=== PATIENT | female | born 2005 | race Caucasian/White ===

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

== ENCOUNTER → 2025-01-15 | Outpatient (CLI) | payer OTHER, SELFPAY ==
[2025-01-15 17:26] LABS: Follicle Stimulating Hormone 6.7 mIU/mL
[2025-01-17 08:09] LABS: PROGESTERONE 0.2 ng/mL (.)
== END | disposition home or self-care (01) ==
PROVIDERS: PCP Nurse Practitioner Family; Visit Provider Nurse Practitioner Women's Health
DX: N91.1 Secondary amenorrhea (principal)
CPT/HCPCS: 36415; 83001; 84144; 84439; 84443; 86376

== ENCOUNTER → 2025-03-21 | Outpatient (CLI) | payer OTHER, SELFPAY ==
--- OUTSIDE RECORDS SUMMARY | 2025-03-21 16:27 | XMS RPT_ITS | CCD ---
Author Organization [facility] Care Team Providers Care Accounts Adjustable Clerk Name Role Phone Lizy Chambers Unavailable Nati Cullen Unavailable Unavailable Unavailable Primary Care Provider Unavailabl e Unavailable Primary Care Provider Unavailabl e Lizy Chambers Primary Care Provider [phone] Lizy Chambers Primary Care Provider [phone] Loretta Painting Unavailable Unavailable Ms. Loretta Painting Attending Unavail able Reyes PEDODONTIST, Lizy Cooper Primary Care Provider [phone] Reyes BARBOSA, Lizy Cooper Primary Care Provider CHIQUITA ADHIKARI Attending Unavailable LIZY CHAMBERS Primary Care Unavailable LIZY CHAMBERS Primary Care Unavailable LIZY CHAMBERS Primary Care Unavailable LIZY CHAMBERS Primary Care Unavailable REYESRONEYA Kenneth Primary Care Unavailable RONEY CHAMBERSA Kenneth Primary Care Unavailable NAOMI CASTELAN Attending Unavail able LIZY CHAMBERS Primary Care Unavailable KWAKU PETTIT DO Primary Care Unavailable KAWKU PETTIT DO Attending Unavailable REYES, LIZY Consulting Unavailable KWAKU PETTIT DO Admitting Unavailable REYESRONEYA Referring Unavailable PROVIDER, UNKNOWN Consulting Unavailable REYES, LIZY Consulting Unavailable CLEMENTE BATES APRN Admitting Unavailable CLEMENTE BATES APRN Primary Care Unavailable CLEMENTE BATES APRN Attending Unavailable PROVIDER, UNKNOWN Consulting Unavailable REYES, LIZY Consulting Unavailable JANA, CLEMENTE FIRE PREVENTION SPECIALIST Admitting Unavailable JANA, CLEMENTE FIRE PREVENTION SPECIALIST Primary Care Unavailable CLEMENTE BATES APRN Attending Unavailable PROVIDER, UNKNOWN Consulting Unavailable CLEMENTE BATES APRN Attending Unavailable CLEMENTE BATES APRN Admitting Unavailable JANA, CLEMENTE FIRE PREVENTION SPECIALIST Primary Care Unavailable REYES, LIZY Consulting Unavailable PROVIDER, UNKNOWN Consulting Unavailable SHILOH, SUDEEP E Primary Care Unavailable SHILOH, SUDEEP E Attending Unavailable SHILOH, SUDEEP E Admitting Unavailable REYES, LIZY Consulting Unavailable REYES, LIZY Referring Unavailable PROVIDER, UNKNOWN Consulting Unavailable KWAKU PETTIT DO Primary Care Unavailable KWAKU PETTIT DO Attending Unavailable KWAKU PETTIT DO Admitting Unavailable REYES, LIZY Consulting Unavailable REYES, LIZY Referring Unavailable PROVIDER, UNKNOWN Consulting Unavailable REYES, LIZY Consulting Unavailable LEMASTERS, QUINN D Primary Care Unavailable LEMASTERSQUINN D Attending Unavailable LEMASTERS, QUINN D Admitting Unavailable REYES, LIZY Referring Unavailable PROVIDER, UNKNOWN Consulting Unavailable REYES, LIZY Referring Unavailable SHILOH, SUDEEP E Primary Care Unavailable SHILOH, SUDEEP E Attending Unavailable REYES, LIZY Consulting Unavailable SHILOH, SUDEEP E Admitting Unavailable PROVIDER, UNKNOWN Consulting Unavailable SOLORZANO, JOHAN C Primary Care Unavailable SOLORZANO, JOHAN C Attending Unavailable REYES, LIZY Consulting Unavailable SOLORZANO, JOHAN C Admitting Unavailable REYES, LIZY Referring Unavailable PROVIDER, UNKNOWN Consulting Unavailable Reyes GILL TENDER-C, Lizy Primary Care Provider Reyes GILL TENDER-C, Lizy Referring Provider [phone] [place] GILL TENDER-C, Mahogany Attending Provider Brinda GILL TENDER-C, [place] Referring Provider Reyes GILL TENDER-C, Lizy Primary Care Physician [place] GILL TENDER-C, [place] Attending Physician Brinda GILL TENDER, [place] Attending Unavailable Reyes, Lizy Primary Care Unavailable Brinda GILL TENDER, [place] Attending Unavailable Reyes, Lizy Primary Care Unavailable [place] GILL TENDER, [place] Attending Unavailable Reyes, Lizy Primary Care Unavailable Reyes, Lizy Referring Unavailable Reyes, Lizy Primary Care Unavailable Brinda GILL TENDER, [place] Attending Unavailable Reyes, Lizy Referring Unavailable FloresSeferino Attending Unavailable Reyes, Lizy Primary Care Unavailable Bee, Jacobo Attending Unavailable Reyes, Lizy Primary Care Unavailable Brinda GILL TENDER, [place] Attending Unavailable Brinda GILL TENDER, [place] Referring Unavailable Reyes, Lizy Primary Care Unavailable Allergies Allergy Classification Reported Allergen(s) Allergy Type Date of Onset Reaction(s) Facility (1 source) medroxyPROGESTERone Drug Allergy 5 Diarrhea [facility] (1 source) medroxyPROGESTERone Drug Allergy 5 [facility] Repository Medications Current Medications Medication Drug Class(es) Dates Sig (Normalized) Sig (Original) amoxicillin 875 mg oral tablet (3 sources) Penicillin-class Antibacterial Start: 05-25-2023 End: 06-04-2023 take 1 tablet by mouth twice daily amoxicillin (AMOXIL) 875 mg tablet Indications: Acute otitis media, bilateral Take 1 tablet by mouth two times a day for 10 days. 20 tablet 0 05/25/2023 06/04/2023 Active Start: 02-27-2023 End: 03-06-2023 take 1 tablet by mouth twice daily amoxicillin (AMOXIL) 875 mg tablet Take 1 tablet by mouth two times a day for 7 days. 14 tablet 0 02/27/2023 03/06/2023 Active Start: 12-23-2021 End: 12-30-2021 take 1 tablet by mouth twice daily amoxicillin (AMOXIL) 875 mg tablet Take 1 tablet by mouth twice daily for 7 days. 14 tablet 0 12/23/2021 12/30/2021 Active Comment on above: Take 1 tablet by rich th twice daily for 7 days. Take 1 tablet by rich two times a day for 7 days. Take 1 tablet by rich th two times a day for 10 days. cephalexin 500 mg oral capsule (2 sources) Cephalosporin Antibacterial Start: 01-17-20 End: 01-24-20 take 1 capsule by mouth twice daily cephALEXin (KEFLEX) 500 mg capsule Take 1 capsule by mouth twice daily for 7 days. 14 capsule 0 01/16/2022 01/23/2022 Active Comment on above: Take 1 capsule by mo [facility] twice daily for 7 days. Ethinyl Estradiol / Ferrous fumarate / Norethindrone (8 sources) Estrogen Start: 10-14-19 End: 03-17-20 take 1 tablet by mouth once daily CELESTE FE 1.5/30, 28, 1.5 mg-30 mcg (21)/75 mg (7) tablet Take 1 tablet by mouth once daily. 0 10/13/2021 03/17/2022 Discontinued Start: 10-13-2021 take 1 tablet by rich th once daily CELESTE FE 1.5/30, 28, 1.5 mg-30 mcg (21)/75 mg (7) tablet Take 1 tablet by mouth once daily. 0 10/13/2021 Active Comment on above: Take 1 tablet by rich th once daily. Ethinyl Estradiol / norgestimate (5 sources) Progestin, Estrogen Start: 02-07-2022 End: 03-17-2022 SPRINTEC 0.25-35 mg-mcg per tablet Start: 02-07-2022 SPRINTEC 0.25- 35 mg-mcg per tablet fluconazole 150 mg oral tablet (4 sources) Azole Antifungal Start: 10-18-2023 End: 10-18-2023 take 1 tablet by mouth once fluconazole (DIFLUCAN) 150 mg tablet Take 1 tablet by mouth one time only for 1 dose. 1 tablet 0 10/18/2023 10/18/2023 Active Start: 12-01-2022 End: 12-01-2022 take 1 tablet by mouth once fluconazole (DIFLUCAN) 150 mg tablet Take 1 tablet by mouth one time only for 1 dose. 1 tablet 0 12/01/2022 12/01/2022 Start: 02-11-2022 End: 02-12-2022 take 1 tablet by mouth once daily fluconazole (DIFLUCAN) 150 mg tablet Take 1 tablet by mouth once daily for 1 day. 1 tablet 0 02/11/2022 02/12/2022 Active Comment on above: Take 1 tablet by rich th once daily for 1 day. Take 1 tablet by rich th one time only for 1 dose. multivit with iron,minerals (MULTIVITAMIN AND MINERALS ORAL) (1 source) take 1 tablet by mouth once daily multivit with iron,minerals (MULTIVITAMIN AND MINERALS ORAL) Take 1 tablet by mouth once daily. Active norethindrone acetate 5 mg oral tablet (7 sources) Start: 02-14-20 24 norethindrone (AYGESTIN) 5 mg tablet Indications: abnormal uterine bleeding due to hormonal imbalance Take 1 tablet TID until bleeding stops for 24 hours, the BID x 3 days, then daily x 3 days. 35 tablet 02/14/2024 Active polyethylene glycol 3350 70603 mg powder for oral solution (20 sources) Osmotic Laxative Start: 04-29-19 12 Polyethylene Glycol 3350 (MIRALAX) 17 gram/dose ORAL powder Take by mouth. 2-3 tablespoons daily. 1 Bottle 3 04/29/2011 Active Comment on above: Take by mouth. 2-3 t ablespoons daily. predniSONE 10 mg oral tablet (1 source) Start: 07-14-19 predniSONE (DELTASONE) 10 mg tablet Take 4 tabs daily for 3 days, then 2 tabs daily for 3 days, then 1 tab daily for 3 days with food. 21 tablet 07/13/2024 Active progesterone 100 mg oral capsule (1 source) Progesterone Start: 01-16-20 triamcinolone acetonide 1 mg/ml topical cream (2 sources) Corticosteroid Start: 08-04-19 End: 08-11-19 triamcinolone acetonide (KENALOG) 0.1 % cream Apply 1 application to affected area three times a day for 7 days. Apply sparingly to area for rash/itching. 80 g 0 08/04/2023 08/11/2023 Active Start: 12-23-2022 End: 12-30-2022 triamcinolone acetonide (OSVALDO ALOG) 0.1 % cream Apply 1 application to affected area twice daily for 7 days. Apply sparingly to area for rash/itching. 45 g 0 12/23/2022 12/30/2022 Active Comment on above: Apply 1 application to affected area twice daily for 7 days. Apply sparingly to area for rash/itching. Completed/Discontinued Medications Medication Drug Class(es) Dates Sig (Normalized) Sig (Original) cetirizine hydrochloride 10 mg oral tablet (20 sources) Histamine-1 Receptor Antagonist Start: 10-15-19 End: 02-14-20 take 1 tablet by mouth once daily at bedtime cetirizine (ZYRTEC) 10 mg tablet Take 10 mg by mouth daily at bedtime. 10/14/2021 02/14/2024 Discontinued Comment on above: Take 10 mg by mouth daily at bedtime. 21 day ethinyl estradiol 0.793642 mg/hr / etonogestrel 0.005 mg/hr vaginal system (3 sources) Progestin, Estrogen Start: 10-18-19 End: 10-18-19 Etonogestrel-Ethinyl Estradiol (NUVARING) 0.12-0.015 mg/24 hr vaginal ring Use 1 Each vaginally as directed. INSERT ONE(1) RING VAGINALLY AND LEAVE IN PLACE FOR THREE WEEKS, THEN REMOVE FOR 1 WEEK. 3 Each 4 10/18/2023 02/14/2024 Discontinued fluticasone propionate 0.05 mg/actuat metered dose nasal spray (20 sources) Corticosteroid Start: 09-05-19 End: 02-14-20 take 1 spray(s) nasal route once daily fluticasone (FLONASE) 50 mcg/actuation nasal spray Use 1 [place] in each nostril once daily. 1 Bottle 0 09/04/2014 02/14/2024 Discontinued Comment on above: Use 1 [place] in each nostril once daily. levonorgestrel 0.000326 mg/hr intrauterine system (13 sources) Progestin, Progestin-contain ing Intrauterine Device Start: 03-31-20 End: 03-30-20 levonorgestrel (KYLEENA) 17.5 mcg/24 hrs (5 yrs) 19.5 mg IUD Indications: Encounter for IUD insertion 1 Each by INTRAUTERINE route as directed. 1 Each 0 03/31/2022 10/18/2023 Discontinued Comment on above: 1 Each by INTRAUTERI NE route as directed. medroxyPROGESTERone acetate 10 mg oral tablet (6 sources) Progestin Start: 11-14-19 End: 01-16-20 Medroxyprogesterone 10 mg tablet Discontinued 10 mg PO daily 10 10 2 November 13, 2024 12:00am January 15, 2025 3:27pm Take daily X 10 days to induce menses first 10 days of each month Start: 10-19-2024 End: 10-29-2024 take 1 tablet by mouth once daily Medroxyprogesterone 10 mg tablet Discontinued 10 mg PO daily 10 10 0 October 19, 2024 12:00am October 28, 2024 12:00am October 29, 2024 12:08am Start: 03-17-2022 take 1 tablet by rich th once daily medroxyPROGESTERone (PROVERA) 10 mg tablet Indications: Irregular menstrual cycle Take 1 tablet by mouth once daily. 10 tablet 0 03/17/2022 Active Comment on above: Take 1 tablet by rich th once daily. miSOPROStol 0.2 mg oral tablet (7 sources) Prostaglandin E1 Analog Start: 03-13-2022 miSOPROStol (CYTOTEC) 200 mcg tablet Indications: General counseling and advice for contraceptive management Insert 2 tablets vaginally night prior to IUD insertion and 2 tablets morning of procedure. Each dose should be in vagina for 6-8 hours. 4 tablet 0 03/13/2022 Active Comment on above: Insert 2 tablets vag inally night prior to IUD insertion and 2 tablets morning of procedure. Each dose should be in vagina for 6-8 hours. nitrofurantoin, macrocrystals 25 mg / nitrofurantoin, monohydrate 75 mg oral capsule (11 sources) Nitrofuran Antibacterial Start: 02-06-2022 nitrofurantoin monohydrate and macrocrystal (MACROBID) 100 mg capsule Start: 08-22-2021 End: 08-26-2021 take 1 capsule by mouth twice daily at mealtime Macrobid 100 mg oral capsule ; 1 cap(s) orally 2 times a day x 5 days. Take with food. Quantity: 10 Refills: 0 Ordered: 22-Aug-2021 Nati Cullen Start: 22-Aug-2021 End: 26-Aug-2021 Generic Substitution Allowed Comments: Finish all this medication unless otherwise directed by prescriber.May discolor urine or feces.Take with food or milk. Comment on above: Finish all this medi cation unless otherwise directed by prescriber.May discolor urine or feces.Take with food or milk. ondansetron 4 mg disintegrating oral tablet (13 sources) Serotonin-3 Receptor Antagonist Start: End: take 1 tablet by mouth every six hours as needed for nausea ondansetron orally disintegrating (ZOFRAN ODT) 4 mg disintegrating tablet Indications: Nausea and vomiting, unspecified vomiting type Take 1 tablet by mouth every 6 hours as needed for nausea/vomiting. 12 tablet 05/05/2023 02/14/2024 Discontinued Start: 06-30-2022 take 1 tablet by rcih th every six hours as needed for nausea ondansetron orally disintegrating (ZOFRAN ODT) 4 mg disintegrating tablet Indications: Flu-like symptoms Take 1 tablet by mouth every 6 hours as needed for nausea/vomiting. 8 tablet 0 06/30/2022 Active Comment on above: Take 1 tablet by rich th every 6 hours as needed for nausea/vomiting. 24 hr propranolol hydrochloride 60 mg extended release oral capsule (11 sources) beta-Adrenergic Romle End: take 1 capsule by mouth once daily propranolol ER (INDERAL LA) 60 mg 24 hr capsule propranolol ER 60 mg capsule,24 hr,extended release TAKE 1 CAPSULE BY MOUTH ONCE DAILY 02/14/2024 Discontinued Comment on above: propranolol ER 60 mg capsule,24 hr,extended release TAKE 1 CAPSULE BY MOUTH ONCE DAILY Problems Active Problems Problem Classification Problem Date Documented Date Episodic/Chronic Allergic reactions (1 source) Contact dermatitis; Translations: [Unspecified contact dermatitis, unspecified cause] 12-23-2022 Episodic Cardiac dysrhythmias (4 sources) Tachycardia; Translations: [Tachycardia, unspecified] 03-03-2024 Episodic Conditions associated with dizziness or vertigo (1 source) Dizziness and giddiness; Translations: [Dizziness and giddiness] Onset: 06-01-2024 Episodic E Codes: Fall (1 source) Fall on same level due to ice and snow, initial encounter; Translations: [Fall on same level due to ice and snow, initial encounter] Onset: 05-05-2024 Episodic E Codes: Natural/environment (1 source) Overexertion from strenuous movement or load, initial encounter; Translations: [Overexertion from strenuous movement or load, init] Onset: 11-14-2022 Episodic Essential hypertension (1 source) Essential (primary) hypertension; Translations: [Essential (primary) hypertension] Onset: 06-01-2024 Chronic Genitourinary symptoms and ill-defined conditions (5 sources) Dysuria; Translations: [Dysuria] 08-22-2021 Episodic Headache; including migraine (4 sources) Migraine; Translations: [Migraine, unspecified, not intractable, without status migrainosus] 01-23-2024 Chronic Headache; including migraine (2 sources) Headache; Translations: [Headache, unspecified headache type] 07-13-2024 Episodic Menstrual disorders (13 sources) Irregular periods; Translations: [Irregular menstruation, unspecified] Onset: 10-19-2024 Chronic Mood disorders (1 source) Emotional lability; Translations: [Emotional lability] Onset: 06-01-2024 Episodic Other circulatory disease (1 source) Postural orthostatic tachycardia syndrome ; Translations: [Postural orthostatic tachycardia syndrome [POTS]] Onset: 06-01-2024 Episodic Other endocrine disorders (2 sources) Polycystic ovarian syndrome; Translations: [Polycystic ovarian syndrome] Onset: 06-01-2024 Chronic Other endocrine disorders (8 sources) Polycystic ovary syndrome; Translations: [Polycystic ovarian syndrome] 10-19-2024 Chronic Other female genital disorders (1 source) Unspecified dyspareunia; Translations: [Unspecified dyspareunia] Onset: 01-05-2024 Chronic Other female genital disorders (4 sources) Abnormal vaginal bleeding; Translations: [Abnormal uterine and vaginal bleeding, unspecified] 03-03-2024 Chronic Other female genital disorders (1 source) Abnormal uterine and vaginal bleeding, unspecified; Translations: [Abnormal uterine and vaginal bleeding, unspecified] Onset: 03-22-2024 Chronic Other female genital disorders (3 sources) Vaginal discharge; Translations: [Other specified noninflammatory disorders of vagina] 12-01-2022 Episodic Other female genital disorders (1 source) History of gynecological disorder; Translations: [Personal history of other diseases of the female genital tract] 02-17-2023 Episodic Other female genital disorders (1 source) Pruritus of vagina; Translations: [Other specified noninflammatory disorders of vagina] 10-18-2023 Episodic Other female genital disorders (1 source) Vaginal odor; Translations: [Other specified noninflammatory disorders of vagina] 02-14-2024 Episodic Other injuries and conditions due to external causes (1 source) Unspecified injury of left shoulder and upper arm, initial encounter; Translations: [Unsp injury of left shoulder and upper arm, init encntr] Onset: 11-14-2022 Episodic Other lower respiratory disease (2 sources) Cough; Translations: [Acute cough] 03-02-2024 Episodic Other non-traumatic joint disorders (2 sources) Pain in left elbow; Translations: [Pain in left elbow] Onset: 11-14-2022 Episodic Other non-traumatic joint disorders (1 source) Pain in left shoulder; Translations: [Pain in left shoulder] Onset: 11-14-2022 Episodic Other nutritional; endocrine; and metabolic disorders (1 source) Polydipsia; Translations: [Polydipsia] Onset: 06-01-2024 Episodic Other skin disorders (1 source) Eruption; Translations: [Rash and other nonspecific skin eruption] 08-04-2023 Episodic Other upper respiratory infections (2 sources) Sore throat symptom; Translations: [Acute pharyngitis, unspecified] 03-02-2024 Episodic Otitis media and related conditions (3 sources) Acute right otitis media; Translations: [Otitis media, unspecified, right ear] Episodic Ovarian cyst (1 source) Cyst of right ovary; Translations: [Unspecified ovarian cyst, right side] 12-01-2022 Episodic Residual codes; unclassified (1 source) Influenza-like symptoms; Translations: [Other general symptoms and signs] Episodic Sprains and strains (2 sources) Sprain of left shoulder; Translations: [Sprains and strains of unspecified site of shoulder and upper arm] Onset: 11-14-2022 11-14-2022 Episodic Substance-related disorders (1 source) Nicotine dependence, other tobacco product, uncomplicated; Translations: [Nicotine dependence, other tobacco product, uncomplicated] Onset: 05-05-2024 Chronic Superficial injury; contusion (1 source) Contusion of right shoulder, initial encounter; Translations: [Contusion of right shoulder, initial encounter] Onset: 05-05-2024 Episodic Syncope (4 sources) Syncope; Translations: [Syncope and collapse] 01-23-2024 Episodic Unclassified (2 sources) LEFT SHOULDER INJURY 11-14-2022 Comment on above: LEFT SHOULDER INJURY Unclassified (1 source) Sprain of left shoulder 11-14-2022 Unclassified (1 source) Acute cough; Translations: [Acute cough] Onset: 03-02-2024 Urinary tract infections (2 sources) Urinary tract infections 08-22-2021 Comment on above: POSSIBLE UTI Past or Other Problems Problem Classification Problem Date Documented Da te Episodic/Chronic Abdominal pain (13 sources) Vaginal pain; Translations: [Pelvic and perineal pain] Onset: 10-19-2024 Episodic Contraceptive and procreative management (6 sources) Patient encounter status; Translations: [Encounter for other general counseling and advice on contraception] Onset: 10-18-2023 Episodic Epilepsy; convulsions (20 sources) Simple febrile seizure; Translations: [Simple febrile convulsions] Onset: 11-02-2008 11-02-2008 Episodic Fracture of upper limb (20 sources) Closed fracture of lower end of humerus; Translations: [Unspecified fracture of lower end of unspecified humerus, initial encounter for closed fracture] Onset: 03-13-2009 03-13-2009 Episodic Other non-traumatic joint disorders (7 sources) Pain in right shoulder; Translations: [Right shoulder pain] Onset: 05-05-2024 Episodic Results Test Name Value Interpretation Reference Range Facility PROGESTERONE 4317on 01-18-20 PROGESTERONE 0.2 ng/mL Normal . [facility] Comment on above: Order Comment: N Result Comment: Foll icular phase 0.1 - 0.9 Luteal phase 1.8 - 23.9 Ovulation phase 0.1 - 12.0 First trimester 11.0 - 44.3 Second trimester 25.4 - 83.3 Third trimester 58.7 - 214.0 Postmenopausal 0.0 - 0.1 Performed at: [address] [id number] Ring Spinner: Rainer Crane PhD, Phone: [phone] Performed By: #### L [id number], L506.0400, L3100.5125, [id number], L3514.2217 #### [facility] [address] [place], [address] Thyroid Peroxidase ABon - THYR PEROX AB < 9 Normal 0-26 [facility] Comment on above: Result Comment: Perf ormed at: [address] [id number] Ring Spinner: Rainer Crane PhD, Phone: [phone] Performed By: #### L [id number], L506.0400, L3100.5125, L801.2600, L3740.6625 #### [facility] [address] [place], [address] Follicle Stimulating Hormone on 01-15-2025 FSH 6.7 mIU/mL Normal [facility] Comment on above: Result Comment: FEMA LE: Follicular: 1.4 - 18.1 mIU/mL Midcycle: 3.4 - 33.4 mIU/mL Luteal: 1.5 - 9.1 mIU/mL Post Menopause: 23.0 - 116.3 mIU/mL MALE: 1.4 - 18.1 mIU/mL Performed By: #### L [id number], L506.0400, L3100.5125, L801.2600, L3300.6900 #### [facility] [address] [place], [address] 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 Visit Reporton 01-15-2025 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 Office Visit Report [facility] [address], [address] [place] [address] OFFICE VISIT Date of Service: 01/15/25 MR#: [id number] Acct: [id number] Name: CLARISSE MOLINA Rep #: [id number] : 2005 Provider: NICCI carrion Age/Sex: 19/F [place] [facility] [place]: Signed Intake Vital Signs 10/19/24 11:41 01/15/25 15:16 01/15/25 15:20 Height 5 ft 5 in 5 ft 5 in 5 ft 5 in Weight: 204 lb 7 oz BMI 34.0 BP 134/83 H Intake Visit Reasons: 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 [employer] Required: No Is patient in pain?: No Allergies medroxyprogesterone Adverse Reaction (Mild, Verified 01/15/25 15:27) Diarrhea Medications ???Medication ???Instructions ???Recorded ???Confirmed ???Type progesterone micronized 100 mg 100 mg PO .COMPLEX #20 caps 01/15/25 Rx capsule (Prometrium) Is last menstrual period known: Yes Last Menstrual Period: 12/24/24 Post menopausal: No Patient : No : No PFSH Medical History PCOS (polycystic ovarian syndrome) Essential tremor Surgical History Hx of shoulder surgery History of tonsillectomy and adenoidectomy Family History Grandmother Cancer, Onset Age: 32 Paternal- Cervical Grandfather Cancer Maternal- Throat, lung Social History current occupational status: employed current occupation: [employer] Smoking Status: Current every day smoker tobacco type: e-cigarettes substance use type: does not use seatbelt use: always do you feel safe at home: Yes HPI 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 Details: CLARISSE MOLINA is a 19 year old who presents for follow up infertility. She took provera in November and December and did have a normal menses. She attempted to take it again this month but realized that the last couple of months when she is on medication, she has terrible migraine headache and diarrhea which symptoms subside as soon as she stops the medication. She does not want to use the provera. Female Reproductive History Last Menstrual Period: 12/24/24 History 0 Elective abortions Hx Para Spontaneous abortions Hx # Term Pregnancies Ectopic pregnancies Hx # Pregnancies Multiple births # of living children ROS Const Constitutional: Reports system reviewed and no additional complaints, except as documented Eyes Eyes: Reports system reviewed and no additional complaints, except as documented GI GI: Denies abdominal pain or change in bowel habits : Reports as per HPI Exam Const General: cooperative and no acute distress Orientation: oriented x3 HENMT Head: normal to inspection and normocephalic Eyes General: appearance normal, both eyes and all related structures Neck Neck: normal visual inspection Resp Effort Inspection: normal respiratory effort Neuro Cognition: normal cognition Speech: speech normal Psych Appearance: grossly normal Mood: congruent mood Affect: normal affect Speech and Movement: speech and movement normal Attitude: cooperative Judgment: judgment good Coding Level of Care Code Off vis,est,level 3 Diagnoses Secondary amenorrhea N91.1 Assessment and Plan Assessment and Plan (1) Secondary amenorrhea: Status: Acute Orders: Orders Thyroid Stim Hormone (TSH) Today N91.1 - Secondary amenorrhea, Z13.29 - Encounter for screening for other suspected endocrine disorder Free T4 Today N91.1 - Secondary amenorrhea Thyroid Peroxidase AB Today N91.1 - Secondary amenorrhea PROGESTERONE Today N91.1 - Secondary amenorrhea Follicle Stimulating Hormone Today N91.1 - Secondary amenorrhea Medications: New progesterone micronized (Prometrium) 100 mg orally first 10 days each month; 20 caps 1RF Discontinued medroxyprogesterone Take daily X 10 days to induce menses first 10 days of each month Discontinued Reason: Order Changed 10 mg PO QDAY 10 days 10 tabs 2RF Plan See labs pending Will change to prometrium first 10 days each month. Management dependent on above. Consider letrozole 01/15/25 1606 Date Mahogany Brinda GILL TENDER GILL TENDER-C Cosigner Signature: Date (if applicable) CC: Normal [facility] T4 Free Directon 01-15-2025 T4 FREE DIRECT 1.20 ng/dL Normal 0.76-1.46 [facility] Comment on above: Order Comment: N Performed By: #### L 501.9520, L506.0400, L3100.5125, L801.2600, L3300.6900 #### [facility] [address] [place], [place], [id number] T4 freeOrdered By: Mahogany fried on 01-15-2025 Free T4 [Mass/Vol] 1.20 ng/dL 0.76-1.46 [facility] TSH DL <= 0.005 mIU/L QnOrde red By: Mahogany Parry on 01-15-2025 TSH Qn 1.560 uIU/mL 0.500-4.300 [facility] Thyroid Stim Hormone (TSH)on 01-15-2025 TSH 1.560 uIU/mL Normal 0.500-4.300 [facility] Comment on above: Performed By: #### L 501.9520, L506.0400, L3100.5125, L801.2600, L3300.6900 #### [facility] [address] [place], [place], [id number] 17-Hydroxyprogesteroneon 17ALPHA [place]-PROG 54 ng/dL Normal . [facility] Comment on above: Order Comment: Test( s) [id number] Progesterone LCMSwas developed and its performance characteristicsdetermined by [employer]. It has not been cleared or approvedby the Food and Drug Administration.N Result Comment: Adul t Female Follicular 15 - 70 Luteal 35 - 290 Performed By: #### L 801.2600, L3100.9000, L501.9985, L3100.5170, L3100.5400, L3300.1500, L3400.4800 ####[facility] [address] [place], [address] PROGESTERONE 4317on 10-25-19 PROGESTERONE 0.1 ng/mL Normal . [facility] Comment on above: Order Comment: Test( s) [id number] Progesterone LCMSwas developed and its performance characteristicsdetermined by [employer]. It has not been cleared or approvedby the Food and Drug Administration.N Result Comment: Foll icular phase 0.1 - 0.9 Luteal phase 1.8 - 23.9 Ovulation phase 0.1 - 12.0 First trimester 11.0 - 44.3 Second trimester 25.4 - 83.3 Third trimester 58.7 - 214.0 Postmenopausal 0.0 - 0.1 Performed at: [address] [id number] Ring Spinner: Michael Waller MD, Phone: [phone] Performed at: [address] [id number] Ring Spinner: Rainer Crane PhD, Phone: [phone] Performed By: #### L 801.2600, L3100.9000, L501.9985, L3100.5170, L3100.5400, L3300.1500, L3400.4800 ####[facility] [address] [place], [address] DHEA Sulfateon 10-23-2024 DHEA SULFATE 120.0 ug/dL Normal 110.0-433.2 [facility] Comment on above: Order Comment: N Performed By: #### L 801.2600, L3100.9000, L501.9985, L3100.5170, L3100.5400, L3300.1500, L3400.4800 ####[facility] [address] [place], [place], [id number] PROLACTIN 4465on 10-23-2024 PROLACTIN 9.9 ng/mL Normal 4.8-33.4 [facility] Comment on above: Performed By: #### L 801.2600, L3100.9000, L501.9985, L3100.5170, L3100.5400, L3300.1500, L3400.4800 ####[facility] [address] [place], [place], [address] Pelvic w/ Transvaginalon Pelvic w/ Transvaginal [facility] [address] [place], [place] [address] Pelvic w/ Transvaginal MR#: [id number] Acct: [id number] Name: CLARISSE MOLINA Rep #: [id number] : 2005 F 19 From: Papa oleary MD PCP: NICCI Malik Status: REG CLI Study: Pelvic w/ Transvaginal Date of Exam: 10/23/24 Exam# [id number] Ordering Dr: Mahogany Parry NP GILL TENDER -C PROCEDURE: PELVIC W/ TRANSVAGINAL REASON FOR EXAM: PELVIC PAIN 2 year history of pelvic pain. TECHNIQUE: PELVIC W/ TRANSVAGINAL COMPARISON: None FINDINGS: Measurements: Uterus: 6.9 cm x 4.1 cm x 3.1 cm with a volume of 45.15 mL Endometrial Thickness: 8.4 mm. It is hyperechoic. Right Ovary: 3.7 cm x 2 cm x 2.1 cm with a volume of 7.77 mL. Left Ovary: 3.4 cm x 2.2 cm x 2.0 cm with a volume of 7.57 mL. TRANSABDOMINAL: Uterus: Normal size, myometrial echotexture, and contour. Endometrium: Homogeneously thickened. Right ovary: Multiple small follicles in the periphery of the ovary. Left ovary: Multiple small follicles are seen in the periphery of the ovary. Other: No large pelvic mass identified. Transvaginal sonography was performed to better visualize the endometrium. TRANSVAGINAL: Uterus: Anteverted. Normal contour and myometrial echotexture. Endometrium: Normal echotexture. Right ovary: Multiple small follicles are seen in the periphery of the ovary. Left ovary: Multiple small follicles are seen in the periphery of the ovary. Other adnexal findings: None. Cul-de-sac: No free intraperitoneal fluid identified. Tenderness: No tenderness US/Pelvic w/ Transvaginal IMPRESSION: Findings suggestive of polycystic ovaries. Reading Location: [place] [address] CC: NICCI Chambers; NICCI Parry Insulation Cutter: Signed Normal [facility] Testosterone Freeon 10-24-19 25 TESTOSTER FREE 0.9 pg/mL Normal Not Estab. [facility] Comment on above: Result Comment: Perf ormed at: CB - [facility] [address] [id number] Ring Spinner: Rainer Crane PhD, Phone: [phone] Performed at: - [facility] [address] [id number] Ring Spinner: Michael Waller MD, Phone: [phone] Performed By: #### L 801.2600, L3100.9000, L501.9985, L3100.5170, L3100.5400, L3300.1500, L3400.4800 ####[facility] [address] [place], [address] Hemoglobin A1con 10-19-2024 HbA1c (Bld) [Mass fraction] 5.3 % Normal <=5.6 [facility] Comment on above: Result Comment: Norm al < 5.7 % Prediabetic 5.7 - 6.4 % Diabetic >or= 6.5 % Please note range changes. Performed By: #### L 801.2600, L3100.9000, L501.9985, L3100.5170, L3100.5400, L3300.1500, L3400.4800 #### [facility] [address] [place], [address] Hemoglobin A1c percentageOrd ered By: Mahogany Parry on 10-19-2024 HbA1c (Bld) [Mass fraction] 5.3 % <5.7 [facility] Comment on above: Normal < 5.7 % Predi abetic 5.7 - 6.4 % Diabetic >or= 6.5 % Please note range changes. LH ser/plasOrdered By: Mahogany Parry on 10-19-2024 Lutropin Qn 19.9 m[IU]/mL [facility] Comment on above: FEMALE:Follicular: 1 .9-12.5 mIU/mLMidcycle: 8.7-76.3 mIU/mLLuteal: 0.5-16.9 mIU/mLPost Menopause: 15.9-54.0 mIU/mLMALE:20-70 Years: 1.5-9.3 mIU/mL>70 Years: 3.1-34.6 mIU/mL Laboratory - Chemistry and C hemistry - challengeOrdered By: Mahogany Parry on 10-19-2024 HCG ( test) Ql (U) Negative [facility] Luteinizing Hormoneon 2024 LH 19.9 mIU/mL Normal [facility] Comment on above: Result Comment: FEMA LE: Follicular: 1.9-12.5 mIU/mL Midcycle: 8.7-76.3 mIU/mL Luteal: 0.5-16.9 mIU/mL Post Menopause: 15.9-54.0 mIU/mL MALE: 20-70 Years: 1.5-9.3 mIU/mL >70 Years: 3.1-34.6 mIU/mL Performed By: #### L 801.2600, L3100.9000, L501.9985, L3100.5170, L3100.5400, L3300.1500, L3400.4800 ####[facility] [address] 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) Allergies No Known Allergies Allergy (Verified 10/19/24 11:08) Medications ???Medication ???Instructions ???Recorded ???Confirmed ???Type medroxyprogesterone 10 mg tablet 10 mg PO QDAY 10 days #10 tabs 02/0310/19/24 Rx PFSH Medical History (Updated 10/19/24 @ 11:11 by Mahogany Parry NP, NICCI) PCOS (polycystic ovarian syndrome) Essential tremor Surgical History Hx of shoulder surgery History of tonsillectomy and adenoidectomy Family History (Updated 10/19/24 @ 10:57 by Pearl Wren) Grandmother Cancer, Onset Age: 32 Paternal- Cervical Grandfather Cancer Maternal- Throat, lung Social History (Updated 10/19/24 @ 10:58 by Pearl Wren) current occupational status: employed current occupation: [employer] Smoking Status: Current every day smoker tobacco type: e-cigarettes substance use type: does not use seatbelt use: always do you feel safe at home: Yes HPI Encounter for routine gynecological examination Details: CLARISSE MOLINA is a 19 year old who presents for new patient discussion of no menses several years. States was seen 3-4 mo ago at [facility] for same issue. States no labs done. Was told PCOS and needed to be on oral contraceptives. States she wants . Same partner X 2 years. Has had negative STD testing in past and she is his only past partner. States she had an IUD and was given a medication to start menses prior to insertion but did not get them. She has not used contraception or condoms over 1 year. History 0 Elective abortions Hx Para Spontaneous abortions Hx # Term Pregnancies Ectopic pregnancies Hx # Pregnancies Multiple births # of living children ROS Const Constitutional: Reports system reviewed and no additional complaints, except as documented Eyes Eyes: Reports system reviewed and no additional complaints, except as documented GI GI: Denies abdominal pain or change in bowel habits : Reports as per HPI Exam Const General: cooperative and no acute distress Orientation: oriented x3 HENMT Head: normal to inspection and normocephalic Eyes General: appearance normal, both eyes and all related structures Neck Neck: normal visual inspection Resp Effort Inspection: normal respiratory effort Neuro Cognition: normal cognition Speech: speech normal Psych Appearance: grossly normal Mood: congruent mood Affect: normal affect Speech and Movement: speech and movement normal Attitude: cooperative Judgment: judgment good Results POC Urine Office , Urine Negative Last Edit by Pearl Wren on 10/19/24 11:20 Coding Level of Care Code Off vis,new,level 4 Diagnoses Secondary amenorrhea N91.1 PCOS (polycystic ovarian syndrome) E28.2 Pelvic pain R10.2 Assessment and Plan Assessment and Plan (1) Secondary amenorrhea: Status: Acute (2) PCOS (polycystic ovarian syndrome): Status: Acute (3) Pelvic pain: Status: Acute Orders: Orders POC Urine Today E28.2 - Polycystic ovarian syndrome, N91.1 - Secondary amenorrhea, N91.2 - Amenorrhea, unspecified, R10.2 - Pelvic and perineal pain Testosterone Free Today N91.1 - Secondary amenorrhea DHEA Sulfate Today N91.1 - Secondary amenorrhea PROLACTIN Today N91.1 - Secondary amenorrhea PROGESTERONE Today N91.1 - Secondary amenorrhea Hemoglobin A1c Today N91.1 - Secondary amenorrhea 17-Hydroxyprogesterone Today N91.1 - Secondary amenorrhea Luteinizing Hormone Today N91.1 - Secondary amenorrhea Pelvic w/ Transvaginal Today E28.2 - Polycystic ovarian syndrome, N91.1 - Secondary amenorrhea, R10.2 - Pelvic and perineal pain Medications: New medroxyprogesterone 10 mg PO QDAY 10 days 10 tabs 0RF Plan Negative UPT See labs pending and pelvic ultrasound ordered Provera challenge. Management will be dependent on above results. 10/19/24 1209 Date Mahoganyethel Parry GILL TENDER GILL TENDER-C Cosigner Signature: Date (if applicable) CC: Normal [facility] Serum or plasma 17-hydroxypr ogesterone measurement (mass/volume)Ordered By: Mahogany Parry on 10-19-2024 17-Hydroxyprogester one [Mass/Vol] 54 ng/dL . [facility] Comment on above: Adult Female Follicu lar 15 - 70 Luteal 35 - 290 Serum or plasma free testost erone measurement (mass/volume)Ordered By: Mahogany Parry on 10-19-2024 Testosterone Free [Mass/Vol] 0.9 pg/mL Not Estab. [facility] Comment on above: Performed at: [facility] [employer] [id number] Director: Rainer Crane PhD, Phone: [phone] at: [facility] [id number] Director: Michael Waller MD, Phone: [phone] Serum or plasma prolactin me asurement (mass/volume)Ordered By: Mahogany Parry on 10-19-2024 Prolactin [Mass/Vol] 9.9 ng/mL 4.8-33.4 [facility] CNOVon 07-13-2024 CNOV Office Visit ([facility]WSTR ) CLARISSE MOLINA ([id number]) 5 F Date Time Provider Department 07/13/24 10:45 AM LUC MARIE [facility] During your visit today, we recorded the following information about you: Temperature Pulse Respiration Blood pressure 97.3 degrees 82/minute 20/minute 106/72 Weight 87 kg Luc Marie APRN.PEDODONTIST 07/13/2024 11:34 AM Signed Subjective HPI Nontoxic-appearing female presents urgent care chief complaint migraine headache. Duration of symptoms episodic over the last month. Associated symptoms headache pain that starts in the back of the head and radiates behind her eyes bilaterally. States pain radiates into her shoulders as well. States history of migraines. Usually able to break with OTC medications. States this migraine has been waxing and waning over the last month. States there is no morning improves at the day and worsens again at night. Denies any weakness. No visual issues. No decreased coordination. No nausea or vomiting. Is not is not breast-feeding. Past medical history prescription medications allergies reviewed. .Patient presents with: Headache: Neck pain in back of head, on R side, causes migraines, nausea, x 1 months painful to look down, PAST MEDICAL HISTORY Diagnosis Date Febrile convulsions (simple), unspecified @ 6months Ruptured ovarian cyst 2021 [facility] PAST SURGICAL HISTORY Procedure Laterality Date KYLEENA IUD 03/31/2022 5 year TONSILLECTOMY AND ADENOIDECTOMY ALLERGIES Patient has no known allergies. MEDICATIONS multivit with iron,minerals (MULTIVITAMIN AND MINERALS ORAL) Take 1 tablet by mouth once daily. norethindrone (AYGESTIN) 5 mg tablet Take 1 tablet TID until bleeding stops for 24 hours, the BID x 3 days, then daily x 3 days. (Patient not taking: Reported on 03/02/2024) Polyethylene Glycol 3350 (MIRALAX) 17 gram/dose ORAL powder Take by mouth. 2-3 tablespoons daily. (Patient not taking: Reported on 07/13/2024) FAMILY HISTORY Problem Relation Age of Onset other (epilepsy [Other]) Mother No Known Problems Father No Known Problems Sister No Known Problems Brother Arthritis Maternal Grandmother rheumatoid other (epilepsy [Other]) Maternal Grandmother Social History Tobacco Use Smoking status: Never Vaping Use Vaping status: Never Used Substance Use Topics Alcohol use: No Drug use: No BP 106/72 Pulse 82 Temp 36.3 ?C (97.3 ?F) Resp 20 Wt 87 kg (191 lb 12.8 oz) LMP (LMP Unknown) SpO2 100% Review of Systems Constitutional: Negative for chills, fever and malaise/fatigue. HENT: Negative for congestion, ear discharge, ear pain, sinus pain and sore throat. Eyes: Negative for blurred vision, pain, discharge and redness. Respiratory: Negative for cough, hemoptysis, sputum production, shortness of breath, wheezing and stridor. Cardiovascular: Negative for chest pain. Gastrointestinal: Negative for abdominal pain, diarrhea, nausea and vomiting. Musculoskeletal: Negative for myalgias. Skin: Negative for itching and rash. Neurological: Positive for headaches. Negative for dizziness, tingling, sensory change, speech change, focal weakness, seizures, loss of consciousness and weakness. Objective Physical Exam Constitutional: General: She is not in acute distress. Appearance: She is not diaphoretic. HENT: Head: Normocephalic. Jaw: No trismus, tenderness, swelling or pain on movement. Mouth/Throat: Mouth: Mucous membranes are moist. Pharynx: Oropharynx is clear. Uvula midline. No pharyngeal swelling, oropharyngeal exudate, posterior oropharyngeal erythema or uvula swelling. Eyes: Conjunctiva/sclera: Conjunctivae normal. Pupils: Pupils are equal, round, and reactive to light. Cardiovascular: Rate and Rhythm: Normal rate and regular rhythm. Heart sounds: Normal heart sounds. Pulmonary: Effort: Pulmonary effort is normal. No tachypnea, accessory muscle usage or respiratory distress. Breath sounds: Normal breath sounds. No stridor. No wheezing, rhonchi or rales. Abdominal: General: There is no distension. Palpations: Abdomen is soft. Tenderness: There is no abdominal tenderness. There is no guarding or rebound. Musculoskeletal: Cervical back: Normal range of motion and neck supple. No edema, erythema, rigidity or tenderness. No pain with movement. Normal range of motion. Lymphadenopathy: Cervical: No cervical adenopathy. Skin: General: Skin is warm and dry. Neurological: General: No focal deficit present. Mental Status: She is alert and oriented to person, place, and time. Mental status is at baseline. Sensory: No sensory deficit. Motor: No weakness. Coordination: Coordination normal. Gait: Gait normal. ASSESSMENT/PLAN: 1. Headache, unspecified headache type - ICD9: 784.0, ICD10: R51.9 - CONSULT TO NEUROLOGY Diagnosed with a headache. (more content not included)... Normal [facility] CNOVon 06-12-2024 CNOV Office Visit (UCTR ) CLARISSE MOLINA ([id number]) 5 F Date Time Provider Department 06/12/24 12:00 PM WILFRID SMITH [facility] During your visit today, we recorded the following information about you: Temperature Pulse Respiration Blood pressure 98.3 degrees 106/minute 16/minute 126/72 Weight 86.6 kg Wilfrid Smith MD 06/12/2024 11:32 AM Signed Patient presents with: Sore Throat: cough x 2 days HPI: Feeling sick for a couple days. Her daughter and mother had strep throat. Positive symptoms: Cough, Sore throat, Nasal Congestion, Rhinorrhea, Fever yesterday, Negative symptoms: Nausea, Vomiting, Diarrhea, She has already had influenza, norovirus, and a head cold this year. MEDICATIONS: Current Outpatient Medications Medication Sig norethindrone (AYGESTIN) 5 mg tablet Take 1 tablet TID until bleeding stops for 24 hours, the BID x 3 days, then daily x 3 days. (Patient not taking: Reported on 03/02/2024) Polyethylene Glycol 3350 (MIRALAX) 17 gram/dose ORAL powder Take by mouth. 2-3 tablespoons daily. No current facility-administered medications for this visit. ALLERGIES: ALLERGIES No Known Allergies VITALS: BP 126/72 Pulse 106 Temp 36.8 ?C (98.3 ?F) Resp 16 Wt 86.6 kg (190 lb 14.7 oz) LMP 01/07/2024 SpO2 98% PHYSICAL EXAM: GEN: mildly ill appearing HEENT: PERRL, EOMI, conjunctiva clear Ears: canals clear. TMs without erythema, bulge, or effusion Sinuses: non-tender frontal sinus, non-tender maxillary sinuses Throat: moist mucous membranes, mild erythema, no exudate Neck: supple, no thyromegaly, no lymphadenopathy HEART: regular rate, regular rhythm, no murmurs LUNGS: clear to auscultation, no wheezes or crackles, no increased WOB ASSESSMENT/PLAN: 1. Sore throat - ICD9: 462, ICD10: J02.9 - STREP A MOLECULAR (POC) - negative. - suspect viral URI - Discussed supportive care treatment with rest, cold medicine, and analgesia. Follow up with worsening cough, worsening shortness of breath, increasing chest pain, worsening sinus pressure, or late onset fever. Consider evaluation with PCP if she continues to have recurrent illnesses. Wilfrid Smith MD Allergies As of Date: 06/12/2024 (No Known Allergies) Date Reviewed: 06/12/2024 Reviewed by: Yana Carias MA - Fully Assessed Reason for Visit: Sore Throat [200] Cmt: cough x 2 days Primary Visit Diagnosis:Sore throat [J02.9] Order(s):STREP A MOLECULAR (POC) [7217325] Order #: [id number]. #:[id number] Prescriptions as of 06/12/2024 - norethindrone (AYGESTIN) 5 mg tablet Take 1 tablet TID until bleeding stops for 24 hours, the BID x 3 days, then daily x 3 days. - Polyethylene Glycol 3350 (MIRALAX) 17 gram/dose ORAL powder Take by mouth. 2-3 tablespoons daily. Problem List As Of Date 06/12/2024 Noted Resolved FEBRILE CONVULSIONS NOS [R56.00] 11/02/2008 Closed Fracture of Unspecified Part of Lower En*03/13/2009 Level of Service: OFFICE/OUTPATIENT ESTABLISHED LOW MDM 20 MIN [36073] Encounter Status:Closed by WILFRID SMITH on 06/12/24 Normal [facility] STREP A MOLECULAR (POC)on Procedural Control Valid [facility] Strep A (POCT) Negative Negative [facility] THYROGLOBULIN AB [CCL]on Thyroglobulin Ab, Serum <0.9 Normal <4.0 [facility] Comment on above: Result Comment: The Thyroglobulin Antibody test was performed using the [employer] Unicel DXI paramagnetic particle chemiluminescent immunoassay method. Results obtained with different assay methods or kits cannot be used interchangeably. [place] [address] [place] [address] Lucio Bose III, M.D. [id number] Performed By: #### 2 40802 #### [facility],[address] [place] [address] CBC + DIFFon 06-01-2024 Baso # 0.04 x10EE3/UL Normal 0.00 - 0.10 [facility] Comment on above: Performed By: #### 2 55289 #### [facility],[address] [place] [address]247 Basophils/100 WBC (Bld) 0.4 % Normal 0.0 - 2.0 [facility] Comment on above: Performed By: #### 2 35009 #### [facility],[address] [place] [address]243 CBC + DIFF Normal [facility] Comment on above: Result Comment: CBC- COMPLETE BLOOD COUNT Performed By: #### 2 37335 #### [facility],[address] [place] [address] EO # 0.29 x10EE3/UL Normal 0.00 - 0.50 [facility] Comment on above: Performed By: #### 2 76979 #### [facility],[address] [place] [address]692 Eosinophils/100 WBC (Bld) 2.7 % Normal 0.0 - 7.0 [facility] Comment on above: Performed By: #### 2 04334 #### [facility],[address] [place] [address]6110 Erythrocyte distribution width (RBC) [Ratio] 13.4 % Normal 12.0 - 15.6 [facility] Comment on above: Performed By: #### 2 16428 #### [facility],[address] [place] [address]23 Hematocrit (Bld) [Volume fraction] 39.0 % Normal 34.0 - 46.0 [facility] Comment on above: Performed By: #### 2 67220 #### [facility],[address] [place] [address]23[address] Hemoglobin (Bld) [Mass/Vol] 13.0 g/dL Normal 12.0 - 16.0 [facility] Comment on above: Performed By: #### 2 21167 #### [facility],[address] [place] [address] 35338 Lymph # 3.08 x10EE3/UL High 0.80 - 2.80 [facility] Comment on above: Performed By: #### 2 19103 #### [facility],[address] [place] [address] 52794 Lymphocytes/100 WBC (Bld) 28.9 % Normal 20.0 - 45.0 [facility] Comment on above: Performed By: #### 2 17861 #### [facility],[address] [place] [address] 78677 MANUAL DIFF N/A Normal [facility] Comment on above: Performed By: #### 2 32423 #### [facility],[address] [place] [address] 26120 MCH (RBC) [Entitic mass] 27 pg Normal 27 - 33 [facility] Comment on above: Performed By: #### 2 71262 #### [facility],[address] [place] [address] 71568 MCHC 33 X10 3 Normal 32 - 36 [facility] Comment on above: Performed By: #### 2 39290 #### [facility],[address] [place] [address] 69330 MCV (RBC) [Entitic vol] 81 fL Normal 80 - 99 [facility] Comment on above: Performed By: #### 2 08803 #### [facility],[address] [place] [address] 89662 [place] # 0.50 x10EE3/UL Normal 0.20 - 1.00 [facility] Comment on above: Performed By: #### 2 00407 #### [facility],[address] [place] [address] 03982 MONOS % 4.7 % Normal 0.0 - 10.0 [facility] Comment on above: Performed By: #### 2 75110 #### [facility],[address] [place] [address] 11337 Morphology Avery (Bld) [Interp] N/A Normal [facility] Comment on above: Performed By: #### 2 70728 #### [facility],[address] [place] [address] 83543 Neut # 6.74 x10EE3/UL Normal 1.50 - 7.10 [facility] Comment on above: Performed By: #### 2 95553 #### [facility],[address] [place] [address] 45819 Neutrophils/100 WBC (Bld) 63.3 % Normal 46.0 - 76.0 [facility] Comment on above: Performed By: #### 2 62549 #### [facility],[address] [place] [address] 19136 PLATELET 465 x10EE3/UL High 150 - 450 [facility] Comment on above: Performed By: #### 2 65607 #### [facility],[address] [place] [address] 68335 Platelet mean volume (Bld) [Entitic vol] 8.0 fL Normal 6.6 - 10.5 [facility] Comment on above: Result Comment: AUTO MATED DIFFERENTIAL Performed By: #### 2 19512 #### [facility],[address] [place] [address] 61722 RBC 4.82 x 10EE6/UL Normal 4.10 - 5.30 [facility] Comment on above: Performed By: #### 2 79418 #### [facility],[address] [place] [address] 86711 WBC 10.7 x 10EE3/UL Normal 4.5 - 10.8 [facility] Comment on above: Performed By: #### 2 01162 #### [facility],[address] [place] [address] 06564 CMP with eGFRon 06-01-2024 AGE 18 years Normal [facility] Comment on above: Performed By: #### 2 45928 #### [facility],[address] [place] [address] 78990 Albumin [Mass/Vol] 4.3 g/dL Normal 3.4 - 5.0 [facility] Comment on above: Performed By: #### 2 36507 #### [facility],[address] [place], [place] [address] Albumin/Globulin [Mass ratio] 1.2 {ratio} Normal 0.9 - 1.6 [facility] Comment on above: Performed By: #### 2 18160 #### [facility],[address] [place] [address] 85902 ALK PHOS 143 U/L High 46 - 116 [facility] Comment on above: Performed By: #### 2 91700 #### [facility],[address] [place] [address] 21108 ALT [Catalytic activity/Vol] 39 U/L Normal 16 - 63 [facility] Comment on above: Performed By: #### 2 87818 #### [facility],[address] [place] [address] 60860 Anion gap [Moles/Vol] 17 mmol/L Normal 10 - 20 [facility] Comment on above: Performed By: #### 2 78535 #### [facility],[address] [place] [address] 01244 AST [Catalytic activity/Vol] 28 U/L Normal 13 - 39 [facility] Comment on above: Performed By: #### 2 41581 #### [facility],[address] [place] [address] B/C RATIO 10 ratio Normal 0 - 30 [facility] Comment on above: Performed By: #### 2 54608 #### [facility],[address] [place] [address] Bilirubin [Mass/Vol] 0.5 mg/dL Normal 0.2 - 1.0 [facility] Comment on above: Performed By: #### 2 88512 #### [facility],[address] [place] [address] Calcium [Mass/Vol] 9.6 mg/dL Normal 8.5 - 10.1 [facility] Comment on above: Performed By: #### 2 37130 #### [facility],[address] [place] [address] Chloride [Moles/Vol] 102 mmol/L Normal 98 - 107 [facility] Comment on above: Performed By: #### 2 56909 #### [facility],[address] [place] [address] CMP with eGFR Normal [facility] Comment on above: Result Comment: COMP REHENSIVE METABOLIC PANEL Performed By: #### 2 23559 #### [facility],[address] [place] [address] CO2 [Moles/Vol] 25.4 mmol/L Normal 21.0 - 32.0 [facility] Comment on above: Performed By: #### 2 13789 #### [facility],[address] [place] [address] Creatinine [Mass/Vol] 0.80 mg/dL Normal 0.55 - 1.02 [facility] Comment on above: Performed By: #### 2 53270 #### [facility],[address] [place] [address] GFR/1.73 sq M.predicted among non-blacks MDRD (S/P/Bld) [Vol rate/Area] mL/min/{1.73_m2} Normal 60 - 999 [facility] Comment on above: Performed By: #### 2 22239 #### [facility],[address] [place] [address] Result Comment: ACCO RDING TO THE NATIONAL KIDNEY DISEASE EDUCATION PROGRAM(NKDE), A NORMAL eGFR IS A VALUE GREATER THAN OR EQUAL TO 60 ML/MIN/1.73 SQ METERS. CHRONIC KIDNEY DISEASE: <60mL/MIN/1.73 SQ METERS KIDNEY FAILURE: <15mL/MIN/1.73 SQ METERS THIS TEST SHOULD ONLY BE USED FOR PATIENTS 18 YEARS OF AGE AND OLDER. Globulin (S) [Mass/Vol] 3.6 g/dL Normal 1.5 - 3.8 [facility] Comment on above: Performed By: #### 2 88413 #### [facility],[address] [place], [place] [address] Glucose [Mass/Vol] 80 mg/dL Normal 74 - 106 [facility] Comment on above: Performed By: #### 2 34485 #### [facility],[address] [place] [address] 85622 Potassium [Moles/Vol] 4.1 mmol/L Normal 3.5 - 5.1 [facility] Comment on above: Performed By: #### 2 39902 #### [facility],[address] [place] [address] 09034 Protein [Mass/Vol] 7.9 g/dL Normal 6.4 - 8.2 [facility] Comment on above: Performed By: #### 2 10238 #### [facility],[address] [place] [address] 72282 Sodium [Moles/Vol] 140 mmol/L Normal 136 - 145 [facility] Comment on above: Performed By: #### 2 46550 #### [facility],[address] [place], [place] [address] Urea nitrogen [Mass/Vol] 8 mg/dL Normal 7 - 18 [facility] Comment on above: Performed By: #### 2 45864 #### [facility],[address] [place] [address] T4-FREE (FREE THYROXINE)on 0 06-01-2024 Free T4 [Mass/Vol] 0.99 ng/dL Normal 0.78 - 1.46 [facility] Comment on above: Result Comment: P otential of falsely elevated results when biotin concentrations are > 10 ng/mL. Performed By: #### 2 47154 #### [facility],[address] [place], [place] [address] THYROGLOBULIN ANTIBODYon Thyroglobulin Ab Qn [IU]/mL Normal <4.0 [facility] Comment on above: Order Comment: Speci men Type: BLOOD SPECIMENOrdering Facility: [facility] Address: [address] [place] [address] Result Comment: The Thyroglobulin Antibody test was performed using the [employer] Unicel DXI paramagnetic particle chemiluminescent immunoassay method. Results obtained with different assay methods or kits cannot be used interchangeably. Performed By: #### T ANGELICA ####[facility] [id number] [place] [address] [place] TSHon 06-01-2024 TSH Qn 1.67 m[IU]/L Normal 0.51 - 4.13 [facility] Comment on above: Performed By: #### 2 79845 #### [facility],[address] [place] [address] 93668 VITAMIN D, 25 HYDROXYon 05-14 VitD 17.00 ng/mL Low 30.00 - 100 [facility] Comment on above: Result Comment: 25-O HD3 indicates both endogenous production and supplementation. 25-OHD2 is an indicator of exogenous sources, such as diet or supplementation. Therapy is based on measurement of Total 25-OHD, with levels <20 ng/mL indicative of Vitamin D deficiency, while levels between 20 ng/mL and 30 ng/mL suggest insufficiency. Optimal levels are >=30ng/mL. Vitamin D, 25-OH D3 Not Established Vitamin D, 25-OH D2 Not Established Performed By: #### 2 47735 #### [facility],[address] [facility] [address] Elbow min 3 Viewson 05-06-19 25 Elbow min 3 Views [facility] Imaging Services [address] [place] [address] Elbow min 3 Views MR#: [id number] Acct: [id number] Name: CLARISSE MOLINA Rep #: [id number] : 2005 F 18 From: Ivania adorno MD PCP: NICCI Malik Status: REG ER Study: Elbow min 3 Views Date of Exam: 05/06/24 Exam# [id number] Ordering Dr: Seferino Flores DO [id number] HISTORY: fall. TECHNIQUE: XR Elbow Min 3 Views. COMPARISON: None. FINDINGS: BONES : No acute fracture identified. Mineralization unremarkable. JOINTS: No dislocation. Joint spaces maintained. RAD/Elbow min 3 Views IMPRESSION: No acute fracture or dislocation identified in the right elbow. Electronically Signed: Ivania Hartman MD at 10:35 EST Reading Location ID and State: [facility] / [place] Tel , Service support , CC: GILL TENDER-Vanita Chambers; Dr. Seferino Flores DO Insulation Cutter: Signed Normal [facility] Emergency Department Summary on 05-06-2024 Emergency Department Summary [facility] Medical Records Department [address] [place] [address] Emergency Department Summary 05/06/24 MR#: [id number] Acct: [id number] Name: CLARISSE MOLINA Rep #: [id number] : 2005 18 From: Seferino Flores DO PCP: NICCI Malik Status:REG ER Location: ED HPI History of Present Illness Chief Complaint: Upper Extremity Injury Narrative Narrative: Patient is a 18-year-old female with past medical history of PCOS who presents to the emergency department chief complaint of right shoulder pain. Patient states that on she had a slip a nd fall on ice when she attempted to catch herself with her right arm causing her pain. States that she originally went to [facility] had x-rays obtained there and was ultimately sent home with Toradol. States that she has been taking Toradol as prescribed and is not helping her pain. She states that she is torn her labrum in her left shoulder as well as a small rotator cuff tear did not require surgery. States that this feels slightly worse than her previous tear but is concerned that something is torn. States that she completed physical therapy for left shoulder is doing well. [facility] Medical History PCOS (polycystic ovarian syndrome) Essential tremor Physical exam, pre-employment Home Medications ???Medication ???Instructions ???Recorded ???Last Taken ???Type NK 01/15/24 Unknown History Allergy/AdvReac Type Severity Reaction Status Date / Time No Known Allergies Allergy Verified 05/06/24 09:11 Surgical History Hx of shoulder surgery History of tonsillectomy and adenoidectomy Social History Smoking Status: Current every day smoker tobacco type: e-cigarettes ROS ROS ED ROS Narrative Constitutional: Denies headaches, lightness, dizziness Cardiovascular: Denies chest pain Respiratory: Denies shortness of breath Neurological: Denies numbness, weakness, tingling Musculoskeletal: Complains of right shoulder pain as noted above Skin: Denies any rashes or lesions EXAM Physical Exam Narrative Exam Narrative: General: Patient was lying in bed rest comfortably did not appear to be in acute distress Head: Atraumatic, normocephalic Eyes: PERRL bilaterally, EOMI bilaterally, no conjunctival injection noted Neck: Soft, supple, trachea midline Cardiovascular: Regular rate Musculoskeletal: Patient has pain with attempted range of motion of her right shoulder. Patient has some mild tenderness palpation of the right elbow although she does have full range of motion of her right elbow all of the bony prominences palpated joints taken to full range of motion no pain elicited Extremities: Radial pulses +2/4 in the bilateral upper extremities, +5/5 strength noted in the bilateral upper and lower extremities, no pedal edema no exam. Patient is able to give me the okay sign thumbs up and oppose her thumb to her pinky bilaterally without any difficulty Neurological: Patient following commands knew that she was at [facility] the year is 2024. Sensation grossly intact in the median ulnar and radial nerve distributions bilaterally Skin: Warm, dry, intact Const Vital Signs: 05/06/24 09:11 Temperature 977.7 F H Temperature Source Oral Pulse Rate 86 Respiratory Rate 16 Blood Pressure 122/85 H Blood Pressure Mean 97 Pulse Ox 100 Oxygen Delivery Method Room Air MDM MDM MDM Narrative Medical decision making narrative: Patient is a 18-year-old female who presents to the emergency department the chief complaint of right shoulder pain. On the differential diagnose includes but not limited to torn labrum, rotator cuff tear, proximal humerus fracture although do feel this less likely as she had a x-ray obtained in the outpatient setting and sent home ultimately. Once workup is obtained reviewed she will be reevaluated. Patient's x-rays reviewed by myself and by radiology showed no acute fracture dislocation of the right shoulder. Patient's x-ray of her right elbow reviewed by myself and by radiology showed no acute fracture or dislocation. Discussed results with the patient and advised her to take Tylenol and ibuprofen [id number] for pain control. She was advised to continue due to her exercises that she was using for her left arm. She was advised to follow-up with orthopedics that she was referred to and return with worsening symptoms and concerns. She is agreeable this plan as well as significant other bedside all question concerns answered she is discharged home in stable condition. Discharge Plan Triage Chief Complaint: Upper Extremity Injury ED Provider: Seferino Flores Dx/Rx/DC Orde (more content not included)... Normal [facility] Shoulder min 2 Viewson 05-06 Shoulder min 2 Views [facility] Imaging Services [address] [place], [place] [address] Shoulder min 2 Views MR#: [id number] Acct: [id number] Name: CLARISSE MOLINA Rep #: [id number] : 2005 F 18 From: Ivania adorno MD PCP: NICCI Malik Status: REG ER Study: Shoulder min 2 Views Date of Exam: 05/06/24 Exam# [id number] Ordering Dr: Seferino Flores DO [id number] HISTORY: right shoulder pain. TECHNIQUE: XR Shoulder Min 2 Views. COMPARISON: None. FINDINGS: BONES : No acute fracture identified. Mineralization unremarkable. JOINTS: No dislocation. Joint spaces maintained. SOFT TISSUES: Right lung apex clear. Azygos lobe incidentally noted. RAD/Shoulder min 2 Views IMPRESSION: No acute fracture or dislocation identified in the right shoulder. Electronically Signed: Ivania Hartman MD at 10:38 EST Reading Location ID and State: [facility] / [place] Tel , Service support , CC: NICCI Chambers; Dr. Seferino Flores DO Insulation Cutter: Signed Normal [facility] ED MED ADMINISTRATION DETAIL on 05-05-2024 ED MED ADMINISTRATION DETAIL Residential [employer] Sealing Technician Medication Administration Record [address] [address] [id number] 05/05/2024 Patient: CLARISSE MOLINA Sex: Female : 2005 Age: 18y MEASUREMENTS: Wt: 86.2 kg, Ht/Stefan: 66.0 in, BMI: 30.67 ALLERGIES: No known drug allergies Medication Ordered Medication Administration Date/Time KetorOLAC 07:42 05/05 KetorOLAC (Toradol) IM 30 mg given. Given in the left Given (Toradol) IM 30 mg gluteus juana. Allergies verified and confirmed 5 rights. 07:42 05/05/2024 (NOW x1) Information reviewed with patient including reason for taking this Pearl Levine, medication, signs of allergic reaction and precautions. Verbalizes R.N. understanding. - 07:42 Pearl Levine R.N. Scanned 1 of 1 Normal [facility] ED NURSES CLINICAL NOTEon ED NURSES CLINICAL NOTE Nurse Narrative Nurse Clinical Narrative [address] [place] [address] [phone] 05/05/2024 Patient: CLARISSE MOLINA Sex: Female : 2005 Age: 18y Disposition: Discharge to Home Disposition Decision Time: 08:19 05/05/2024 Departure Time: 08:05/05/2024 TRIAGE Arrived by private vehicle. Historian: patient. Triage time: 07:09 05/05/2024. Acuity: LEVEL 4. Chief Complaint: INJURY TO RIGHT SHOULDER. Alert. No acute distress. Occurred 22:00 05/04/2024. Fell. SEPSIS SCREEN: NEGATIVE. SIRS criteria negative. No possible sources of infection. -- 07:25 05/05/24 JOANN Levine R.N. 07:18 05/05/24. BP: 130/81 MAP: 97. HR: 91. RR: 16. O2 saturation: 99% Temperature: 98.1 F. Pain level now 10/10. -- 07:23 05/05/24 JOANN Levine R.N. Measurements: 07:05/05/24 Wt: 86.2 kg, Ht/Stefan: 66.0 in, BMI: 30.67 -- 07:05/05/24 JOANN Levine R.N. Medications: no known home medications -- 07:05/05/24 JOANN Levine R.N. 1 of 3 Nurse Narrative Allergies: no known drug allergies -- 07:05/05/24 JOANN Levine R.N. Problems: no known problem -- 07:05/05/24 JOANN Levine R.N. ADDITIONAL SURGERIES: Shoulder Surgery -- 07:05/05/24 JOANN Levine R.N. Tonsillectomy Adenoidectomy -- 07:05/05/24 JOANN Levine R.N. History 07:05/05/24. SOCIAL HX: Smoker- current status unknown. Regular vaping. No alcohol use or drug use. The patient has not traveled outside the [place] Infectious disease exposure: No infectious disease exposure. ABUSE ASSESSMENT: The patient answered yes to the question(s) Do you feel safe in your home? and no to the question(s) Are you afraid to go home?. SELF HARM ASSESSMENT: Self harm assessment was performed. The patient answered no to the question(s) Have you recently felt down, depressed, or hopeless? and Do you have thoughts of harming or killing yourself?. FALL RISK ASSESSMENT: Fall risk assessment completed. No risk factors identified. -- 07:25 05/05/24 JOANN Levine R.N. Interventions 07:09 05/05/24. Identification band on patient. Advanced care plan discussed with patient (Full Code). -- 07:05/05/24 JOANN Levine R.N. PHYSICAL ASSESSMENT 2 of 3 Nurse Narrative 07:26 05/05/24. Ambulatory to room. GENERAL / NEURO / PSYCH: Oriented X 4. Alert. Appears in no acute distress. EXTREMITIES: Capillary refill is less than 2 seconds in the extremities. Extremity pulses are within normal limits. Extremities exhibit normal ROM. Neuro-vascular status intact to the extremity. Right shoulder: tenderness. SKIN: Skin intact. Skin is warm and dry. -- 07:05/05/24 JOANN Levine R.N. 07:05/05/24. Pain level now 10/10. -- 07:05/05/24 JOANN Levine R.N. NURSING PROGRESS NOTES 07:20 05/05/24. Patient walked to radiology. -- 07:30 05/05/24 JOANN Levine R.N. 07:31 05/05/24. Patient identifiers checked. Call light placed in reach. Side rails up x 2. Bed placed in lowest position. Brakes of bed on. -- 07:31 05/05/24 JOANN Levine R.N. 07:42 05/05/24. KetorOLAC (Toradol) IM 30 mg given. Given in the left gluteus juana. Allergies verified and confirmed 5 rights. Information reviewed with patient including reason for taking this medication, signs of allergic reaction and precautions. Verbalizes understanding. -- 07:42 05/05/24 JOANN Levine R.N. DISPOSITION / DISCHARGE 08:20 05/05/24. BP: 122/68 MAP: 86. HR: 83. RR: 16. O2 saturation: 98% Pain level now 09/19. -- 08:26 05/05/24 JOANN Levine R.N. Departure time: 08:22 05/05/2024. Condition at departure: improved. Discharge instructions provided and reviewed with the patient. Reviewed medication(s). Reviewed referrals. Patient verbalized understanding. Written instructions provided in Uzbek. The patient was discharged by the physician. The patient was discharged home. The patient left ambulatory and via private vehicle. Patient driving. -- 08:27 05/05/24 JOANN Levine R.N. (Electronically signed by Pearl Levine R.N. 05/05/24 15:53:29 EST) Generated by [facility] 3 of 3 Normal [facility] ED ORDER SHEET (CPOE ONLY)on 05-05-2024 ED ORDER SHEET (CPOE ONLY) Order Sheet Order Sheet [address] [address] [id number] 05/05/2024 Patient: CLARISSE MOLINA Sex: Female : 2005 Age: 18y MEASUREMENTS: Wt: 86.2 kg, Ht/Stefan: 66.0 in, BMI: 30.67 ALLERGIES: No known drug allergies MEDICATION/IV/DRIP/FLUID ORDERS Order Description Priority Entered Acknowledged Completed KetorOLAC (Toradol) IM30 mg 07:20 05/05/2024 07:32 07:42 (NOW x1) Quinn Hameed, 05/05/2024 05/05/2024 Donnell Mcgee R.N. LAB ORDERS Order Description Priority Entered Acknowledged Collected Completed DIAGNOSTIC STUDY ORDERS Order Description Priority Entered Acknowledged Completed Shoulder R Complete Stat Stat 07:20 05/05/2024 07:31 07:31 Quinn Hameed, 05/05/2024 05/05/2024 DYfnDonnell Otoole R.N. Order Comments: 07:20 05/05/2024: Status: Not . Quinn Hameed D.O. Reason for Study: Pain STAFF ORDERS 1 of 2 Order Sheet Order Description Priority Entered Acknowledged Collected Completed [Electronically signed by Quinn Hameed D.O. (05/05/2024 08:19 EST)] 2 of 2 Normal [facility] ED PHYSICIAN CLINICAL REPORT on 05-05-2024 ED PHYSICIAN CLINICAL REPORT Narrative Physician Clinical Narrative [facility] [address] [place] [address] [phone] 05/05/2024 Patient: CLARISSE MOLINA Sex: Female : 2005 Age: 18y Disposition: Discharge Disposition Decision Time: 08:19 05/05/2024 Measurements Wt: 86.2 kg, Ht/Stefan: 66.0 in, BMI: 30.67 Initial Vital Sign Measured Time BP MAP HR RR O2Sat ETCO2 Temp Pain GCS RTS 07:18 05/05/2024 130/81 97 91 16 99% 98.1 F 10 Time Seen: 07:21 05/05/2024. Arrived- By private vehicle. Historian- patient. HISTORY OF PRESENT ILLNESS Chief Complaint: Injury to right shoulder. The injury happened last night. ( Patient slipped on the ice last night and fell catching her right shoulder on the car. Has pain over anterior shoulder. Worse with movement. Denies any head injury or loss of consciousness.). REVIEW OF SYSTEMS NEUROLOGICAL: No tingling or numbness. Status: Not . PAST HISTORY Negative. no known problem 1 of 3 Narrative Surgeries: Tonsillectomy. Surgeries: Shoulder Surgery Tonsillectomy Adenoidectomy Medications: no known home medications Allergies: no known drug allergies SOCIAL HISTORY No alcohol use or drug use. ADDITIONAL NOTES The nursing notes have been reviewed. PHYSICAL EXAM Vital Signs: Have been reviewed. Appearance: Alert. No acute distress. Head: Head atraumatic. Neck: Normal inspection. Skin: Skin warm and dry. Normal skin color. Extremities: Right shoulder: mild tenderness. Neurovascular intact distally. Right acromio-clavicular joint: mild tenderness. Neuro, Vascular and Tendons: Sensation intact. Motor intact. Vascular status intact. LABS, X-RAYS, AND EKG X-Rays: Right shoulder negative. The X-rays were interpreted contemporaneously by me. 2 of 3 Narrative PROGRESS AND PROCEDURES Differential Diagnosis: Other possible considerations: Right shoulder contusion, sprain, dislocation, fracture, clavicle fracture. MEDICAL DECISION MAKING: (patient appears well nontoxic. X-ray negative. Treated with intramuscular Toradol. Advised on ice and active rest. Advised to follow up with primary care. Treated with oral ketorolac at home. Stable time of discharge.). Disposition: Condition: good. Disposition Decision Time: 08:19 05/05/2024. Patient discharged. Discharged in good condition. CLINICAL IMPRESSION Contusion to the right shoulder. DISCHARGE INSTRUCTIONS Apply ice. Rest. Prescription Medications: ketorolac 10 mg tablet: Take 1 tablet by mouth every six to eight hours as needed for pain for 5 days, dispense 20 tablet. Refills 0. Pharmacy: [facility] [id number] [place] [address]. Follow-up: Follow up with your healthcare provider in two days. Call for an appointment. (Electronically signed by Quinn Hameed D.O. 05/05/24 08:19:21 EST) Generated by [facility] 3 of 3 Normal [facility] ED [facility] [facility] 05-05-[address] [address] [id number] 05/05/2024 Patient: CLARISSE MOLINA Sex: Female : 2005 Age: 18y Item Facility Professional Category Description Code Code Quantity Fee Total Nurse/E/M EMERGENCY 709727 1 $0.00 $0.00 DEPARTMENT VISIT HIGH/URGENT SEVERITY (20323-81) Nurse/IV/IM/Infusions IM/SQ (79490) 917911 1 $0.00 $0.00 Grand Total $0.00 Providers Quinn Hameed D.O. Chief Complaint Injury to right shoulder. Principal Diagnosis Contusion to the right shoulder. 1 of 2 [facility] ICD-10 Codes S40.011A: Contusion of right shoulder, initial encounter 2 of 2 Normal [facility] ED VISIT SUMMARYon ED VISIT SUMMARY Visit Overview Visit Overview [id number] [place] [address] [id number] 05/05/2024 Patient: CLARISSE MOLINA Sex: Female : 2005 Age: 18y 05/05/2024 03:53 PM EST ED Arrival:07:16 05/05/2024 EST Status:not Recent Travel:no Language:eng Adv Directive: Isolation Status: Ethnicity:N Fall Risk:no risk Infectious Disease Exposure:no Measurements:5'6 / 167.6 Self-Harm Status:risk Sepsis Screen:negative cm 190.0 lb / 86.2 kg Chief Complaint:INJURY TO RIGHT SHOULDER and (22:00 05/04/2024) ALLERGIES No Known Drug Allergies HOME MEDICATIONS None PAST MEDICAL HISTORY / PROBLEMS Negative None 1 of 3 Visit Overview PAST SURGICAL HISTORY Shoulder Surgery Tonsillectomy Tonsillectomy Adenoidectomy SOCIAL HISTORY Smoking status: Yes Alcohol use: No Drug use: No ED COURSE MEDICATIONS GIVEN IN EMERGENCY DEPARTMENT 07:42 05/05/24 KetorOLAC (Toradol) IM 30 mg IV SITE INFORMATION INTAKE OUTPUT REASSESMENT (most recent) 07:26 05/05/24. Ambulatory to room. GENERAL / NEURO / PSYCH: Oriented X 4. Alert. Appears in no acute distress. EXTREMITIES: Capillary refill is less than 2 seconds in the extremities. Extremity pulses are within normal limits. Extremities exhibit normal ROM. Neuro-vascular status intact to the extremity. Right shoulder: tenderness. SKIN: Skin intact. Skin is warm and dry. VITAL SIGNS First Vitals Last Vitals Temp 07:18 05/05/24 98.1 F Temp 08:20 05/05/24 BP 07:18 05/05/24 130/81 BP 08:05/05/24 122/68 HR 07:18 05/05/24 91 HR 08:05/05/24 83 RR 07:18 05/05/24 16 RR 08:20 05/05/24 16 O2 Sat 07:05/05/24 99% O2 Sat 08:20 05/05/24 98% Pain 07:18 05/05/24 10 Pain 08:20 05/05/24 6 ETCO2 07:18 05/05/24 ETCO2 08:20 05/05/24 2 of 3 Visit Overview First Vitals Last Vitals GCS 07:18 05/05/24 GCS 08:20 05/05/24 RTS 07:18 05/05/24 RTS 08:05/05/24 PROCEDURES NURSING INTERVENTIONS LABS / STUDIES LABS / STUDIES ORDERED Shoulder R Complete LABS / STUDIES PENDING IMPORT SHOULDER COMPLETE RT CLINICAL IMPRESSION CONTUSION TO THE RIGHT SHOULDER 3 of 3 Normal [facility] ED VITALS FLOW SHEETon 05-05 ED VITALS FLOW SHEET Vitals Vital Sign Flow Sheet [address] [address] [id number] 05/05/2024 Patient: CLARISSE MOLINA Sex: Female : 2005 Age: 18y Measurements Wt: 86.2 kg, Ht/Stefan: 66.0 in, BMI: 30.67 Measured Time BP MAP HR RR O2Sat ETCO2 Temp Pain GCS RTS 08:20 05/05/2024 122/68 86 83 16 98% 6 07:26 05/05/2024 10 07:18 05/05/2024 130/81 97 91 16 99% 98.1 F 10 1 of 1 Normal [facility] SHOULDER COMPLETE RTon 05-05 SHOULDER COMPLETE RT [address] [address] Patient: CLARISSE MOLINA Moiz Phone#: : 2005 Age: 18 Gender: F Pt. Type: ER Account: [id number] Location: [id number] Ordering: QUINN HAMEED Exam Date: 05/05/2024/7:31 Family Phys: LIZY CHAMBERS Charge Code: 458307 Physician: [place] Order #: [id number] Dose#: PROCEDURE: X-RAY SHOULDER COMPLETE RT MIN 2 VIEWS COMPARISON: None. INDICATIONS: Pain. FINDINGS: BONES: Normal. No significant arthropathy or acute abnormality. SOFT TISSUES: Negative. No visible soft tissue swelling. EFFUSION: None visible. OTHER: Negative. CONCLUSION: No acute disease. 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 [address] [id number] 03/25/2024 Patient: CLARISSE MOLINA Sex: Female : 2005 Age: 18y MEASUREMENTS: Wt: 86.2 kg, Ht/Stefan: 65.0 in, BMI: 31.62 ALLERGIES: No known drug allergies Medication Ordered Medication Administration Date/Time IV NS 0.9 % 1000 20:48 03/25 IV NS 0.9 % 1000 mL started in bag#1 1000 mL at Started mL at 500 mL/hr 500 mL/hr via Site# 1. Allergies verified and confirmed 5 rights. IV 20:48 03/25/2024 (NOW x1) patency established. IV site checked: no pain, redness, or swelling. Kimberly Wren R.N. IV flushed thoroughly pre-medication administration. - 20:50 Kimberly Wren RYfnNYfn 00:11 03/26/2024 Olga Lidia Rivera R.N. 00:11 03/26 Medication Discontinued: IV infused. Total amount Scanned infused: 1000 mL. IV patency established. IV site checked: no pain, redness, or swelling. IV flushed thoroughly post-medication administration. - 00:36 Olga Lidia Rivera R.N. 1 of 2 Residential [employer] Se[employer] Technician Medication Ordered Medication Administration Date/Time Piperacillin-Tazoba 20:48 12 Piperacillin-Tazobac (Zosyn) IVPB 3.375gm/50ml NS Started c (Zosyn) IVPB 3.375 g started at 100 mL/hr diluted in sodium chloride IVPB 0.9 % 20:48 03/25/2024 3.375gm/50ml NS Minibag+ 50 mL via Site# 1. Allergies verified and confirmed 5 Kimberly Wren R.N. 3.375 g diluted in rights. IV patency established. IV site checked: no pain, redness, or Stopped sodium chloride swelling. IV flushed thoroughly pre-medication administration. 00:12 03/26/2024 IVPB 0.9 % Information reviewed. Verbalizes understanding. - 20:48 Kimberly Rivera R.N. Minibag+ 50 mL at Donnell Wren Scanned 100 mL/hr (NOW x1) 00:12 03/26 Medication Discontinued: IV infused. Total amount infused: 50 mL. IV patency established. IV site checked: no pain, redness, or swelling. IV flushed thoroughly post-medication administration. - 00:37 Olga Lidia Rivera R.N. Vancomycin 21:45 03/25 Vancomycin 1gm/NS 200ml IVPB Premix 1 g started Started 1gm/NS 200ml IVPB at 200 mL/hr over 1 hour(s) via Site# 1. Allergies verified and 21:45 03/25/2024 Premix 1 g at 200 confirmed 5 rights. IV patency established. IV site checked: no pain, Olga Lidia Rivera R.N. mL/hr (NOW x1) redness, or swelling. IV flushed thoroughly pre-medication Stopped administration. Information reviewed with patient. Verbalizes 00:12 03/26/2024 understanding. Completed per protocol. - 21:46 Donnell Gallegos R.N. Scanned 00:12 03/26 Medication Discontinued: IV infused. Total amount infused: 1000 mL. IV patency established. IV site checked: no pain, redness, or swelling. IV flushed thoroughly post-medication administration. - 00:37 Olga Lidia Rviera R.N. DiphenhydrAMINE 22:28 03/25 DiphenhydrAMINE (Benadryl) IVP 50 mg given via Given (Benadryl) IVP 50 Site# 1. Allergies verified and confirmed 5 rights. IV patency 22:28 03/25/2024 mg (NOW x1) established. IV site checked: no pain, redness, or swelling. IV Kimberly Wren R.N. flushed thoroughly pre-medication administration. Information Scanned reviewed. Verbalizes understanding. - 22:28 Kimberly Wren R.N. 2 of 2 Normal [facility] ED NURSES CLINICAL NOTEon ED NURSES CLINICAL NOTE Nurse Narrative Nurse Clinical Narrative [facility] [address] [facility] [place] [address] [phone] 03/25/2024 Patient: CLARISSE MOLINA Sex: Female : 2005 Age: 18y Disposition: Discharge to Home Disposition Decision Time: 22:34 03/25/2024 Departure Time: 00:28 03/26/2024 TRIAGE Primary physician (Akiko Chambers). Triage time: 19:55 03/25/2024. Acuity: LEVEL 4. Chief Complaint: SKIN RASH. Reported as located on the right thigh. Onset. (3 weeks). ( Started PO bactrim 03/24). SEPSIS SCREEN: NEGATIVE. SIRS criteria negative. No possible sources of infection. -- 19:59 03/25/24 JOANN Wren R.N. 19:59 03/25/24. BP: 144/86 MAP: 105. HR: 116. RR: 18. O2 saturation: 99% Temperature: 98.1 F (oral). Pain level now 0/10. -- 19:59 03/25/24 JOANN Wren R.N. Measurements: 19:58 03/25/24 Wt: 86.2 kg, Ht/Stefan: 65.0 in, BMI: 31.62 -- 19:58 03/25/24 JOANN Wren R.N. Medications: no known home medications -- 19:57 03/25/24 JOANN Wren R.N. Allergies: 1 of 4 Nurse Narrative no known drug allergies -- 19:57 03/25/24 JOANN Wren R.N. Problems: Polycystic Ovary Disease -- 19:57 03/25/24 JOANN Wren R.N. ADDITIONAL SURGERIES: Shoulder Surgery -- 19:57 03/25/24 JOANN Wren R.N. Tonsillectomy Adenoidectomy -- 19:57 03/25/24 JOANN Wren R.N. History 19:55 03/25/24. PAST MEDICAL HX: Immunizations: up-to-date. SOCIAL HX: Regular vaping. No alcohol use or drug use. The patient has not traveled outside the [place] Infectious disease exposure: No infectious disease exposure. ABUSE ASSESSMENT: The patient answered yes to the question(s) Do you feel safe in your home? and no to the question(s) Are you afraid to go home?. SELF HARM ASSESSMENT: Self harm assessment was performed. The patient answered no to the question(s) Have you recently felt down, depressed, or hopeless? and Do you have thoughts of harming or killing yourself?. FALL RISK ASSESSMENT: Fall risk assessment completed. No risk factors identified. -- 19:59 03/25/24 JOANN Wren R.N. Interventions 19:55 03/25/24. Identification band on patient. -- 19:59 03/25/24 JOANN Wren R.N. PHYSICAL ASSESSMENT 20:53 03/25/24. GENERAL / NEURO / PSYCH: Alert. The patient does not appear to be in acute distress. Oriented X 4. HEENT: Pupils equal, round and reactive to light. Mucous membranes are pink. RESPIRATORY: Respirations not labored. Breath sounds within normal limits. 2 of 4 Nurse Narrative CVS: Capillary refill less than 2 seconds. Pulses within normal limits. GI / : Abdomen nontender. SKIN: Skin is warm and dry. Medium sized area of erythema on the right thigh- associated with swelling, tenderness and increased warmth- 8cm x 8 cm. -- 20:53 03/25/24 JOANN Rivera R.N. NURSING PROGRESS NOTES 20:30 03/25/24. Site #1 started via IV in the right antecubital space with a 20g angiocath with aseptic technique and good blood return; 1 attempt. Blood drawn: rainbow set and diallo tube(s) and cultures x 1. Saline lock flushed with 5 mL saline. -- 20:30 03/25/24 JOANN Rivera R.N. 20:32 03/25/24. Checked patient name: patient confirmed. Blood samples drawn from the right antecubital space peripheral IV site with Vacutainer 20g by ne per protocol ; labeled in presence of the patient and sent to lab: rainbow set and diallo top; blood culture (1st set). Initial blood discarded and additional blood sent to lab. Line flushed with 10 mL normal saline post blood draw. -- 20:32 03/25/24 JOANN Rivera R.N. 20:48 03/25/24. IV NS 0.9 % 1000 mL started in bag#1 1000 mL at 500 mL/hr via Site# 1. Allergies verified and confirmed 5 rights. IV patency established. IV site checked: no pain, redness, or swelling. IV flushed thoroughly pre-medication administration. -- 20:50 03/25/24 JOANN Wren R.N. 20:48 03/25/24. Piperacillin-Tazobac (Zosyn) IVPB 3.375gm/50ml NS 3.375 g started at 100 mL/hr diluted in sodium chloride IVPB 0.9 % Minibag+ 50 mL via Site# 1. Allergies verified and confirmed 5 rights. IV patency established. IV site checked: no pain, redness, or swelling. IV flushed thoroughly pre-medication administration. Information reviewed. Verbalizes understanding. -- 20:48 03/25/24 JOANN Wren R.N. 20:55 03/25/24. Rounding: Pain: assessed pain level. Position: states comfortable. Proximity of possessions / care items: call light within easy reach. Set expectations: advised patient of rounding protocol timing. Two patient identifiers checked. Call light placed in reach. Side rails up x 1. Bed placed in lowest position. Brakes of bed on. -- 20:55 03/25/24 JOANN Rivera R.N. 20:58 03/25/24. 12-LEAD EKG: EKG time: (20:57 03/25/2024). 12-Lead EKG was ordered, performed by a prosthetic technician and shown to the ED physician. -- 20:58 03/25/24 Brianna Avila (more content not included)... Normal [facility] ED ORDER SHEET (CPOE ONLY)on 03-30-2024 ED ORDER SHEET (CPOE ONLY) Order Sheet Order Sheet [address] [address] [id number] 03/25/2024 Patient: CLARISSE MOLINA Sex: Female : 2005 Age: 18y MEASUREMENTS: Wt: 86.2 kg, Ht/Stefan: 65.0 in, BMI: 31.62 ALLERGIES: No known drug allergies MEDICATION/IV/DRIP/FLUID ORDERS Order Description Priority Entered Acknowledged Completed IV NS 0.9 %1000 mL at 500 20:18 03/25/2024 20:34 20:50 mL/hr (NOW x1) Kwaku Pettit D.O. 03/25/2024 03/25/2024 Donnell Gallegos RYfnNYfn Piperacillin-Tazobac (Zosyn) 20:23 03/25/2024 20:34 20:48 IVPB 3.375gm/50ml NS3.375 g Kwaku Pettit D.O. 03/25/2024 03/25/2024 diluted in sodium chloride IVPB Donnell Gallegos, 0.9 % Minibag+ 50 mL at 100 R.N. mL/hr (NOW x1) Reason for ordering with alerts: Clinical consideration given --20:23 03/25/2024 Kwaku Pettit D.O. Vancomycin 1gm/NS 200ml 20:23 03/25/2024 20:34 21:46 IVPB Premix1 g at 200 mL/hr Kwaku Pettit D.O. 03/25/2024 03/25/2024 (NOW x1) Donnell Gallegos, R.NYfn Reason for ordering with alerts: Clinical consideration given --20:23 03/25/2024 Kwaku Pettit D.O. DiphenhydrAMINE (Benadryl) 22:24 03/25/2024 22:28 IVP50 mg (NOW x1) Kwaku Pettit D.O. 03/25/2024 1 of 3 Order Sheet Kimberly Wren, R.N. LAB ORDERS Order Description Priority Entered Acknowledged Collected Completed CBC w Diff Stat Stat 20:18 03/25/2024 20:33 03/25/2024 20:33 03/25/2024 Samantha Che R.N. Anne Rutt, R.N. CMP Stat Stat 20:18 03/25/2024 20:33 03/25/2024 20:33 03/25/2024 Samantha Che R.N. Anne Rutt, R.N. Blood Culture Stat 20:18 03/25/2024 20:33 03/25/2024 20:33 03/25/2024 [Pegram] # 1 Stat Samantha Che R.N. Anne Rutt, R.N. Blood Culture Stat 20:18 03/25/2024 20:33 03/25/2024 20:36 03/25/2024 [Pegram] # 2 Stat Samantha Che R.N. Anne Rutt, R.N. EKG - ED Stat Stat 20:18 03/25/2024 20:33 03/25/2024 20:54 03/25/2024 Samantha Che R.N. Anne Rutt, R.N. Lactate, Serum Stat Stat 20:18 03/25/2024 20:33 03/25/2024 20:33 03/25/2024 Samantha Che R.N. Anne Rutt, R.N. DIAGNOSTIC STUDY ORDERS Order Description Priority Entered Acknowledged Completed CT RT Femur w Cont Stat Stat 20:21 03/25/2024 20:33 20:33 Kwaku Pettit D.O. 03/25/2024 03/25/2024 Donnell Gallegos R.N. Order Comments: 20:21 03/25/2024: Status: Not . Kwaku Pettit D.O. Reason for Study: Cellulitis 2 of 3 Order Sheet STAFF ORDERS Order Description Priority Entered Acknowledged Collected Completed IV Saline Lock 20:18 03/25/2024 20:33 03/25/2024 20:33 03/25/2024 Samantha Che R.N. Anne Rutt, R.N. Vital Signs every 30 20:18 03/25/2024 20:33 03/25/2024 20:33 03/25/2024 minutes Samantha Che R.N. Anne Rutt, R.N. Manager Quality Compliance 20:18 03/25/2024 20:33 03/25/2024 20:33 03/25/2024 Samantha Che R.N. Anne Rutt, R.N. Oxygen titrate to 92% 20:18 03/25/2024 20:33 03/25/2024 20:33 03/25/2024 Samantha Che R.N. Anne Rutt, R.N. [Electronically signed by Kwaku Pettit D.O. (03/30/2024 03:03 EST)] 3 of 3 Normal [facility] ED PHYSICIAN CLINICAL REPORT on 03-30-2024 ED PHYSICIAN CLINICAL REPORT Narrative Physician Clinical Narrative [address] [address] [id number] 03/25/2024 Patient: CLARISSE MOLINA Sex: Female : 2005 Age: 18y Disposition: Discharge to Home Disposition Decision Time: 22:34 03/25/2024 Departure Time: 00:28 03/26/2024 Measurements Wt: 86.2 kg, Ht/Stefan: 65.0 in, BMI: 31.62 Initial Vital Sign Measured Time BP MAP HR RR O2Sat ETCO2 Temp Pain GCS RTS 19:59 03/25/2024 144/86 105 116 18 99% 98.1 F 0 Time Seen: 20:01 03/25/2024. Arrived- By private vehicle. Historian- patient. HISTORY OF PRESENT ILLNESS Chief Complaint: SKIN RASH. This started 2 weeks ago and is still present (worse). It is described as painful. It has been located on the right thigh. A possible cause has been identified (Got a tattoo to the right thigh February 13. Rash started about 2 weeks later.). The patient has recently taken an antibiotic. No recent insect bite or food exposure. Was not recently exposed to poison audra or poison oak. Similar symptoms previously. None. Recent medical care: The patient was seen recently at this facility. ( Seen here on Wednesday and was started on Bactrim. Rashes gotten a little worse after 4 doses of the Bactrim.). REVIEW OF SYSTEMS 1 of 16 Narrative : No difficulty with urination. GI: No abdominal pain, nausea, diarrhea or vomiting. CVS: No chest pain. NEUROLOGICAL: No headache. ENDO/HEME/LYMPH: No enlarged lymph nodes. RESPIRATORY: No cough or difficulty breathing. THROAT: No sore throat or hoarseness. CONSTITUTIONAL: No fever or chills. EYES: No eye irritation. Status: Not . PAST HISTORY See nurses notes. Polycystic ovary. Polycystic Ovary Disease Surgeries: Shoulder Surgery Tonsillectomy Adenoidectomy Medications: no known home medications Allergies: no known drug allergies SOCIAL HISTORY Smoker- current status unknown. Regular vaping. No alcohol use or drug use. ADDITIONAL NOTES The nursing notes have been reviewed. PHYSICAL EXAM Appearance: Alert. Oriented X3. No acute distress. Eyes: Pupils equal, round and reactive to light. ENT: Nose normal. Pharynx normal. Neck: Neck supple. Respiratory: No respiratory distress. Breath sounds normal. Abdomen: Nontender. No organomegaly. Skin: Erythema. Tender indurated area to right thigh. Cellulitis to right thigh. Rash present on the right thigh. 2 of 16 Narrative The rash is erythematous. There is warmth, tenderness and inflammation. No weeping. Extremities: Normal external inspection. Extremities nontender. Neuro: Oriented X 3. No motor deficit. No sensory deficit. LABS, X-RAYS, AND EKG 12-LEAD EKG: EKG time: 20:56 03/25/2024. No acute process. Normal sinus rhythm. Rate: 89. Normal P waves. Normal QRS complex. Normal axis. Normal ST and T waves. The study has been interpreted contemporaneously by me. Interpretation time: 20:57 03/25/2024. Laboratory Tests: CBC + DIFF Corrected DANTE: 03/25/2024 20:18:00 EST MsgRcvd: 03/25/2024 23:41 EST Lab Test Result Reference Status Received Comments 03/25/2024 CBC + DIFF Final CBC-COMPLETE BLOOD COUNT 20:34 EST 9.0 x 03/25/2024 WBC 4.5 - 10.8 Final 10/UL 20:34 EST 5.49 x 10/UL 03/25/2024 RBC Above 4.10 - 5.30 Final 20:34 EST high normal 16.7 g/dl Above 03/25/2024 HEMOGLOBIN 12.0 - 16.0 Final high 20:34 EST normal 48.2 % Above 03/25/2024 HEMATOCRIT 34.0 - 46.0 Final high 20:34 EST normal 3 of 16 Narrative 03/25/2024 MCV 88 fl 80 - 99 Final 20:34 EST 03/25/2024 MCH 31 pg 27 - 33 Final 20:34 EST 03/25/2024 MCHC 35 X10 3 32 - 36 Final 20:34 EST 03/25/2024 RDW/CV 12.6 % 12.0 - 15.6 Final 20:34 EST 253 03/25/2024 PLATELET 150 - 450 Final x10/UL 20:34 EST 03/25/2024 MPV 7.4 fl 6.6 - 10.5 Final AUTOMATED DIFFERENTIAL 20:34 EST 03/25/2024 NEUT % 67.1 % 46.0 - 76.0 Final 20:34 EST 03/25/2024 LYMPH % 20.3 % 20.0 - 45.0 Final 20:34 EST 10.4 % Above 03/25/2024 MONOS % 0.0 - 10.0 Final high 20:34 EST normal 03/25/2024 EO % 1.9 % 0.0 - 7.0 Final 20:34 EST 03/25/2024 BASO % 0.4 % 0.0 - 2.0 Final 20:34 EST 1.82 03/25/2024 Lymph # 0.80 - 2.80 Final x10/UL 20:34 EST 6.03 03/25/2024 Neut # 1.50 - 7.10 Final x10/UL 20:34 EST 4 of 16 Narrative 0.93 03/25/2024 [place] # 0.20 - 1.00 Final x10/UL 20:34 EST 0.17 03/25/2024 EO # 0.00 - 0.50 Final x10/UL 20:34 EST 0.03 03/25/2024 Baso # 0.00 - 0.10 Final x10/UL 20:34 EST New 03/25/2024 MANUAL DIFF N/A Order 20:34 EST New 03/25/2024 MORPHOLOGY N/A Order 20:34 EST CORRECTED 03/25/2024 CBC + DIFF Final REPORT 23:41 EST CBC-COMPLETE BLOOD COUNT 11.0 x 10/UL 03/25 (more content not included)... Normal [facility] ED SUPER BILLon 03-30-2024 ED SUPER BILL [id number] [facility] [place] [address] [phone] 03/25/2024 Patient: CLARISSE MOLINA Sex: Female : 2005 Age: 18y Facility Professional Category Item Description Code Code Quantity Fee Total Drugs Normal Saline 751389 1 $0.00 $0.00 1000cc (556984) Nurse/E/M EMERGENCY 999379 1 $0.00 $0.00 DEPT VISIT HIGH SEVERITYFUNCJ (88654-36) Nurse/IV/IM/Infusions Drip/IVPB 866452 2 $0.00 $0.00 additional hour (37510) Nurse/IV/IM/Infusions Drip/IVPB 105243 1 $0.00 $0.00 concurrent (14605) Nurse/IV/IM/Infusions Drip/IVPB initial 922810 1 $0.00 $0.00 (90497) Nurse/IV/IM/Infusions IVP additional 906251 1 $0.00 $0.00 push (18287) Grand $0.00 Total 1 of 2 [facility] Providers Kwaku Pettit D.O. Chief Complaint SKIN RASH. Principal Diagnosis Cellulitis of the right thigh. ICD-10 Codes L03.115: Cellulitis of right lower limb 2 of 2 [facility] ED VISIT SUMMARYon ED VISIT SUMMARY Visit Overview Visit Overview [address] [address] [id number] 03/25/2024 Patient: CLARISSE MOLINA Sex: Female : 2005 Age: 18y 03/30/2024 03:03 AM EST ED Arrival:19:54 03/25/2024 EST Status:not Recent Travel:no Language:eng Adv Directive: Isolation Status: Ethnicity:N Fall Risk:no risk Infectious Disease Exposure:no Measurements:5'5 / 165.1 Self-Harm Status:risk Sepsis Screen:negative cm 190.0 lb / 86.2 kg Chief Complaint:SKIN RASH, (3 weeks), (Akiko Reyes), and (Started PO bactrim 03/24) ALLERGIES No Known Drug Allergies HOME MEDICATIONS None PAST MEDICAL HISTORY / PROBLEMS Immunizations: up-to-date Polycystic ovary 3 Visit Overview See nurses notes PAST SURGICAL HISTORY Shoulder Surgery Tonsillectomy Adenoidectomy SOCIAL HISTORY Smoking status: Unknown Alcohol use: No Drug use: No ED COURSE MEDICATIONS GIVEN IN EMERGENCY DEPARTMENT 20:48 03/25/24 IV NS 0.9 % 1000 mL 500 mL/hr Piperacillin-Tazobac (Zosyn) IVPB 3.375gm/50ml NS 3.375 g diluted in sodium 20:48 03/25/24 chloride IVPB 0.9 % Minibag+ 50 mL 100 mL/hr 21:45 03/25/24 Vancomycin 1gm/NS 200ml IVPB Premix 1 g 200 mL/hr over 1 hour(s) 22:28 03/25/24 DiphenhydrAMINE (Benadryl) IVP 50 mg IV SITE INFORMATION INTAKE OUTPUT REASSESMENT (most recent) 20:53 03/25/24. GENERAL / NEURO / PSYCH: Alert. The patient does not appear to be in acute distress. Oriented X 4. HEENT: Pupils equal, round and reactive to light. Mucous membranes are pink. RESPIRATORY: Respirations not labored. Breath sounds within normal limits. CVS: Capillary refill less than 2 seconds. Pulses within normal limits. GI / : Abdomen nontender. SKIN: Skin is warm and dry. Medium sized area of erythema on the right thigh- associated with swelling, tenderness and increased warmth- 8cm x 8 cm. VITAL SIGNS First Vitals Last Vitals 3 Visit Overview First Vitals Last Vitals Temp 19:59 03/25/24 98.1 F Temp 00:21 03/26/24 BP 19:59 03/25/24 144/86 BP 00:21 03/26/24 HR 19:59 03/25/24 116 HR 00:21 03/26/24 85 RR 19:59 03/25/24 18 RR 00:21 03/26/24 O2 Sat 19:59 12/14/24 99% O2 Sat 00:21 03/26/24 96% Pain 19:59 03/25/24 0 Pain 00:21 03/26/24 ETCO2 19:59 03/25/24 ETCO2 00:21 03/26/24 GCS 19:59 03/25/24 GCS 00:21 03/26/24 RTS 19:59 03/25/24 RTS 00:21 03/26/24 PROCEDURES NURSING INTERVENTIONS LABS / STUDIES LABS / STUDIES ORDERED Blood Culture [Deisy] # 1 Blood Culture [Deisy] # 2 CBC w Diff CMP CT RT Femur w Cont EKG - ED Lactate, Serum CLINICAL IMPRESSION CELLULITIS OF THE RIGHT THIGH 3 of 3 Normal [facility] ED VITALS FLOW SHEETon 03-30 ED VITALS FLOW SHEET Vitals Vital Sign Flow Sheet [facility] [address] [place] [address] [place] [address] [id number] 03/25/2024 Patient: CLARISSE MOLINA Sex: Female : 2005 Age: 18y Measurements Wt: 86.2 kg, Ht/Stefan: 65.0 in, BMI: 31.62 Measured Time BP MAP HR RR O2Sat ETCO2 Temp Pain GCS RTS 00:21 03/26/2024 85 96% 00:16 03/26/2024 86 96% 00:11 03/26/2024 87 96% 00:06 03/26/2024 85 97% 00:01 03/26/2024 88 97% 23:57 03/25/2024 111/65 80 91 23:56 03/25/2024 99 98% 23:51 03/25/2024 97 97% 23:46 03/25/2024 98 98% 23:41 03/25/2024 95 98% 23:36 03/25/2024 98 98% 23:31 03/25/2024 96 98% 23:27 03/25/2024 108/69 81 93 23:26 03/25/2024 92 98% 23:21 03/25/2024 92 98% 1 of 3 Vitals Measured Time BP MAP HR RR O2Sat ETCO2 Temp Pain GCS RTS 23:16 03/25/2024 88 99% 23:11 03/25/2024 93 99% 23:06 03/25/2024 98 99% 23:01 03/25/2024 100 100% 22:57 03/25/2024 127/76 86 91 22:56 03/25/2024 90 100% 22:51 03/25/2024 88 99% 22:41 03/25/2024 98 99% 22:36 03/25/2024 98 99% 22:31 03/25/2024 108 100% 22:27 03/25/2024 111/65 80 108 22:26 03/25/2024 111 97% 22:23 03/25/2024 117/77 90 119 22:21 03/25/2024 119 100% 22:16 03/25/2024 106 99% 22:11 03/25/2024 100 99% 22:06 03/25/2024 96 100% 22:01 03/25/2024 96 100% 21:57 03/25/2024 124/70 83 89 21:56 03/25/2024 94 99% 21:51 03/25/2024 99 96% 21:46 03/25/2024 99 100% 21:41 03/25/2024 88 100% 21:36 03/25/2024 96 100% 21:31 03/25/2024 97 99% 2 of 3 Vitals Measured Time BP MAP HR RR O2Sat ETCO2 Temp Pain GCS RTS 21:27 03/25/2024 122/76 86 91 19:59 03/25/2024 144/86 105 116 18 99% 98.1 F 0 3 of 3 Normal [facility] CBC + DIFFon 03-25-2024 Baso # 0.05 x10EE3/UL Normal 0.00 - 0.10 [facility] Comment on above: Performed By: #### 2 33070 #### [facility],[address] [place] [address] 86300 Basophils/100 WBC (Bld) 0.5 % Normal 0.0 - 2.0 [facility] Comment on above: Performed By: #### 2 82726 #### [facility],[address] [place] [address] CBC + DIFF Normal [facility] Comment on above: Result Comment: CORRECTED REPORT CBC-COMPLETE BLOOD COUNT Performed By: #### 2 97912 #### [facility],[address] [place] [address] EO # 0.48 x10EE3/UL Normal 0.00 - 0.50 [facility] Comment on above: Performed By: #### 2 72797 #### [facility],[address] [place] [address] Eosinophils/100 WBC (Bld) 4.4 % Normal 0.0 - 7.0 [facility] Comment on above: Performed By: #### 2 25561 #### [facility],[address] [place] [address] ERROR DUE TO SEE BELOW Normal [facility] Comment on above: Result Comment: SPEC IMEN MISLABELLED AND CORRECTED Performed By: #### 2 60306 #### [facility],[address] [place] [address] Erythrocyte distribution width (RBC) [Ratio] 13.4 % Normal 12.0 - 15.6 [facility] Comment on above: Performed By: #### 2 65943 #### [facility],[address] [place] [address] Hematocrit (Bld) [Volume fraction] 39.2 % Normal 34.0 - 46.0 [facility] Comment on above: Performed By: #### 2 11676 #### [facility],[address] [place] [address] Hemoglobin (Bld) [Mass/Vol] 13.3 g/dL Normal 12.0 - 16.0 [facility] Comment on above: Performed By: #### 2 77996 #### [facility],[address] [place] [address] Lymph # 2.67 x10EE3/UL Normal 0.80 - 2.80 [facility] Comment on above: Performed By: #### 2 63693 #### [facility],[address] [place] [address] Lymphocytes/100 WBC (Bld) 24.3 % Normal 20.0 - 45.0 [facility] Comment on above: Performed By: #### 2 76445 #### [facility],[address] [place], [place] [address] MANUAL DIFF N/A Normal [facility] Comment on above: Performed By: #### 2 64857 #### [facility],[address] [place] [address] MCH (RBC) [Entitic mass] 29 pg Normal 27 - 33 [facility] Comment on above: Performed By: #### 2 98147 #### [facility],[address] [place] [address] MCHC 34 X10 3 Normal 32 - 36 [facility] Comment on above: Performed By: #### 2 77951 #### [facility],[address] [place], [place] [address] MCV (RBC) [Entitic vol] 84 fL Normal 80 - 99 [facility] Comment on above: Performed By: #### 2 95320 #### [facility],[address] [place] [address]122 [place] # 0.57 x10EE3/UL Normal 0.20 - 1.00 [facility] Comment on above: Performed By: #### 2 29138 #### [facility],[address] [place] [address] 18047 MONOS % 5.2 % Normal 0.0 - 10.0 [facility] Comment on above: Performed By: #### 2 07394 #### [facility],[address] [place] [address] 24836 Morphology Avery (Bld) [Interp] N/A Normal [facility] Comment on above: Result Comment: ==== FOLLOWING RESULTS REPORTED IN ERROR @W] WBC 9.0 <-- *Previously reported in error 03/25/24.TR . .DXH9 .6690-2 @R] RBC 5.49 H <-- *Previously reported in error 03/25/24.TR . .DXH9 .789-8 @G] HEMOGLOBIN 16.7 H <-- *Previously reported in error 03/25/24.TR . .DXH9 .718-7 @T] HEMATOCRIT 48.2 H <-- *Previously reported in error 03/25/24.TR . .DXH9 .4544-3 @V] MCV 88 <-- *Previously reported in error 03/25/24.TR . .DXH9 .787-2 @H] MCH 31 <-- *Previously reported in error 03/25/24.TR . .DXH9 .785-6 @C] MCHC 35 <-- *Previously reported in error 03/25/24.TR . .DXH9 .786-4 RD] RDW/CV 12.6 <-- *Previously reported in error 03/25/24.TR . .DXH9 .788-0 @P] PLATELET 253 <-- *Previously reported in error 03/25/24.TR . .DXH9 .777-3 MP] MPV 7.4 <-- *Previously reported in error 03/25/24.TR . .DXH9 .40448-1 @N] NEUT % 67.1 <-- *Previously reported in error 03/25/24.TR . .DXH9 .751-8 @L] LYMPH % 20.3 <-- *Previously reported in error 03/25/24.TR . .DXH9 .736-9 @M] MONOS % 10.4 H <-- *Previously reported in error 03/25/24.TR . .DXH9 .5905-5 @E] EO % 1.9 <-- *Previously reported in error 03/25/24.TR . .DXH9 .713-8 @B] BASO % 0.4 <-- *Previously reported in error 03/25/24.TR . .DXH9 .706-2 L#] Lymph # 1.82 <-- *Previously reported in error 03/25/24.TR . .DXH9 .731-0 N#] Neut # 6.03 <-- *Previously reported in error 03/25/24.TR . .DXH9 .751-8 M#] [place] # 0.93 <-- *Previously reported in error 03/25/24.TR . .DXH9 .742-7 E#] EO # 0.17 <-- *Previously reported in error 03/25/24.TR . .DXH9 .711-2 B#] Baso # 0.03 <-- *Previously reported in error 03/25/24.TR . .DXH9 .704-7 Performed By: #### 2 24602 #### [facility],[address] [place], [place] [address] Neut # 7.24 x10EE3/UL High 1.50 - 7.10 [facility] Comment on above: Performed By: #### 2 36605 #### [facility],[address] [place] [address] 22231 Neutrophils/100 WBC (Bld) 65.7 % Normal 46.0 - 76.0 [facility] Comment on above: Performed By: #### 2 92683 #### [facility],[address] [place] [address] 02896 PLATELET 399 x10EE3/UL Normal 150 - 450 [facility] Comment on above: Performed By: #### 2 30325 #### [facility],[address] [place] [address] 87051 Platelet mean volume (Bld) [Entitic vol] 7.9 fL Normal 6.6 - 10.5 [facility] Comment on above: Result Comment: AUTO MATED DIFFERENTIAL Performed By: #### 2 44714 #### [facility],[address] [place] [address] 18744 RBC 4.68 x 10EE6/UL Normal 4.10 - 5.30 [facility] Comment on above: Performed By: #### 2 84795 #### [facility],[address] [place] [address] 56879 WBC 11.0 x 10EE3/UL High 4.5 - 10.8 [facility] Comment on above: Performed By: #### 2 18217 #### [facility],[address] [place], [place] [address] CMP with eGFRon 03-25-2024 AGE 18 years Normal [facility] Comment on above: Performed By: #### 2 32287 #### [facility],[address] [place] [address] 74178 Albumin [Mass/Vol] 4.0 g/dL Normal 3.4 - 5.0 [facility] Comment on above: Performed By: #### 2 30460 #### [facility],[address] [place], [place] [address] Albumin/Globulin [Mass ratio] 1.0 {ratio} Normal 0.9 - 1.6 [facility] Comment on above: Performed By: #### 2 83976 #### [facility],[address] [place] [address] 94251 ALK PHOS 131 U/L High 46 - 116 [facility] Comment on above: Performed By: #### 2 89813 #### [facility],[address] [place] [address] 70867 ALT [Catalytic activity/Vol] 47 U/L Normal 16 - 63 [facility] Comment on above: Performed By: #### 2 53596 #### [facility],[address] [place] [address] 81555 Anion gap [Moles/Vol] 13 mmol/L Normal 10 - 20 [facility] Comment on above: Performed By: #### 2 09874 #### [facility],[address] [place] [address] 00310 AST [Catalytic activity/Vol] 33 U/L Normal 13 - 39 [facility] Comment on above: Performed By: #### 2 38277 #### [facility],[address] [place] [address] 16404 B/C RATIO 12 ratio Normal 0 - 30 [facility] Comment on above: Performed By: #### 2 01148 #### [facility],[address] [place] [address] 02435 Bilirubin [Mass/Vol] 0.3 mg/dL Normal 0.2 - 1.0 [facility] Comment on above: Performed By: #### 2 32914 #### [facility],[address] [place] [address] 33017 Calcium [Mass/Vol] 9.5 mg/dL Normal 8.5 - 10.1 [facility] Comment on above: Performed By: #### 2 00664 #### [facility],[address] [place] [address] 96391 Chloride [Moles/Vol] 104 mmol/L Normal 98 - 107 [facility] Comment on above: Performed By: #### 2 41783 #### [facility],[address] [place] [address] 35849 CMP with eGFR Normal [facility] Comment on above: Result Comment: CORRECTED REPORT COMPREHENSIVE METABOLIC PANEL Performed By: #### 2 01983 #### [place] [address] CO2 [Moles/Vol] 26.8 mmol/L Normal 21.0 - 32.0 [facility] Comment on above: Performed By: #### 2 51607 #### [place] [address] Creatinine [Mass/Vol] 0.94 mg/dL Normal 0.55 - 1.02 [facility] Comment on above: Performed By: #### 2 47622 #### [place] [address] eGFR 34 ML/MINUTE Low 60 - 999 [facility] Comment on above: Performed By: #### 2 71851 #### [place] [address] eGFR(AA) 41 ML/MINUTE Low 60 - 999 [facility] Comment on above: Result Comment: ACCO RDING TO THE NATIONAL KIDNEY DISEASE EDUCATION PROGRAM(NKDE), A NORMAL eGFR IS A VALUE GREATER THAN OR EQUAL TO 60 ML/MIN/1.73 SQ METERS. CHRONIC KIDNEY DISEASE: <60mL/MIN/1.73 SQ METERS KIDNEY FAILURE: <15mL/MIN/1.73 SQ METERS THIS TEST SHOULD ONLY BE USED FOR PATIENTS 18 YEARS OF AGE AND OLDER. FOLLOWING RESULTS REPORTED IN ERROR NA] SODIUM 141 <-- *Previously reported in error 03/25/24.TR . .DIM2. .2951-2 . K ] POTASSIUM 3.6 <-- *Previously reported in error 03/25/24.TR . .DIM2. .2823-3 . CL] CHLORIDE 103 <-- *Previously reported in error 03/25/24.TR . .DIM2. .5-0 . CO] CO2 32.8 H <-- *Previously reported in error 03/25/24.TR . .DIM2. .8-9 . GL] GLUCOSE 123 H <-- *Previously reported in error 03/25/24.TR . .DIM2. .2345-7 . BU] BUN 17 <-- *Previously reported in error 03/25/24.TR . .DIM2. .3094-0 . CR] CREATININE 1.21 H <-- *Previously reported in error 03/25/24.TR . .DIM2. .2160-0 . ] AST/SGOT 35 <-- *Previously reported in error 03/25/24.TR . .DIM2. .1920-8 . AP] ALK PHOS 70 <-- *Previously reported in error 03/25/24.TR . .DIM2. . . CU] CALCIUM 9.0 <-- *Previously reported in error 03/25/24.TR . .DIM2. .89923-0 . TP] TOTAL PROTEIN 7.5 <-- *Previously reported in error 03/25/24.TR . .DIM2. .2885-2 . AL] ALBUMIN 4.1 <-- *Previously reported in error 03/25/24.TR . .DIM2. .1751-7 . GLOBULIN 3.4 <-- *Previously reported in error 03/25/24.TR . . . .04085-7 . A/G RATIO 1.2 <-- *Previously reported in error 03/25/24.TR . . . .1751-7 . TB] TOTAL BILI 0.8 <-- *Previously reported in error 03/25/24.TR . .DIM2. .1975-2 . B/C RATIO 14 <-- *Previously reported in error 03/25/24.TR . . . .3097-3 . AT] ALT/SGPT 77 H <-- *Previously reported in error 03/25/24.TR . .DIM2. .0612-6 . ANION GAP 9 L <-- *Previously reported in error 03/25/24.TR . . . . . AGE 18 <-- *Previously reported in error 03/25/24.TR . .DIM2. . . eGFR 58 L <-- *Previously reported in error 03/25/24.TR . . . .00813-2 . eGFR(AA) > 60 <-- *Previously reported in error 03/25/24.TR . . . .20539-0 . Performed By: #### 2 68850 #### [facility],[address] [place] [address] 24133 ERROR DUE TO SEE BELOW Normal [facility] Comment on above: Result Comment: SPEC IMEN MISLABELLED AND CORRECTED Performed By: #### 2 80433 #### [facility],[address] [place] [address] 98424 Globulin (S) [Mass/Vol] 4.1 g/dL High 1.5 - 3.8 [facility] Comment on above: Performed By: #### 2 57944 #### [facility],[address] [place] [address] 72850 Glucose [Mass/Vol] 86 mg/dL Normal 74 - 106 [facility] Comment on above: Performed By: #### 2 19490 #### [facility],[address] [place] [address] 16006 Potassium [Moles/Vol] 3.5 mmol/L Normal 3.5 - 5.1 [facility] Comment on above: Performed By: #### 2 21299 #### [facility],[address] [place] [address] 04990 Protein [Mass/Vol] 8.1 g/dL Normal 6.4 - 8.2 [facility] Comment on above: Performed By: #### 2 10493 #### [facility],[address] [place] [address] 00961 Sodium [Moles/Vol] 140 mmol/L Normal 136 - 145 [facility] Comment on above: Performed By: #### 2 32893 #### [facility],[address] [place], [place] [address] Urea nitrogen [Mass/Vol] 11 mg/dL Normal 7 - 18 [facility] Comment on above: Performed By: #### 2 35800 #### [facility],[address] [place], [place] [address] CT FEMUR C+ RTon 03-25-2024 CT FEMUR C+ RT [place] [address] Patient: CLARISSE MOLINA Phone#: : 2005 Age: 18 Gender: F Pt. Type: ER Account: [id number] Location: [facility] Ordering: KWAKU PETTIT Exam Date: 03/25/2024/21:15 Family Phys: LIZY CHAMBERS Charge Code: 508501 Physician: [place] Order #: [id number] Dose#: [id number] PROCEDURE: CT FEMUR RT WITH CONTRAST COMPARISON: None. INDICATIONS: [employer]. TECHNIQUE: After obtaining the patient's consent, multi-planar CT images were created without and with non-ionic intravenous contrast material. All CT scans at this facility use dose modulation, iterative reconstruction, and/or weight based dosing when appropriate to reduce radiation dose to as low as reasonably achievable. IV CONTRAST: Omnipaque 350,80ml TOTAL DOSE: 8.7 CTDIvol(mGy) FINDINGS: BONES: Normal. No significant arthropathy or acute abnormality. No fracture. No osseous erosion. SOFT TISSUES: There is thickening of the skin overlying the lateral proximal femur. The area involved measures 7.9 x 9.3 cm. Skin measures approximately 0.6 cm thick. There is stranding in the underlying subcutaneous tissues. No fluid collection. No mass. No abnormal enhancement. EFFUSION: None visible. OTHER: Negative. CONCLUSION: Findings most consistent with cellulitis of the proximal lateral thigh. Dictated by: Justine Gong MD on 03/25/2024 at 21:33 Approved by: Justine Gong MD on 03/25/2024 at 21:38 Normal [facility] CULTURE BLOOD [DEISY]on Microscopic examination of blood, culture CULTURE BLOOD [DEISY] _BLOOD CULTURE_ GO TO [employer] REPORTS AND ATTACHMENTS FOR SCANNED REPORT 04/03/24.1205.DNP.COMPLETE Normal [facility] Comment on above: Performed By: #### 2 05261 ####[facility],[address] [place], [place] [address] Microscopic examination of blood, culture CULTURE BLOOD [DEISY] _BLOOD CULTURE_ GO TO [employer] REPORTS AND ATTACHMENTS FOR SCANNED REPORT 04/03/24.1204.DNP.COMPLETE Normal [facility] Comment on above: Performed By: #### 2 07401 ####[facility],[address] [place], [place] [address] LACTATEon 03-25-2024 Lactate [Moles/Vol] 1.4 mmol/L Normal 0.4 - 2.0 [facility] Comment on above: Performed By: #### 2 97306 #### [facility],[address] [place] [address]690 ED MED ADMINISTRATION DETAIL on 03-23-2024 ED MED ADMINISTRATION DETAIL [employer] Medication Administration [address] [address] [id number] 03/23/2024 Patient: CLARISSE MOLINA Sex: Female : 2005 Age: 18y MEASUREMENTS: Wt: 86.2 kg, Ht/Stefan: 65.0 in, BMI: 31.62 ALLERGIES: No known drug allergies Medication Ordered Medication Administration Date/Time Bactrim DS PO 1 07:51 03/23 Bactrim DS PO 1 tab given. - 07:51 Gabe Gregorio tab (NOW x1) R.N. 07:51 03/23/2024 Marco Salas R.N. Scanned 1 of 1 Normal [facility] ED NURSES CLINICAL NOTEon ED NURSES CLINICAL NOTE Nurse Narrative Nurse Clinical Narrative [address] [address] [phone] 03/23/2024 Patient: CLARISSE [facility]OLINA [id number] Sex: Female : 2005 Age: 18y Disposition: Discharge to Home Disposition Decision Time: 07:55 03/23/2024 Departure Time: 08:01 03/23/2024 TRIAGE Arrived by private vehicle. Historian: patient and family. Triage time: 07:28 03/23/2024. Acuity: LEVEL 4. Chief Complaint: SKIN RASH and TENDER AREA. Reported as located on the right thigh. SEPSIS SCREEN: NEGATIVE. SIRS criteria negative. No possible sources of infection. -- 07:34 03/23/24 JOANN Salas R.N. 07:32 03/23/24. BP: 129/80 MAP: 96. HR: 92. RR: 18. O2 saturation: 99% Temperature: 98.4 F. Pain level now 2/10. -- 07:34 03/23/24 JOANN Salas R.N. Measurements: 07:31 03/23/24 Wt: 86.2 kg, Ht/Stefan: 65.0 in, BMI: 31.62 -- 07:31 03/23/24 JOANN Salas R.N. Medications: no known home medications -- 07:31 03/23/24 JOANN Salas R.N. Allergies: 1 of 4 Nurse Narrative no known drug allergies -- 07:31 03/23/24 JOANN Salas R.N. Problems: Polycystic Ovary Disease -- 07:32 03/23/24 JOANN Salas R.N. ADDITIONAL SURGERIES: Shoulder Surgery -- 07:31 03/23/24 JOANN Salas R.N. Tonsillectomy Adenoidectomy -- 07:32 03/23/24 JOANN Salas R.N. History 07:28 03/23/24. SOCIAL HX: Light tobacco smoker (cigarette)- less than 1/2 a pack per day. No alcohol use or drug use. The patient has not traveled outside the [place] Infectious disease exposure: No infectious disease exposure. ABUSE ASSESSMENT: Deferred. The patient answered yes to the question(s) Do you feel safe in your home? and no to the question(s) Are you afraid to go home?, Are you afraid of your partner or someone close to you?, Has your partner or someone close to you emotionally, physically, or sexually assaulted you?, Has your partner or someone close to you threatened to harm/ kill you?, Did your partner or someone close to you cause the presenting injury(s)?, Has your partner or someone close to you ever used a weapon towards you?, Have children witnessed violence in the home? and Has your partner or someone close to you physically abused children?. No report of abuse. SELF HARM ASSESSMENT: Self harm assessment deferred. The patient answered no to the question(s) Have you recently felt down, depressed, or hopeless?, Do you have thoughts of harming or killing yourself?, Do you have a plan for harming or killing yourself?, Have you recently had thoughts about harming or killing others?, Do you have any dangerous items in your possession?, Have you noticed less interest or pleasure in doing things?, Are you here because you tried to hurt yourself? and Have you ever tried to hurt yourself before today?. NUTRITIONAL RISK ASSESSMENT: The nutritional risk assessment revealed no deficiencies. FUNCTIONAL ASSESSMENT: Functional assessment: no impairments noted. LEARNING NEEDS ASSESSMENT: The learning needs assessment revealed no barriers. 2 of 4 Nurse Narrative FALL RISK ASSESSMENT: Fall risk assessment completed. No risk factors identified. SKIN INTEGRITY ASSESSMENT: Skin integrity risk assessment completed. No skin integrity risk identified. -- 07:34 03/23/24 JOANN Salas R.N. 07:34 03/23/24. PAST MEDICAL HX: Denies current : UNKNOWN. -- 07:34 03/23/24 JOANN Salas R.N. Interventions 07:28 03/23/24. Identification band and allergy band on patient. Advanced care plan (FULL). Protocol not initiated. Precautions not initiated. -- 07:34 03/23/24 JOANN Salas R.N. PHYSICAL ASSESSMENT 07:36 03/23/24. GENERAL / NEURO / PSYCH: Alert. Oriented X 4. HEENT: Pupils equal, round and reactive to light. Mucous membranes are pink. RESPIRATORY: Respirations not labored. Breath sounds within normal limits. CVS: Capillary refill less than 2 seconds. GI / : Abdomen nontender. SKIN: Skin is intact, warm and dry. Skin rash present- SMALL REDDENED AREA R THIGH. -- 07:36 03/23/24 JOANN Salas R.N. NURSING PROGRESS NOTES 07:51 03/23/24. Bactrim DS PO 1 tab given. -- 07:51 03/23/24 JOANN Salas R.N. 07:56 03/23/24. Patient gowned. ( AREA MARKED TO MONITOR). Two patient identifiers checked. Call light placed in reach. Side rails up x 2. Bed placed in lowest position. Brakes of chair on. -- 07:56 03/23/24 JOANN Salas R.N. DISPOSITION / DISCHARGE 07:52 03/23/24. BP: 122/75 MAP: 91. HR: 87. RR: 19. O2 saturation: 97% Temperature: 98.4 F. Pain level now 04/21. -- 08:02 03/23/24 JOANN Salas R.N. 08:01 03/23/24. No learning barriers present. Reviewed warnings. Reviewed medication(s) side effects, precautions and dosing information. Treatments re (more content not included)... Normal [facility] ED ORDER SHEET ([facility] ONLY)on 03-23-2024 ED ORDER SHEET ([facility] ONLY) Order Sheet Order Sheet [address] [address] [id number] 03/23/2024 Patient: CLARISSE MOLINA Sex: Female : 2005 Age: 18y MEASUREMENTS: Wt: 86.2 kg, Ht/Stefan: 65.0 in, BMI: 31.62 ALLERGIES: No known drug allergies MEDICATION/IV/DRIP/FLUID ORDERS Order Description Priority Entered Acknowledged Completed Bactrim DS PO1 tab (NOW x1) 07:45 03/23/2024 07:50 07:51 Sudeep Washington, 03/23/2024 03/23/2024 Marco Montemayor R.N. R.N. LAB ORDERS Order Description Priority Entered Acknowledged Collected Completed DIAGNOSTIC STUDY ORDERS Order Description Priority Entered Acknowledged Completed STAFF ORDERS Order Description Priority Entered Acknowledged Collected Completed [Electronically signed by Sudeep Washington D.O. (03/23/2024 17:53 EST)] 1 of 1 Normal [facility] ED PHYSICIAN CLINICAL REPORT on 03-23-2024 ED PHYSICIAN CLINICAL REPORT Narrative Physician Clinical Narrative [facility] [address] [place] [address] [phone] 03/23/2024 Patient: CLARISSE MOLINA Sex: Female : 2005 Age: 18y Disposition: Discharge to Home Disposition Decision Time: 07:55 03/23/2024 Departure Time: 08:01 03/23/2024 Measurements Wt: 86.2 kg, Ht/Stefan: 65.0 in, BMI: 31.62 Initial Vital Sign Measured Time BP MAP HR RR O2Sat ETCO2 Temp Pain GCS RTS 07:32 03/23/2024 129/80 96 92 18 99% 98.4 F 2 Time Seen: 07:35 03/23/2024. Arrived- By private vehicle. Historian- patient. Independent historian- family. HISTORY OF PRESENT ILLNESS Chief Complaint: SKIN RASH. This started 4 weeks; Patient had a tattoo on February 13. Then about 10 days later she developed a papule on her right thigh where the tattoo was thought it might be from the tattoo. Since then it has expanded. Occasionally itches. She has had no drainage. 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 It is described as itchy. Not painful or burning. It has been located on the right lower extremity. REVIEW OF SYSTEMS RESPIRATORY: No cough. CONSTITUTIONAL: No fever or chills. NEUROLOGICAL: No headache. EYES: No eye irritation. THROAT: No sore throat. 1 of 3 Narrative PAST HISTORY Polycystic Ovary Disease Surgeries: Shoulder Surgery Tonsillectomy Adenoidectomy Medications: no known home medications Allergies: no known drug allergies SOCIAL HISTORY Smoker- current status unknown. Regular vaping. No alcohol use or drug use. ADDITIONAL NOTES The nursing notes have been reviewed. PHYSICAL EXAM Appearance: Alert. Oriented X3. No acute distress. Eyes: Pupils not equal, round and reactive to light. Conjunctivae/eyelids abnormal. Neck: Neck supple. CVS: Normal heart rate. Respiratory: No respiratory distress. Abdomen: Nontender. Skin: Normal skin color. No tender indurated area. Skin rash present. Rash present on the right thigh (patient has a erythematous rash proximally 6 cm in diameter. It is circular. It is a maculopapular rash with minimal raising. There is exudate there is no red streaking there is no papules. It is in the center of a large tattoo.). The rash is maculopapular. No weeping, inflammation, crusting or abscess. Extremities: Extremities nontender. Neuro: Oriented X 3. No motor deficit. 2 of 3 Narrative PROGRESS AND PROCEDURES MEDICAL DECISION MAKING: (Patient had a tattoo on February 13. Then about 10 days later she developed a papule on her right thigh where the tattoo was thought it might be from the tattoo. Since then it has expanded. Occasionally itches. She has had no drainage. 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 Patient does have redness on her right thigh. Just some minimal itching discomfort there is exudate. There is no obvious abscess. We will treat her with Bactrim in case it is MRSA type of rash. She should follow up with Lori Chambers next week. Return if any problems or concerns.). Disposition: Condition: stable. Discharged in fair condition. Discharge decision based on the following: patient's condition is stable; patient's exam is stable. CLINICAL IMPRESSION Cellulitis of the right thigh. DISCHARGE INSTRUCTIONS Return to work tomorrow. Do not work today. Prescription Medications: bactrum ds tablet: Take 1 tablet by mouth twice a day as needed for 10 days, dispense 20 tablet. Refills 0. Pharmacy: [facility] [id number] [place] [address]. Follow-up with: Lizy Chambers, MSN,FIRE PREVENTION SPECIALIST, IMPLEMENTATION ADVISOR-C, [facility], Phone: [phone], [address] [place] [address]. Follow up in one week. (Keep clean and dry. nina area to see if it is getting larger. Return if any problems or concerns.). (Electronically signed by Sudeep Washington D.O. 03/23/24 17:53:21 EST) Generated by [facility] 3 of 3 [facility] ED SUPER BILLon 03-23-2024 ED SUPER BILL [facility] [address] [place] [address] [id number] 03/23/2024 Patient: CLARISSE MOLINA Sex: Female : 2005 Age: 18y Item Professional Category Description Facility Code Code Quantity Fee Total Nurse/E/M EMERGENCY 119109 1 $0.00 $0.00 DEPARTMENT VISIT MODERATE SEVERITY (41669) Grand Total $0.00 Providers Sudeep Washington D.O. Chief Complaint SKIN RASH. Principal Diagnosis Cellulitis of the right thigh. ICD-10 Codes 1 of 2 [facility] L03.115: Cellulitis of right lower limb 2 of 2 [facility] ED VISIT SUMMARYon ED VISIT SUMMARY Visit Overview Visit Overview [facility] [address] [place] [address] [id number] 03/23/2024 Patient: CLARISSE MOLINA Sex: Female : 2005 Age: 18y 03/23/2024 05:53 PM EST ED Arrival:07:24 03/23/2024 EST Status:not Recent Travel:no Language:eng Adv Directive: Isolation Status: Ethnicity:N Fall Risk:no risk Infectious Disease Exposure:no Measurements:5'5 / 165.1 Self-Harm Status:risk Sepsis Screen:negative cm 190.0 lb / 86.2 kg Chief Complaint:SKIN RASH and TENDER AREA ALLERGIES No Known Drug Allergies HOME MEDICATIONS None PAST MEDICAL HISTORY / PROBLEMS Polycystic Ovary Disease PAST SURGICAL HISTORY 1 of 3 Visit Overview Shoulder Surgery Tonsillectomy Adenoidectomy SOCIAL HISTORY Nutritional assessment: No deficits Functional assessment: No impairments Learning needs: No barriers Smoking status: Yes Alcohol use: No Drug use: No ED COURSE MEDICATIONS GIVEN IN EMERGENCY DEPARTMENT 07:51 03/23/24 Bactrim DS PO 1 tab IV SITE INFORMATION INTAKE OUTPUT REASSESMENT (most recent) 07:56 03/23/24. Patient gowned. ( AREA MARKED TO MONITOR). Two patient identifiers checked. Call light placed in reach. Side rails up x 2. Bed placed in lowest position. Brakes of chair on. VITAL SIGNS First Vitals Last Vitals Temp 07:32 03/23/24 98.4 F Temp 07:52 03/23/24 98.4 F BP 07:32 03/23/24 129/80 BP 07:52 03/23/24 122/75 HR 07:32 03/23/24 92 HR 07:52 03/23/24 87 RR 07:32 03/23/24 18 RR 07:52 03/23/24 19 O2 Sat 07:32 03/23/24 99% O2 Sat 07:52 03/23/24 97% Pain 07:32 03/23/24 2 Pain 07:52 03/23/24 1 ETCO2 07:32 03/23/24 ETCO2 07:52 03/23/24 GCS 07:32 03/23/24 GCS 07:52 03/23/24 RTS 07:32 03/23/24 RTS 07:52 03/23/24 2 of 3 Visit Overview PROCEDURES NURSING INTERVENTIONS LABS / STUDIES CLINICAL IMPRESSION CELLULITIS OF THE RIGHT THIGH 3 of 3 Normal [facility] ED VITALS FLOW SHEETon 03-23 ED VITALS FLOW SHEET Vitals Vital Sign Flow Sheet [address] [address] [id number] 03/23/2024 Patient: CLARISSE MOLINA Sex: Female : 2005 Age: 18y Measurements Wt: 86.2 kg, Ht/Stefan: 65.0 in, BMI: 31.62 Measured Time BP MAP HR RR O2Sat ETCO2 Temp Pain GCS RTS 07:52 03/23/2024 122/75 91 87 19 97% 98.4 F 1 07:32 03/23/2024 129/80 96 92 18 99% 98.4 F 2 1 of 1 Normal [facility] CNOVon 03-02-2024 CNOV Office Visit (UCWSTR ) CLARISSE MOLINA ([id number]) 5 F Date Time Provider Department 03/02/24 3:30 PM TISHA PALOMO WSTR During your visit today, we recorded the following information about you: Temperature Pulse Respiration Blood pressure 97.8 degrees 98/minute 18/minute 100/74 Weight 84.9 kg Tisha Palomo APRN.PEDODONTIST 03/02/2024 4:04 PM Signed This note was created using [employer] Channel[employer]. Subjective Clarisse Molina is a 18 year old female. HPI For the last three days pt has had fever, nausea, and a sore throat. Covid test negative today. Review of Systems Constitutional: Positive for fever. HENT: Positive for sore throat. Respiratory: Positive for cough. Gastrointestinal: Positive for nausea. Objective BP 100/74 Pulse 98 Temp 36.6 ?C (97.8 ?F) Resp 18 Wt 84.9 kg (187 lb 2.7 oz) LMP 01/07/2024 SpO2 98% Physical Exam Vitals and nursing note reviewed. Constitutional: General: She is not in acute distress. Appearance: Normal appearance. She is not ill-appearing. HENT: Head: Normocephalic. Mouth/Throat: Mouth: Mucous membranes are moist. Eyes: Conjunctiva/sclera: Conjunctivae normal. Cardiovascular: Rate and Rhythm: Normal rate and regular rhythm. Pulmonary: Effort: Pulmonary effort is normal. Breath sounds: Normal breath sounds. Musculoskeletal: General: Normal range of motion. Cervical back: Normal range of motion. Skin: General: Skin is warm and dry. Neurological: General: No focal deficit present. Mental Status: She is alert. Psychiatric: Mood and Affect: Mood normal. Behavior: Behavior normal. Assessment and Plan ASSESSMENT/PLAN: 1. Sore throat - ICD9: 462, ICD10: J02.9 (primary diagnosis) - suspect viral - Rapid Strep negative in the office today - Discussed supportive care treatment with fluids, rest and analgesia. - The patient may also use OTC cough and cold meds as needed and warm salt water gargles, throat lozenges and/or OTC throat spray as needed. - Contagious dz precautions discussed - The patient should follow up in one week if symptoms persist or worsen - RAPID STREP TEST B/O 2. Acute cough - ICD9: 786.2, ICD10: R05.1 Chest x-ray shows no acute abnormalities. Discussed with patient symptoms seem most likely viral in origin. Recommended ondg-sxw-nxollpa treatments, plenty of rest and fluids and follow-up with PCP. - XR CHEST 2V FRONTAL/LAT Tisha Palomo APRN.PEDODONTIST Allergies As of Date: 03/02/2024 (No Known Allergies) Date Reviewed: 03/02/2024 Reviewed by: Tisha Palomo APRN.PEDODONTIST - Fully Assessed Reason for Visit: Cough [28] Cmt: Fever, drainage, LAY ear pain, stuffy/runny nose, loss of voice, sore throat, nausea, sob, JUAN x 3 days Primary Visit Diagnosis:Sore throat [J02.9] Other Visit Diagnosis:Acute cough [R05.1] Order(s):RAPID STREP TEST B/O [[id number]] Order #: [id number] XR CHEST 2V FRONTAL/LAT [[id number]] Order #: [id number] FUTURE STREP A MOLECULAR (POC) [[id number]] Order #: [id number]. #:[id number] -LAB Prescriptions as of 03/02/2024 - norethindrone (AYGESTIN) 5 mg tablet Take 1 tablet TID until bleeding stops for 24 hours, the BID x 3 days, then daily x 3 days. - Polyethylene Glycol 3350 (MIRALAX) 17 gram/dose ORAL powder Take by mouth. 2-3 tablespoons daily. Problem List As Of Date 03/02/2024 Noted Resolved FEBRILE CONVULSIONS NOS [R56.00] 11/02/2008 Closed Fracture of Unspecified Part of Lower En*03/13/2009 Letter Text Encounter Status:Closed by TISHA PALOMO on 03/02/24 Normal [facility] STREP A MOLECULAR (POC)on Procedural Control Valid [facility] Strep A (POCT) Negative Negative [facility] XR CHEST 2V FRONTAL/LATon XR CHEST 2V FRONTAL/LAT * * *Final Report* * * DATE OF EXAM: Mar 02 2024 3:55PM WOX [id number] - XR CHEST 2V FRONTAL/LAT / PROCEDURE REASON: Acute cough * * * * Physician Interpretation * * * * EXAMINATION: CHEST RADIOGRAPH (2 VIEW FRONTAL and LATERAL) CLINICAL HISTORY: Acute cough MQ: XC2_6 EXAM DATE/TIME: 03/02/2024 3:55 PM COMPARISON: No relevant prior studies available. RESULT: Lines, tubes, and devices: None. Lungs and pleura: No consolidation. No lung mass. No pleural effusion. No pneumothorax. Incidental note of an azygos lobe. Cardiomediastinal silhouette: Normal cardiomediastinal silhouette. Bones and soft tissues: Unremarkable. IMPRESSION: No acute radiographic abnormality. Insulation Cutter: [facility] Transcribe Date/Time: Mar 02 2024 3:58P Dictated by : NINA HUNTER MD This examination was interpreted and the report reviewed and electronically signed by: NINA HUNTER MD on Mar 02 2024 3:59PM EST [id number] Normal [facility] XR Chest PA and Lateralon IMPRESSION: No acute radiographic abnormality. Insulation Cutter: [facility] Transcribe Date/Time: Mar 02 2024 3:58P Dictated by : NINA HUNTER MD This examination was interpreted and the report reviewed and electronically signed by: NINA HUNTER MD on Mar 02 2024 3:59PM EST DIVISION OF RADIOLOGY * * *Final Report* * * DATE OF EXAM: Mar 02 2024 3:55PM WOX 5291 - XR CHEST 2V FRONTAL/LAT / PROCEDURE REASON: Acute cough * * * * Physician Interpretation * * * * EXAMINATION: CHEST RADIOGRAPH (2 VIEW FRONTAL & LATERAL) CLINICAL HISTORY: Acute cough MQ: XC2_6 EXAM DATE/TIME: 03/02/2024 3:55 PM COMPARISON: No relevant prior studies available. RESULT: Lines, tubes, and devices: None. Lungs and pleura: No consolidation. No lung mass. No pleural effusion. No pneumothorax. Incidental note of an azygos lobe. Cardiomediastinal silhouette: Normal cardiomediastinal silhouette. Bones and soft tissues: Unremarkable. DIVISION OF RADIOLOGY Provider, Mary bansal [place] - 03/02/2024 * * *Final Report* * * DATE OF EXAM: Mar 02 2024 3:55PM WOX 5291 - XR CHEST 2V FRONTAL/LAT / PROCEDURE REASON: Acute cough * * * * Physician Interpretation * * * * EXAMINATION: CHEST RADIOGRAPH (2 VIEW FRONTAL & LATERAL) CLINICAL HISTORY: Acute cough MQ: XC2_6 EXAM DATE/TIME: 03/02/2024 3:55 PM COMPARISON: No relevant prior studies available. RESULT: Lines, tubes, and devices: None. Lungs and pleura: No consolidation. No lung mass. No pleural effusion. No pneumothorax. Incidental note of an azygos lobe. Cardiomediastinal silhouette: Normal cardiomediastinal silhouette. Bones and soft tissues: Unremarkable. IMPRESSION IMPRESSION: No acute radiographic abnormality. Insulation Cutter: [facility] Transcribe Date/Time: Mar 02 2024 3:58P Dictated by : NINA HUNTER MD This examination was interpreted and the report reviewed and electronically signed by: NINA HUNTER MD on Mar 02 2024 3:59PM EST [facility] Radiology Study observation (narrative) [facility] XR Chest PA and LateralOrder ed By: [facility] Provider on 03-02-2024 [facility] ED MED ADMINISTRATION DETAIL on 02-28-2024 ED MED ADMINISTRATION DETAIL Residential Air Sealing Technician Medication Administration Record [address] [address] [id number] 02/20/2024 Patient: CLARISSE MOLINA Sex: Female : 2005 Age: 18y MEASUREMENTS: Wt: 86.2 kg, Ht/Tsefan: 66.0 in, BMI: 30.67 ALLERGIES: No known drug allergies Medication Ordered Medication Administration Date/Time Acetaminophen 15:01 02/19 Acetaminophen (Tylenol) PO 975 mg given. - 15:01 Given (Tylenol) PO 975 Dean Medina R.N. 15:01 02/20/2024 mg (NOW x1) Dean Medina R.N. Scanned 1 of 1 Normal [facility] ED NURSES CLINICAL NOTEon ED NURSES CLINICAL NOTE Nurse Narrative Nurse Clinical Narrative [place] [address] [place] [address] [id number] 02/20/2024 Patient: CLARISSE MOLINA Sex: Female : 2005 Age: 18y Disposition: Discharge Disposition Decision Time: 16:02/20/2024 Departure Time: 16:02/20/2024 TRIAGE Historian: patient. Primary physician (Lizy Chambers). Triage time: 13:04 02/20/2024. Acuity: LEVEL 4. Chief Complaint: FALL. Slipped due to wet floor; fell onto hard surface while walking. Alert. No acute distress. Location of injuries: lower back, left hip, left knee and left ankle. Occurred 12:20 02/20/2024. ( Patient was returning trays to the kitchen at work, slipped on a wet floor with no wet floor sign out, landed on her left side and notes pain to her lower back and left hip, left knee, and left ankle.). SEPSIS SCREEN: NEGATIVE. SIRS criteria negative. No possible sources of infection. -- 13:02/20/24 JOANN Chow R.N. 13:02/20/24. BP: 123/82 MAP: 96. HR: 95. RR: 16. O2 saturation: 97% Temperature: 98.5 F. Pain level now 10/10. Describes the pain as throbbing. Constant. -- 13:02/20/24 JOANN Chow R.N. Measurements: 13:02/20/24 Wt: 86.2 kg, Ht/Stefan: 66.0 in, BMI: 30.67 -- 13:02/20/24 JAONN Chow R.N. Medications: no known home medications -- 13:02/20/24 JOANN Chow R.N. 1 of 4 Nurse Narrative Allergies: no known drug allergies -- 13:02/20/24 JOANN Chow R.N. Problems: no known problem -- 13:02/20/24 JOANN Chow R.N. ADDITIONAL SURGERIES: Tonsillectomy Adenoidectomy -- 13:08 02/20/24 JOANN Chow R.N. Operative procedure on shoulder -- 13:02/20/24 JOANN Chow R.N. History 13:04 02/20/24. SOCIAL HX: Regular vaping using vape. Occasional alcohol use. No drug use. The patient has not traveled outside the [place] Infectious disease exposure: No infectious disease exposure. ABUSE ASSESSMENT: The patient answered yes to the question(s) Do you feel safe in your home? and no to the question(s) Are you afraid to go home?, Are you afraid of your partner or someone close to you?, Has your partner or someone close to you emotionally, physically, or sexually assaulted you?, Has your partner or someone close to you threatened to harm/ kill you?, Did your partner or someone close to you cause the presenting injury(s)?, Has your partner or someone close to you ever used a weapon towards you?, Have children witnessed violence in the home? and Has your partner or someone close to you physically abused children?. Abuse denied. No report of abuse. SELF HARM ASSESSMENT: Self harm assessment was performed. The patient answered no to the question(s) Have you recently felt down, depressed, or hopeless?, Do you have thoughts of harming or killing yourself?, Do you have a plan for harming or killing yourself?, Have you recently had thoughts about harming or killing others?, Do you have any dangerous items in your possession?, Have you noticed less interest or pleasure in doing things?, Are you here because you tried to hurt yourself? and Have you ever tried to hurt yourself before today?. NUTRITIONAL RISK ASSESSMENT: The nutritional risk assessment revealed no deficiencies. FUNCTIONAL ASSESSMENT: Functional assessment: no impairments noted. 2 of 4 Nurse Narrative LEARNING NEEDS ASSESSMENT: The learning needs assessment revealed no barriers. FALL RISK ASSESSMENT: Fall risk assessment completed. No risk factors identified. SKIN INTEGRITY ASSESSMENT: Skin integrity risk assessment completed. No skin integrity risk identified. -- 13:13 02/20/24 JOANN Chow R.N. 13:14 02/20/24. PAST MEDICAL HX: Denies current . -- 13:14 02/20/24 JOANN Chow R.N. Interventions 13:04 02/20/24. Identification band on patient. To waiting room. Advanced care plan (Full Code). -- 13:13 02/20/24 JOANN Chow R.N. PHYSICAL ASSESSMENT 15:04 02/20/24. GENERAL / NEURO / PSYCH: Alert. Oriented X 4. Appears in no acute distress. HEENT: Pupils equal, round and reactive to light. Head non-tender. RESPIRATORY: Respirations not labored. Chest nontender. Breath sounds within normal limits. CVS: Normal heart rate and rhythm. Pulses within normal limits. Capillary refill less than 2 seconds. GI / : Abdomen soft and nontender. EXTREMITIES: Extremities exhibit normal ROM. Neuro-vascular status intact to the extremity. Left hip: tenderness. Left thigh: tenderness. Left knee: tenderness. Left leg: tenderness. SKIN: Skin intact. Skin is warm and dry. -- 15:04 02/20/24 JOANN Medina R.N. NURSING PROGRESS NOTES 15:02/20/24. Acetaminophen (Tylenol) PO 975 mg given. -- 15:02/20/24 JOANN Medina R.N. 15:12 02/20/24. Patient transported to radiolog (more content not included)... Normal [facility] ED ORDER SHEET (CPOE ONLY)on 02-28-2024 ED ORDER SHEET (CPOE ONLY) Order Sheet Order Sheet [address] [address] [id number] 02/20/2024 Patient: CLARISSE MOLINA Sex: Female : 2005 Age: 18y MEASUREMENTS: Wt: 86.2 kg, Ht/Stefan: 66.0 in, BMI: 30.67 ALLERGIES: No known drug allergies MEDICATION/IV/DRIP/FLUID ORDERS Order Description Priority Entered Acknowledged Completed Acetaminophen (Tylenol) 14:54 02/20/2024 14:55 15:01 PO975 mg (NOW x1) Johan Solorzano M.D. 02/20/2024 02/20/2024 Dean Morley R.N. RBreann LAB ORDERS Order Description Priority Entered Acknowledged Collected Completed DIAGNOSTIC STUDY ORDERS Order Description Priority Entered Acknowledged Completed Lumbosacral Complete Stat Stat 14:53 02/20/2024 14:55 Johan Solorzano M.D. 02/20/2024 Dean Medina R.N. Reason for Study: Trauma/Injury Femur L 2V Stat Stat 14:53 02/20/2024 14:55 Johan Solorzano M.D. 02/20/2024 Dean Medina, 1 of 2 Order Sheet R.NYfn Reason for Study: Trauma/Injury Tib/Fib L 2V Stat Stat 14:53 02/20/2024 14:55 Johan Solorzano M.D. 02/20/2024 Dean Medina R.N. Reason for Study: Trauma/Injury Ankle L 3V Stat Stat 15:01 02/20/2024 15:01 Johan Solorzano M.D. 02/20/2024 Dean Medina R.N. Reason for Study: Trauma/Injury STAFF ORDERS Order Description Priority Entered Acknowledged Collected Completed [Electronically signed by Johan Solorzano M.D. (02/28/2024 07:09 EST)] 2 of 2 Normal [facility] ED PHYSICIAN CLINICAL REPORT on 02-28-2024 ED PHYSICIAN CLINICAL REPORT Narrative Physician Clinical Narrative [address] [address] [id number] 02/20/2024 Patient: CLARISSE MOLINA Sex: Female : 2005 Age: 18y Disposition: Discharge to Home Disposition Decision Time: 16:01 02/20/2024 Departure Time: 16:01 02/20/2024 Measurements Wt: 86.2 kg, Ht/Stefan: 66.0 in, BMI: 30.67 Initial Vital Sign Measured Time BP MAP HR RR O2Sat ETCO2 Temp Pain GCS RTS 13:11 02/20/2024 123/82 96 95 16 97% 98.5 F 10 Time Seen: 14:43 02/20/2024. Arrived- By private vehicle. Historian- patient. HISTORY OF PRESENT ILLNESS Chief Complaint: Injury to left leg, left thigh and left hip. The injury happened at 1230. Fell. Slipped due to wet floor; fell onto hard surface while walking. (landed on left side particularly left hip knee and leg.). Occurred at work. Patient is experiencing moderate pain. No injury to the head or neck. REVIEW OF SYSTEMS SKIN: No suspected foreign body or skin laceration. NEUROLOGICAL: No tingling, weakness or numbness. MUSCULOSKELETAL: The patient complains of pain on weight bearing. No swelling. All other systems reviewed and are negative. 1 of 7 Narrative PAST HISTORY See nurses notes. no known problem Surgeries: Operative procedure on shoulder Tonsillectomy Adenoidectomy Medications: no known home medications Allergies: no known drug allergies ADDITIONAL NOTES The nursing notes have been reviewed. PHYSICAL EXAM Vital Signs: Have been reviewed. Appearance: Alert. Oriented X3. No acute distress. Head: Head atraumatic. Eyes: Eyes normal inspection. Neck: Normal inspection. C-spine non-tender. Respiratory: No respiratory distress. Abdomen: No visible injury. Back: Normal inspection. No limitation in ROM. (Mild tenderness to the low back diffusely.). Skin: Skin warm and dry. Normal skin color. Extremities: Left hip: located in the lateral aspect of the hip. No erythema, tenderness, swelling, laceration or abrasion. No ecchymosis or puncture wound. No avulsion. The left leg is not shortened, externally rotated or internally rotated. Left thigh: located in the lateral aspect of thigh. No erythema, tenderness, swelling, laceration or abrasion. No avulsion. Left leg: mild tenderness. No erythema, swelling, laceration, abrasion or ecchymosis. No puncture wound. No avulsion. Left ankle: mild tenderness. No erythema, swelling, laceration, abrasion or ecchymosis. No avulsion. (Tenderness diffusely along the lateral aspect of the left leg without any focal areas noted.). Extremities otherwise negative. 2 of 7 Narrative Neuro, Vascular and Tendons: Vascular status intact. Sensation intact. Motor intact. Tendon function intact. Gait: Limping gait. Neuro: Oriented X 3. LABS, X-RAYS, AND EKG X-Rays: X-rays are normal and reveal no acute disease. The X-rays were independently viewed by me. Diagnostic Study Tests: ANKLE COMPLETE LT Final EXAM Date: 02[facility]20/2024 [facility] 18[facility] [address] Patient: CLARISSE MOLINA Phone#: : 2005 Age: 18 Gender: F Pt. Type: ER Account: [id number] Location: 2 Ordering: JOHAN SOLORZANO Exam Date: 02/20/2024/15:27 Family Phys: LIZY CHAMBERS Charge Code: 630804 Physician: [place] Order #: [id number] Dose#: PROCEDURE: X-RAY ANKLE COMPLETE LT MIN 3 VIEWS COMPARISON: None. INDICATIONS: Fall. FINDINGS: BONES: Normal. No significant arthropathy or acute abnormality. SOFT TISSUES: Negative. No visible soft tissue swelling. EFFUSION: None visible. OTHER: Negative. CONCLUSION: No acute disease. Dictated by: Kristan David MD on 02/20/2024 at 18:00 Approved by: Kristan David MD on 02/20/2024 at 18:01 FEMUR LT 2+ VIEWS Final 3 of 7 Narrative EXAM Date: 02/20/2024 17:56:00 EST MsgRcvd: 02/20/2024 18:00 [place] [address] Patient: CLARISSE MOLINA Phone#: : 2005 Age: 18 Gender: F Pt. Type: ER Account: [id number] Location: 05 Ordering: JOHAN SOLORZANO Exam Date: 02/20/2024/15:03 Family Phys: LIZY CHAMBERS Charge Code: 847142 Physician: [place] Order #: [id number] Dose#: PROCEDURE: X-RAY FEMUR LT MIN 2 VIEWS COMPARISON: None. INDICATIONS: Fall FINDINGS: BONES: Normal. No significant arthropathy or acute abnormality. SOFT TISSUES: Negative. No visible soft tissue swelling. EFFUSION: None visible. OTHER: Negative. CONCLUSION: No acute disease. Dictated by: Kristan David MD on 02/20/2024 at 17:56 Approved by: Kristan David MD on 02/20/2024 at 17:56 LUMBO SACRAL COMPLETE MIN 4 VIEWS Final EXAM Date: 02/20/2024 17:59:00 EST MsgRcvd: 11 (more content not included)... Normal [facility] ED SUPER BILLon 02-28-2024 ED SUPER BILL [address] [address] [id number] 02/20/2024 Patient: CLARISSE MOLINA Sex: Female : 2005 Age: 18y Item Professional Category Description Facility Code Code Quantity Fee Total Nurse/E/M EMERGENCY 791936 1 $0.00 $0.00 DEPARTMENT VISIT MODERATE SEVERITY (33520) Grand Total $0.00 Providers Johan Solorzano M.D. Chief Complaint Injury to left leg, left thigh and left hip. Principal Diagnosis Multiple contusions to the left hip, left thigh, left lower leg and left ankle. Fall on the same level by slipping. 1 of 2 [facility] ICD-10 Codes W01.0XXA: Fall on same level from slipping, tripping and stumbling without subsequent striking against object, initial encounter S70.02xA: Contusion of left hip, initial encounter S70.12xA: Contusion of left thigh, initial encounter S80.12xA: Contusion of left lower leg, initial encounter S90.02xA: Contusion of left ankle, initial encounter 2 of 2 Normal [facility] ED VISIT SUMMARYon ED VISIT SUMMARY Visit Overview Visit Overview [address] [address] [id number] 02/20/2024 Patient: CLARISSE MOLINA Sex: Female : 2005 Age: 18y 02/28/2024 07:09 AM EST ED Arrival:13:01 02/20/2024 EST Status:not Recent Travel:no Language:eng Adv Directive: Isolation Status: Ethnicity:N Fall Risk:no risk Infectious Disease Exposure:no Measurements:5'6 / 167.6 Self-Harm Status:risk Sepsis Screen:negative cm 190.0 lb / 86.2 kg Chief Complaint:due to wet floor, fell onto hard surface, slipped, while walking, (12:20 02/20/2024), (Lizy Chambers), and (Patient was returning trays to the kitchen at work, slipped on a wet floor with no wet floor sign out, landed on her left side and notes pain to her lower back and left hip, left knee, and left ankle. ) ALLERGIES No Known Drug Allergies 1 of 3 Visit Overview HOME MEDICATIONS None PAST MEDICAL HISTORY / PROBLEMS None See nurses notes PAST SURGICAL HISTORY Operative procedure on shoulder Tonsillectomy Adenoidectomy SOCIAL HISTORY Nutritional assessment: No deficits Functional assessment: No impairments Learning needs: No barriers Smoking status: Unknown Alcohol use: Yes Drug use: No ED COURSE MEDICATIONS GIVEN IN EMERGENCY DEPARTMENT 15:01 02/20/24 Acetaminophen (Tylenol) PO 975 mg IV SITE INFORMATION INTAKE OUTPUT REASSESMENT (most recent) 2 of 3 Visit Overview 15:04 02/20/24. GENERAL / NEURO / PSYCH: Alert. Oriented X 4. Appears in no acute distress. HEENT: Pupils equal, round and reactive to light. Head non-tender. RESPIRATORY: Respirations not labored. Chest nontender. Breath sounds within normal limits. CVS: Normal heart rate and rhythm. Pulses within normal limits. Capillary refill less than 2 seconds. GI / : Abdomen soft and nontender. EXTREMITIES: Extremities exhibit normal ROM. Neuro-vascular status intact to the extremity. Left hip: tenderness. Left thigh: tenderness. Left knee: tenderness. Left leg: tenderness. SKIN: Skin intact. Skin is warm and dry. VITAL SIGNS First Vitals Last Vitals Temp 13:11 02/20/24 98.5 F Temp 13:13 02/20/24 98.5 F BP 13:11 02/20/24 123/82 BP 13:13 02/20/24 123/82 HR 13:11 02/20/24 95 HR 13:13 02/20/24 95 RR 13:11 02/20/24 16 RR 13:13 02/20/24 16 O2 Sat 13:11 02/20/24 97% O2 Sat 13:13 02/20/24 97% Pain 13:11 02/20/24 10 Pain 13:13 02/20/24 10 ETCO2 13:11 02/20/24 ETCO2 13:13 02/20/24 GCS 13:11 02/20/24 GCS 13:13 02/20/24 RTS 13:11 02/20/24 RTS 13:13 02/20/24 PROCEDURES NURSING INTERVENTIONS LABS / STUDIES LABS / STUDIES ORDERED Ankle L 3V Femur L 2V Lumbosacral Complete Tib/Fib L 2V CLINICAL IMPRESSION FALL ON THE SAME LEVEL BY SLIPPING MULTIPLE CONTUSIONS TO THE LEFT HIP, LEFT THIGH, LEFT LOWER LEG AND LEFT ANKLE 3 of 3 Normal [facility] ED VITALS FLOW SHEETon 02-27 ED VITALS FLOW SHEET Vitals Vital Sign Flow Sheet [place] [address] [place] [address] [id number] 02/20/2024 Patient: CLARISSE MOLINA Sex: Female : 2005 Age: 18y Measurements Wt: 86.2 kg, Ht/Stefan: 66.0 in, BMI: 30.67 Measured Time BP MAP HR RR O2Sat ETCO2 Temp Pain GCS RTS 13:13 02/20/2024 123/82 96 95 16 97% 98.5 F 10 13:11 02/20/2024 123/82 96 95 16 97% 98.5 F 10 1 of 1 Normal [facility] CBC W/Diff, Automatedon 02-10 Absolute Lymph 4.10 X10 3/uL Normal 0.83-4.51 [facility] Comment on above: Performed By: #### L 100.0100, L700.6800 ####[facility] [address] [place], [address] Absolute Neut 9.8 X10 3/uL High 2.0-7.7 [facility] Comment on above: Performed By: #### L 100.0100, L700.6800 ####[facility] [address] [place], [address] Basophils/100 WBC (Bld) 0.6 % Normal 0-1 [facility] Comment on above: Performed By: #### L 100.0100, L700.6800 ####[facility] [address], [address] Eosinophils/100 WBC (Bld) 1.8 % Normal 0-3 [facility] Comment on above: Performed By: #### L 100.0100, L700.6800 ####[facility] [address], [address] Erythrocyte distribution width (RBC) [Ratio] 13.2 % Normal 11.6-14.6 [facility] Comment on above: Performed By: #### L 100.0100, L700.6800 ####[facility] [address] [place], [address] Hematocrit (Bld) [Volume fraction] 40.6 % Normal 37-46 [facility] Comment on above: Performed By: #### L 100.0100, L700.6800 ####[facility] [address] [place], [address] Hemoglobin (Bld) [Mass/Vol] 13.4 g/dL Normal 12.0-15.0 [facility] Comment on above: Performed By: #### L 100.0100, L700.6800 ####[facility] [address], [address] IG% 0.500 Normal 0.0-0.9 [facility] Comment on above: Result Comment: IG% - Immature Granulocytes (promyelocytes, myelocytes and metamyelocytes) > 1% indicates that a LEFT SHIFT is Present. Performed By: #### L 100.0100, L700.6800 ####[facility] [address] [place], [address] Lymphocytes/100 WBC (Bld) 26.6 % Normal 25-45 [facility] Comment on above: Performed By: #### L 100.0100, L700.6800 ####[facility] [address], [address] MCH (RBC) [Entitic mass] 27.4 pg Normal 25.0-35.0 [facility] Comment on above: Performed By: #### L 100.0100, L700.6800 ####[facility] [address] [place], [address] MCHC (RBC) [Mass/Vol] 33.0 g/dL Normal 32-36 [facility] Comment on above: Performed By: #### L 100.0100, L700.6800 ####[facility] [address] [place], [address] MCV (RBC) [Entitic vol] 83.0 fL Normal 78-96 [facility] Comment on above: Performed By: #### L 100.0100, L700.6800 ####[facility] [address] [place], [address] Monocytes/100 WBC (Bld) 6.6 % High 3-6 [facility] Comment on above: Performed By: #### L 100.0100, L700.6800 ####[facility] [address], [address] Neutrophils/100 WBC (Bld) 63.9 % Normal 34-64 [facility] Comment on above: Performed By: #### L 100.0100, L700.6800 ####[facility] [address] [place], [address] Nucleated RBC (Bld) [#/Vol] 0 10*3/uL Normal 0-5 [facility] Comment on above: Performed By: #### L 100.0100, L700.6800 ####[facility] [address] [place], [address] Platelet mean volume (Bld) [Entitic vol] 9.8 fL Normal 6.2-12.0 [facility] Comment on above: Performed By: #### L 100.0100, L700.6800 ####[facility] [address] [place], [address] Platelets (Bld) [#/Vol] 465 10*3/uL High 150-450 [facility] Comment on above: Performed By: #### L 100.0100, L700.6800 ####[facility] [address] [place], [address] RBC (Bld) [#/Vol] 4.89 10*6/uL High 4.1-4.8 [facility] Comment on above: Performed By: #### L 100.0100, L700.6800 ####[facility] [address] [place], [address] RDW SD 39.9 fl Normal 35.1-43.9 [facility] Comment on above: Performed By: #### L 100.0100, L700.6800 ####[facility] [address] [place], [address] WBC (Bld) [#/Vol] 15.4 10*3/uL High 4.5-13.0 [facility] Comment on above: Performed By: #### L 100.0100, L700.6800 ####[facility] [address] [place], [address] Emergency Department Summary on 02-24-2024 Emergency Department Summary [facility] Medical Records Department [address] [place] [address] Emergency Department Summary 02/24/24 MR#: [id number] Acct: [id number] Name: CLARISSE MOLINA Rep #: [id number] : 2005 18 From: Jacobo Bee MD PCP: NICCI Malik Status:REG ER Location: ED HPI HPI - Female History of Present Illness Chief Complaint: Vag Bleeding Narrative Narrative: Vaginal bleeding that started January 19 and ended on February 13. She was placed on medicine. She took the medicine as prescribed. 24 hours after the medicine was discontinued she began to have vaginal bleeding again. She is sexually active. She is presently using no form of control. She states she was placed in correctly on control pills. She should not been placed on control pills because she has polycystic ovarian syndrome. She also had a Mirena ring placed that she discontinued because there was hormones that were affecting her depression and anxiety. Patient states she is going through a box of tampons in 24 hours. She is passing clots. Plus minus orthostatic symptoms. She does not believe she looks pale. Prior similar symptoms: Yes Recent Illness/Hospitalization: Yes [facility] Medical History PCOS (polycystic ovarian syndrome) Essential tremor Physical exam, pre-employment Home Medications ???Medication ???Instructions ???Recorded ???Last Taken ???Type NK 01/15/24 Unknown History Allergy/AdvReac Type Severity Reaction Status Date / Time No Known Allergies Allergy Verified 02/24/24 19:33 Surgical History Hx of shoulder surgery History of tonsillectomy and adenoidectomy Social History Smoking Status: Current every day smoker tobacco type: e-cigarettes ROS ROS ED Constitutional Constitutional ED: Denies chills, fever(s), subjective or sweats Eyes Eyes: Denies blurry vision or change in vision Cardiovascular Cardiovascular: Denies chest pain or palpitations Respiratory/Chest Respiratory/Chest: Denies cough, dyspnea or dyspnea on exertion Gastrointestinal Gastrointestinal: Denies abdominal pain, nausea or vomiting Genitourinary Genitourinary ED: Denies dysuria, hematuria or urinary frequency Musculoskeletal Musculoskeletal: Denies arthralgias, myalgias or neck pain Integumentary Denies rash Neurologic Neurologic: Denies weakness Psychiatric Psychiatric: Reports anxiety and depression; Denies suicidal ideation or suicidal thoughts Hematologic/Lymphatic Hematologic/Lymphatic: Reports other Details: There is no family history of von Willebrand's disease. She has no prior history of abnormal bleeding. ; Denies easy bleeding or easy bruising EXAM Physical Exam Const Vital Signs: 02/24/24 19:33 02/24/24 20:17 02/24/24 21:33 Temperature 97.2 F L Temperature Source Temporal Pulse Rate 112 H 80 Pulse Rate [Lying] 112 H Pulse Rate [Sitting (for 1 minute prior to obtaining)] 90 Pulse Rate [Standing (for 1 minute prior to obtaining)] 102 H Respiratory Rate 18 16 Blood Pressure 158/100 H 123/74 Blood Pressure [Lying] 123/84 H Blood Pressure [Sitting (for 1 minute prior to obtaining)] 127/91 H Blood Pressure [Standing (for 1 minute prior to obtaining)] 122/85 H Blood Pressure Mean 119 90 Blood Pressure Mean [Lying] 97 Blood Pressure Mean [Sitting (for 1 minute prior to obtaining)] 103 Blood Pressure Mean [Standing (for 1 minute prior to obtaining)] 97 Pulse Ox 100 99 Oxygen Delivery Method Room Air Room Air Positive well nourished and well developed Constitutional Narrative: BMI is 31.6. General Appearance ED: well developed and NAD; Negative for odor of alcohol detected or pallor HEENT Reports moist mucous membranes and dry mucous membranes HEENT Narrative: Head is atraumatic and normocephalic. Mouth ED: Yes dry mucous membranes Mouth: dry mucous membranes Eyes PERRL and EOMs intact bilaterally General Eye ED: Negative for pale conjunctiva or scleral icterus Resp normal respiratory effort and clear to auscultation bilaterally Cardio regular rhythm, S1 normal heart sound, no murmurs and no JVD Rate: tachycardic GI normal to inspection, nondistended, normoactive bowel sounds, soft to palpation, non-tender, non- distended and no masses Narrative: External genitalia normal. There is scant amount of blood in the vaginal vault. The cervix appears unremarkable. There is some slight blood noted from the os. Bimanual exam reveals normal-sized uterus. There is minimal discomfort. There is no adnexal masses, fullness or tenderness. There is no cervical motion tenderness. There is no discomfort pressure against bl (more content not included)... Normal [facility] ,Serum,hCG Quali.on 02-24-2024 HCG, SERUM QUAL Negative Normal [facility] Comment on above: Performed By: #### L 100.0100, L700.1190 ####[facility] [address] [place], [address] [place] 02-23-2024 RAÚL Telephone (OBGYWM) CLARISSE MOLINA ([id number]) 5 F Date Time Provider Department 02/23/24 CHIQUITA ADHIKARI OBTRENAWBj During your visit today, we recorded the following information about you: Christine Villalta RN 02/23/2024 12:49 PM Signed Patient calling with complaints of vaginal bleeding again. Patient was prescribed Aygestin on 02/13 d/t prolong menses. States by 02/15 her bleeding had stopped, she finished the prescription as prescribed yesterday. Today patient started having vaginal bleeding again. She is currently wearing regular tampons and changing about every 3 hours. Currently not having any pain or cramping. Patient asking to be called back after 2 pm today. AMMY Grace Renee, APRN.CHELSEY 02/23/2024 1:15 PM Signed Please let her know that this can be normal when stopping the Aygestin. As long as bleeding does not become heavy or prolonged again no further medications needed at this time. Chiquita Adhikari APRN.Christine Sykes RN 02/23/2024 2:42 PM Signed Patient notified and voiced understanding. Christine Villalta RN Allergies As of Date: 02/23/2024 (No Known Allergies) Date Reviewed: 02/14/2024 Reviewed by: Paradise Mclean LPN - Fully Assessed Reason for Visit: Vaginal Bleeding [203] Prescriptions as of 02/23/2024 - norethindrone (AYGESTIN) 5 mg tablet Take 1 tablet TID until bleeding stops for 24 hours, the BID x 3 days, then daily x 3 days. - Polyethylene Glycol 3350 (MIRALAX) 17 gram/dose ORAL powder Take by mouth. 2-3 tablespoons daily. Problem List As Of Date 02/23/2024 Noted Resolved FEBRILE CONVULSIONS NOS [R56.00] 11/02/2008 Closed Fracture of Unspecified Part of Lower En*03/13/2009 Encounter Status:Closed by CHRISTINE VILLALTA on 02/23/[address] [facility] ANKLE COMPLETE LTon 02-20-20 24 ANKLE COMPLETE LT [place] [address] Patient: CLARISSE MOLINA Phone#: : 2005 Age: 18 Gender: F Pt. Type: ER Account: [id number] Location: 052 Ordering: JOHAN SOLORZANO Exam Date: 02/20/2024/15:27 Family Phys: LIZY CHAMBERS Charge Code: [id number] Physician: [place] Order #: [id number] Dose#: PROCEDURE: X-RAY ANKLE COMPLETE LT MIN 3 VIEWS COMPARISON: None. INDICATIONS: Fall. FINDINGS: BONES: Normal. No significant arthropathy or acute abnormality. SOFT TISSUES: Negative. No visible soft tissue swelling. EFFUSION: None visible. OTHER: Negative. CONCLUSION: No acute disease. Dictated by: Kristan David MD on 02/20/2024 at 18:00 Approved by: Kristan David MD on 02/20/2024 at 18:01 Normal [facility] FEMUR LT 2+ VIEWSon 02-20-20 24 FEMUR LT 2+ VIEWS [place] [address] Patient: CLARISSE MOLINA Phone#: : 2005 Age: 18 Gender: F Pt. Type: ER Account: [id number] Location: 052 Ordering: JOHAN SOLORZANO Exam Date: 02/20/2024/15:03 Family Phys: LIZY CHAMBERS Charge Code: 390954 Physician: Gadsden Order #: [id number] Dose#: PROCEDURE: X-RAY FEMUR LT MIN 2 VIEWS COMPARISON: None. INDICATIONS: Fall FINDINGS: BONES: Normal. No significant arthropathy or acute abnormality. SOFT TISSUES: Negative. No visible soft tissue swelling. EFFUSION: None visible. OTHER: Negative. CONCLUSION: No acute disease. Dictated by: Kristan David MD on 02/20/2024 at 17:56 Approved by: Kristan David MD on 02/20/2024 at 17:56 Normal [facility] LUMBO SACRAL COMPLETE MIN 4 VIEWSon 02-20-2024 LUMBO SACRAL COMPLETE MIN 4 VIEWS [place] [address] Patient: CLARISSE MOLINA Phone#: : 2005 Age: 18 Gender: F Pt. Type: ER Account: [id number] Location: 05 Ordering: JOHAN SOLORZANO Exam Date: 02/20/2024/15:13 Family Phys: LIZY CHAMBERS Charge Code: [id number] Physician: Gadsden Order #: [id number] Dose#: PROCEDURE: X-RAY LUMBAR SPINE COMPLETE MIN 4 VIEWS COMPARISON: None. INDICATIONS: Fall. FINDINGS: BONES: Normal. No significant spondylosis, scoliosis, fracture, or visible bony lesion. DISC SPACES: Normal. No significant disc height narrowing, subluxation, or endplate abnormality. PARASPINOUS: Negative. No paraspinous abnormality is seen. OTHER: Moderate stool retention. CONCLUSION: 1. There is no evidence of acute fracture. Minimal curvature of the thoracolumbar spine to the left. Dictated by: Kristan David MD on 02/20/2024 at 17:57 Approved by: Kristan David MD on 02/20/2024 at 17:58 Normal [facility] TIBIA-FIBULA LTon 02-20-2024 TIBIA-FIBULA LT [place] [address] Patient: CLARISSE MOLINA Phone#: : 2005 Age: 18 Gender: F Pt. Type: ER Account: [id number] Location: 052 Ordering: JOHAN SOLORZANO Exam Date: 02/20/2024/15:22 Family Phys: LIZY CHAMBERS Charge Code: [id number] Physician: Gadsden Order #: [id number] Dose#: PROCEDURE: X-RAY TIB FIB LT 2 VIEWS COMPARISON: None. INDICATIONS: Fall. FINDINGS: BONES: Normal. No significant arthropathy or acute abnormality. SOFT TISSUES: Negative. No visible soft tissue swelling. EFFUSION: None visible. OTHER: Negative. CONCLUSION: No acute disease. Dictated by: Kristan David MD on 02/20/2024 at 17:59 Approved by: Kristan David MD on 02/20/2024 at 17:59 Normal [facility] [place] 02-15-2024 RAÚL Telephone (OBGYWM) CLARISSE MOLINA ([id number]) 5 F Date Time Provider Department 02/15/24 CHIQUITA ADHIKARI During your visit today, we recorded the following information about you: Chiquita Adhikari APRN.CHELSEY 02/15/2024 7:03 AM Signed Please notify patient that she does have a yeast infection. I would like her to use Monistat 7 (or generic) 1 of a applicator full every night for 7 nights. If symptoms do not improve please salomon the office. PRANEETH Gan Annalee, LPN 02/15/2024 9:48 AM Signed Left message to call office on voicemail Cristine Garcia RN 02/15/2024 9:54 AM Signed Patient notified. Voiced understanding. Cristine Garcia RN Allergies As of Date: 02/15/2024 (No Known Allergies) Date Reviewed: 02/14/2024 Reviewed by: Paradise Mclean LPN - Fully Assessed Reason for Visit: Results [95] Prescriptions as of 02/15/2024 - norethindrone (AYGESTIN) 5 mg tablet Take 1 tablet TID until bleeding stops for 24 hours, the BID x 3 days, then daily x 3 days. - Polyethylene Glycol 3350 (MIRALAX) 17 gram/dose ORAL powder Take by mouth. 2-3 tablespoons daily. Problem List As Of Date 02/15/2024 Noted Resolved FEBRILE CONVULSIONS NOS [R56.00] 11/02/2008 Closed Fracture of Unspecified Part of Lower En*03/13/2009 Encounter Status:Closed by CRISTINE GARCIA on 02/15/24 Normal [facility] BACTERIAL VAGINOSIS NAATon 1 04-15-2023 Lactobacillus crispatus+gasseri+j ensenii + Gardnerella vaginalis + Atopobium vaginae rRNA MARK+probe Ql (Vag fld) Negative Normal Negative for bacterial vaginosis [facility] Comment on above: Order Comment: Speci men Type: SWABOrdering Facility: [facility] Address: [address] [place] [address] Performed By: #### 3 6902-5, BVAMP ####[facility] LABCLIA [id number] [place] [address] [place] C. trachomatis+N. gonorrhoea e DNA MARK+probe Ql (Unsp spec)on 02-14-2024 C. trachomatis rRNA MARK+probe Ql (Unsp spec) Negative Normal Negative for Chlamydia trachomatis by amplificaton [facility] Comment on above: Order Comment: Speci men Type: SWABOrdering Facility: [facility] Address: [address] [place] [address] Performed By: #### 3 6902-5, BVAMP ####[facility] LABCLIA [id number] [place] [address] [place] N. gonorrhoeae rRNA MARK+probe Ql (Unsp spec) Negative Normal Negative for Neisseria gonorrhoeae by amplification [facility] Comment on above: Order Comment: Speci men Type: SWABOrdering Facility: [facility] Address: [address] [place] [address] Performed By: #### 3 6902-5, BVAMP ####[facility] LABCLIA [id number] OF [place] ERICK/TRICHOMONAS NAATon 1 04-15-2023 C. glabrata RNA MARK+probe Ql (Vag fld) Negative Normal Negative for Erick glabrata [facility] Comment on above: Order Comment: Speci men Type: SWABOrdering Facility: [facility] Address: [address] [place] [address] Performed By: #### C VTV ####[facility] LABIA [id number] [address] [place] Erick sp DNA MARK+probe Ql (Vag fld) Positive Abnormal Negative for Erick species [facility] Comment on above: Order Comment: Speci men Type: SWABOrdering Facility: [facility] Address: [address] [place] [address] Performed By: #### C VTV ####[facility] LABCLIA [id number] [address] OF [place] T. vaginalis DNA MARK+probe Ql (Unsp spec) Negative Normal Negative for Trichomonas vaginalis by amplification [facility] Comment on above: Order Comment: Speci men Type: SWABOrdering Facility: [facility] Address: [address] [place] [address] Performed By: #### C VTV ####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 Clarisse Molina is a 18 year old female who presents for problem visit prolong menses. HPI: vaginal bleeding, cramping, green discharge for 9 days, using super sized tampons every hour, discontinued NuvaRing in November this is the first reported menses. She is seeing bright red blood and old brown blood, using the tampon has been painful OB History No obstetric history on file. [employer] History LMP: 11/29/2022, IUD Age at Menarche: Age at First : Age at Menopause: [employer] History Comments: Sexual Activity: Yes; Male Contraception: I.U.D. PAST MEDICAL HISTORY Diagnosis Date Febrile convulsions (simple), unspecified @ 6months Ruptured ovarian cyst 2021 [facility] PAST SURGICAL HISTORY Procedure Laterality Date KYLEENA IUD 03/31/2022 5 year TONSILLECTOMY AND ADENOIDECTOMY FAMILY HISTORY Problem Relation Age of Onset other (epilepsy [Other]) Mother No Known Problems Father No Known Problems Sister No Known Problems Brother Arthritis Maternal Grandmother rheumatoid other (epilepsy [Other]) Maternal Grandmother Social History Tobacco Use Smoking status: Never Vaping Use Vaping status: Never Used Substance Use Topics Alcohol use: No Drug use: No Current Outpatient Medications Medication Sig Etonogestrel-Ethinyl Estradiol (NUVARING) 0.12-0.015 mg/24 hr vaginal ring Use 1 Each vaginally as directed. INSERT ONE(1) RING VAGINALLY AND LEAVE IN PLACE FOR THREE WEEKS, THEN REMOVE FOR 1 WEEK. ondansetron orally disintegrating (ZOFRAN ODT) 4 mg disintegrating tablet Take 1 tablet by mouth every 6 hours as needed for nausea/vomiting. (Patient not taking: Reported on 08/04/2023) propranolol ER (INDERAL LA) 60 mg 24 hr capsule propranolol ER 60 mg capsule,24 hr,extended release TAKE 1 CAPSULE BY MOUTH ONCE DAILY (Patient not taking: Reported on 08/04/2023) cetirizine (ZYRTEC) 10 mg tablet Take 10 mg by mouth daily at bedtime. (Patient not taking: Reported on 05/05/2023) fluticasone (FLONASE) 50 mcg/actuation nasal spray Use 1 [place] in each nostril once daily. (Patient not taking: Reported on 05/05/2023) Polyethylene Glycol 3350 (MIRALAX) 17 gram/dose ORAL powder Take by mouth. 2-3 tablespoons daily. No current facility-administered medications for this visit. Allergies As of Date: 02/14/2024 (No Known Allergies) Fully Assessed 10/18/2023 REVIEW OF SYSTEMS Expanded ROS: N/A Allergies and current medication updated:Yes SENSITIVE EXAM: The sensitive examination was discussed with the Patient or Patient's Authorized Oil Driller. As applicable, any other physician, advance practice provider, medical student, or other health professional student that will be observing or involved in the sensitive examination for educational or training purposes was discussed with the Patient or Authorized Oil Driller. The Patient or Authorized Oil Driller has agreed to proceed with the sensitive examination. (Sensitive examination includes inspection and/or palpation of the breasts, pelvis, prostate and anorectal regions). EXAM: LMP 11/29/2022 GENERAL: pleasant, female in no apparent distress HEENT: Normocephalic, atraumatic, mucus membranes moist, and no lesions CHEST: Normal inspiratory effort PELVIC: external genitalia normal, normal Bartholin's glands, urethra, Peck's glands, no vulvar lesions, no cervical lesions, good vaginal support, physiologic discharge present, normal appearing perineal body and perianal region BIMANUAL: deferred NEURO: alert and oriented x3,exam grossly non-focal EXTREMITIES: normal ASSESSMENT/PLAN: 1. Vaginal discharge - ICD9: 623.5, ICD10: N89.8 (primary diagnosis) Will notify patient of test results. - ERICK/TRICHOMONAS NAAT - BACTERIAL VAGINOSIS NAAT - GONORRHEA/CHLAMYDIA NAAT 2. Vaginal odor - ICD9: 625.8, ICD10: N89.8 3. Prolonged menstruation - ICD9: 626.2, ICD10: N92.1 Aygestin taper ordered. Chiquita Adhikari APRN.PEDODONTIST Medical Decision Making: Problems: Moderate: New problem with uncertain prognosis Data: Unique test(s) ordered: 3+ Risk: Moderate: Drug management Medical Decision Making Level: 4 - Moderate Referring Provider: SELF [[id number]] Allergies As of Date: 02/14/2024 (No Known Allergies) Date Reviewed: 02/14/2024 Reviewed by: Paradise Mclean LPN - Fully Assessed Reason for Visit: Problem Visit [Other] Primary Visit Diagnosis:Vaginal discharge [N89.8] Other Visit Diagnoses:Vaginal odor [N89.8] Prolonged menstruation [N92.1] Order(s):ERICK/TRICHOMON (more content not included)... Normal [facility] URINE CULTURE [CCL]on 2023 Bacteria identified Cx Nom (U) URCUL See Results Below See Below CULTURE, URINE NORMAL UROGENITAL WILMA <10,000 CFU/ml Normal urogenital wilma SOURCE: Urine (Nonspecific) [place] [address] Lucio Bose III, M.D. [id number] SEND TO IC YES Normal [facility] Comment on above: Performed By: #### 2 76281 ####[facility],[address] [place] [address] 79871 Bacteria Ur Culton 4 Bacteria identified Cx Nom (U) ORGANISM ID: 1 <10,000 CFU/ml Normal urogenital wilma Normal [facility] Comment on above: Performed By: #### 6 30-4 ####[facility] [id number] [address] [place] Bacteria Ur Culton 4 Bacteria identified Cx Nom (U) ORGANISM ID: 1 10,000 -<50,000 CFU/ml Normal urogenital wilma Normal [facility] Comment on above: Performed By: #### 6 30-4 ####[facility] [id number] [place] [address] [place] CBC + DIFFon 11-24-2023 Baso # 0.04 x10EE3/UL Normal 0.00 - 0.10 [facility] Comment on above: Performed By: #### 2 72064 #### [facility],[address] [place] [address] Basophils/100 WBC (Bld) 0.3 % Normal 0.0 - 2.0 [facility] Comment on above: Performed By: #### 2 62336 #### [facility],[address] [place] [address] CBC + DIFF Normal [facility] Comment on above: Result Comment: CBC- COMPLETE BLOOD COUNT Performed By: #### 2 40715 #### [place] [address] EO # 0.34 x10EE3/UL Normal 0.00 - 0.50 [facility] Comment on above: Performed By: #### 2 61885 #### [place] [address] Eosinophils/100 WBC (Bld) 2.8 % Normal 0.0 - 7.0 [facility] Comment on above: Performed By: #### 2 11158 #### [place] [address] Erythrocyte distribution width (RBC) [Ratio] 14.4 % Normal 12.0 - 15.6 [facility] Comment on above: Performed By: #### 2 57587 #### [place] [address] Hematocrit (Bld) [Volume fraction] 40.8 % Normal 34.0 - 46.0 [facility] Comment on above: Performed By: #### 2 93425 #### [place] [address] Hemoglobin (Bld) [Mass/Vol] 14.0 g/dL Normal 12.0 - 16.0 [facility] Comment on above: Performed By: #### 2 08932 #### [place] [address] Lymph # 2.75 x10EE3/UL Normal 0.80 - 2.80 [facility] Comment on above: Performed By: #### 2 36738 #### [facility],[address] [place] [address] Lymphocytes/100 WBC (Bld) 22.7 % Normal 20.0 - 45.0 [facility] Comment on above: Performed By: #### 2 06121 #### [facility],[address] [place] [address] MANUAL DIFF N/A Normal [facility] Comment on above: Performed By: #### 2 30346 #### [place] [address] MCH (RBC) [Entitic mass] 27 pg Normal 27 - 33 [facility] Comment on above: Performed By: #### 2 29569 #### [place] [address] MCHC 34 X10 3 Normal 32 - 36 [facility] Comment on above: Performed By: #### 2 53337 #### [place] [address] MCV (RBC) [Entitic vol] 79 fL Low 80 - 99 [facility] Comment on above: Performed By: #### 2 00088 #### [facility],[address] [place] [address] [place] # 0.70 x10EE3/UL Normal 0.20 - 1.00 [facility] Comment on above: Performed By: #### 2 40695 #### [place] [address] MONOS % 5.8 % Normal 0.0 - 10.0 [facility] Comment on above: Performed By: #### 2 42840 #### [place] [address] Morphology Avery (Bld) [Interp] N/A Normal [facility] Comment on above: Performed By: #### 2 87342 #### [facility],[address] [place] [address] 40175 Neut # 8.31 x10EE3/UL High 1.50 - 7.10 [facility] Comment on above: Performed By: #### 2 96724 #### [place] [address] Neutrophils/100 WBC (Bld) 68.4 % Normal 46.0 - 76.0 [facility] Comment on above: Performed By: #### 2 27763 #### [place] [address] PLATELET 448 x10EE3/UL Normal 150 - 450 [facility] Comment on above: Performed By: #### 2 93002 #### [place] [address] Platelet mean volume (Bld) [Entitic vol] 7.6 fL Normal 6.6 - 10.5 [facility] Comment on above: Result Comment: AUTO MATED DIFFERENTIAL Performed By: #### 2 66014 #### [place] [address] RBC 5.14 x 10EE6/UL Normal 4.10 - 5.30 [facility] Comment on above: Performed By: #### 2 33740 #### [facility],[address] [place], [place] [id number] WBC 12.1 x 10EE3/UL High 4.5 - 10.8 [facility] Comment on above: Performed By: #### 2 30763 #### [place] [id number] CMP with eGFRon 11-24-2023 AGE 18 years Normal [facility] Comment on above: Performed By: #### 2 65963 #### [place] [id number] Albumin [Mass/Vol] 3.6 g/dL Normal 3.4 - 5.0 [facility] Comment on above: Performed By: #### 2 30290 #### [facility],[address] [place] [address] 63383 Albumin/Globulin [Mass ratio] 0.7 {ratio} Low 0.9 - 1.6 [facility] Comment on above: Performed By: #### 2 78360 #### [facility],[address] [place], [place] [id number] ALK PHOS 135 U/L High 46 - 116 [facility] Comment on above: Performed By: #### 2 80666 #### [facility],[address] [place], [place] [id number] ALT [Catalytic activity/Vol] 42 U/L Normal 16 - 63 [facility] Comment on above: Performed By: #### 2 34815 #### [facility],[address] [place], [place] [id number] Anion gap [Moles/Vol] 16 mmol/L Normal 10 - 20 [facility] Comment on above: Performed By: #### 2 88419 #### [facility],[address] [place], [place] [id number] AST [Catalytic activity/Vol] 21 U/L Normal 13 - 39 [facility] Comment on above: Performed By: #### 2 80670 #### [facility],[address] [place] [address] 41138 B/C RATIO 10 ratio Normal 0 - 30 [facility] Comment on above: Performed By: #### 2 06876 #### [facility],[address] [place] [address] 86518 Bilirubin [Mass/Vol] 0.2 mg/dL Normal 0.2 - 1.0 [facility] Comment on above: Performed By: #### 2 50791 #### [facility],[address] [place], [place] [address] Calcium [Mass/Vol] 9.0 mg/dL Normal 8.5 - 10.1 [facility] Comment on above: Performed By: #### 2 11995 #### [facility],[address] [place] [address]31 Chloride [Moles/Vol] 99 mmol/L Normal 98 - 107 [facility] Comment on above: Performed By: #### 2 22169 #### [facility],[address] [place] [address] 33998 CMP with eGFR Normal [facility] Comment on above: Result Comment: COMP REHENSIVE METABOLIC PANEL Performed By: #### 2 26975 #### [facility],[address] [place], [place] [address] CO2 [Moles/Vol] 23.2 mmol/L Normal 21.0 - 32.0 [facility] Comment on above: Performed By: #### 2 44877 #### [facility],[address] [place], [place] [address] Creatinine [Mass/Vol] 0.79 mg/dL Normal 0.55 - 1.02 [facility] Comment on above: Performed By: #### 2 40738 #### [facility],[address] [place] [address] 68740 GFR/1.73 sq M.predicted among non-blacks MDRD (S/P/Bld) [Vol rate/Area] mL/min/{1.73_m2} Normal 60 - 999 [facility] Comment on above: Performed By: #### 2 00787 #### [facility],[address] [place], [place] [id number] Result Comment: ACCO RDING TO THE NATIONAL KIDNEY DISEASE EDUCATION PROGRAM(NKDE), A NORMAL eGFR IS A VALUE GREATER THAN OR EQUAL TO 60 ML/MIN/1.73 SQ METERS. CHRONIC KIDNEY DISEASE: <60mL/MIN/1.73 SQ METERS KIDNEY FAILURE: <15mL/MIN/1.73 SQ METERS THIS TEST SHOULD ONLY BE USED FOR PATIENTS 18 YEARS OF AGE AND OLDER. Globulin (S) [Mass/Vol] 4.9 g/dL High 1.5 - 3.8 [facility] Comment on above: Performed By: #### 2 17503 #### [facility],[address] [place] [address] 95869 Glucose [Mass/Vol] 148 mg/dL High 74 - 106 [facility] Comment on above: Performed By: #### 2 08456 #### [facility],[address] [place] [address] 98450 Potassium [Moles/Vol] 3.3 mmol/L Low 3.5 - 5.1 [facility] Comment on above: Performed By: #### 2 68165 #### [facility],[address] [place] [address] 63581 Protein [Mass/Vol] 8.5 g/dL High 6.4 - 8.2 [facility] Comment on above: Performed By: #### 2 10478 #### [facility],[address] [place] [address] 49191 Sodium [Moles/Vol] 135 mmol/L Low 136 - 145 [facility] Comment on above: Performed By: #### 2 38407 #### [facility],[address] [place] [address] 05457 Urea nitrogen [Mass/Vol] 8 mg/dL Normal 7 - 18 [facility] Comment on above: Performed By: #### 2 59361 #### [facility],[address] [place] [address] 28750 CORONAVIRUS (SARS) ANTIGEN T ESTon 11-24-2023 EXTERNAL QC DONE? YES Normal [facility] Comment on above: Performed By: #### 2 25422 ####[facility],[address] [place] [address] 55562 INTERNAL CONTROL PASS Normal [facility] Comment on above: Performed By: #### 2 26899 ####[facility],[address] [place] [address] SARS ANTIGEN Negative Normal NORMAL: NEGATIVE [facility] Comment on above: Performed By: #### 2 57117 ####[facility],[address] [place] [address] SEND TO ? NO Normal [facility] Comment on above: Result Comment: SARS -CoV-2 THIS TEST IS BEING USED UNDER THE FDA EUA PROCEDURE. THIS ASSAY HAS BEEN VALIDATED AT FOR USE WITH NASAL AND NASOPHARYNGEAL SWAB SPECIMENS. INTERPRETIVE DATA TEST RESULTS SHOULD ALWAYS BE CONSIDERED IN THE CONTEXT OF CLINICAL OBSERVATIONS AND EPIDEMIOLOGICAL DATA IN MAKING FINAL DIAGNOSIS AND PATIENT MANAGEMENT DECISIONS. PATIENT MANAGEMENT SHOULD FOLLOW CURRENT CDC GUIDELINES. THE DAYSI SARS ANTIGEN TYESHA DOES NOT DIFFERENTIATE BETWEEN SARS-CoV & SARS-CoV-2. A POSITIVE TEST RESULT INDICATES THE PRESENCE OF SARS-CoV-2 NUCLEOCAPSID PROTEIN ANTIGEN, AND THE PATIENT IS INFECTED WITH THE VIRUS AND PRESUMED TO BE CONTAGIOUS. A NEGATIVE TEST RESULT FOR THIS TEST MEANS THAT SARS-CoV-2 NUCLEOCAPSID PROTEIN ANTIGEN WAS NOT PRESENT IN THE SPECIMEN ABOVE THE LIMIT OF DETECTION. HOWEVER, A NEGATIVE RESULT DOES NOT RULE OUT COVID-19 AND SHOULD NOT BE USED THE SOLE BASIS FOR TREATMENT OR PATIENT MANAGEMENT DECISIONS. A NEGATIVE RESULT DOES NOT EXCLUDE THE POSSIBILITY OF COVID-19. NEGATIVE RESULTS, FROM PATIENTS WITH SYMPTOM ONSET BEYOND FIVE DAYS, SHOULD BE TREATED PRESUMPTIVE AND CONFIRMATION WITH A MOLECULAR ASSAY, IF NECESSARY, FOR PATIENT MANAGEMENT, MAY BE PERFORMED. WHEN DIAGNOSTIC TESTING IS NEGATIVE, THE POSSIBLILTY OF A FALSE NEGATIVE RESULT SHOULD BE CONSIDERED IN THE CONTEXT OF A PATIENT'S RECENT EXPOSURES AND THE PRESENCE OF CLINICAL SIGNS AND SYMPTOMS CONSISTENT WITH COVID-19. THE POSSIBILITY OF A FALSE NEGATIVE RESULT SHOULD ESPECIALLY BE CONSIDERED IF THE PATIENT'S RECENT EXPOSURES OR CLINICAL PRESENTATION INDICATE THAT COVID-19 IS LIKELY, AND DIAGNOSTIC TESTS FOR OTHER CAUSES OF ILLNESS (e.g., OTHER RESPIRATORY ILLNESS) ARE NEGATIVE. IF COVID-19 IS STILL SUSPECTED BASED ON EXPOSURE HISTORY TOGETHER WITH OTHER CLINICAL FINDINGS, RE-TESTING SHOULD BE CONSIDERED BY HEALTHCARE PROVIDERS IN CONSULTATION WITH PUBLIC HEALTH AUTHORITIES. Performed By: #### 2 50281 ####[facility],[address] [place], [place] [id number] CT ABDOMEN/PELVIS [facility] 2023 CT ABDOMEN/PELVIS [address] [address] Patient: CLARISSE MOLINA Phone#: : 2005 Age: 18 Gender: F Pt. Type: ER Account: [id number] Location: 2 Ordering: KWAKU PETTIT Exam Date: 11/24/2023/2:32 Family Phys: LIZY CHAMBERS Charge Code: 738372 Physician: [place] Order #: [id number] Dose#: 15.4 PROCEDURE: CT ABDOMEN/PELVIS WITH CONTRAST COMPARISON: [facility], CT, ABDOMEN/PELVIS W CON, 12/25/2021, 22:25. INDICATIONS: RLQ PAIN. TECHNIQUE: After obtaining the patient's consent, CT images were created with non-ionic intravenous contrast material. All CT scans at this facility use dose modulation, iterative reconstruction, and/or weight based dosing when appropriate to reduce radiation dose to as low as reasonably achievable. IV CONTRAST: Omnipaque 350,80ml TOTAL DOSE: 15.4 CTDIvol(mGy) FINDINGS: LIVER: Liver is diffusely decreased in attenuation, consistent with diffuse fatty infiltration of the liver BILIARY: Gallbladder is absent. PANCREAS: Normal. No lesion, fluid collection, ductal dilatation, or atrophy. SPLEEN: Normal. No enlargement or focal lesion. KIDNEYS: Kidneys enhance and excrete contrast symmetrically. No hydronephrosis. ADRENALS: Normal. No mass or enlargement. AORTA/VASCULAR: No aortic aneurysm. RETROPERITONEUM: Normal. No mass or adenopathy. BOWEL/MESENTERY: No bowel obstruction or dilatation. Moderate stool burden. Appendix is unremarkable in size and contains air. ABDOMINAL WALL: Normal. No mass or hernia. URINARY BLADDER: Normal. No visible focal wall thickening, lesion, or calculus. PELVIC NODES: Normal. No adenopathy. PELVIC ORGANS: Uterus is present. No adnexal mass. Radiolucent devices present in the vagina. BONES: Disc height loss at L5-S1 LUNG BASES: Normal. No visible pulmonary or pleural disease. OTHER: Negative. Continued Report - Page 2 of 2 Patient: CLARISSE MOLINA Phone#: : 2005 Age: 18 Gender: F Pt. Type: ER Account: [id number] Location: 052 Ordering: KWAKU PETTIT Exam Date: 11/24/2023/2:32 Family Phys: LIZY CHAMBERS Charge Code: [id number] Physician: Gadsden Order #: [id number] Dose#: 15.4 CONCLUSION: 1. No acute intra-abdominal or pelvic abnormality. 2. Fatty infiltration of the liver Dictated by: Justine Gong MD on 11/24/2023 at 12:17 Approved by: Justine Gong MD on 11/24/2023 at 12:24 Normal [facility] INFLUENZA VIRUS RAPID A/Bon 11-24-2023 INFLUENZA VIRUS RAPID A/B INFLUENZA A NEGATIVE INFLUENZA B NEGATIVE INTERNAL NEG QC PASS INTERNAL POS QC PASS EXTERNAL QC DONE? YES SEND TO IC? NO A NEGATIVE TEST RESULT DOES NOT EXCLUDE INFECTION WITH INFLUENZA A OR B. THEREFORE, THE RESULTS OBTAINED FROM THIS FLU TEST SHOULD BE USED IN CONJUCTION WITH CLINICAL FINDINGS TO MAKE AN ACCURATE DIAGNOSIS. A POSITIVE RESULT DOES NOT RULE OUT CO-INFECTIONS WITH OTHER PATHOGENS OR IDENTIFY ANY SPECIFIC INFLUENZA A VIRUS SUBTYPE.CO-INFECTION WITH INFLUENZA A AND B IS RARE. IT IS RECOMMENDED THAT DUAL POSITIVE RESULTS BE CONFIRMED BY VIRAL CULTURE OR AN FDA-CLEARED INFLUENZA A AND B MOLECULAR ASSAY. INDIVIDUALS WHO HAVE RECEIVED NASALLY ADMINISTERED INFLUENZA A VACCINE MAY TEST POSITIVE IN COMMERCIALLY AVAILABLE INFLUENZA RAPID DIAGNOSTIC TESTS FOR UP TO THREE DAYS. RESULT CRITICAL? NO Normal [facility] Comment on above: Performed By: #### 2 33550 ####[facility],[address] [place] [address] SERUM QUALon 11-23 EXTERNAL QC DONE? YES Normal [facility] Comment on above: Performed By: #### 2 51627 #### [facility],[address] [place] [address] INTERNAL QC PASS Normal [facility] Comment on above: Performed By: #### 2 28939 #### [facility],[address] [place] [address] SER Negative Normal NEGATIVE [facility] Comment on above: Performed By: #### 2 38497 #### [facility],[address] [place] [address] URINALYSIS WITH MICROSCOPYon 11-24-2023 Amorphous NONE Normal [facility] Comment on above: Performed By: #### 2 73484 #### [facility],[address] [place] [address] Bacteria 3+ Normal [facility] Comment on above: Performed By: #### 2 37979 #### [facility],[address] [place], [place] [id number] Bilirubin Ql (U) Negative Normal NORMAL: NEGATIVE [facility] Comment on above: Performed By: #### 2 17709 #### [facility],[address] [place] [address] Casts NONE Normal [facility] Comment on above: Performed By: #### 2 31597 #### [facility],[address] [place] [address] Clarity (U) sl.cloudy Normal NORMAL: CLEAR [facility] Comment on above: Performed By: #### 2 50284 #### [facility],[address] [place], [place] [id number] Color (U) p.yel Normal NORMAL: YELLOW [facility] Comment on above: Performed By: #### 2 79050 #### [facility],[address] [place], [place] [id number] Crystals LM Nom (Urine sed) NONE Normal [facility] Comment on above: Performed By: #### 2 83987 #### [facility],[address] [place], [place] [id number] Epi Cells MODERATE Normal [facility] Comment on above: Performed By: #### 2 76482 #### [facility],[address] [place] [address] 21400 Glucose Ql (U) NORM Normal NORMAL: NORMAL [facility] Comment on above: Performed By: #### 2 74305 #### [facility],[address] [place] [address] 91894 Hemoglobin Ql (U) Negative Normal NORMAL: NEGATIVE [facility] Comment on above: Performed By: #### 2 57376 #### [facility],[address] [place] [address] 17710 Ketone Negative Normal NORMAL: NEGATIVE [facility] Comment on above: Performed By: #### 2 24101 #### [facility],[address] [place] [address] 31191 Leukocytes 25 Abnormal NORMAL: NEGATIVE [facility] Comment on above: Result Comment: URIN E MICROSCOPIC Performed By: #### 2 98720 #### [facility],[address] [place] [address] 20547 Mucous NONE Normal [facility] Comment on above: Performed By: #### 2 85648 #### [facility],[address] [place], [place] [id number] Nitrite Ql (U) Negative Normal NORMAL: NEGATIVE [facility] Comment on above: Performed By: #### 2 09381 #### [facility],[address] [place] [address] 08926 pH (U) 7 [pH] Normal NORMAL: 5.0-8.0 [facility] Comment on above: Performed By: #### 2 46933 #### [facility],[address] [place] [address] 35631 Protein Ql (U) Negative Normal NORMAL: NEGATIVE [facility] Comment on above: Performed By: #### 2 21622 #### [facility],[address] [place] [address] 90690 Rbc NONE Normal 0-3 / hpf [facility] Comment on above: Performed By: #### 2 17716 #### [facility],[address] [place] [address] 08484 Sp [place] 1.005 Low NORMAL: 1.010-1.030 [facility] Comment on above: Performed By: #### 2 49072 #### [facility],[address] [place] [address] Specimen Type Clean catch Normal [facility] Comment on above: Performed By: #### 2 85703 #### [facility],[address] [place], [place] [id number] URINALYSIS WITH MICROSCOPY Normal [facility] Comment on above: Result Comment: URIN ALYSIS Performed By: #### 2 84607 #### [facility],[address] [place] [address] Urobilinog NORM Normal NORMAL: NORMAL [facility] Comment on above: Performed By: #### 2 89798 #### [facility],[address] [place] [address] Wbc 1-5 Normal 0-5 / hpf [facility] Comment on above: Performed By: #### 2 05124 #### [facility],[address] [place] [address] Yeast NONE Normal [facility] Comment on above: Performed By: #### 2 18086 #### [facility],[address] [place], [place] [id number] URINE CULTURE [CCL]on 2023 Bacteria identified Cx Nom (U) URCUL See Results Below See Below CULTURE, URINE NORMAL UROGENITAL WILMA 10,000 -<50,000 CFU/ml Normal urogenital wilma SOURCE: Urine (Nonspecific) [facility] [address] [place] [address] Lucio Bose III, M.D. [id number] Normal [facility] Comment on above: Performed By: #### 2 55261 #### [facility],[address] [place] [address] CNPNatacha 10-19-2023 CNPN Telephone (OBGYW) CLARISSE MOLINA ([id number]) 05 Date Time Provider Department 10/19/23 NAOMI CASTELAN During your visit today, we recorded the following information about you: Adriana [place] RN 10/19/2023 8:11 AM Signed ----- Message from Naomi Matos MD sent at 10/19/2023 7:51 AM EDT ----- Notify patient treated appropriately with diflucan. Adriana [place] RN 10/19/2023 8:12 AM Signed Left message for patient to call office. AMMY Bustamante Trisha, RN 10/19/2023 2:23 PM Signed Patient notified. Jana Chinchilla RN Allergies As of Date: 10/19/2023 (No Known Allergies) Date Reviewed: 10/18/2023 Reviewed by: Mary Green MA - Fully Assessed Reason for Visit: Results [95] Prescriptions as of 10/19/2023 - Etonogestrel-Ethinyl Estradiol (NUVARING) 0.12-0.015 mg/24 hr vaginal ring Use 1 Each vaginally as directed. INSERT ONE(1) RING VAGINALLY AND LEAVE IN PLACE FOR THREE WEEKS, THEN REMOVE FOR 1 WEEK. - ondansetron orally disintegrating (ZOFRAN ODT) 4 mg disintegrating tablet Take 1 tablet by mouth every 6 hours as needed for nausea/vomiting. - propranolol ER (INDERAL LA) 60 mg 24 hr capsule propranolol ER 60 mg capsule,24 hr,extended release TAKE 1 CAPSULE BY MOUTH ONCE DAILY - cetirizine (ZYRTEC) 10 mg tablet Take 10 mg by mouth daily at bedtime. - fluticasone (FLONASE) 50 mcg/actuation nasal spray Use 1 [place] in each nostril once daily. - Polyethylene Glycol 3350 (MIRALAX) 17 gram/dose ORAL powder Take by mouth. 2-3 tablespoons daily. Problem List As Of Date 10/19/2023 Noted Resolved FEBRILE CONVULSIONS NOS [R56.00] 11/02/2008 Closed Fracture of Unspecified Part of Lower En*03/13/2009 Encounter Status:Closed by JANA CHINCHILLA on 10/19/23 Normal [facility] BACTERIAL VAGINOSIS NAATon 0 10-18-2023 Lactobacillus crispatus+gasseri+j ensenii + Gardnerella vaginalis + Atopobium vaginae rRNA MARK+probe Ql (Vag fld) Negative Normal Negative for bacterial vaginosis [facility] Comment on above: Order Comment: Speci men Type: SWABOrdering Facility: [facility] Address: [address] [place] [address] Performed By: #### B VAMP, CVTV ####[facility] LABCLIA [id number] [place] [address] [place] ERICK/TRICHOMONAS NAATon 0 10-18-2023 C. glabrata RNA MARK+probe Ql (Vag fld) Negative Normal Negative for Erick glabrata [facility] Comment on above: Order Comment: Speci men Type: SWABOrdering Facility: [facility] Address: [address] [place] [address] Performed By: #### B VAMP, CVTV ####[facility] LABCLIA [id number] [place] [address] [place] Erick sp DNA MARK+probe Ql (Vag fld) Positive Abnormal Negative for Erick species [facility] Comment on above: Order Comment: Speci men Type: SWABOrdering Facility: [facility] Address: [address] [place] [address] Performed By: #### B VAMP, CVTV ####[facility] LABCLIA [id number] [place] [address] [place] T. vaginalis DNA MARK+probe Ql (Unsp spec) Negative Normal Negative for Trichomonas vaginalis by amplification [facility] Comment on above: Order Comment: Speci men Type: SWABOrdering Facility: [facility] Address: [address] [place] [address] Performed By: #### B BRISA ROJAS ####[facility] LABCLIA [id number] [address] [place] [address] [place] [facility] CNOVon 10-18-2023 CNOV Office Visit (OBGYWM ) CLARISSE MOLINA ([id number]) 5 F Date Time Provider Department 10/18/23 3:00 PM NAOMI CASTELAN OBGYWM During your visit today, we recorded the following information about you: Blood pressure Weight Height 118/62 86.2 kg 1.664 m Naomi Castelan MD 10/18/2023 3:53 PM Signed Ergonomics Consultant offered: Patient declines. Clarisse presents for removal of IUD due to wants Nuva Ring to help with ovarian cyst. Feels like she may have yeast infection. Pt reports has tried OTC monistat with out much relief. Pt reports external itching and white thick discharge. Pt denies other concerns today. UNIVERSAL PROTOCOL / SAFETY CHECKLIST Procedure to be Performed: IUD removal Sign In: A Moment of CARE was completed. Personnel directly involved with the procedure wore the appropriate PPE (Personal Protective Equipment). Patient/Surrogate Stated/Verified: PATIENT VERIFIED(optional for EMERGENT procedures): Patient name, Date of , Relevant allergies, and The intended procedure Time Out Communication: Intended patient and procedure match the source documents. Consent documented and matches the intended procedure. Sign Out: SIGN OUT (optional for EMERGENT procedures): All specimen containers correctly labeled. BP 118/62 Ht 166.4 cm (5' 5.5) Wt 86.2 kg (190 lb) LMP 11/29/2022 BMI 31.14 kg/m? PROCEDURE: Speculum placed in vagina, IUD string visualized and grasped with ring forceps.small amount of white thick discharge c/w yeast ASSESSMENT/PLAN: (Z30.432) Encounter for IUD removal (primary encounter diagnosis) (N89.8) Vaginal itching (N89.8) Vaginal discharge IUD removed without difficulty, intact, and patient tolerated procedure well. Contraception plans: Nuvaring Yeast/bv collected- Diflucan ordered Medical Decision Making: Problems: Low: Acute, uncomplicated illness or injury Data: Unique test(s) ordered: 3+ Risk: Moderate: Drug management Medical Decision Making Level: 4 - Moderate Naomi Li MD Referring Provider: SELF [200] Allergies As of Date: 10/18/2023 (No Known Allergies) Date Reviewed: 10/18/2023 Reviewed by: Mary Green MA - Fully Assessed Reason for Visit: IUD [60] IUD Removal [1950] Primary Visit Diagnosis:Encounter for IUD removal [Z30.432] Other Visit Diagnoses:Vaginal itching [N89.8] Vaginal discharge [N89.8] Order(s):REMOVE INTRAUTERINE DEVICE [[id number]] Order #: [id number] fluconazole (DIFLUCAN) 150 mg tabletTake 1 tablet by mouth one time only for 1 dose.Disp: 1 tabletRfl: 0 Etonogestrel-Ethinyl Estradiol (NUVARING) 0.12-0.015 mg/24 hr vaginal ringUse 1 Each vaginally as directed. INSERT ONE(1) RING VAGINALLY AND LEAVE IN PLACE FOR THREE WEEKS, THEN REMOVE FOR 1 WEEK.Disp: 3 EachRfl: 4 ERICK/TRICHOMONAS NAAT [SQCVTV] Order #: [id number] BACTERIAL VAGINOSIS NAAT [SQBVAMP] Order #: [id number] Prescriptions as of 10/18/2023 - fluconazole (DIFLUCAN) 150 mg tablet Take 1 tablet by mouth one time only for 1 dose. - Etonogestrel-Ethinyl Estradiol (NUVARING) 0.12-0.015 mg/24 hr vaginal ring Use 1 Each vaginally as directed. INSERT ONE(1) RING VAGINALLY AND LEAVE IN PLACE FOR THREE WEEKS, THEN REMOVE FOR 1 WEEK. - ondansetron orally disintegrating (ZOFRAN ODT) 4 mg disintegrating tablet Take 1 tablet by mouth every 6 hours as needed for nausea/vomiting. - propranolol ER (INDERAL LA) 60 mg 24 hr capsule propranolol ER 60 mg capsule,24 hr,extended release TAKE 1 CAPSULE BY MOUTH ONCE DAILY - cetirizine (ZYRTEC) 10 mg tablet Take 10 mg by mouth daily at bedtime. - fluticasone (FLONASE) 50 mcg/actuation nasal spray Use 1 [place] in each nostril once daily. - Polyethylene Glycol 3350 (MIRALAX) 17 gram/dose ORAL powder Take by mouth. 2-3 tablespoons daily. Problem List As Of Date 10/18/2023 Noted Resolved FEBRILE CONVULSIONS NOS [R56.00] 11/02/2008 Closed Fracture of Unspecified Part of Lower En*03/13/2009 Prescriptions ordered this encounter Disp Refills Start End FLUCONAZOLE 150 MG TABLET 1 ta* 0 10/18/2023 10/18/2023 Route: ORAL Sig: Take 1 tablet by mouth one time only for 1 dose. ETONOGESTREL 0.12 MG-ETHINYL ESTRADI* 3 Ea* 4 10/18/2023 10/17/2024 Class: Print RX Route: VAGINAL Sig: Use 1 Each vaginally as directed. INSERT ONE(1) RING VAGINALLY AND LEAVE IN PLACE FOR THREE WEEKS, THEN REMOVE FOR 1 WEEK. Medications Discontinued During This Encounter Prescriptions - levonorgestrel (KYLEENA) 17.5 mcg/24 hrs (5 yrs) 19.5 mg IUD (Discontinued) 1 Each by INTRAUTERINE route as directed. Disposition: Return if symptoms worsen or fail to improve, for Routine annual exam. Follow-up and Disposition History for Encounter Date Provider Department Center 10/18/2023 [id number] MCINTOSH,*CARISA Wilson Encounter Status:Closed by Ernst MATOS (more content not included)... Normal [facility] URINEon 10-03-2023 Beta HCG ( test) Ql (U) Negative Normal NEGATIVE [facility] Comment on above: Performed By: #### 2 13501 #### [facility],[address] [place] [address] EXTERNAL QC DONE? YES Normal [facility] Comment on above: Performed By: #### 2 15674 #### [facility],[address] [place] [address] INTERNAL QC PASS Normal [facility] Comment on above: Performed By: #### 2 34964 #### [facility],[address] [place], [place] [id number] URINALYSISon 10-03-2023 Amorphous 3+ Normal [facility] Comment on above: Performed By: #### 2 43689 #### [facility],[address] [place] [address] Bacteria 2+ Normal [facility] Comment on above: Performed By: #### 2 27356 #### [facility],[address] [place], [place] [id number] Bilirubin Ql (U) Negative Normal NORMAL: NEGATIVE [facility] Comment on above: Performed By: #### 2 52667 #### [facility],[address] [place], [place] [id number] Casts NONE Normal [facility] Comment on above: Performed By: #### 2 68948 #### [facility],[address] [place], [place] [id number] Clarity (U) very cloudy Normal NORMAL: CLEAR [facility] Comment on above: Performed By: #### 2 32625 #### [facility],[address] [place], [place] [id number] Color (U) yellow Normal NORMAL: YELLOW [facility] Comment on above: Performed By: #### 2 72807 #### [facility],[address] [place] [address] 31011 Crystals LM Nom (Urine sed) NONE Normal [facility] Comment on above: Performed By: #### 2 94675 #### [facility],[address] [place] [address] 81509 Epi Cells MANY Normal [facility] Comment on above: Performed By: #### 2 81922 #### [facility],[address] [place] [address]69 Glucose Ql (U) NORM Normal NORMAL: NORMAL [facility] Comment on above: Performed By: #### 2 67695 #### [facility],[address] [place] [address]1456 Hemoglobin Ql (U) Negative Normal NORMAL: NEGATIVE [facility] Comment on above: Performed By: #### 2 34658 #### [facility],[address] [place] [address] 38696 Ketone Negative Normal NORMAL: NEGATIVE [facility] Comment on above: Performed By: #### 2 30025 #### [facility],[address] [place] [address] 21443 Leukocytes 25 Abnormal NORMAL: NEGATIVE [facility] Comment on above: Performed By: #### 2 72474 #### [facility],[address] [place] [address] 73282 Mucous 2+ Normal [facility] Comment on above: Performed By: #### 2 94321 #### [facility],[address] [place] [address] 83414 Nitrite Ql (U) Negative Normal NORMAL: NEGATIVE [facility] Comment on above: Performed By: #### 2 78358 #### [facility],[address] [place] [address] 10864 pH (U) 6.5 [pH] Normal NORMAL: 5.0-8.0 [facility] Comment on above: Performed By: #### 2 99701 #### [facility],[address] [place] [address] 95899 Protein Ql (U) 30 Abnormal NORMAL: NEGATIVE [facility] Comment on above: Performed By: #### 2 39338 #### [facility],[address] [place] [address] 08257 Rbc 0-5 Normal 0-3/hpf [facility] Comment on above: Performed By: #### 2 33191 #### [facility],[address] [place] [address] Sp [place] 1.020 Normal NORMAL: 1.010-1.030 [facility] Comment on above: Performed By: #### 2 25367 #### [facility],[address] [place] [address] Specimen Type Void Normal [facility] Comment on above: Performed By: #### 2 57080 #### [facility],[address] [place] [address] Urinalysis dipstick W Reflex Microscopic panel (U) SEE BELOW Normal [facility] Comment on above: Result Comment: MICR OSCOPIC Performed By: #### 2 98535 #### [facility],[address] [place] [address] Urobilinog NORM Normal NORMAL: NORMAL [facility] Comment on above: Performed By: #### 2 99907 #### [facility],[address] [place] [address] Wbc 6-10 Normal 0-5/hpf [facility] Comment on above: Performed By: #### 2 93740 #### [facility],[address] [place] [address] Yeast NONE Normal [facility] Comment on above: Performed By: #### 2 87105 #### [facility],[address] [place] [address] CNOVon 08-04-2023 CNOV Office Visit (UCWSTR ) CLARISSE MOLINA ([id number]) 5 F Date Time Provider Department 08/04/23 9:15 AM LOUISE CUMMINS UCWSTR During your visit today, we recorded the following information about you: Temperature Pulse Respiration Blood pressure 97.6 degrees 88/minute 18/minute 128/78 Weight 87.1 kg Louise Cummins PA-C 08/04/2023 9:31 AM Signed This note was created using GT Channelriter. Subjective Clarisse Molina is a 17 year old female. HPI Patient presents with an itchy rash on during her right breast over the past day. States she [place] in [place]. No insect bites that she knows of. She tried some qyxc-jyr-ywumhyo itch cream without relief. She denies any new soaps or detergents. No new medications. No new lotions. No rash anywhere else. No recent illness. No cough or fever. Review of Systems Constitutional: Negative. HENT: Negative. Respiratory: Negative. Cardiovascular: Negative. Gastrointestinal: Negative. Musculoskeletal: Negative. Skin: Positive for rash. All other systems reviewed and are negative. PAST MEDICAL HISTORY Diagnosis Date Febrile convulsions (simple), unspecified @ 6months Ruptured ovarian cyst 2021 [facility] Current Outpatient Medications Medication Sig Dispense Refill levonorgestrel (KYLEENA) 17.5 mcg/24 hrs (5 yrs) 19.5 mg IUD 1 Each by INTRAUTERINE route as directed. 1 Each 0 triamcinolone acetonide (KENALOG) 0.1 % cream Apply 1 application to affected area three times a day for 7 days. Apply sparingly to area for rash/itching. 80 g 0 ondansetron orally disintegrating (ZOFRAN ODT) 4 mg disintegrating tablet Take 1 tablet by mouth every 6 hours as needed for nausea/vomiting. (Patient not taking: Reported on 08/04/2023) 12 tablet 0 propranolol ER (INDERAL LA) 60 mg 24 hr capsule propranolol ER 60 mg capsule,24 hr,extended release TAKE 1 CAPSULE BY MOUTH ONCE DAILY (Patient not taking: Reported on 08/04/2023) cetirizine (ZYRTEC) 10 mg tablet Take 10 mg by mouth daily at bedtime. (Patient not taking: Reported on 05/05/2023) fluticasone (FLONASE) 50 mcg/actuation nasal spray Use 1 [place] in each nostril once daily. (Patient not taking: Reported on 05/05/2023) 1 Bottle 0 Polyethylene Glycol 3350 (MIRALAX) 17 gram/dose ORAL powder Take by mouth. 2-3 tablespoons daily. 1 Bottle 3 No current facility-administered medications for this visit. PAST SURGICAL HISTORY Procedure Laterality Date KYLEENA IUD 03/31/2022 5 year TONSILLECTOMY AND ADENOIDECTOMY FAMILY HISTORY Problem Relation Age of Onset other (epilepsy [Other]) Mother No Known Problems Father No Known Problems Sister No Known Problems Brother Arthritis Maternal Grandmother rheumatoid other (epilepsy [Other]) Maternal Grandmother Social History Tobacco Use Smoking status: Never Vaping Use Vaping Use: Never used Substance Use Topics Alcohol use: No Drug use: No Objective BP 128/78 Pulse 88 Temp 36.4 ?C (97.6 ?F) (Tympanic) Resp 18 Wt 87.1 kg (192 lb 0.3 oz) LMP 11/29/2022 SpO2 96% Physical Exam Vitals reviewed. Exam conducted with a hogshead inspector present. Constitutional: Appearance: Normal appearance. HENT: Head: Normocephalic and atraumatic. Chest: Comments: Patient has a mildly erythematous raised papular rash with some excoriation present on the lower right breast. No sign of yeast infection. No petechia or purpura. Skin: General: Skin is warm and dry. Neurological: General: No focal deficit present. Mental Status: She is alert. Assessment and Plan ASSESSMENT/PLAN: 1. Rash - ICD9: 782.1, ICD10: R21 Likely contact dermatitis. Will tx with triamcinolone cream. Discussed skincare. Follow up if not improving. Louise Cummins PA-C Allergies As of Date: 08/04/2023 (No Known Allergies) Date Reviewed: 08/04/2023 Reviewed by: Bryanna Tinsley LPN - Fully Assessed Reason for Visit: Rash [1087] Cmt: Rash under right breast x 1 day Primary Visit Diagnosis:Rash [R21] Order(s):triamcinolone acetonide (KENALOG) 0.1 % creamApply 1 application to affected area three times a day for 7 days. Apply sparingly to area for rash/itching.Disp: 80 gRfl: 0 Prescriptions as of 08/04/2023 - triamcinolone acetonide (KENALOG) 0.1 % cream Apply 1 application to affected area three times a day for 7 days. Apply sparingly to area for rash/itching. - ondansetron orally disintegrating (ZOFRAN ODT) 4 mg disintegrating tablet Take 1 tablet by mouth every 6 hours as needed for nausea/vomiting. - propranolol ER (INDERAL LA) 60 mg 24 hr capsule propranolol ER 60 mg capsule,24 hr,extended release TAKE 1 CAPSULE BY MOUTH ONCE DAILY - levonorgestrel (KYLEENA) 17.5 mcg/24 hrs (5 yrs) 19.5 mg IUD 1 Each by INTRAUTERINE route as directed. - cetirizine (ZYRTEC) 10 mg tablet Take 10 mg by mouth daily at bedtime. - fluticasone (FLONASE) 50 mcg/actuation shaila (more content not included)... Normal [facility] UA DIP, URINE (POC)on 2022 BILIRUBIN UA (POCT) Negative Negative [facility] CLARITY UA (POCT) Clear [facility] COLOR UA (POCT) Yellow [facility] GLUCOSE UA (POCT) Negative Negative mg/dL [facility] Hemoglobin Ql (U) Negative Negative [facility] KETONE UA (POCT) Negative Negative mg/dL [facility] LEUKOCYTES UA (POCT) Negative Negative [facility] NITRITE UA (POCT) Negative Negative [facility] PH UA (POCT) 5.0 4.5 - 8.0 [facility] Protein Ql (U) Negative Negative mg/dL [facility] SPECIFIC GRAVITY UA (POCT) >=1.030 1.005 - 1.030 [facility] UROBILINOGEN UA (POCT) 0.2 E.U./dL Normal E.U./dL [facility] US FEMALE PELVIS TRANSVAGon 12-01-2022 Radiology Result ACTIONABLE Abnormal [facility] ELBOW COMPLETE MIN. 3 VIEWSo n 11-14-2022 ELBOW COMPLETE MIN. 3 VIEWS Patient Name: CLARISSE MOLINA STUDY: ELBOW COMPLETE MIN 3 VIEWS; 11/14/2022 3:20 pm INDICATION: injury . COMPARISON: None. ACCESSION NUMBER(S): [id number] ORDERING CLINICIAN: LORETTA PAINTING FINDINGS: No acute fracture or dislocation. No substantial arthrosis. Soft tissues are within normal limits. IMPRESSION: 1. No acute osseous abnormality identified. Electronically signed by: LUC ALDRICH MD [facility] Provider Note - ED v3on 08-0 Provider Note - ED v3 Provider Note: Results/Vital Signs: Pediatric Clinical Scoring (ERUM) is no recent ERUM charted on this account Chart Review: ED NOTES ED NOTES: ====HPI==== Patient is a 17-year-old female who presents to the emergency department with left upper arm pain. 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 She reports pain to both her left shoulder and left elbow. Pain is worse with movement. She states that she took a naproxen earlier today with minimal relief. Pt denies any N/V/D/C, CP, ANGEL or hemoptysis. PMHX: Denies Social HX: Denies TOBACCO Denies ETOH Denies DRUGS ====Review of Systems==== 10 point system review is negative except for those specifically mentioned in history of present illness ====Physical Exam==== Constitutional/General: Alert and oriented x3, well appearing, nontoxic, and in NAD. Head: Normocephalic and atraumatic. Eyes: PERRL, EOMI, conjunctive normal, sclera nonicteric, subconjunctival layer is pink. Mouth: Oropharynx clear, handling secretions, no trismus, no asymmetry of the posterior oropharynx or uvular edema Neck: Supple, full ROM, non tender to palpation in the midline, no stridor, no crepitus, no meningeal signs. Trachea at midline. Respiratory: Lungs clear to auscultation bilaterally, no wheezes, rales, or rhonchi, not in respiratory distress. Cardiovascular: Regular rate, regular rhythm, no murmurs, gallops, or rubs, 2+ distal pulses. Chest: normal chest wall movement GI: Abdomen soft, nontender, nondistended, no organomegaly, no palpable masses, no rebound, guarding, or rigidity. Musculoskeletal: Moves all extremities x4, warm and well perfused, no clubbing, cyanosis, or edema, cap refill <3 seconds Integument: Skin warm and dry, no rashes. Neurologic: GCS 15, no focal deficits, symmetric strength 5/5 in the upper and lower extremities bilaterally. Psychiatric: Normal affect. ====ED Course and Medical Decision Making==== See MDM section for review of findings & plan of care. Portions of this note were dictated by speech recognition. An attempt at proof reading was made to minimize errors. Minor errors in hide examiner may be present. Please call if questions.. 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 patient believes she pulled something.)(1). Triage Information: Most recent Vital Sign Value Date Temp (F): 97.9 11-14-2022 17:46 Temp (C): 36.6 11-14-2022 17:46 Heart Rate (beats/min): 98 11-14-2022 17:46 Respirations (breaths/min): 18 11-14-2022 17:46 SpO2 (%): 100 11-14-2022 17:46 BP Systolic (mm Hg): 118 11-14-2022 17:46 BP Diastolic (mm Hg): 75 11-14-2022 17:46 PAST MEDICAL HISTORY ALLERGIES/INTOLERANCES: No Known Allergies HEALTH HISTORY: No documented data. OUTPATIENT MEDICATIONS: Home Medications Review Status for Reconciliation: Incomplete Med Status: Incomplete Medication History Drug Name: Macrobid 100 mg oral capsule Instructions: 1 cap(s) orally 2 times a day x 5 days. Take with food. SIGNIFICANT EVENTS: No documented data. CRITICAL CARE RESULTS: Radiology Results: Impression: 1. No acute osseous abnormality identified. Xray Shoulder Complete Min 2 Views [Nov 14 2022 6:47PM] Impression: 1. No acute osseous abnormality identified. Xray Elbow Complete Min 3 View [Nov 14 2022 6:45PM] VITAL SIGNS: T PRBP SpO2O2(LPM) %FiO2 Method 14-Nov-2022 17:46:[id number] 100 room air, no respiratory support [facility] MDM/ED COURSE: Patient is a 17 year old female who presents to the ED with a chief complaint of left shoulder and elbow pain after attempting to transfer a patient while at work. X-ray of the left shoulder and the left elbow are unremarkable. I independently interpreted the x-ray of the left shoulder and left elbow and do not appreciate any fracture or dislocation. Radiologist agrees there are no acute abnormalities. She will be referred to occupational health as this is a Worker's Compensation case. Differential diagnosis includes but not limited to sprain, strain, fracture, dislocation DISPOSITION Diagnosis/Annotation: ED Dx Name:Sprain of left shoulder Code:S43.402A Disposition: discharged CONSULT CRITICAL CARE TIME Is this a critically ill patient: no Electronic Signatures: Loretta Painting (PAC) (Signed 14-Nov-2022 19:52) Authored: ED Notes, HPI, PMH, Results/Vital Signs, MDM/ED Course, Clinical Impression, Attestation, Chart Review, Scores Last Updated: 14-Nov-2022 19:52 by Loretta Painting (PAC) References: 1. Data Referenced From Triage - ED Peds 14-Nov-2022 17:46 Normal [facility] Risk Screen - PEDS Emergency on 11-14-2022 Risk Screen - PEDS Emergency Preferred Language: Preferred Language: Preferred Language for Discussing Health Care (patient/designee)Uzbek Patient Preferred Pharmacy: Patient Preferred Pharmacy Statement: I have reviewed and updated the patient's preferred pharmacy selection for today's visit. Advanced Directives: Advance Directive/DNRno Learning Assessment (Patient): Patient is Able to be Assessed for Learningyes Educational [id number] grade Factors Influence Readiness to Learnnone, ready to learn Factors Impact Ability to Learnnone Devices/Methods Used to Communicatenone Learning Preferencesverbal instruction Cultural Considerationsnone Developmental Considerationsnone Anglican Considerationsnone Learning Assessment (Other Learner): Other learner availableno Family Violence PEDS: Family Violence Screen (Patient < 8 yo, screen parent only. Patient 8 yo and older, screen both parent and child.): Do you feel UNSAFE going back to the place where you liveno Clinician Assessment: Are there any apparent signs of injuries/behaviors that could be related to abuse/neglectno Ask parent or guardian: Are there times when you, your child(august), or any member of your household feel unsafe, harmed, or threatened around persons with whom you know or liveno Have YOU threatened or abused anyone physically, emotionally, or sexuallyno Fall: Pediatric Humpty Dumpty: Humpty Dumpty Risk Assessment: Humpty Dumpty Risk Assessment: Humpty: Age(1) 13 years and above Humpty: Gender(1) female Humpty: Diagnosis(1) other diagnosis Humpty: Cognitive Impairments(1) oriented to own ability Humpty: Environmental Factors(1) outpatient Humpty: Response to Surgery/ Sedation/ Anesthesia(1) more than 48 hours/none Humpty: Medication Usage(1) other medications Humpty: ScoreImage has been removed. 7 Falls Precautions per Humpty Dumpty Screening ToolPatient location auto qualifies him/her for HIGH RISK Humpty Dumpty Educationteaching provided Teaching ProvidedPI 729 [place] Prevention Program Respiratory / Cough /TB: ED / TB / Cough / Respiratory Screen: Do you have a coughno Smoking/Social History (Required 13 years or older): Smoking Status: never smoker Alcohol Use: denies Drug Use: denies Drug 2 Use: denies Admission Risk Screen: Significant IndicatorsComplete Electronic Signatures: Sheba Parisi (RN) (Signed 14-Nov-2022 17:49) Authored: Preferred Language, Patient Preferred Pharmacy, Advanced Directives, Learning Assessment (Patient), Learning Asessment (Other Learner), Family Violence PEDS, Fall: Pediatric Humpty Dumpty, Respiratory / Cough /TB, Smoking/Social History (Required 13 years or older) Last Updated: 14-Nov-2022 17:49 by Sheba Parisi (AMMY) [facility] SHOULDER, CMPLT, MIN 2 VIEWS on 11-14-2022 SHOULDER, CMPLT, MIN 2 VIEWS Patient Name: CLARISSE MOLINA STUDY: SHOULDER, CMPLT, MIN 2 VIEWS; 11/14/2022 3:20 pm INDICATION: injury . COMPARISON: None. ACCESSION NUMBER(S): [id number] ORDERING CLINICIAN: LORETTA PAINTING FINDINGS: No acute fracture or dislocation. No substantial arthrosis. Soft tissues are within normal limits. IMPRESSION: 1. No acute osseous abnormality identified. 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 1030 am. patient believes she pulled something.). Onset of the Complaint: 13-Nov-2022 Triage Date/Time: 14-Nov-2022 17:46 Vital Signs: Temperature: 97.9F ( 36.6C) Temperature Location: temporal Blood Pressure: 118/75 Mean: Heart Rate: 98 Respiratory Rate: 18 Pulse Oximetry: 100% on room air, no respiratory support Weight: 72.700 kilogram(s) Weight Method Used: stated Pain Scale: FLACC ( 1- 18 yrs) Face: (0) no particular expression or smile Legs: (0) normal position or relaxed Cry: (0) no cry (awake or asleep) Consolability: (0) content, relaxed Activity: (0) lying quietly, normal position, moves easily FLACC Score: 0 [place] Coma Scale Peds (2yrs to Adult): Best Eye Response: (E4) spontaneous Best Verbal Response: (V5) oriented Best Motor Response: (M6) obeys commands [place] Coma Scale Score: 15 Cough Lasting Greater than 2 Weeks: no Allergies: no Mask Applied: no Last Menstrual Period: not applicable Patient has Homicidal Thoughts: no Acuity Level: 4 Peds Complaint Code ([facility] ONLY): N/A [facility] The patient and/or guardian verbally acknowledges placement for services into the following (when Urgent Care Service hours are operating): emergency department ABCD PRIMARY ASSESSMENT CLARISSE MOLINA's primary assessment is Within Defined Limits. The airway is open and patent. Breathing spontaneous and unlabored with clear breath sounds bilaterally. Circulation is normal with good peripheral pulses. Skin is warm and dry and color is normal for race. Alert and appropriate for age. Symptom Notes: . Symptoms Are POSITIVE For: difficulty bending, pain (describe) and decreased ROM. Symptoms Are Negative For: abrasion, bleeding, bruising, deformity, difficulty walking, numbness and tingling. RISK SCREEN [place] Suicide Risk Screen Risk Screen Not Applicable/Able to Answer: able to be screened In the Past Month: Have you wished you were or could go to sleep and not wake up no Have you had any actual thoughts of killing yourself no Lifetime: Have you ever done, started to or prepared to do anything to end your life no Sepsis Screen High Risk Criteria Physical Exam TRAVEL HISTORY Travel History Coronavirus Screening: no exposure or symptoms Travel Exposure History: NO travel to International locations in the past 30 days Past Medical History: Past Medical History Reviewedyes Electronic Signatures: Sheba Parisi (RN) (Signed 14-Nov-2022 17:49) Authored: Quick Triage, Risk Screens, Travel History, Chart Review, Scores, Past Medical History Last Updated: 14-Nov-2022 17:49 by Sheba Parisi (RN) [facility] HCG QUAL UR B/Oon 03-13-2022 status Negative neg - pos [facility] Quality Check Yes [facility] UA DIP, URINE (POC)on 2021 BILIRUBIN UA (POCT) Negative Negative [facility] CLARITY UA (POCT) Clear [facility] COLOR UA (POCT) Yellow [facility] GLUCOSE UA (POCT) Negative Negative mg/dL [facility] HEMOGLOBIN/BLOOD UA (POCT) Trace-intact Abnormal Negative [facility] KETONE UA (POCT) Negative Negative mg/dL [facility] LEUKOCYTES UA (POCT) Trace Abnormal Negative [facility] NITRITE UA (POCT) Negative Negative [facility] PH UA (POCT) 5.5 4.5 - 8.0 [facility] Protein Ql (U) Negative Negative mg/dL [facility] SPECIFIC GRAVITY UA (POCT) >=1.030 1.005 - 1.030 [facility] UROBILINOGEN UA (POCT) 0.2 E.U./dL Normal E.U./dL [facility] UA DIP, URINE (POC)on 2021 BILIRUBIN UA (POCT) Negative Negative [facility] CLARITY UA (POCT) Cloudy [facility] COLOR UA (POCT) Other [facility] GLUCOSE UA (POCT) Negative Negative mg/dL [facility] HEMOGLOBIN/BLOOD UA (POCT) Moderate Abnormal Negative [facility] KETONE UA (POCT) Negative Negative mg/dL [facility] LEUKOCYTES UA (POCT) Moderate Abnormal Negative [facility] NITRITE UA (POCT) Negative Negative [facility] PH UA (POCT) 5.5 4.5 - 8.0 [facility] Protein Ql (U) 100 mg/dL Abnormal Negative mg/dL [facility] SPECIFIC GRAVITY UA (POCT) >=1.030 1.005 - 1.030 [facility] UROBILINOGEN UA (POCT) 0.2 E.U./dL Normal E.U./dL [facility] URINE CULTURE,BACTERIALon URINE CULTURE,BACTERIAL PATIENT: CLARISSE MOLINA LOCATION: [address]#: [id number] : 5 AGE: SEX: F ORDERED BY: NATI CULLEN SOURCE: URINE COLLECTED: 08/22/21 14:46 ANTIBIOTICS AT DANTE.: RECEIVED : 08/22/21 23:42 SITE: Clean Catch/Voided R E S U L T S URINE CULTURE,BACTERIAL FINAL 08/24/21 09:[address] [facility] Comment on above: Performed By: #### U [facility] #### [facility] [address] [place] [address] HSV 1,2 Ab, IgG+IgM FOR REF LAB USE ONLYon 02-11-2021 Herpes Simplex IgM 0.56 OD Ratio Normal 0-0.90 [facility] Reference Lab Comment on above: Performed By: #### H SVGM #### [facility] Routine Lab [address] [phone] HSV IgM Qualitative Negative Normal Negative [facility] Reference Lab Comment on above: Performed By: #### H SVGM #### [facility] Routine Lab [address] [phone] HSV 1,2 Ab, IgG+IgM FOR REF LAB USE ONLYon 02-08-2021 Herpes Simplex IgG 1 <0.2 Normal [facility] Reference Lab Comment on above: Performed By: #### H SVGM #### [facility] Routine Lab [address] [phone] Herpes Simplex IgG 2 <0.2 Normal [facility] Reference Lab Comment on above: Performed By: #### H SVGM #### [facility] Routine Lab [address] [phone] HSV IgG 1 Qualitative Negative Normal Negative [facility] Reference Lab Comment on above: Performed By: #### H SVGM #### [facility] Routine Lab [address] [address] HSV IgG 2 Qualitative Negative Normal Negative [facility] Reference Lab Comment on above: Performed By: #### H SVGM #### [facility] Routine Lab [address] [place] [address] RPRon 02-07-2021 Reagin Ab RPR Ql (S) NR Normal Non Reactive [facility] Reference Lab Comment on above: Performed By: #### R NE #### [facility] Immunology [address] [place] [address] #### HACUTP #### [facility] Routine Lab [address] [place] [address] GC/Chlamydia Amp, Uron 02-06 Chlamydia Amplif, Ur Normal [facility] Reference Lab Comment on above: Result Comment: Nega tive for For screening asymptomatic women, a vaginal swab specimen (APTIMA vaginal swab 177372) is optimal. Urine specimens have reduced sensitivity for Chlamydia trachomatis or Neisseria gonorrhoeae infection in female patients without symptoms. This test was developed and its performance characteristics determined by [facility] Pathology [facility] Laboratory [facility] [place] ([facility]). It has not been cleared or approved by the FDA. [facility] is regulated under CLIA as qualified to perform high complexity testing. This test is used for clinical purposes. It should not be regarded as investigational or for research. Chlamydia For screening asymptomatic women, a vaginal swab specimen (APTIMA vaginal swab 350020) is optimal. Urine specimens have reduced sensitivity for Chlamydia trachomatis or Neisseria gonorrhoeae infection in female patients without symptoms. This test was developed and its performance characteristics determined by [facility] Pathology [facility] Laboratory [facility] [place] ([facility]). It has not been cleared or approved by the FDA. [facility] is regulated under CLIA as qualified to perform high complexity testing. This test is used for clinical purposes. It should not be regarded as investigational or for research. trachomatis by For screening asymptomatic women, a vaginal swab specimen (APTIMA vaginal swab 111036) is optimal. Urine specimens have reduced sensitivity for Chlamydia trachomatis or Neisseria gonorrhoeae infection in female patients without symptoms. This test was developed and its performance characteristics determined by [facility]ology [facility] Laboratory [facility] [place] ([facility]). It has not been cleared or approved by the FDA. [facility] is regulated under CLIA as qualified to perform high complexity testing. This test is used for clinical purposes. It should not be regarded as investigational or for research. amplification. For screening asymptomatic women, a vaginal swab specimen (APTIMA vaginal swab 677782) is optimal. Urine specimens have reduced sensitivity for Chlamydia trachomatis or Neisseria gonorrhoeae infection in female patients without symptoms. This test was developed and its performance characteristics determined by [facility] Pathology [facility] Laboratory [facility] [place] ([facility]). It has not been cleared or approved by the FDA. [facility] is regulated under CLIA as qualified to perform high complexity testing. This test is used for clinical purposes. It should not be regarded as investigational or for research. Performed By: #### U GCCT #### [facility] Routine Lab [address] [place] [phone] GC Amplification, Ur NGNEG Normal [facility] Reference Lab Comment on above: Performed By: #### U GCCT #### [facility] Routine Lab [address] [place] [phone] Hepatitis Acute Panel * OUTS MARIAN CLIENTS ONLY *on 02-06-2021 Hep B Core Ab, IgM NEGAT Normal Negative [facility] Reference Lab Comment on above: Performed By: #### R NE #### [facility] Immunology [address] [place] [phone] #### HACUTP #### [facility] Routine Lab [address] [place] [phone] Hepatitis A Ab IgM NEGAT Normal Negative [facility] Reference Lab Comment on above: Performed By: #### R NE #### [facility] Immunology [address] [place] [phone] #### HACUTP #### [facility] Routine Lab [address] [phone] HBsAg NEGAT Normal Negative [facility] Reference Lab Comment on above: Performed By: #### R NE #### [facility] Immunology [address] [phone] #### HACUTP #### [facility] Routine Lab [address] [phone] Hepatitis C Ab IA NEGAT Normal Negative [facility] Reference Lab Comment on above: Performed By: #### R NE #### [facility] Immunology [address] [phone] #### HACUTP #### [facility] Routine Lab [address] [phone] GC/Chlamydia Amplifon 2020 Chlamydia Amplif CLNEG Normal [facility] Reference Lab GC Amplification NGNEG Normal [facility] Reference Lab GC/Chlamydia Amplifon 2020 GC/Chlam Amp Source Vaginal Normal [facility] Reference Lab Endomysial IgA Abson 021 Endomysial IgA Abs <1:10 Normal <1:10 [facility] Reference Lab Comment on above: Performed By: #### I GA #### [facility] Routine Lab [address] [phone] #### TGIGA #### [facility] Immunology [address] [phone] #### ENDOMY #### [facility] Immuno Assay [address] [phone] Transglutaminase IgAon 09-06 Transglutaminase IgA 2 Units Normal <20 [facility] Reference Lab Comment on above: Performed By: #### I GA #### [facility] Routine Lab [phone] #### TGIGA #### [facility] Immunology [address] [address] #### ENDOMY #### [facility] Immuno Assay [address] [address] IgAon 09-05-2020 IgA [Mass/Vol] 167 mg/dL Normal 47-249 [facility] Reference Lab Comment on above: Performed By: #### I GA #### [facility] Routine Lab [address] [address] #### TGIGA #### [facility] Immunology [address] [address] #### ENDOMY #### [facility] Immuno Assay [address] [place], [place] [address] Vital Signs Date Time Vital Sign Value Performing Clinician Facility 01-15-2025 15:20-0400 Body height 165.1 cm Lizy Chambers GILL TENDER-C Work Phone: [facility] 01-15-2025 15:16-0400 Body mass index (BMI) [Percentile] Per age and sex 96.9 % Lizy Chambers GILL TENDER-C Work Phone: [facility] 01-15-2025 15:16-0400 Body mass index (BMI) [Ratio] 34 kg/m2 Lizy Chambers GILL TENDER-C Work Phone: [facility] 01-15-2025 15:16-0400 Body weight 92.73 kg Lizy Chambers GILL TENDER-C Work Phone: [facility] 01-15-2025 15:16-0400 Diastolic blood pressure 83 mm[Hg] Lizy Chamebrs GILL TENDER-C Work Phone: [facility] 01-15-2025 15:16-0400 Systolic blood pressure 134 mm[Hg] Lizy Chambers GILL TENDER-C Work Phone: [facility] 10-19-2024 11:41-0400 Body height 165.1 cm Lizy Reyes GILL TENDER-C Work Phone: [facility] 10-19-2024 10:52-0400 Body height 165.1 cm Lizy Chambers GILL TENDER-C Work Phone: [facility] 10-19-2024 10:52-0400 Body mass index (BMI) [Percentile] Per age and sex 96.3 % Lizy Chambers GILL TENDER-C Work Phone: [facility] 10-19-2024 10:52-0400 Body mass index (BMI) [Ratio] 32.8 kg/m2 Lizy hCambers GILL TENDER-C Work Phone: [facility] 10-19-2024 10:52-0400 Body weight 89.58 kg Lizy Chambers GILL TENDER-C Work Phone: [facility] 10-19-2024 10:52-0400 Diastolic blood pressure 72 mm[Hg] Lizyrasta Chambers GILL TENDER-C Work Phone: [facility] 10-19-2024 10:52-0400 Systolic blood pressure 120 mm[Hg] Lizy Reyes GILL TENDER-C Work Phone: [facility] 07-13-2024 10:57-0400 Body temperature 97.3 [degF] Luc Marie FIRE PREVENTION SPECIALIST.PEDODONTIST Work Phone: [facility] 07-13-2024 10:57-0400 Body weight 87 kg Luc Marie FIRE PREVENTION SPECIALIST.PEDODONTIST Work Phone: [facility] 07-13-2024 10:57-0400 Diastolic blood pressure 72 mm[Hg] Luc Marie FIRE PREVENTION SPECIALIST.PEDODONTIST Work Phone: [facility] 07-13-2024 10:57-0400 Heart rate 82 /min Luc Marie FIRE PREVENTION SPECIALIST.PEDODONTIST Work Phone: [facility] 07-13-2024 10:57-0400 Respiratory rate 20 /min Luc Marie FIRE PREVENTION SPECIALIST.PEDODONTIST Work Phone: [facility] 07-13-2024 10:57-0400 SaO2% (BldA) [Mass fraction] 100 % Luc Marie FIRE PREVENTION SPECIALIST.PEDODONTIST Work Phone: [facility] 07-13-2024 10:57-0400 Systolic blood pressure 106 mm[Hg] Luc Marie FIRE PREVENTION SPECIALIST.PEDODONTIST Work Phone: [facility] 06-12-2024 11:10-0500 Body temperature 98.29 [degF] Wilfrid Smith MD Work Phone: [facility] 06-12-2024 11:10-0500 Body weight 86.6 kg Wilfrid Smith MD Work Phone: [facility] 06-12-2024 11:10-0500 Diastolic blood pressure 72 mm[Hg] Wilfrid Smith MD Work Phone: [facility] 06-12-2024 11:10-0500 Heart rate 106 /min Wilfrid Smith MD Work Phone: [facility] 06-12-2024 11:10-0500 Respiratory rate 16 /min Wilfrid Smith MD Work Phone: [facility] 06-12-2024 11:10-0500 SaO2% (BldA) [Mass fraction] 98 % Wilfrid Smith MD Work Phone: [facility] 06-12-2024 11:10-0500 Systolic blood pressure 126 mm[Hg] Wilfrid Smith MD Work Phone: [facility] 03-02-2024 15:28-0500 Body temperature 97.81 [degF] Tisha Moomaw FIRE PREVENTION SPECIALIST.PEDODONTIST Work Phone: [facility] 03-02-2024 15:28-0500 Body weight 84.9 kg Tisha Moomaw FIRE PREVENTION SPECIALIST.PEDODONTIST Work Phone: [facility] 03-02-2024 15:28-0500 Diastolic blood pressure 74 mm[Hg] Tisha Moomaw FIRE PREVENTION SPECIALIST.PEDODONTIST Work Phone: [facility] 03-02-2024 15:28-0500 Heart rate 98 /min Tisha Moomaw FIRE PREVENTION SPECIALIST.PEDODONTIST Work Phone: [facility] 03-02-2024 15:28-0500 Respiratory rate 18 /min Tisha Moomaw FIRE PREVENTION SPECIALIST.PEDODONTIST Work Phone: [facility] 03-02-2024 15:28-0500 SaO2% (BldA) [Mass fraction] 98 % Tisha Moomaw FIRE PREVENTION SPECIALIST.PEDODONTIST Work Phone: [facility] 03-02-2024 15:28-0500 Systolic blood pressure 100 mm[Hg] Tisha Moomaw FIRE PREVENTION SPECIALIST.PEDODONTIST Work Phone: [facility] 02-14-2024 08:59-0500 Body weight 85.91 kg Chiquita Puneet FIRE PREVENTION SPECIALIST.PEDODONTIST Work Phone: [facility] 02-14-2024 08:59-0500 Diastolic blood pressure 74 mm[Hg] Chiquita Puneet FIRE PREVENTION SPECIALIST.PEDODONTIST Work Phone: [facility] 02-14-2024 08:59-0500 Systolic blood pressure 126 mm[Hg] Chiquita Puneet FIRE PREVENTION SPECIALIST.PEDODONTIST Work Phone: [facility] 10-18-2023 14:51-0400 Body height 166.4 cm Naomi Matos MD Work Phone: [facility] 10-18-2023 14:51-0400 Body mass index (BMI) [Percentile] Per age and sex 95.44 % Naomi Matos MD Work Phone: [facility] 10-18-2023 14:51-0400 Body mass index (BMI) [Ratio] 31.14 kg/m2 Naomi Matos MD Work Phone: [facility] 10-18-2023 14:51-0400 Body weight 86.18 kg Naomi aMtos MD Work Phone: [facility] 10-18-2023 14:51-0400 Diastolic blood pressure 62 mm[Hg] Naomi Matos MD Work Phone: [facility] 10-18-2023 14:51-0400 Systolic blood pressure 118 mm[Hg] Naomi Matos MD Work Phone: [facility] 08-04-2023 09:18-0400 Body temperature 97.59 [degF] Louise Athy PA-C Work Phone: [facility] 08-04-2023 09:18-0400 Body weight 87.1 kg Louise Athy PA-C Work Phone: [facility] 08-04-2023 09:18-0400 Diastolic blood pressure 78 mm[Hg] Louise Athy PA-C Work Phone: [facility] 08-04-2023 09:18-0400 Heart rate 88 /min Louise Athy PA-C Work Phone: [facility] 08-04-2023 09:18-0400 Respiratory rate 18 /min Louise Athy PA-C Work Phone: [facility] 08-04-2023 09:18-0400 SaO2% (BldA) [Mass fraction] 96 % Louise Athy PA-C Work Phone: [facility] 08-04-2023 09:18-0400 Systolic blood pressure 128 mm[Hg] Louise Athy PA-C Work Phone: [facility] 05-25-2023 08:12-0500 Body temperature 97.7 [degF] Moni Stone APRN.PEDODONTIST Work Phone: [facility] 05-25-2023 08:12-0500 Body weight 83.92 kg Moni Stone APRN.PEDODONTIST Work Phone: [facility] 05-25-2023 08:12-0500 Diastolic blood pressure 75 mm[Hg] Moni Stone APRN.PEDODONTIST Work Phone: [facility] 05-25-2023 08:12-0500 Heart rate 84 /min Moni Stone FIRE PREVENTION SPECIALIST.PEDODONTIST Work Phone: [facility] 05-25-2023 08:12-0500 Respiratory rate 18 /min Moni Stone FIRE PREVENTION SPECIALIST.PEDODONTIST Work Phone: [facility] 05-25-2023 08:12-0500 SaO2% (BldA) [Mass fraction] 100 % Moni Stone FIRE PREVENTION SPECIALIST.PEDODONTIST Work Phone: [facility] 05-25-2023 08:12-0500 Systolic blood pressure 108 mm[Hg] Moni Stone FIRE PREVENTION SPECIALIST.PEDODONTIST Work Phone: [facility] 02-27-2023 09:46-0500 Body temperature 97.81 [degF] Yohana Martinez FIRE PREVENTION SPECIALIST.PEDODONTIST Work Phone: [facility] 02-27-2023 09:46-0500 Body weight 78.93 kg Yohana Martinez FIRE PREVENTION SPECIALIST.PEDODONTIST Work Phone: [facility] 02-27-2023 09:46-0500 Diastolic blood pressure 76 mm[Hg] Yohana Martinez FIRE PREVENTION SPECIALIST.PEDODONTIST Work Phone: [facility] 02-27-2023 09:46-0500 Heart rate 93 /min Yohana Martinez FIRE PREVENTION SPECIALIST.PEDODONTIST Work Phone: [facility] 02-27-2023 09:46-0500 Respiratory rate 16 /min Yohana Martinez FIRE PREVENTION SPECIALIST.PEDODONTIST Work Phone: [facility] 02-27-2023 09:46-0500 SaO2% (BldA) [Mass fraction] 99 % Yohana Martinez FIRE PREVENTION SPECIALIST.PEDODONTIST Work Phone: [facility] 02-27-2023 09:46-0500 Systolic blood pressure 118 mm[Hg] Yohana Martinez FIRE PREVENTION SPECIALIST.PEDODONTIST Work Phone: [facility] 12-23-2022 10:12-0400 Body temperature 97.2 [degF] Luc Marie FIRE PREVENTION SPECIALIST.PEDODONTIST Work Phone: [facility] 12-23-2022 10:12-0400 Body weight 77.29 [facility] FIRE PREVENTION SPECIALIST.PEDODONTIST Work Phone: [facility] 12-23-2022 10:12-0400 Diastolic blood pressure 77 mm[Hg] [facility] FIRE PREVENTION SPECIALIST.PEDODONTIST Work Phone: [facility] 12-23-2022 10:12-0400 Heart rate 82 /min Luc Pendlebury FIRE PREVENTION SPECIALIST.PEDODONTIST Work Phone: [facility] 12-23-2022 10:12-0400 Respiratory rate 18 /min [facility] FIRE PREVENTION SPECIALIST.PEDODONTIST Work Phone: [facility] 12-23-2022 10:12-0400 SaO2% (BldA) [Mass fraction] 98 % [facility] FIRE PREVENTION SPECIALIST.PEDODONTIST Work Phone: [facility] 12-23-2022 10:12-0400 Systolic blood pressure 116 mm[Hg] [facility] FIRE PREVENTION SPECIALIST.PEDODONTIST Work Phone: [facility] 12-01-2022 08:47-0400 Body weight 76.2 kg Naomi Matos MD Work Phone: [facility] 12-01-2022 08:47-0400 Diastolic blood pressure 70 mm[Hg] Naomi Matos MD Work Phone: [facility] 12-01-2022 08:47-0400 Systolic blood pressure 110 mm[Hg] Naomi Matos MD Work Phone: [facility] 11-14-2022 21:56-0400 Diastolic blood pressure 72 mm[Hg] Lizy Chambers Other Phone: [facility] 11-14-2022 21:56-0400 Heart rate 76 /min Lizy Chambers Other Phone: [facility] 11-14-2022 21:56-0400 Respiratory rate 16 /min Lizy Chambers Other Phone: [facility] 11-14-2022 21:56-0400 SaO2% (BldA) [Mass fraction] 100 % Lizy Chambers Other Phone: [facility] 11-14-2022 21:56-0400 Systolic blood pressure 108 mm[Hg] Lizy Chambers Other Phone: [facility] 11-14-2022 19:46-0400 Body temperature 97.88 [degF] Lizy Chambers Other Phone: [facility] 06-30-2022 08:16-0400 Body temperature 98.01 [degF] Bee Praisler-Wood FIRE PREVENTION SPECIALIST.PEDODONTIST Work Phone: [facility] 06-30-2022 08:16-0400 Body weight 72.76 kg Bee Praisler-Wood FIRE PREVENTION SPECIALIST.PEDODONTIST Work Phone: [facility] 06-30-2022 08:16-0400 Diastolic blood pressure 80 mm[Hg] Bee Praisler-Wood FIRE PREVENTION SPECIALIST.PEDODONTIST Work Phone: [facility] 06-30-2022 08:16-0400 Heart rate 80 /min Bee Praisler-Wood FIRE PREVENTION SPECIALIST.PEDODONTIST Work Phone: [facility] 06-30-2022 08:16-0400 Respiratory rate 18 /min Bee Praisler-Wood FIRE PREVENTION SPECIALIST.PEDODONTIST Work Phone: [facility] 06-30-2022 08:16-0400 SaO2% (BldA) [Mass fraction] 99 % Bee Praisler-Wood FIRE PREVENTION SPECIALIST.PEDODONTIST Work Phone: [facility] 06-30-2022 08:16-0400 Systolic blood pressure 122 mm[Hg] Bee Praisler-Wood FIRE PREVENTION SPECIALIST.PEDODONTIST Work Phone: [facility] 05-05-2022 06:51-0500 Body weight 72.48 kg Lillian Norris FIRE PREVENTION SPECIALIST.PEDODONTIST Work Phone: [facility] 05-05-2022 06:51-0500 Diastolic blood pressure 60 mm[Hg] Lillian Rogersie FIRE PREVENTION SPECIALIST.PEDODONTIST Work Phone: [facility] 05-05-2022 06:51-0500 Systolic blood pressure 100 mm[Hg] Lillian Gallegoshrie FIRE PREVENTION SPECIALIST.PEDODONTIST Work Phone: [facility] 03-17-2022 07:27-0500 Body weight 71.22 kg Lillian Norris FIRE PREVENTION SPECIALIST.PEDODONTIST Work Phone: [facility] 03-17-2022 07:27-0500 Diastolic blood pressure 68 mm[Hg] Lillian Gallegoshrie FIRE PREVENTION SPECIALIST.PEDODONTIST Work Phone: [facility] 03-17-2022 07:27-0500 Systolic blood pressure 100 mm[Hg] Lillian Gallegoshrie FIRE PREVENTION SPECIALIST.PEDODONTIST Work Phone: [facility] 03-13-2022 08:18-0500 Body weight 70.76 kg Lillian Norris FIRE PREVENTION SPECIALIST.PEDODONTIST Work Phone: [facility] 03-13-2022 08:18-0500 Diastolic blood pressure 60 mm[Hg] Lillian Gallegoshrie FIRE PREVENTION SPECIALIST.PEDODONTIST Work Phone: [facility] 03-13-2022 08:18-0500 Systolic blood pressure 102 mm[Hg] Lillian Gallegoshrie FIRE PREVENTION SPECIALIST.PEDODONTIST Work Phone: [facility] 02-10-2022 09:08-0400 Body temperature 97 [degF] Luc Cynthia FIRE PREVENTION SPECIALIST.PEDODONTIST Work Phone: [facility] 02-10-2022 09:08-0400 Body weight 70.22 kg Luc Marie FIRE PREVENTION SPECIALIST.PEDODONTIST Work Phone: [facility] 02-10-2022 09:08-0400 Diastolic blood pressure 78 mm[Hg] Luc Pendlealy FIRE PREVENTION SPECIALIST.PEDODONTIST Work Phone: [facility] 02-10-2022 09:08-0400 Heart rate 78 /min Luc Marie FIRE PREVENTION SPECIALIST.PEDODONTIST Work Phone: [facility] 02-10-2022 09:08-0400 Respiratory rate 18 /min Luc Pendlealy FIRE PREVENTION SPECIALIST.PEDODONTIST Work Phone: [facility] 02-10-2022 09:08-0400 SaO2% (BldA) [Mass fraction] 99 % Luc Pendlebury FIRE PREVENTION SPECIALIST.PEDODONTIST Work Phone: [facility] 02-10-2022 09:08-0400 Systolic blood pressure 102 mm[Hg] Luc Pendlebury FIRE PREVENTION SPECIALIST.PEDODONTIST Work Phone: [facility] 01-16-2022 08:13-0400 Body temperature 97.2 [degF] Luc Pendlebury FIRE PREVENTION SPECIALIST.PEDODONTIST Work Phone: [facility] 01-16-2022 08:13-0400 Body weight 69.58 kg Luc Marie FIRE PREVENTION SPECIALIST.PEDODONTIST Work Phone: [facility] 01-16-2022 08:13-0400 Diastolic blood pressure 76 mm[Hg] Luc Pendlebury FIRE PREVENTION SPECIALIST.PEDODONTIST Work Phone: [facility] 01-16-2022 08:13-0400 Heart rate 77 /min Luc Pendlebury FIRE PREVENTION SPECIALIST.PEDODONTIST Work Phone: [facility] 01-16-2022 08:13-0400 Respiratory rate 18 /min Luc Whipplelebury FIRE PREVENTION SPECIALIST.PEDODONTIST Work Phone: [facility] 01-16-2022 08:13-0400 SaO2% (BldA) [Mass fraction] 98 % Luc Pendlealy FIRE PREVENTION SPECIALIST.PEDODONTIST Work Phone: [facility] 01-16-2022 08:13-0400 Systolic blood pressure 104 mm[Hg] Luc Pendlebury FIRE PREVENTION SPECIALIST.PEDODONTIST Work Phone: [facility] 12-23-2021 09:04-0400 Body temperature 97.2 [degF] Yohana Martinez FIRE PREVENTION SPECIALIST.PEDODONTIST Work Phone: [facility] 12-23-2021 09:04-0400 Body weight 71.31 kg Yohana Martinez FIRE PREVENTION SPECIALIST.PEDODONTIST Work Phone: [facility] 12-23-2021 09:04-0400 Diastolic blood pressure 64 mm[Hg] Yohana Martinez FIRE PREVENTION SPECIALIST.PEDODONTIST Work Phone: [facility] 12-23-2021 09:04-0400 Heart rate 102 /min Yohana Martinez FIRE PREVENTION SPECIALIST.PEDODONTIST Work Phone: [facility] 12-23-2021 09:04-0400 Respiratory rate 16 /min Yohana Martinez FIRE PREVENTION SPECIALIST.PEDODONTIST Work Phone: [facility] 12-23-2021 09:04-0400 SaO2% (BldA) [Mass fraction] 98 % Yohana Martinez FIRE PREVENTION SPECIALIST.PEDODONTIST Work Phone: [facility] 12-23-2021 09:04-0400 Systolic blood pressure 116 mm[Hg] Yohana Martinez FIRE PREVENTION SPECIALIST.PEDODONTIST Work Phone: [facility] 08-22-2021 16:09-0400 Body height 169 cm Lizy Chambers Other Phone: [facility] 08-22-2021 16:09-0400 Body temperature 98.6 [degF] Lizy Chambers Other Phone: [facility] 08-22-2021 16:09-0400 Diastolic blood pressure 70 mm[Hg] Lizy Chambers Other Phone: [facility] 08-22-2021 16:09-0400 Heart rate 89 /min Lizy Chambers Other Phone: [facility] 08-22-2021 16:09-0400 Respiratory rate 16 /min Lizy Chambers Other Phone: [facility] 08-22-2021 16:09-0400 SaO2% (BldA) [Mass fraction] 98 % Lizy Chambers Other Phone: [facility] 08-22-2021 16:09-0400 Systolic blood pressure 112 mm[Hg] Lizy Chambers Other Phone: [facility] Encounters Encounter Date Encounter Type Care Provider Facility Start: 01-15-2025 End: 01-15-2025 Patient encounter procedure Mahogany Parry GILL TENDER-C -[facility] Work Phone: Start: 01-15-2025 End: 01-15-2025 ambulatory Lizy Chambers GILL TENDER-C Work Phone: -[facility] Start: 01-15-2025 End: 01-15-2025 ambulatory Mahogany Parry GILL TENDER Facility:[facility] Start: 10-23-2024 End: 10-23-2024 ambulatory Lizy Chambers GILL TENDER-C Work Phone: -[facility]ound [facility] Start: 10-23-2024 End: 10-23-2024 Patient encounter procedure Mahogany Parry GILL TENDER-C -[facility] Work Phone: Start: 10-23-2024 End: 10-23-2024 ambulatory Mahogany Parry GILL TENDER Facility:[facility] Start: 10-19-2024 End: 10-19-2024 Patient encounter procedure Mahogany Parry GILL TENDER-C -[facility] Work Phone: Start: 10-19-2024 End: 10-19-2024 Patient encounter status Mahogany Parry GILL TENDER-C [facility] Start: 10-19-2024 End: 10-19-2024 ambulatory Lizy Chambers GILL TENDER-C Work Phone: -[facility] Start: 10-19-2024 End: 10-19-2024 ambulatory Mahogany Parry GILL TENDER Facility:[facility] Start: 07-21-2024 End: 07-21-2024 ambulatory LIZY CHAMBERS [facility] Start: 07-13-2024 End: 07-13-2024 ambulatory LIZY CHAMBERS Facility:[facility] Start: 07-13-2024 End: 07-13-2024 Office outpatient visit 25 minutes Luc Marie APRN.PEDODONTIST Work Phone: [facility] Comment on above: Headache, unspecifie d headache type (Primary Dx) Start: 06-12-2024 End: 06-12-2024 Office outpatient visit 15 minutes Wilfrid Smith MD Work Phone: [facility] Comment on above: Sore throat (Primary Dx) Start: 06-12-2024 End: 06-12-2024 ambulatory LIZY CHAMBERS Facility:[facility] Start: 06-01-2024 End: 06-01-2024 ambulatory LIZY CHAMBERS [facility] Start: 05-06-2024 End: 05-06-2024 Emergency department patient visit Seferino Flores Facility:[facility] Start: 05-05-2024 End: 05-05-2024 Emergency department patient visit LIZY CHAMBERS [facility] Start: 03-25-2024 End: 03-26-2024 Emergency department patient visit KWAKU BAUTISTA [facility] Start: 03-23-2024 End: 03-23-2024 Emergency department patient visit SUDEEP WASIHNGTON [facility] Start: 03-02-2024 End: 03-02-2024 Subsequent hospital visit by physician Xr [facility] Work Phone: Radiology Comment on above: Acute cough [R05.1] Start: 03-02-2024 End: 03-02-2024 ambulatory LIZY CHAMBERS Facility:[facility] Start: 03-02-2024 End: 03-02-2024 Patient encounter procedure Tisha Palomo FIRE PREVENTION SPECIALIST.PEDODONTIST Work Phone: [facility] Comment on above: Sore throat (Primary Dx); Acute cough Start: 02-24-2024 End: 02-24-2024 Emergency department patient visit Jacobo Bee Facility:[facility] Start: 02-23-2024 End: 02-23-2024 Telephone encounter Chiquita Adhikari FIRE PREVENTION SPECIALISTYfnPEDODONTIST Work Phone: OB/Gynecology Comment on above: Vaginal Bleeding Start: 02-20-2024 End: 02-20-2024 Emergency department patient visit JOHAN SOLORZANO [facility] Start: 02-15-2024 End: 02-15-2024 Telephone encounter Chiquita Adhikari FIRE PREVENTION SPECIALISTYfnPEDODONTIST Work Phone: OB/Gynecology Comment on above: Results Start: 02-14-2024 End: 02-14-2024 ambulatory CHIQUITA ADHIKARI Facility:[facility] Start: 02-14-2024 End: 02-14-2024 Patient encounter procedure Chiquita Adhikari FIRE PREVENTION SPECIALIST.PEDODONTIST Work Phone: OB/Gynecology Comment on above: Vaginal discharge (P rimary Dx); Vaginal odor; Prolonged menstruation Start: 01-05-2024 End: 01-05-2024 ambulatory CLEMENTE PELON BATES [facility] Start: 11-24-2023 End: 11-24-2023 Emergency department patient visit KWAKU NAZARIO WILVER [facility] Start: 10-19-2023 Telephone encounter Naomi Matos MD Work Phone: OB/Gynecology Comment on above: Results Start: 10-18-2023 End: 10-18-2023 ambulatory NAOMI MATOS Facility:[facility] Start: 10-18-2023 End: 10-18-2023 Patient encounter procedure Naomi Matos MD Work Phone: OB/Gynecology Comment on above: Encounter for IUD re moval (Primary Dx); Vaginal itching; Vaginal discharge Start: 10-03-2023 End: 10-03-2023 Emergency department patient visit LIZY REYES [facility] Start: 08-04-2023 End: 08-04-2023 ambulatory LIZYRasta CHAMBERS Facility:[facility] Start: 08-04-2023 End: 08-04-2023 Patient encounter procedure Louise Cummins PA-C Work Phone: [facility] Comment on above: Rash (Primary Dx) Start: 05-25-2023 End: 05-25-2023 Patient encounter procedure Moni Stone APRN.PEDODONTIST Work Phone: [facility] Comment on above: Acute otitis media, bilateral (Primary Dx) Start: 02-27-2023 End: 02-27-2023 Patient encounter procedure Yohana Martinez FIRE PREVENTION SPECIALIST.PEDODONTIST Work Phone: [facility] Comment on above: Acute otitis media, bilateral (Primary Dx) Start: 02-17-2023 Telephone encounter Naomi Matos MD Work Phone: OB/Gynecology Comment on above: Left sided Pelvic Pa in Start: 02-15-2023 Telephone encounter Linda Lemus MD Work Phone: OB/Gynecology Comment on above: Patient Update Start: 12-23-2022 End: 12-23-2022 Office outpatient visit 15 minutes Luc Marie APRN.PEDODONTIST Work Phone: [facility] Comment on above: Contact dermatitis, unspecified contact dermatitis type, unspecified trigger (Primary Dx) Start: 12-01-2022 Telephone encounter Naomi Matos MD Work Phone: OB/Gynecology Start: 12-01-2022 End: 12-01-2022 Patient encounter procedure Naomi Matos MD Work Phone: OB/Gynecology Comment on above: Pelvic pain in femal e (Primary Dx); IUD (intrauterine device) in place; Vaginal discharge; Dysuria; Ovarian cyst, right Start: 11-14-2022 End: 11-14-2022 Emergency department patient visit Loretta Andrade [facility] 08 Start: 07-01-2022 Telephone encounter Miguel SANDERS Work Phone: [facility] Comment on above: Results Start: 06-30-2022 End: 06-30-2022 Patient encounter procedure Bee Lr APRN.PEDODONTIST Work Phone: [facility] Comment on above: Flu-like symptoms (P rimary Dx) Start: 05-05-2022 End: 05-05-2022 Patient encounter procedure Lillian Norris APRN.PEDODONTIST Work Phone: OB/Gynecology Comment on above: Encounter for routin e checking of intrauterine contraceptive device (IUD) (Primary Dx) Start: 04-27-2022 Telephone encounter Lillian wright APRN.PEDODONTIST Work Phone: OB/Gynecology Comment on above: Patient Question Start: 03-17-2022 End: 03-17-2022 Patient encounter procedure Lillian Norris FIRE PREVENTION SPECIALIST.PEDODONTIST Work Phone: OB/Gynecology Comment on above: Pelvic pain in femal e (Primary Dx); Irregular menstrual cycle Start: 03-16-2022 Telephone encounter Lillian wright FIRE PREVENTION SPECIALIST.PEDODONTIST Work Phone: OB/Gynecology Comment on above: Pelvic Pain (/) Start: 03-13-2022 End: 03-13-2022 Patient encounter procedure Lillian Jr FIRE PREVENTION SPECIALIST.PEDODONTIST Work Phone: OB/Gynecology Comment on above: General counseling a nd advice for contraceptive management (Primary Dx) Start: 02-11-2022 Telephone encounter Yohana jade FIRE PREVENTION SPECIALIST.PEDODONTIST Work Phone: [facility] Comment on above: Results Start: 02-10-2022 End: 02-10-2022 Patient encounter procedure Luc Marie FIRE PREVENTION SPECIALIST.PEDODONTIST Work Phone: [facility] Comment on above: Urinary frequency (P rimary Dx); Vaginal pain Start: 01-20-2022 Telephone encounter Yohana jade FIRE PREVENTION SPECIALIST.PEDODONTIST Work Phone: [facility] Comment on above: Results Start: 01-16-2022 End: 01-16-2022 Patient encounter procedure Luc Marie FIRE PREVENTION SPECIALIST.PEDODONTIST Work Phone: [facility] Comment on above: Urinary frequency (P rimary Dx) Start: 12-23-2021 End: 12-23-2021 Patient encounter procedure Yohana Martinez FIRE PREVENTION SPECIALIST.PEDODONTIST Work Phone: [facility] Comment on above: Acute otitis media, right (Primary Dx) Start: 08-22-2021 End: 08-22-2021 Emergency department patient visit Nati Cullen [facility] 01 Procedures Date Procedure Procedure Detail Performing Clinician Start: 01-15-2025 Follicle stimulating hormone measurement Lizy GRAJEDA Work Phone: Comment on above: FEMALE:Follicular: 1 .4 - 18.1 mIU/mLMidcycle: 3.4 - 33.4 mIU/mLLuteal: 1.5 - 9.1 mIU/mLPost Menopause: 23.0 - 116.3 mIU/mLMALE: 1.4 - 18.1 mIU/mL Start: 10-23-2024 Pelvic echography Lizy Chambers GILL TENDER-C Work Phone: Start: 10-19-2024 Dehydroepiandrostero ne sulfate level Lizy Chambers GILL TENDER-C Work Phone: Start: 10-19-2024 Serum progesterone measurement Lizy Chambers GILL TENDER-C Work Phone: Comment on above: Follicular phase 0.1 - 0.9 Luteal phase 1.8 - 23.9 Ovulation phase 0.1 - 12.0 First trimester 11.0 - 44.3 Second trimester 25.4 - 83.3 Third trimester 58.7 - 214.0 Postmenopausal 0.0 - 0.1Performed at: [facility] [id number] Director: Michael Waller MD, Phone: [phone] at: [facility] [id number] Director: Rainer Crane PhD, Phone: [phone] Start: 06-12-2024 STREP A MOLECULAR (POC) Brandon Elder APRN.CNP Work Phone: Start: 03-02-2024 Radiologic exam chest 2 views Tisha Palomo APRN.PEDODONTIST Work Phone: Start: 03-02-2024 STREP A MOLECULAR (POC) [facility] Provider Start: 10-03-2023 Urinalysis KWAKU Reed Comment on above: Result Comment: URIN ALYSIS Performed By: #### [id number] #### [facility],[address] [place], [place] [id number] Start: 12-01-2022 Urnls dip stick/tabl et rgnt auto w/o microscopy Naomi Matos MD Work Phone: Start: 03-13-2022 Urine test visual color cmprsn meths Lillian Norris FIRE PREVENTION SPECIALIST.PEDODONTIST Work Phone: Start: 02-10-2022 Urnls dip stick/tabl et rgnt auto w/o microscopy Yohana Martinez FIRE PREVENTION SPECIALIST.PEDODONTIST Work Phone: Start: 01-16-2022 Urnls dip stick/tabl et rgnt auto w/o microscopy Wilfrid Smith MD Work Phone: Plan of Treatment Date Care Activity Detail Author Start: 11-20-2027 Urine microalbumin profile DTaP,Tdap,Td Vaccine (7 - Td or Tdap) [facility] Start: 02-13-2025 GC (Gonorrhea) Screening () GC (Gonorrhea) Screening () [facility] Start: 02-13-2025 Screening for Chlamydia trachomatis Chlamydia Screening () [facility] Start: 01-15-2025 Serum progesterone measurement [facility] Start: 01-15-2025 Thyroperoxidase Ab [Units/volume] in Serum or Plasma [facility] Start: 10-19-2024 17-Hydroxyprogesterone [Mass/volume] in Serum or Plasma [facility] Start: 10-19-2024 Dehydroepiandrosterone sulfate (DHEA-S) [Mass/volume] in Serum or Plasma [facility] Start: 10-19-2024 Hemoglobin A1c/Hemoglobin.total in Blood [facility] Start: 10-19-2024 Lutropin [Units/volume] in Serum or Plasma [facility] Start: 10-19-2024 Prolactin measurement [facility] Start: 10-19-2024 Serum progesterone measurement [facility] Start: 10-19-2024 Testosterone Free [Mass/volume] in Serum or Plasma [facility] Start: 07-28-2024 End: 07-28-2024 Patient encounter procedure 07/28/2024 9:00 AM EDT Office Visit Neurology [address] [place] [address] [place] [id number] Kareen Mcdaniel PA-C [address] [facility] [place], [place] [address] Headache, unspecified headache type [R51.9] Neurology Comment on above: Headache, unspecified headache type [R51 .9] Start: 12-12-2023 Covid-19 Vaccine ( season) Covid-19 Vaccine ( season) [facility] Start: 12-12-2023 Influenza vaccination [facility] Start: 12-02-2023 CHLAMYDIA SCREENING (<18) CHLAMYDIA SCREENING (<18) [facility] Start: 12-02-2023 GC (Gonorrhea) Screening (18-24) GC (Gonorrhea) Screening (18-24) [facility] Start: 12-02-2023 GC (GONORRHEA) SCREENING (<18) GC (GONORRHEA) SCREENING (<18) [facility] Start: 12-02-2023 Screening for Chlamydia trachomatis [facility] Start: 11-11-2023 CHLAMYDIA SCREENING (<18) CHLAMYDIA SCREENING (<18) [facility] Start: 11-11-2023 GC (GONORRHEA) SCREENING (<18) GC (GONORRHEA) SCREENING (<18) [facility] Start: 09-22-2023 Anxiety Screening Anxiety Screening [facility] Start: 09-22-2023 Depression Screening Depression Screening [facility] Start: 09-22-2023 Hepatitis C screening Hepatitis C Screening [facility] Start: 09-22-2023 HIV screening HIV Screening [facility] Start: 04-12-2023 Behavioral Health Screening Behavioral Health Screening [facility] Start: 02-10-2023 CHLAMYDIA SCREENING (<18) CHLAMYDIA SCREENING (<18) [facility] Start: 02-10-2023 GC (GONORRHEA) SCREENING (<18) GC (GONORRHEA) SCREENING (<18) [facility] Start: 12-11-2022 Covid-19 Vaccine ( season) Covid-19 Vaccine () [facility] Start: 12-11-2022 Influenza vaccination [facility] Start: 12-01-2022 End: 12-02-2023 PELVIC US I [facility] Work Phone: Comment on above: Expected: 12/01/2022, Expires: Start: 11-07-2022 CHLAMYDIA SCREENING (<18) CHLAMYDIA SCREENING (<18) [facility] Start: 11-07-2022 GC (GONORRHEA) SCREENING (<18) GC (GONORRHEA) SCREENING (<18) [facility] Start: 12-11-2021 Influenza vaccination INFLUENZA (#1) [facility] Start: 2021 Meningococcal B Vaccine (1 of 2 - Standard) Meningococcal B Vaccine (1 of 2 - Standard) [facility] Start: 2021 Meningococcal B Vaccine: Consider Based On Risk (1 of 2 - Patient Seeks Protection) Meningococcal B Vaccine: Consider Based On Risk (1 of 2 - Patient Seeks Protection) [facility] Start: 2021 MENINGOCOCCAL B: Consider based on risk (1 of 2 - Patient Seeks Protection) MENINGOCOCCAL B: Consider based on risk (1 of 2 - Patient Seeks Protection) [facility] Start: 2021 MENINGOCOCCAL CONJUGATE (1 - 2-dose series) MENINGOCOCCAL CONJUGATE (1 - 2-dose series) [facility] Start: 2021 Meningococcal Conjugate Vaccine (1 - 2-dose series) Meningococcal Conjugate Vaccine (1 - 2-dose series) [facility] Start: 09-22-2019 PEDS TO ADULT TRANSITION ANNUAL ASSESSMENT PEDS TO ADULT TRANSITION ANNUAL ASSESSMENT [facility] Start: 2017 Adult depression screening assessment DEPRESSION SCREENING [facility] Start: 2017 PEDS TO ADULT TRANSITION INITIAL DISCUSSION PEDS TO ADULT TRANSITION INITIAL DISCUSSION [facility] Start: 2016 HPV VACCINE (1 - 2-dose series) HPV VACCINE (1 - 2-dose series) [facility] Start: 2016 [facility] Start: 09-22-2015 MENINGOCOCCAL B: Consider based on risk (1 of 2 - Risk Bexsero 2-dose series) MENINGOCOCCAL B: Consider based on risk (1 of 2 - Risk Bexsero 2-dose series) [facility] Start: 2014 HPV VACCINE (1 - 2-dose series) HPV VACCINE (1 - 2-dose series) [facility] Start: 03-23-2006 COVID-19 VACCINE (#1) COVID-19 VACCINE (#1) [facility] Bacteria identified in Urine by Culture URINE CULTURE Microbiology Routine Urinary frequency Ordered: 01/16/2022 [facility] Work Phone: Comment on above: Ordered: 01/16/2022 Bacteria identified in Urine by Culture URINE CULTURE Microbiology Routine Urinary frequency Ordered: 02/10/2022 [facility] Work Phone: Comment on above: Ordered: 02/10/2022 BACTERIAL VAGINOSIS AMPLIFICATION BACTERIAL VAGINOSIS AMPLIFICATION Lab Routine Vaginal pain Ordered: 02/10/2022 [facility] Work Phone: Comment on above: Ordered: 02/10/2022 BACTERIAL VAGINOSIS NAAT BACTERI AL VAGINOSIS NAAT Lab Routine Pelvic pain in female Vaginal discharge 12/01/2022 9:15 AM EDT [facility] Work Phone: BACTERIAL VAGINOSIS NAAT BACTERI AL VAGINOSIS NAAT Lab Routine Vaginal itching Vaginal discharge 10/18/2023 4:01 PM EDT [facility] BACTERIAL VAGINOSIS NAAT BACTERI AL VAGINOSIS NAAT Lab Routine Vaginal discharge 02/14/2024 9:25 AM [facility] ERICK / TRICHOMONA S AMPLIFICATION ERICK / TRICHOMONAS AMPLIFICATION Microbiology Routine Vaginal pain Ordered: 02/10/2022 [facility] Work Phone: Comment on above: Ordered: 02/10/2022 ERICK/TRICHOMONAS NAAT ERICK /TRICHOMONAS NAAT Lab Routine Pelvic pain in female Vaginal discharge 12/01/2022 9:15 AM T [facility] Work Phone: ERICK/TRICHOMONAS NAAT ERICK /TRICHOMONAS NAAT Lab Routine Vaginal itching Vaginal discharge 10/18/2023 4:01 PM EDT [facility] ERICK/TRICHOMONAS NAAT ERICK /TRICHOMONAS NAAT Lab Routine Vaginal discharge 02/14/2024 9:25 AM [employer] [facility] Work Phone: Chlamydia trachomatis+Neisseria gonorrhoeae DNA [Presence] in Unspecified specimen by MARK with probe detection GC/CHLAMYDIA DNA DET Lab Routine Vaginal pain Ordered: 02/10/2022 [facility] Work Phone: Comment on above: Ordered: 02/10/2022 Chlamydia trachomatis+Neisseria gonorrhoeae DNA [Presence] in Unspecified specimen by MARK with probe detection GONORRHEA/CHLAMYDIA NAAT Lab Routine Pelvic pain in female Vaginal discharge 12/01/2022 9:15 AM EDT [facility] Work Phone: Chlamydia trachomatis+Neisseria gonorrhoeae DNA [Presence] in Unspecified specimen by MARK with probe detection GONORRHEA/CHLAMYDIA NAAT Lab Routine Vaginal discharge 02/14/2024 9:25 AM EST [facility] COVID, FLU A/B + RSV, ROUTINE CO VID, FLU A/B + RSV, ROUTINE Microbiology Routine Flu-like symptoms Ordered: 06/30/2022 [facility] Work Phone: Comment on above: Ordered: 06/30/2022 Insertion intrauteri ne device iud INSERT INTRAUTERINE DEVICE Procedures Routine General counseling and advice for contraceptive management Ordered: 03/13/2022 [facility] Work Phone: Comment on above: Ordered: 03/13/2022 Insertion intrauteri ne device iud INSERT INTRAUTERINE DEVICE Procedures Routine Encounter for IUD insertion Ordered: 03/31/2022 [facility] Work Phone: Comment on above: Ordered: 03/31/2022 RAPID STREP TEST B/O RAPID STREP TEST B/O Lab Routine Sore throat Ordered: 03/02/2024 [facility] Work Phone: Comment on above: Ordered: 03/02/2024 Removal intrauterine device iud REMOVE INTRAUTERINE DEVICE Procedures Routine Encounter for IUD removal Ordered: 10/18/2023 [facility] Work Phone: Comment on above: Ordered: 10/18/2023 ROUTINE FLU A/B + RSV ROUTINE FL U A/B + RSV Lab Routine Flu-like symptoms Ordered: 06/30/2022 [facility] Work Phone: Comment on above: Ordered: 06/30/2022 SARS-CoV-2 (COVID-19 ) RNA [Presence] in Respiratory specimen by MARK with probe detection 2019 CORONAVIRUS Microbiology Routine Flu-like symptoms Ordered: 06/30/2022 [facility] Work Phone: Comment on above: Ordered: 06/30/2022 US Pelvis [facility] End: 04-16-2023 Us transvaginal US FEMALE PELVIS TRANSVAG Radiology Routine Pelvic pain in female 1 Occurrences starting 03/17/2022 until 04/16/2023 [facility] Work Phone: Comment on above: 1 Occurrences starting 03/17/2022 until 04/16/2023 End: 03-18-2024 Us transvaginal US FEMALE PELVIS TRANSVAG Radiology Routine Pelvic pain in female IUD (intrauterine device) in place History of ovarian cyst 1 Occurrences starting 02/17/2023 until 03/18/2024 [facility] Work Phone: Comment on above: 1 Occurrences starting 02/17/2023 until 03/18/2024 [facility] Immunizations Immunization Date Immunization Notes Care Provider Kwabena sandra 05-01-2019 influenza virus vaccine, unspecified formulation Luc Marie FIRE PREVENTION SPECIALIST.[facility] Work Phone: [facility] 12-02-2010 diphtheria, tetanus toxoids and acellular pertussis vaccine Yohana Martinez FIRE PREVENTION SPECIALIST.PEDODONTIST Work Phone: [facility] 12-02-2010 measles, mumps and rubella virus vaccine Yohana Martinez FIRE PREVENTION SPECIALIST.PEDODONTIST Work Phone: [facility] 12-02-2010 poliovirus vaccine, inactivated Yohana Michelle FIRE PREVENTION SPECIALIST.PEDODONTIST Work Phone: [facility] 12-02-2010 varicella virus vaccine Yohana Martinez FIRE PREVENTION SPECIALIST.PEDODONTIST Work Phone: [facility] 02-25-2010 influenza virus vaccine, live, attenuated, for intranasal use Yohanaandrez Martinez FIRE PREVENTION SPECIALIST.PEDODONTIST Work Phone: [facility] Work Phone: 09-03-2009 diphtheria, tetanus toxoids and acellular pertussis vaccine Yohana Martinez FIRE PREVENTION SPECIALIST.PEDODONTIST Work Phone: [facility] Work Phone: 09-03-2009 hepatitis A vaccine, unspecified formulation Yohana Martinez FIRE PREVENTION SPECIALIST.PEDODONTIST Work Phone: [facility] Work Phone: 09-27-2007 diphtheria, tetanus toxoids and acellular pertussis vaccine Yohana Martinez FIRE PREVENTION SPECIALIST.[facility] Work Phone: [facility] Work Phone: 09-27-2007 haemophilus influenzae type b vaccine, HbOC conjugate Yohana Martinez FIRE PREVENTION SPECIALIST.PEDODONTIST Work Phone: [facility] Work Phone: 09-27-2007 hepatitis A vaccine, unspecified formulation Yohana Martinez FIRE PREVENTION SPECIALIST.PEDODONTIST Work Phone: [facility] Work Phone: 06-21-2007 diphtheria, tetanus toxoids and acellular pertussis vaccine Yohana Martinez FIRE PREVENTION SPECIALIST.[facility] Work Phone: [facility] Work Phone: 06-21-2007 haemophilus influenzae type b vaccine, HbOC conjugate Yohana Martinez FIRE PREVENTION SPECIALIST.[facility] Work Phone: [facility] Work Phone: 06-21-2007 poliovirus vaccine, inactivated Yohana Martinez FIRE PREVENTION SPECIALIST.[facility] Work Phone: [facility] Work Phone: 04-16-2007 diphtheria, tetanus toxoids and acellular pertussis vaccine Yohana Martinez FIRE PREVENTION SPECIALIST.PEDODONTIST Work Phone: [facility] 04-16-2007 measles, mumps and rubella virus vaccine Yohana Martinez FIRE PREVENTION SPECIALIST.PEDODONTIST Work Phone: [facility] 04-16-2007 pneumococcal conjugate vaccine, 7 valent Yohana Martinez FIRE PREVENTION SPECIALIST.PEDODONTIST Work Phone: [facility] 04-16-2007 varicella virus vaccine Yohana Martinez FIRE PREVENTION SPECIALIST.[facility] Work Phone: [facility] 04-27-2006 hepatitis B vaccine, pediatric or pediatric/adolescent dosage Yohana Martinez FIRE PREVENTION SPECIALIST.PEDODONTIST Work Phone: [facility] Work Phone: 04-27-2006 pneumococcal conjugate vaccine, 7 valent Yohana Martinez FIRE PREVENTION SPECIALIST.PEDODONTIST Work Phone: [facility] Work Phone: 04-27-2006 poliovirus vaccine, inactivated Yohana Martinez FIRE PREVENTION SPECIALIST.[facility] Work Phone: [facility] Work Phone: 02-05-2006 haemophilus influenzae type b vaccine, HbOC conjugate Yohana Martinez FIRE PREVENTION SPECIALIST.[facility] Work Phone: [facility] Work Phone: 02-05-2006 pneumococcal conjugate vaccine, 7 valent Yohana Martinez FIRE PREVENTION SPECIALIST.[facility] Work Phone: [facility] Work Phone: 02-05-2006 poliovirus vaccine, inactivated Yohana Martinez FIRE PREVENTION SPECIALIST.[facility] Work Phone: [facility] Work Phone: 2005 haemophilus influenzae type b vaccine, HbOC conjugate Yohana Martinez FIRE PREVENTION SPECIALIST.[facility] Work Phone: [facility] Work Phone: 2005 hepatitis B vaccine, pediatric or pediatric/adolescent dosage Yohana Martinez FIRE PREVENTION SPECIALIST.[facility] Work Phone: [facility] Work Phone: 2005 pneumococcal conjugate vaccine, 7 valent Yohana Martinez FIRE PREVENTION SPECIALIST.[facility] Work Phone: [facility] Work Phone: 2005 hepatitis B vaccine, pediatric or pediatric/adolescent dosage Yohana Martinez FIRE PREVENTION SPECIALIST.[facility] Work Phone: [facility] Work Phone: NEGATED: Highlighted row has not occurred!04-27-2006 diphtheria and tetanus toxoids, adsorbed for pediatric use Yohana Martinez FIRE PREVENTION SPECIALIST.[facility] Work Phone: [facility] Work Phone: Comment on above: Deferred: OTHER - OU T OF C STOCK Payers Date Payer Category Payer Self-pay 2021 Private Health Insurance [employer] [id number] 2021 Unknown 2021 Unknown [id number] 2019 Medicaid [id number] 2019 Medicaid [id number] 2008 Unknown [id number] 2005 Unknown [id number] .65 2005 Unknown [id number] [id number] .65 2005 Unknown [id number] [id number] .651 2005 Unknown [id number] 2.16.840.1.749581.3.579.2 .65 2005 Unknown [id number] 2.16.840.1.364329.3.579.2 .65 2005 Unknown [id number] 2.16.840.1.899077.3.579.2 .65 2005 Unknown [id number] 2.16.840.1.664893.3.579.2 .651 2005 Unknown [id number] 2.16.840.1.264347.3.579.2 .65 2005 Unknown [id number] 2.16.840.1.638909.3.579.2 .651 1988 Unknown [id number] 2.16.840.1.269818.3.579.2 .1069 Unknown [id number] Unknown [id number] 2.16.840.1.226501.3.579.2 .462 Unknown [id number] 2.16.840.1.142498.3.579.2 .462 Unknown [id number] 2.16.840.1.752613.3.579.2 .462 Unknown [id number] 2.16.840.1.056336.3.579.2 .462 Unknown [id number] 2.16.840.1.368423.3.579.2 .462 Unknown [id number] 2.16.840.1.879732.3.579.2 .462 Unknown [id number] [id number] .462 Worker's Compensation [id number] Social History Date Type Detail Facility [facility] Tobacco smoking consumption unknown [facility] Start: 01-21-2012 Tobacco smoking status NHIS Never smoked tobacco [facility] Work Phone: Start: 11-23-2021 End: 07-13-2024 Alcohol intake Current non-drinker of alcohol (finding) [facility] Start: 2005 Sex Assigned At Not on file [facility] Start: 12-13-2021 End: 02-10-2022 Exposure to SARS-CoV-2 (event) Not sure [facility] Start: 12-01-2022 End: 06-20-2024 History of Social function [facility] Start: 12-01-2022 End: 06-20-2024 Tobacco use panel [facility] National Score (1-100), lower number is lower risk 84 [facility] Start: 10-19-2024 Tobacco smoking status NHIS Smokes tobacco daily (finding) [facility] Start: 05-19-2022 Alcohol Alcohol [facility] Start: 05-19-2022 Tobacco Use Tobacco Use [facility] Start: 2005 Sex Assigned At Female W [facility] Functional Status Date Assessment Result Facility 09-04-2014 Are you deaf, or do you have serious difficulty hearing No 09/04/2014 11:22 AM EDT Yana Carias MA No [facility] 09-04-2014 Are you blind, or do you have serious difficulty seeing, even when wearing glasses No 09/04/2014 11:22 AM EDT Yana Carias MA No [facility] 09-04-2014 Do you have serious difficulty walking or climbing stairs No 09/04/2014 11:22 AM EDT Yana Carias MA No [facility] 09-04-2014 Do you have difficul ty dressing or bathing No 09/04/2014 11:22 AM EDT Yana Carias MA [facility] Mental Status Date Assessment Result Facility 09-04-2014 Because of a physica l, mental, or emotional condition, do you have serious difficulty concentrating, remembering, or making decisions No 09/04/2014 11:22 AM EDT Yana Carias MA No [facility] Clinical Notes 02-06-2020 to 01-15-2025 Note Date & Type Note Facility 01-15-2025 Progress note [facility] 01-15-2025 Progress note Note Date/Time January 15, 2025 3:38pm [facility] [address], [address] [place] [address] OFFICE VISIT Date of Service: 01/15/25 MR#: [id number] Acct: [id number] Name: CLARISSE MOLINA Rep #: [id number] : 2005 Provider: NICCI Parry Age/Sex: 19/F Location[place] [facility] Status: Signed Intake Vital Signs 10/19/24 11:41 01/15/25 15:16 01/15/25 15:20 Height 5 ft 5 in 5 ft 5 in 5 ft 5 in Weight: 204 lb 7 oz BMI 34.0 BP 134/83 H Intake Visit Reasons: 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 [employer] Required: No Is patient in pain?: No Allergies medroxyprogesterone Adverse Reaction (Mild, Verified 01/15/25 15:27) Diarrhea Medications ?Medication ?Instructions ?Recorded ?Confirmed ?Type progesterone micronized 100 mg 100 mg PO .COMPLEX #20 caps 01/15/25 01/15/25 Rx capsule (Prometrium) Is last menstrual period known: Yes Last Menstrual Period: 12/24/24 Post menopausal: No Patient : No : No PFSH Medical History PCOS (polycystic ovarian syndrome) Essential tremor Surgical History Hx of shoulder surgery History of tonsillectomy and adenoidectomy Family History Grandmother Cancer, Onset Age: 32 Paternal- Cervical Grandfather Cancer Maternal- Throat, lung Social History current occupational status: employed current occupation: [employer] Smoking Status: Current every day smoker tobacco type: e-cigarettes substance use type: does not use seatbelt use: always do you feel safe at home: Yes HPI 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 Details: CLARISSE MOLINA is a 19 year old who presents for follow up infertility. She took provera in November and December and did have a normal menses. She attemptedto take it again this month but realized that the last couple of months when sheis on medication, she has terrible migraine headache and diarrhea which symptoms subside as soon as she stops the medication. She does not want to use the provera. Female Reproductive History Last Menstrual Period: 12/24/24 History 0 Elective abortions Hx Para Spontaneous abortions Hx # Term Pregnancies Ectopic pregnancies Hx # Pregnancies Multiple births # of living children ROS Const Constitutional: Reports system reviewed and no additional complaints, except as documented Eyes Eyes: Reports system reviewed and no additional complaints, except as documented GI GI: Denies abdominal pain or change in bowel habits : Reports as per HPI Exam Const General: cooperative and no acute distress Orientation: oriented x3 HENMT Head: normal to inspection and normocephalic Eyes General: appearance normal, both eyes and all related structures Neck Neck: normal visual inspection Resp Effort & Inspection: normal respiratory effort Neuro Cognition: normal cognition Speech: speech normal Psych Appearance: grossly normal Mood: congruent mood Affect: normal affect Speech and Movement: speech and movement normal Attitude: cooperative Judgment: judgment good Coding Level of Care Code Off vis,est,level 3 Diagnoses Secondary amenorrhea N91.1 Assessment and Plan Assessment and Plan (1) Secondary amenorrhea: Status: Acute Orders: Orders Thyroid Stim Hormone (TSH) Today N91.1 - Secondary amenorrhea, Z13.29 - Encounter for screening for other suspected endocrine disorder Free T4 Today N91.1 - Secondary amenorrhea Thyroid Peroxidase AB Today N91.1 - Secondary amenorrhea PROGESTERONE Today N91.1 - Secondary amenorrhea Follicle Stimulating Hormone Today N91.1 - Secondary amenorrhea Medications: New progesterone micronized (Prometrium) 100 mg orally first 10 days each month; 20caps 1RF Discontinued medroxyprogesterone Take daily X 10 days to induce menses first 10 days of each month Discontinued Reason: Order Changed 10 mg PO QDAY 10 days 10 tabs 2RF Plan See labs pending Will change to prometrium first 10 days each month. Management dependent on above. Consider letrozole 01/15/25 1606 <Electronically signed by Mahogany JUNIORC> Date _ Mahogany GRAJEDA Cosigner Signature: Date (if applicable) CC: ~ [facility] Work Phone: 1(261) 874-136507-14-2025 Radiology Diagnostic study note [facility] Imaging Services [address] [place], [place] [address] Pelvic w/ Transvaginal MR#: [id number] Acct: [id number] Name: CLARISSE MOLINA Rep #: [id number] : 2005 F 19 From: Angelica Beaver MD PCP: NICCI Malik Status: REG CLI Study:Pelvic w/ Transvaginal Date of Exam: 10/23/24 Exam# [id number] Ordering Dr: Mahogany Parry NP PROCEDURE: PELVIC W/ TRANSVAGINAL REASON FOR EXAM: PELVIC PAIN 2 year history of pelvic pain. TECHNIQUE: PELVIC W/ TRANSVAGINAL COMPARISON: None FINDINGS: Measurements: Uterus: 6.9 cm x 4.1 cm x 3.1 cm with a volume of 45.15 mL Endometrial Thickness: 8.4 mm. It is hyperechoic. Right Ovary: 3.7 cm x 2 cm x 2.1 cm with a volume of 7.77 mL. Left Ovary: 3.4 cm x 2.2 cm x 2.0 cm with a volume of 7.57 mL. TRANSABDOMINAL: Uterus: Normal size, myometrial echotexture, and contour. Endometrium: Homogeneously thickened. Right ovary: Multiple small follicles in the periphery of the ovary. Left ovary: Multiple small follicles are seen in the periphery of the ovary. Other: No large pelvic mass identified. Transvaginal sonography was performed to better visualize the endometrium. TRANSVAGINAL: Uterus: Anteverted. Normal contour and myometrial echotexture. Endometrium: Normal echotexture. Right ovary: Multiple small follicles are seen in the periphery of the ovary. Left ovary: Multiple small follicles are seen in the periphery of the ovary. Other adnexal findings: None. Cul-de-sac: No free intraperitoneal fluid identified. Tenderness: No tenderness US/Pelvic w/ Transvaginal IMPRESSION: Findings suggestive of polycystic ovaries. Reading Location: [place] [address] CC: NICCI Chambers; NICCI Parry ~ Insulation Cutter: Signed [facility]07-10-2025 Evaluation note* Diagnosis Onset Date Resolution Status Admit Date PCOS (polycystic ovarian syndrome) acute October 19, 2024 10:46am Pelvic pain acute October 19 10:46am Secondary amenorrhea acute October 19, 2024 10:46am Encounter for routine gynecological examination noneactive October 102024 10:46am [facility] Work Phone: 1(228) 711-478207-10-2025 Evaluation note* Diagnosis Onset Date Resolution Status Admit Date PCOS (polycystic ovarian syndrome) acute October 19, 2024 10:46am Pelvic pain acute October 19 10:46am Secondary amenorrhea acute October 19, 2024 10:46am Encounter for routine gynecological examination noneactive October 102024 10:46am Secondary amenorrhea acute 2024 3:15pm [facility] Work Phone: 1(511) 772-131304-03-2025 NoteHNO ID: [id number] Author: LUC MARIE APRN.PEDODONTIST Service: ? Author Type: Nurse Practitioner Type: Progress Notes Filed: 07/13/2024 11:34 Note Text: Subjective HPI Nontoxic-appearing female presents urgent care chief complaint migraine headache. Duration of symptoms episodic over the last month. Associated symptoms headache pain that starts in the back of the head and radiates behind her eyes bilaterally. States pain radiates into her shoulders as well. States history of migraines. Usually able to break with OTC medications. States this migraine has been waxing and waning over the last month. States there is no morning improves at the day and worsens again at night. Denies any weakness. No visual issues. No decreased coordination. No nausea or vomiting. Is not is not breast-feeding. Past medical history prescription medications allergies reviewed. .Patient presents with: Headache: Neck pain in back of head, on R side, causes migraines, nausea, x 1 months painful to look down, PAST MEDICAL HISTORY Diagnosis Date Febrile convulsions (simple), unspecified @ 6months Ruptured ovarian cyst 2021 [facility] PAST SURGICAL HISTORY Procedure Laterality Date KYLEENA IUD 03/31/2022 5 year TONSILLECTOMY AND ADENOIDECTOMY ALLERGIES Patient has no known allergies. MEDICATIONS multivit with iron,minerals (MULTIVITAMIN AND MINERALS ORAL) Take 1 tablet by mouth once daily. norethindrone (AYGESTIN) 5 mg tablet Take 1 tablet TID until bleeding stops for 24 hours, the BID x 3 days, then daily x 3 days. (Patient not taking: Reported on 03/02/2024) Polyethylene Glycol 3350 (MIRALAX) 17 gram/dose ORAL powder Take by mouth. 2-3 tablespoons daily. (Patient not taking: Reported on 07/13/2024) FAMILY HISTORY Problem Relation Age of Onset other (epilepsy [Other]) Mother No Known Problems Father No Known Problems Sister No Known Problems Brother Arthritis Maternal Grandmother rheumatoid other (epilepsy [Other]) Maternal Grandmother Social History Tobacco Use Smoking status: Never Vaping Use Vaping status: Never Used Substance Use Topics Alcohol use: No Drug use: No BP 106/72 Pulse 82 Temp 36.3 ?C (97.3 ?F) Resp 20 Wt 87 kg (191 lb 12.8 oz) LMP (LMP Unknown) SpO2 100% Review of Systems Constitutional: Negative for chills, fever and malaise/fatigue. HENT: Negative for congestion, ear discharge, ear pain, sinus pain and sore throat. Eyes: Negative for blurred vision, pain, discharge and redness. Respiratory: Negative for cough, hemoptysis, sputum production, shortness of breath, wheezing and stridor. Cardiovascular: Negative for chest pain. Gastrointestinal: Negative for abdominal pain, diarrhea, nausea and vomiting. Musculoskeletal: Negative for myalgias. Skin: Negative for itching and rash. Neurological: Positive for headaches. Negative for dizziness, tingling, sensory change, speech change, focal weakness, seizures, loss of consciousness and weakness. Objective Physical Exam Constitutional: General: She is not in acute distress. Appearance: She is not diaphoretic. HENT: Head: Normocephalic. Jaw: No trismus, tenderness, swelling or pain on movement. Mouth/Throat: Mouth: Mucous membranes are moist. Pharynx: Oropharynx is clear. Uvula midline. No pharyngeal swelling, oropharyngeal exudate, posterior oropharyngeal erythema or uvula swelling. Eyes: Conjunctiva/sclera: Conjunctivae normal. Pupils: Pupils are equal, round, and reactive to light. Cardiovascular: Rate and Rhythm: Normal rate and regular rhythm. Heart sounds: Normal heart sounds. Pulmonary: Effort: Pulmonary effort is normal. No tachypnea, accessory muscle usage or respiratory distress. Breath sounds: Normal breath sounds. No stridor. No wheezing, rhonchi or rales. Abdominal: General: There is no distension. Palpations: Abdomen is soft. Tenderness: There is no abdominal tenderness. There is no guarding or rebound. Musculoskeletal: Cervical back: Normal range of motion and neck supple. No edema, erythema, rigidity or tenderness. No pain with movement. Normal range of motion. Lymphadenopathy: Cervical: No cervical adenopathy. Skin: General: Skin is warm and dry. Neurological: General: No focal deficit present. Mental Status: She is alert and oriented to person, place, and time. Mental status is at baseline. Sensory: No sensory deficit. Motor: No weakness. Coordination: Coordination normal. Gait: Gait normal. ASSESSMENT/PLAN: 1. Headache, unspecified headache type - ICD9: 784.0, ICD10: R51.9 - CONSULT TO NEUROLOGY Diagnosed with a headache. No visual issues. Placed on steroid taper. Referred to neurology due to persistent and bothersome symptoms. Red flags prompt ER evaluation discussed. Patient was educated on supportive therapies. Patient will follow up with primary care provider as needed. Patient was instructed to i (more content not included)...[facility] 07-13-2024 History of Present illness Narrative* Luc Marie APRN.PEDODONTIST - 07/13/2024 11:01 AM EDT Subjective HPI Nontoxic-appearing female presents urgent care chief complaint migraine headache. Duration of symptoms episodic over the last month. Associated symptoms headache pain that starts in the back of the head and radiates behind her eyes bilaterally. States pain radiates into her shoulders as well. States history of migraines. Usually able to break with OTC medications. States this migraine has been waxing and waning over the last month. States there is no morning improves at the day and worsens again at night. Denies any weakness. No visual issues. No decreased coordination. No nausea or vomiting.Is not is not breast- feeding. Past medical history prescription medications allergies reviewed. .Patient presents with: Headache: Neck pain in back of head, on R side, causes migraines, nausea, x 1 months painful to look down, PAST MEDICAL HISTORY Diagnosis Date Febrile convulsions (simple), unspecified @ 6months Ruptured ovarian cyst 2021 [facility] PAST SURGICAL HISTORY Procedure Laterality Date KYLEENA IUD 03/31/2022 5 year TONSILLECTOMY & ADENOIDECTOMY <AGE 12 ALLERGIES Patient has no known allergies. MEDICATIONS multivit with iron,minerals (MULTIVITAMIN AND MINERALS ORAL) Take 1 tablet by mouth once daily. norethindrone (AYGESTIN) 5 mg tablet Take 1 tablet TID until bleeding stops for 24 hours, the BID x3 days, then daily x 3 days. (Patient not taking: Reported on 03/02/2024) Polyethylene Glycol 3350 (MIRALAX) 17 gram/dose ORAL powder Take by mouth. 2-3 tablespoons daily. (Patient not taking: Reported on 07/13/2024) FAMILY HISTORY Problem Relation Age of Onset other (epilepsy [Other]) Mother No Known Problems Father No Known Problems Sister No Known Problems Brother Arthritis Maternal Grandmother rheumatoid other (epilepsy [Other]) Maternal Grandmother Social History Tobacco Use Smoking status: Never Vaping Use Vaping status: Never Used Substance Use Topics Alcohol use: No Drug use: No BP 106/72 Pulse 82 Temp 36.3 C (97.3 F) Resp 20 Wt 87 kg (191 lb 12.8 oz) LMP (LMP Unknown) SpO2 100% Review of Systems Constitutional: Negative for chills, fever and malaise/fatigue. HENT: Negative for congestion, ear discharge, ear pain, sinus pain and sore throat. Eyes: Negative for blurred vision, pain, discharge and redness. Respiratory: Negative for cough, hemoptysis, sputum production, shortness of breath, wheezing and stridor. Cardiovascular: Negative for chest pain. Gastrointestinal: Negative for abdominal pain, diarrhea, nausea and vomiting. Musculoskeletal: Negative for myalgias. Skin: Negative for itching and rash. Neurological: Positive for headaches. Negative for dizziness, tingling, sensory change, speech change, focal weakness, seizures, loss of consciousness and weakness. Objective Physical Exam Constitutional: General: She is not in acute distress. Appearance: She is not diaphoretic. HENT: Head: Normocephalic. Jaw: No trismus, tenderness, swelling or pain on movement. Mouth/Throat: Mouth: Mucous membranes are moist. Pharynx: Oropharynx is clear. Uvula midline. No pharyngeal swelling, oropharyngeal exudate, posterior oropharyngeal erythema or uvula swelling. Eyes: Conjunctiva/sclera: Conjunctivae normal. Pupils: Pupils are equal, round, and reactive to light. Cardiovascular: Rate and Rhythm: Normal rate and regular rhythm. Heart sounds: Normal heart sounds. Pulmonary: Effort: Pulmonary effort is normal. No tachypnea, accessory muscle usage or respiratory distress. Breath sounds: Normal breath sounds. No stridor. No wheezing, rhonchi or rales. Abdominal: General: There is no distension. Palpations: Abdomen is soft. Tenderness: There is no abdominal tenderness. There is no guarding or rebound. Musculoskeletal: Cervical back: Normal range of motion and neck supple. No edema, erythema, rigidity or tenderness. No pain with movement. Normal range of motion. Lymphadenopathy: Cervical: No cervical adenopathy. Skin: General: Skin is warm and dry. Neurological: General: No focal deficit present. Mental Status: She is alert and oriented to person, place, and time. Mental status is at baseline. Sensory: No sensory deficit. Motor: No weakness. Coordination: Coordination normal. Gait: Gait normal. ASSESSMENT/PLAN: 1. Headache, unspecified headache type - ICD9: 784.0, ICD10: R51.9 - CONSULT TO NEUROLOGY Diagnosed with a headache. No visual issues. Placed on steroid taper. Referred to neurology due to persistent and bothersome symptoms. Red flags prompt ER evaluation discussed. Patient was educated on supportive therapies. Patient will follow up with primary care provider as needed. Patient was instructed to immediately proceed to emergency room for any new, worsening, or symptoms lasting longer than anticipated. The patient's clinical presentation is otherwise unremarkable at this time. Based on exam and clinical finding, the patient is stable for discharge. Plan of care was discussed with patient. Patient verbalizes understanding and agrees to plan of care. This note was generated using [employer] software. It may contain errors in wording, punctuation, or spelling. Luc Marie APRN.PEDODONTIST documented [facility] NoteHNO ID: [id number] Author: WILFRID SMITH MD Service: ? Author Type: Physician Type: Progress Notes Filed: 06/12/2024 11:32 Note Text: Patient presents with: Sore Throat: cough x 2 days HPI: Feeling sick for a couple days. Her daughter and mother had strep throat. Positive symptoms: Cough, Sore throat, Nasal Congestion, Rhinorrhea, Fever yesterday, Negative symptoms: Nausea, Vomiting, Diarrhea, She has already had influenza, norovirus, and a head cold this year. MEDICATIONS: Current Outpatient Medications Medication Sig norethindrone (AYGESTIN) 5 mg tablet Take 1 tablet TID until bleeding stops for 24 hours, the BID x 3 days, then daily x 3 days. (Patient not taking: Reported on 03/02/2024) Polyethylene Glycol 3350 (MIRALAX) 17 gram/dose ORAL powder Take by mouth. 2-3 tablespoons daily. No current facility-administered medications for this visit. ALLERGIES: ALLERGIES No Known Allergies VITALS: BP 126/72 Pulse 106 Temp 36.8 ?C (98.3 ?F) Resp 16 Wt 86.6 kg (190 lb 14.7 oz) LMP 01/07/2024 SpO2 98% PHYSICAL EXAM: GEN: mildly ill appearing HEENT: PERRL, EOMI, conjunctiva clear Ears: canals clear. TMs without erythema, bulge, or effusion Sinuses: non-tender frontal sinus, non-tender maxillary sinuses Throat: moist mucous membranes, mild erythema, no exudate Neck: supple, no thyromegaly, no lymphadenopathy HEART: regular rate, regular rhythm, no murmurs LUNGS: clear to auscultation, no wheezes or crackles, no increased WOB ASSESSMENT/PLAN: 1. Sore throat - ICD9: 462, ICD10: J02.9 - STREP A MOLECULAR (POC) - negative. - suspect viral URI - Discussed supportive care treatment with rest, cold medicine, and analgesia. Follow up with worsening cough, worsening shortness of breath, increasing chest pain, worsening sinus pressure, or late onset fever. Consider evaluation with PCP if she continues to have recurrent illnesses. Wilfrid Smith, [facility]03-03-2025 History of Present illness Narrative* Wilfrid Smith MD - 06/12/2024 11:14 AM EST Patient presents with: Sore Throat: cough x 2 days HPI: Feeling sick for a couple days. Her daughter and mother had strep throat. Positive symptoms: Cough, Sore throat, Nasal Congestion, Rhinorrhea, Fever yesterday, Negative symptoms: Nausea, Vomiting, Diarrhea, She has already had influenza, norovirus, and a head cold this year. MEDICATIONS: Current Outpatient Medications Medication Sig norethindrone (AYGESTIN) 5 mg tablet Take 1 tablet TID until bleeding stops for 24 hours, the BID x3 days, then daily x 3 days. (Patient not taking: Reported on 03/02/2024) Polyethylene Glycol 3350 (MIRALAX) 17 gram/dose ORAL powder Take by mouth. 2-3 tablespoons daily. No current facility-administered medications for this visit. ALLERGIES: ALLERGIES No Known Allergies VITALS: BP 126/72 Pulse 106 Temp 36.8 C (98.3 F) Resp 16 Wt 86.6 kg (190 lb 14.7 oz) LMP 01/07/2024 SpO2 98% PHYSICAL EXAM: GEN: mildly ill appearing HEENT: PERRL, EOMI, conjunctiva clear Ears: canals clear. TMs without erythema, bulge, or effusion Sinuses: non-tender frontal sinus, non-tender maxillary sinuses Throat: moist mucous membranes, mild erythema, no exudate Neck: supple, no thyromegaly, no lymphadenopathy HEART: regular rate, regular rhythm, no murmurs LUNGS: clear to auscultation, no wheezes or crackles, no increased WOB ASSESSMENT/PLAN: 1. Sore throat - ICD9: 462, ICD10: J02.9 - STREP A MOLECULAR (POC) - negative. - suspect viral URI - Discussed supportive care treatment with rest, cold medicine, and analgesia. Follow up with worsening cough, worsening shortness of breath, increasing chest pain, worsening sinus pressure, or late onset fever. Consider evaluation with PCP if she continues to have recurrent illnesses. Wilfrid Smith MD documented in this encounterPrem[facility]01-[facility]25 NoteDischarge Instructions Discharge Summary [address] [address] [id number] 05/05/2024 Patient: CLARISSE MOLINA Sex: Female : 2005 Age: 18y Thank you for visiting [facility]. You have been evaluated today by Quinn Hameed D.O. for the following condition(s): Principal Diagnosis Contusion to the right shoulder. INSTRUCTIONS Apply ice. Rest. Prescription Medications: ketorolac 10 mg tablet: Take 1 tablet by mouth every six to eight hours as needed for pain for 5 days, dispense 20 tablet. Refills 0. Pharmacy: [facility] [id number] [place] [address]. Follow-up: Follow up with your healthcare provider in two days. Call for an appointment. You have been given the following additional information: Soft Tissue Bruise (Contusion) Patient Signature 1 of 4 Discharge Instructions Facility Oil Driller Date/Time General Instructions with ExitWriter [facility] [address] [place] [address] [id number] 05/05/2024 Patient: CLARISSE MOLINA Sex: Female : 2005 Age: 18y Thank you for visiting [facility]. You have been evaluated today by Quinn Hameed D.O. for the following condition(s): Principal Diagnosis Contusion to the right shoulder. INSTRUCTIONS Apply ice. Rest. Prescription Medications: ketorolac 10 mg tablet: Take 1 tablet by mouth every six to eight hours as needed for pain for 5 days, dispense 20 tablet. Refills 0. Pharmacy: [facility] [id number] [place] [address]. Follow-up: Follow up with your healthcare provider in two days. Call for an appointment. ADDITIONAL INFORMATION 2 of 4 Discharge Instructions Soft Tissue Bruise (Contusion) You have a bruise (contusion). There is swelling and some bleeding under the skin. This injury generally takes a few days to a few weeks to heal. During that time, the bruise will typically change in color from reddish, to purple-blue, to greenish-yellow, then to yellow-brown. Home care Elevate the injured area to reduce pain and swelling. As much as possible, sit or lie down with theinjured area raised about the level of your heart. This is especially important during the first 48 hours. Ice the injured area to help reduce pain and swelling. Wrap an ice pack in a thin towel. Apply to the bruised area for 20 minutes every 1 to 2 hours the first day. Continue this 3 to 4 times a day until the pain and swelling goes away. You can make an ice pack by placing ice cubes in a plastic bag. Unless another medicine was prescribed, you can take acetaminophen, ibuprofen, or naproxen to control pain. Talk with your doctor before using these medicines if you have chronic liver or kidney disease or ever had a stomach ulcer or digestive bleeding. Follow-up care Follow up with your healthcare provider, or as advised. Call if you are not better in 1 to 2 weeks. When to seek medical advice Call your healthcare provider right away if you have any of the following: Increased pain or swelling Bruise is on an arm or leg and arm or leg becomes cold, blue, numb or tingly Signs of infection: Warmth, drainage, or increased redness or pain around the contusion Inability to move the injured area or body part Bruise is near your eye and you have problems with your eyesight or eye Frequent bruising for unknown reasons Activities Restrictions [address] [address] [id number] 05/05/2024 3 of 4 Discharge Instructions Patient: CLARISSE MOLINA Sex: Female : 2005 Age: 18y You have been given the following instructions regarding activity, work, and/or school. Rest. Facility Oil Driller [address] [place], [place] [address]12-19-2024 NoteDischarge Instructions Discharge Summary [address] [address] [id number] 03/25/2024 Patient: CLARISSE MOLINA Sex: Female : 2005 Age: 18y Thank you for visiting [facility]. You have been evaluated today by Kwaku Pettit D.O. for the following condition(s): Principal Diagnosis Cellulitis of the right thigh. INSTRUCTIONS (Continue the Bactrim but take the Keflex and Lotrisone cream as well). Warnings: GENERAL WARNINGS: Return or contact your physician immediately if your condition worsens or changes unexpectedly, if not improving as expected, or if other problems arise. Prescription Medications: cephalexin 500 mg tablet: Take 1 tablet by mouth every six hours for 10 days, dispense 40 tablet. Refills 0. Pharmacy: [facility] [id number] [place] [address]. clotrimazole-betamethasone 1 %-0.05 % topical cream: Apply 1 a small amount to affected area twice a day, dispense 15 gram. Refills 0. Pharmacy: [facility] [id number] [place] [address]. Understanding of the discharge instructions verbalized by patient and family. 1 of 4 Discharge Instructions Follow-up with: Lizy Chambers MSN,FIRE PREVENTION SPECIALIST, PAULETTE-C, [facility], Adult and Pediatric, Family Care, , [address] [place] [id number]. Follow up in three days even if well. Call for an appointment. Reason for referral: evaluation and treatment. Summary of care provided to patient and family. You have been given the following additional information: Cellulitis Patient Signature Facility Oil Driller Date/Time General Instructions with ExitWriter [facility] [address] [place] [address] [id number] 03/25/2024 Patient: CLARISSE MOLINA Sex: Female : 2005 Age: 18y Thank you for visiting [facility]. You have been evaluated today by Kwaku Pettit D.O. for the following condition(s): Principal Diagnosis Cellulitis of the right thigh. INSTRUCTIONS (Continue the Bactrim but take the Keflex and Lotrisone cream as well). Warnings: GENERAL WARNINGS: Return or contact your physician immediately if your condition worsens or changes unexpectedly, if not improving as expected, or if other problems arise. 2 of 4 Discharge Instructions Prescription Medications: cephalexin 500 mg tablet: Take 1 tablet by mouth every six hours for 10 days, dispense 40 tablet. Refills 0. Pharmacy: [facility] [id number] [place] [address]. clotrimazole-betamethasone 1 %-0.05 % topical cream: Apply 1 a small amount to affected area twice a day, dispense 15 gram. Refills 0. Pharmacy: [facility] [id number] [place] [address]. Understanding of the discharge instructions verbalized by patient and family. Follow-up with: DUNG Malik,FIRE PREVENTION SPECIALIST, IMPLEMENTATION ADVISOR-C, [facility], , [address] [facility] [address], [place] [address]. Follow up in three days even if well. Call for an appointment. Reason for referral: evaluation and treatment. Summary of care provided to patient and family. ADDITIONAL INFORMATION Cellulitis Cellulitis is an infection of the deep layers of skin. A break in the skin, such as a cut or scratch, can let bacteria under the skin. If the bacteria get to deep layers of the skin, it can be serious. If not treated, cellulitis can get into the bloodstream and lymph nodes. The infection can then spread throughout the body. This causes serious illness. Cellulitis causes the affected skin to become red, swollen, warm, and sore. The reddened areas havea visible border. An open sore may leak fluid (pus). You may have a fever, chills, and pain. Cellulitis is treated with antibiotics taken for 7 to 10 days. An open sore may be cleaned and covered with cool wet gauze. Symptoms should get better 1 to 2 days after treatment is started. Make sure to take all theantibiotics for the full number of days until they are gone. Keep taking the medicine even if your symptoms go away. 3 of 4 Discharge Instructions Home care Follow these tips: Limit the use of the part of your body with cellulitis. If the infection is on your leg, keep your leg raised while sitting. This helps reduce swelling. Take all of the antibiotic medicine exactly as directed until it is gone. Don't miss any doses, especially during the first 7 days. Don't stop taking the medicine when your symptoms get better. Keep the affected area clean and dry. Wash your hands with soap and clean, running water before and after touch (more content not included)...[facility]12-12-2024 NoteDischarge Instructions Discharge Summary [facility] [address] [place] [address] [id number] 03/23/2024 Patient: CLARISSE MOLINA Sex: Female : 2005 Age: 18y Thank you for visiting [facility]. You have been evaluated today by Sudeep Washington D.O. for the following condition(s): Principal Diagnosis Cellulitis of the right thigh. INSTRUCTIONS Return to work tomorrow. Do not work today. Prescription Medications: bactrum ds tablet: Take 1 tablet by mouth twice a day as needed for 10 days, dispense 20 tablet. Refills 0. Pharmacy: [facility] [id number] [place] [address]. Follow-up with: Lizy Chambers, MSN,FIRE PREVENTION SPECIALIST, YEMIC, [facility], Adult [facility] Pediatric, Family [facility], Phone: [phone], [address] [place] [address]. Follow up in one week. (Keep clean and dry. nina area to see if it is getting larger. Return if any problems or concerns.). You have been given the following additional information: Cellulitis 1 of 4 Discharge Instructions Patient Signature Facility Oil Driller Date/Time General Instructions with ExitWriter [facility] [address] [facility] [place] [address] [id number] 03/23/2024 Patient: CLARISSE MOLINA Sex: Female : 2005 Age: 18y Thank you for visiting [facility]. You have been evaluated today by Sudeep Washington D.O. for the following condition(s): Principal Diagnosis Cellulitis of the right thigh. INSTRUCTIONS Return to work tomorrow. Do not work today. Prescription Medications: bactrum ds tablet: Take 1 tablet by mouth twice a day as needed for 10 days, dispense 20 tablet. Refills 0. Pharmacy: [facility] [id number] [place] [address]. Follow-up with: DUNG Malik,FIRE PREVENTION SPECIALIST, PAULETTE-C, [facility], Adult [facility] Pediatric, Family [facility], Phone: [phone], [address] [place] [address]. Follow up in one week. (Keep clean and dry. nina area to see if it is getting larger. Return if any problems or concerns.). ADDITIONAL INFORMATION 2 of 4 Discharge Instructions Cellulitis Cellulitis is an infection of the deep layers of skin. A break in the skin, such as a cut or scratch, can let bacteria under the skin. If the bacteria get to deep layers of the skin, it can be serious. If not treated, cellulitis can get into the bloodstream and lymph nodes. The infection can then spread throughout the body. This causes serious illness. Cellulitis causes the affected skin to become red, swollen, warm, and sore. The reddened areas havea visible border. An open sore may leak fluid (pus). You may have a fever, chills, and pain. Cellulitis is treated with antibiotics taken for 7 to 10 days. An open sore may be cleaned and covered with cool wet gauze. Symptoms should get better 1 to 2 days after treatment is started. Make sure to take all theantibiotics for the full number of days until they are gone. Keep taking the medicine even if your symptoms go away. Home care Follow these tips: Limit the use of the part of your body with cellulitis. If the infection is on your leg, keep your leg raised while sitting. This helps reduce swelling. Take all of the antibiotic medicine exactly as directed until it is gone. Don't miss any doses, especially during the first 7 days. Don't stop taking the medicine when your symptoms get better. Keep the affected area clean and dry. Wash your hands with soap and clean, running water before and after touching your skin. Anyone else who touches your skin should also wash his or her hands. Don't share towels. Follow-up care Follow up with your healthcare provider, or as advised. If your infection doesn't go away on the first antibiotic, your healthcare provider will prescribe a different one. When to seek medical advice Call your healthcare provider right away if any of these occur: Red areas that spread 3 of 4 Discharge Instructions Swelling or pain that gets worse Fluid leaking from the skin (pus) Fever higher of 100.4 F (38.0 C) or higher after 2 days on antibiotics Activities [address] [address] [id number] 03/23/2024 Patient: CLARISSE MOLINA Sex: Female : 2005 Age: 18y You have been given the following instructions regarding activity, work, and/or school. Return to work tomorrow. Do not work today. Facility Oil Driller [address] [place], [place] [id number] History of Present illness Narrative* Iona Turner RT(R) - 03/02/2024 3:50 PM EST Radiology Service Progress Note PATIENT NAME: Clarisse Molina DATE OF SERVICE: March 02, 2024 TIME: 3:48 PM PATIENT IDENTITY VERIFICATION COMPLETED USING TWO (2) IDENTIFIERS: Name and Date of confirmedby patient verbally. FALL SCREENING: Has the patient had 2 falls in the last year or 1 fall with injury or currently using an Ambulatory Assistive Device (Walker, Cane, Wheelchair, Crutches, etc.)? No PATIENT GENDER DATA: Female. status: : No status: NO. PATIENT RELEVANT IMPLANT DATA REVIEWED: Yes PATIENT PRESENTS WITH AN IMPLANTABLE OR ATTACHED PARK MAINTAINER: No RADIOLOGY DEPARTMENT: General X-ray: Exam(s) Completed: Chest X-Ray PERIPHERAL IV DATA: Not applicable SIGNED BY: RT Mariela(Brianna) March 02, 2024 3:48 PM documented in this encounterPremier [facility]11-21-2024 NoteHNO ID: [id number] Author: IONA TURNER RT(R) Service: ? Author Type: Gang Hemstitching Machine Operator Type: Progress Notes Filed: 03/02/2024 15:55 Note Text: Radiology Service Progress Note PATIENT NAME: Clarisse Molina DATE OF SERVICE: March 02, 2024 TIME: 3:48 PM PATIENT IDENTITY VERIFICATION COMPLETED USING TWO (2) IDENTIFIERS: Name and Date of confirmed by patient verbally. FALL SCREENING: Has the patient had 2 falls in the last year or 1 fall with injury or currently using an Ambulatory Assistive Device (Walker, Cane, Wheelchair, Crutches, etc.)? No PATIENT GENDER DATA: Female. status: : No status: NO. PATIENT RELEVANT IMPLANT DATA REVIEWED: Yes PATIENT PRESENTS WITH AN IMPLANTABLE OR ATTACHED PARK MAINTAINER: No RADIOLOGY DEPARTMENT: General X-ray: Exam(s) Completed: Chest X-Ray PERIPHERAL IV DATA: Not applicable SIGNED BY: RT Mariela(Brianna) March 02, 2024 3:48 PMCMcKit[facility]-21-2024 NoteHNO ID: [id number] Author: TISHA PALOMO APRN.PEDODONTIST Service: ? Author Type: Nurse Practitioner Type: Progress Notes Filed: 03/02/2024 16:04 Note Text: This note was created using pSiFlow Technologyter. Subjective Clarisse Molina is a 18 year old female. HPI For the last three days pt has had fever, nausea, and a sore throat. Covid test negative today. Review of Systems Constitutional: Positive for fever. HENT: Positive for sore throat. Respiratory: Positive for cough. Gastrointestinal: Positive for nausea. Objective BP 100/74 Pulse 98 Temp 36.6 ?C (97.8 ?F) Resp 18 Wt 84.9 kg (187 lb 2.7 oz) LMP 01/07/2024 SpO2 98% Physical Exam Vitals and nursing note reviewed. Constitutional: General: She is not in acute distress. Appearance: Normal appearance. She is not ill-appearing. HENT: Head: Normocephalic. Mouth/Throat: Mouth: Mucous membranes are moist. Eyes: Conjunctiva/sclera: Conjunctivae normal. Cardiovascular: Rate and Rhythm: Normal rate and regular rhythm. Pulmonary: Effort: Pulmonary effort is normal. Breath sounds: Normal breath sounds. Musculoskeletal: General: Normal range of motion. Cervical back: Normal range of motion. Skin: General: Skin is warm and dry. Neurological: General: No focal deficit present. Mental Status: She is alert. Psychiatric: Mood and Affect: Mood normal. Behavior: Behavior normal. Assessment and Plan ASSESSMENT/PLAN: 1. Sore throat - ICD9: 462, ICD10: J02.9 (primary diagnosis) - suspect viral - Rapid Strep negative in the office today - Discussed supportive care treatment with fluids, rest and analgesia. - The patient may also use OTC cough and cold meds as needed and warm salt water gargles, throat lozenges and/or OTC throat spray as needed. - Contagious dz precautions discussed - The patient should follow up in one week if symptoms persist or worsen - RAPID STREP TEST B/O 2. Acute cough - ICD9: 786.2, ICD10: R05.1 Chest x-ray shows no acute abnormalities. Discussed with patient symptoms seem most likely viral in origin. Recommended [id number]-oidqjil treatments, plenty of rest and fluids and follow-up with PCP. - XR CHEST 2V FRONTAL/LAT Tisha Palomo APRN.[facility]11-21-2024 History of Present illness Narrative* Tisha Palomo, PELON.PEDODONTIST - 03/02/2024 3:32 PM EST This note was created using GT Channelriter. Subjective Clarisse Molina is a 18 year old female. HPI For the last three days pt has had fever, nausea, and a sore throat. Covid test negative today. Review of Systems Constitutional: Positive for fever. HENT: Positive for sore throat. Respiratory: Positive for cough. Gastrointestinal: Positive for nausea. Objective BP 100/74 Pulse 98 Temp 36.6 C (97.8 F) Resp 18 Wt 84.9 kg (187 lb 2.7 oz) LMP 01/07/2024 SpO2 98% Physical Exam Vitals and nursing note reviewed. Constitutional: General: She is not in acute distress. Appearance: Normal appearance. She is not ill-appearing. HENT: Head: Normocephalic. Mouth/Throat: Mouth: Mucous membranes are moist. Eyes: Conjunctiva/sclera: Conjunctivae normal. Cardiovascular: Rate and Rhythm: Normal rate and regular rhythm. Pulmonary: Effort: Pulmonary effort is normal. Breath sounds: Normal breath sounds. Musculoskeletal: General: Normal range of motion. Cervical back: Normal range of motion. Skin: General: Skin is warm and dry. Neurological: General: No focal deficit present. Mental Status: She is alert. Psychiatric: Mood and Affect: Mood normal. Behavior: Behavior normal. Assessment and Plan ASSESSMENT/PLAN: 1. Sore throat - ICD9: 462, ICD10: J02.9 (primary diagnosis) - suspect viral - Rapid Strep negative in the office today - Discussed supportive care treatment with fluids, rest and analgesia. - The patient may also use OTC cough and cold meds as needed and warm salt water gargles, throat lozenges and/or OTC throat spray as needed. - Contagious dz precautions discussed - The patient should follow up in one week if symptoms persist or worsen - RAPID STREP TEST B/O 2. Acute cough - ICD9: 786.2, ICD10: R05.1 Chest x-ray shows no acute abnormalities. Discussed with patient symptoms seem most likely viral inorigin. Recommended hizy-pwh-zgtogmt treatments, plenty of rest and fluids and follow-up with PCP. - XR CHEST 2V FRONTAL/LAT Tisha Palomo APRN.PEDODONTIST documented in this encounterPremier Health [facility]11-18-2024 NoteDischarge Instructions Discharge Summary [address] [address] [id number] 02/20/2024 Patient: CLARISSE MOLINA Sex: Female : 2005 Age: 18y Thank you for visiting [facility]. You have been evaluated today by Johan Solorzano M.D. for the following condition(s): Principal Diagnosis Multiple contusions to the left hip, left thigh, left lower leg and left ankle. Fall on the same level by slipping. INSTRUCTIONS No strenuous activity. You may walk and bear weight as tolerated. Do not work today. OTC Medications: Take acetaminophen (Tylenol) and ibuprofen (such as Advil, Motrin or Nuprin) according to label instructions. Available over the counter. Follow-up: Follow up with a worker's compensation doctor tomorrow. Call for an appointment. You have been given the following additional information: After a Fall Patient Signature 1 of 5 Discharge Instructions Facility Oil Driller Date/Time General Instructions with ExitWriter [address] [address] [id number] 02/20/2024 Patient: CLARISSE MOLINA Sex: Female : 2005 Age: 18y Thank you for visiting [facility]. You have been evaluated today by Johan Solorzano M.D. for the following condition(s): Principal Diagnosis Multiple contusions to the left hip, left thigh, left lower leg and left ankle. Fall on the same level by slipping. INSTRUCTIONS No strenuous activity. You may walk and bear weight as tolerated. Do not work today. OTC Medications: Take acetaminophen (Tylenol) and ibuprofen (such as Advil, Motrin or Nuprin) according to label instructions. Available over the counter. Follow-up: Follow up with a worker's compensation doctor tomorrow. Call for an appointment. ADDITIONAL INFORMATION 2 of 5 Discharge Instructions After a Fall You have had a fall today. That means that you slipped, tripped, or lost your balance. If your fallhad been because of fainting or a seizure, you might need other tests. It is normal to feel sore and tight in your muscles and back the next day, and not just the musclesyou injured. Remember, all the parts of your body are connected, so while one area hurts now, the next day another may hurt. Also, when you injure yourself, it causes inflammation. This then causes the muscles to tighten up and hurt more. After the initial worsening, it should slowly improve over the next few days. Tell your healthcare provider if you have more severe pain. Even without a definite head injury, you can still get a concussion from your head suddenly jerkingforward, backward, or sideways when you fall. Concussions and even bleeding can still happen, especially if you have had a recent injury or take blood thinner medicine. It is not unusual to have a mild headache and feel tired and even nauseous or dizzy. Home care Rest today and go back to your normal activities when you are feeling back to normal. If you were injured during the fall, follow the advice from your healthcare provider about how to care for your injury. At first, don't try to stretch out the sore spots. If there is a strain, stretching may make it worse. Massage may help relax the muscles without stretching them. Use an ice pack or cold compress on and off at the sore spots 10 to 20 minutes at a time, as often as you feel comfortable. This may help reduce the inflammation, swelling, and pain. Know that if you have any scrapes (abrasions), they often heal within 10 days. Keep the scrapes clean while they start to heal. But an infection may happen even with correct care. So watch for early signs of infection (such as warmth, redness, or swelling). Medicines Talk with your healthcare provider before taking new medicines, especially if you have other health problems or are taking other medicines. If you need anything for pain, use acetaminophen or ibuprofen, unless you were given a different pain medicine to use. Talk with your healthcare provider before using these medicines if you: o Have chronic liver or kidney disease o Ever had a stomach ulcer or gastrointestinal bleeding 3 of 5 Discharge Instructions o Are taking blood-thinner medicines Be careful if you are given prescription pain medicines, narcotics, or medicine for muscle spasm. They can make you sleepy and dizzy. And they can affect your coordination, reflexes, and judgment. Don't drive or do work where you can hurt yourself when taking them. Fall prevention Fix, remove, or replace anything that caused your fall. Make your home safe by keeping walkways clear of objects you may trip over. Use nonslip pads under rugs. Don't use small area rugs or throw rugs. Don't walk in poorly lit areas. Don't stand on chairs or wobbly (more content not included)...[facility]11-13-2024 Telephone encounter Note* Telephone Encounter - Christine Villalta RN - 02/23/2024 2:42 PM EST Patient notified and voiced understanding. Christine Villalta RN [facility]11-13-2024 Miscellaneous Notes* Telephone Encounter - Christine Villalta RN - 02/23/2024 2:42 PM EST Patient notified and voiced understanding. Christine Villalta RN * Telephone Encounter - Chiquita Adhikari APRN.CNP - 02/23/2024 1:14 PM EST Please let her know that this can be normal when stopping the Aygestin. As long as bleeding does not become heavy or prolonged again no further medications needed at this time. Chiquita Adhikari APRN.CNP * Telephone Encounter - Christine Villalta RN - 02/23/2024 12:43 PM EST Patient calling with complaints of vaginal bleeding again. Patient was prescribed Aygestin on 02/13 d/t prolong menses. States by 02/15 her bleeding had stopped, she finished the prescription as prescribed yesterday. Today patient started having vaginal bleeding again. She is currently wearing regular tampons and changing about every 3 hours. Currently not having any pain or cramping. Patient asking to be called back after 2 pm today. Christine Villalta RN documented in this encounterPrem[facility]11-13-2024 Telephone encounter Note * Telephone Encounter - Chiquita Adhikari APRN.CNP - 02/23/2024 1:14 PM EST Please let her know that this can be normal when stopping the Aygestin. As long as bleeding does not become heavy or prolonged again no further medications needed at this time. Chiquita Adhikari APRN.CNP [facility]11-13-2024 Telephone encounter Note* Telephone Encounter - Christine Villalta RN - 02/23/2024 12:43 PM EST Patient calling with complaints of vaginal bleeding again. Patient was prescribed Aygestin on 02/13 d/t prolong menses. States by 02/15 her bleeding had stopped, she finished the prescription as prescribed yesterday. Today patient started having vaginal bleeding again. She is currently wearing regular tampons and changing about every 3 hours. Currently not having any pain or cramping. Patient asking to be called back after 2 pm today. Christine Villalta RN [facility]11-05-2024 Telephone encounter Note* Telephone Encounter - Cristine Garcia RN - 02/15/2024 9:53 AM EST Patient notified. Voiced understanding. Cristine Garcia RN [facility]11-05-2024 Miscellaneous Notes* Telephone Encounter - Cristine Garcia RN - 02/15/2024 9:53 AM EST Patient notified. Voiced understanding. Cristine Highman, RN * Telephone Encounter - Amanda Head LPN - 02/15/2024 9:48 AM EST Left message to call office on voicemail * Telephone Encounter - Chiquita Adhikari APRN.CNP - 02/15/2024 7:02 AM EST Please notify patient that she does have a yeast infection. I would like her to use Monistat 7 (or generic) 1 of a applicator full every night for 7 nights. If symptoms do not improve please salomon the office. Chiquita Adhikari APRN.CNP documented in this encounterPrem[facility]11-05-2024 Telephone encounter Note * Telephone Encounter - Amanda Head LPN - 02/15/2024 9:48 AM EST Left message to call office on voicemail [facility]11-05-2024 Telephone encounter Note* Telephone Encounter - Chiquita Adhikari APRN.CNP - 02/15/2024 7:02 AM EST Please notify patient that she does have a yeast infection. I would like her to use Monistat 7 (or generic) 1 of a applicator full every night for 7 nights. If symptoms do not improve please salomon the office. Chiquita Adhikari APRN.CNP [facility]11-04-2024 NoteHNO ID: [id number] Author: CHIQUITA ADHIKARI APRN.CNP Service: ? Author Type: Nurse Practitioner Type: Progress Notes Filed: 02/14/2024 09:24 Note Text: Patient declined hogshead inspector. Clarisse Molina is a 18 year old female who presents for problem visit prolong menses. HPI: vaginal bleeding, cramping, green discharge for 9 days, using super sized tampons every hour, discontinued NuvaRing in November this is the first reported menses. She is seeing bright red blood and old brown blood, using the tampon has been painful OB History No obstetric history on file. [employer] History LMP: 11/29/2022, IUD Age at Menarche: Age at First : Age at Menopause: [employer] History Comments: Sexual Activity: Yes; Male Contraception: I.U.D. PAST MEDICAL HISTORY Diagnosis Date Febrile convulsions (simple), unspecified @ 6months Ruptured ovarian cyst 2021 [facility] PAST SURGICAL HISTORY Procedure Laterality Date KYLEENA IUD 03/31/2022 5 year TONSILLECTOMY AND ADENOIDECTOMY FAMILY HISTORY Problem Relation Age of Onset other (epilepsy [Other]) Mother No Known Problems Father No Known Problems Sister No Known Problems Brother Arthritis Maternal Grandmother rheumatoid other (epilepsy [Other]) Maternal Grandmother Social History Tobacco Use Smoking status: Never Vaping Use Vaping status: Never Used Substance Use Topics Alcohol use: No Drug use: No Current Outpatient Medications Medication Sig Etonogestrel-Ethinyl Estradiol (NUVARING) 0.12-0.015 mg/24 hr vaginal ring Use 1 Each vaginally as directed. INSERT ONE(1) RING VAGINALLY AND LEAVE IN PLACE FOR THREE WEEKS, THEN REMOVE FOR 1 WEEK. ondansetron orally disintegrating (ZOFRAN ODT) 4 mg disintegrating tablet Take 1 tablet by mouth every 6 hours as needed for nausea/vomiting. (Patient not taking: Reported on 08/04/2023) propranolol ER (INDERAL LA) 60 mg 24 hr capsule propranolol ER 60 mg capsule,24 hr,extended release TAKE 1 CAPSULE BY MOUTH ONCE DAILY (Patient not taking: Reported on 08/04/2023) cetirizine (ZYRTEC) 10 mg tablet Take 10 mg by mouth daily at bedtime. (Patient not taking: Reported on 05/05/2023) fluticasone (FLONASE) 50 mcg/actuation nasal spray Use 1 [place] in each nostril once daily. (Patient not taking: Reported on 05/05/2023) Polyethylene Glycol 3350 (MIRALAX) 17 gram/dose ORAL powder Take by mouth. 2-3 tablespoons daily. No current facility-administered medications for this visit. Allergies As of Date: 02/14/2024 (No Known Allergies) Fully Assessed 10/18/2023 REVIEW OF SYSTEMS Expanded ROS: N/A Allergies and current medication updated:Yes SENSITIVE EXAM: The sensitive examination was discussed with the Patient or Patient's Authorized Oil Driller. As applicable, any other physician, advance practice provider, medical student, or other health professional student that will be observing or involved in the sensitive examination for educational or training purposes was discussed with the Patient or Authorized Oil Driller. The Patient or Authorized Oil Driller has agreed to proceed with the sensitive examination. (Sensitive examination includes inspection and/or palpation of the breasts, pelvis, prostate and anorectal regions). EXAM: LMP 11/29/2022 GENERAL: pleasant, female in no apparent distress HEENT: Normocephalic, atraumatic, mucus membranes moist, and no lesions CHEST: Normal inspiratory effort PELVIC: external genitalia normal, normal Bartholin's glands, urethra, Peck's glands, no vulvar lesions, no cervical lesions, good vaginal support, physiologic discharge present, normal appearing perineal body and perianal region BIMANUAL: deferred NEURO: alert and oriented x3,exam grossly non-focal EXTREMITIES: normal ASSESSMENT/PLAN: 1. Vaginal discharge - ICD9: 623.5, ICD10: N89.8 (primary diagnosis) Will notify patient of test results. - ERICK/TRICHOMONAS NAAT - BACTERIAL VAGINOSIS NAAT - GONORRHEA/CHLAMYDIA NAAT 2. Vaginal odor - ICD9: 625.8, ICD10: N89.8 3. Prolonged menstruation - ICD9: 626.2, ICD10: N92.1 Aygestin taper ordered. Chiquita Adhikari APRN.CNP Medical Decision Making: Problems: Moderate: New problem with uncertain prognosis Data: Unique test(s) ordered: 3+ Risk: Moderate: Drug management Medical Decision Making Level: 4 - [facility]erateThe [facility] History of Present illness Narrative* Chiquita Adhikari APRN.CNP - 02/14/2024 8:53 AM EST Patient declined hogshead inspector. Clarisse Molina is a 18 year old female who presents for problem visit prolong menses. HPI: vaginal bleeding, cramping, green discharge for 9 days, using super sized tampons every hour, discontinued NuvaRing in November this is the first reported menses. She is seeing bright red blood and old brown blood, using the tampon has been painful OB History No obstetric history on file. [employer] History LMP: 11/29/2022, IUD Age at Menarche: Age at First : Age at Menopause: [employer] History Comments: Sexual Activity: Yes; Male Contraception: I.U.D. PAST MEDICAL HISTORY Diagnosis Date Febrile convulsions (simple), unspecified @ 6months Ruptured ovarian cyst 2021 [facility] PAST SURGICAL HISTORY Procedure Laterality Date KYLEENA IUD 03/31/2022 5 year TONSILLECTOMY & ADENOIDECTOMY <AGE 12 FAMILY HISTORY Problem Relation Age of Onset other (epilepsy [Other]) Mother No Known Problems Father No Known Problems Sister No Known Problems Brother Arthritis Maternal Grandmother rheumatoid other (epilepsy [Other]) Maternal Grandmother Social History Tobacco Use Smoking status: Never Vaping Use Vaping status: Never Used Substance Use Topics Alcohol use: No Drug use: No Current Outpatient Medications Medication Sig Etonogestrel-Ethinyl Estradiol (NUVARING) 0.12-0.015 mg/24 hr vaginal ring Use 1 Each vaginally as directed. INSERT ONE(1) RING VAGINALLY AND LEAVE IN PLACE FOR THREE WEEKS, THEN REMOVE FOR 1 WEEK. ondansetron orally disintegrating (ZOFRAN ODT) 4 mg disintegrating tablet Take 1 tablet by mouth every 6 hours as needed for nausea/vomiting. (Patient not taking: Reported on 08/04/2023) propranolol ER (INDERAL LA) 60 mg 24 hr capsule propranolol ER 60 mg capsule,24 hr,extended release TAKE 1 CAPSULE BY MOUTH ONCE DAILY (Patient not taking: Reported on 08/04/2023) cetirizine (ZYRTEC) 10 mg tablet Take 10 mg by mouth daily at bedtime. (Patient not taking: Reported on 05/05/2023) fluticasone (FLONASE) 50 mcg/actuation nasal spray Use 1 [place] in each nostril once daily. (Patientnot taking: Reported on 05/05/2023) Polyethylene Glycol 3350 (MIRALAX) 17 gram/dose ORAL powder Take by mouth. 2-3 tablespoons daily. No current facility-administered medications for this visit. Allergies As of Date: 02/14/2024 (No Known Allergies) Fully Assessed 10/18/2023 REVIEW OF SYSTEMS Expanded ROS: N/A Allergies and current medication updated:Yes SENSITIVE EXAM: The sensitive examination was discussed with the Patient or Patient's Authorized Oil Driller. As applicable, any other physician, advance practice provider, medical student, or other health professional student that will be observing or involved in the sensitive examination for educational or training purposes was discussed with the Patient or Authorized Oil Driller. The Patient or Authorized Oil Driller has agreed to proceed with the sensitive examination. (Sensitive examination includes inspection and/or palpation of the breasts, pelvis, prostate and anorectal regions). EXAM: LMP 11/29/2022 GENERAL: pleasant, female in no apparent distress HEENT: Normocephalic, atraumatic, mucus membranes moist, and no lesions CHEST: Normal inspiratory effort PELVIC: external genitalia normal, normal Bartholin's glands, urethra, Peck's glands, no vulvar lesions, no cervical lesions, good vaginal support, physiologic discharge present, normal appearing perineal body and perianal region BIMANUAL: deferred NEURO: alert and oriented x3,exam grossly non-focal EXTREMITIES: normal ASSESSMENT/PLAN: 1. Vaginal discharge - ICD9: 623.5, ICD10: N89.8 (primary diagnosis) Will notify patient of test results. - ERICK/TRICHOMONAS NAAT - BACTERIAL VAGINOSIS NAAT - GONORRHEA/CHLAMYDIA NAAT 2. Vaginal odor - ICD9: 625.8, ICD10: N89.8 3. Prolonged menstruation - ICD9: 626.2, ICD10: N92.1 Aygestin taper ordered. Chiquita Adhikari APRN.CNP Medical Decision Making: Problems: Moderate: New problem with uncertain prognosis Data: Unique test(s) ordered: 3+ Risk: Moderate: Drug management Medical Decision Making Level: 4 - Moderate documented in this encounterPrem[facility]07-[facility] Telephone encounter Note * Telephone Encounter - Jana Chinchilla RN - 10/19/2023 2:22 PM EDT Patient notified. Jana Chinchilla RN [facility]07-09-2024 Miscellaneous Notes* Telephone Encounter - Jana Chinchilla RN - 10/19/2023 2:22 PM EDT Patient notified. Jana Chinchilla RN * Telephone Encounter - Adriana Marsh RN - 10/19/2023 8:11 AM EDT Left message for patient to call office. Adriana Marsh RN * Telephone Encounter - Adriana Marsh RN - 10/19/2023 8:11 AM EDT ----- Message from Naomi Matos MD sent at 10/19/2023 7:51 AM EDT ----- Notify patient treated appropriately with diflucan. documented in this encounterPremier Health [facility]07-09-2024 Telephone encounter Note * Telephone Encounter - Adriana Marsh RN - 10/19/2023 8:11 AM EDT Left message for patient to call office. Adriana Marsh RN [facility]07-09-2024 Telephone encounter Note* Telephone Encounter - Adriana Marsh RN - 10/19/2023 8:11 AM EDT ----- Message from Naomi Matos MD sent at 10/19/2023 7:51 AM EDT ----- Notify patient treated appropriately with diflucan. [facility]07-08-2024 NoteHNO ID: [id number] Author: NAMOI CASTELAN MD Service: ? Author Type: Physician Type: Progress Notes Filed: 10/18/2023 15:53 Note Text: Ergonomics Consultant offered: Patient declines. Clarisse presents for removal of IUD due to wants Nuva Ring to help with ovarian cyst. Feels like she may have yeast infection. Pt reports has tried OTC monistat with out much relief. Pt reports external itching and white thick discharge. Pt denies other concerns today. UNIVERSAL PROTOCOL / SAFETY CHECKLIST Procedure to be Performed: IUD removal Sign In: A Moment of CARE was completed. Personnel directly involved with the procedure wore the appropriate PPE (Personal Protective Equipment). Patient/Surrogate Stated/Verified: PATIENT VERIFIED(optional for EMERGENT procedures): Patient name, Date of , Relevant allergies, and The intended procedure Time Out Communication: Intended patient and procedure match the source documents. Consent documented and matches the intended procedure. Sign Out: SIGN OUT (optional for EMERGENT procedures): All specimen containers correctly labeled. BP 118/62 Ht 166.4 cm (5' 5.5) Wt 86.2 kg (190 lb) LMP 11/29/2022 BMI 31.14 kg/m? PROCEDURE: Speculum placed in vagina, IUD string visualized and grasped with ring forceps.small amount of white thick discharge c/w yeast ASSESSMENT/PLAN: (Z30.432) Encounter for IUD removal (primary encounter diagnosis) (N89.8) Vaginal itching (N89.8) Vaginal discharge IUD removed without difficulty, intact, and patient tolerated procedure well. Contraception plans: Nuvaring Yeast/bv collected- Diflucan ordered Medical Decision Making: Problems: Low: Acute, uncomplicated illness or injury Data: Unique test(s) ordered: 3+ Risk: Moderate: Drug management Medical Decision Making Level: 4 - Moderate [facility] of Present illness Narrative* Naomi Castelan MD - 10/18/2023 2:47 PM EDT Ergonomics Consultant offered: Patient declines. Clarisse presents for removal of IUD due to wants Nuva Ring to help with ovarian cyst. Feels like she may have yeast infection. Pt reports has tried OTC monistat with out much relief. Pt reports external itching and white thick discharge. Pt denies other concerns today. UNIVERSAL PROTOCOL / SAFETY CHECKLIST Procedure to be Performed: IUD removal Sign In: A Moment of CARE was completed. Personnel directly involved with the procedure wore the appropriate PPE (Personal Protective Equipment). Patient/Surrogate Stated/Verified: PATIENT VERIFIED(optional for EMERGENT procedures): Patient name, Date of , Relevant allergies, and The intended procedure Time Out Communication: Intended patient and procedure match the source documents. Consent documented and matches the intended procedure. Sign Out: SIGN OUT (optional for EMERGENT procedures): All specimen containers correctly labeled. BP 118/62 Ht 166.4 cm (5' 5.5) Wt 86.2 kg (190 lb) LMP 11/29/2022 BMI 31.14 kg/m PROCEDURE: Speculum placed in vagina, IUD string visualized and grasped with ring forceps.small amount of white thick discharge c/w yeast ASSESSMENT/PLAN: (Z30.432) Encounter for IUD removal (primary encounter diagnosis) (N89.8) Vaginal itching (N89.8) Vaginal discharge IUD removed without difficulty, intact, and patient tolerated procedure well. Contraception plans: Nuvaring Yeast/bv collected- Diflucan ordered Medical Decision Making: Problems: Low: Acute, uncomplicated illness or injury Data: Unique test(s) ordered: 3+ Risk: Moderate: Drug management Medical Decision Making Level: 4 - Moderate Naomi Li MD documented in this encounterPremier [facility]04-[facility] NoteHNO ID: [id number] Author: LOUISE CUMMINS PA-C Service: ? Author Type: Physician Milling Operator Type: Progress Notes Filed: 08/04/2023 09:31 Note Text: This note was created using NoteWriter. Subjective Clarisse Molina is a 17 year old female. HPI Patient presents with an itchy rash on during her right breast over the past day. States she was outside in the [place] recently. No insect bites that she knows of. She tried some [id number] itch cream without relief. She denies any new soaps or detergents. No new medications. No new lotions. No rash anywhere else. No recent illness. No cough or fever. Review of Systems Constitutional: Negative. HENT: Negative. Respiratory: Negative. Cardiovascular: Negative. Gastrointestinal: Negative. Musculoskeletal: Negative. Skin: Positive for rash. All other systems reviewed and are negative. PAST MEDICAL HISTORY Diagnosis Date Febrile convulsions (simple), unspecified @ 6months Ruptured ovarian cyst 2021 [facility] Current Outpatient Medications Medication Sig Dispense Refill levonorgestrel (KYLEENA) 17.5 mcg/24 hrs (5 yrs) 19.5 mg IUD 1 Each by INTRAUTERINE route as directed. 1 Each 0 triamcinolone acetonide (KENALOG) 0.1 % cream Apply 1 application to affected area three times a day for 7 days. Apply sparingly to area for rash/itching. 80 g 0 ondansetron orally disintegrating (ZOFRAN ODT) 4 mg disintegrating tablet Take 1 tablet by mouth every 6 hours as needed for nausea/vomiting. (Patient not taking: Reported on 08/04/2023) 12 tablet 0 propranolol ER (INDERAL LA) 60 mg 24 hr capsule propranolol ER 60 mg capsule,24 hr,extended release TAKE 1 CAPSULE BY MOUTH ONCE DAILY (Patient not taking: Reported on 08/04/2023) cetirizine (ZYRTEC) 10 mg tablet Take 10 mg by mouth daily at bedtime. (Patient not taking: Reported on 05/05/2023) fluticasone (FLONASE) 50 mcg/actuation nasal spray Use 1 [place] in each nostril once daily. (Patient not taking: Reported on 05/05/2023) 1 Bottle 0 Polyethylene Glycol 3350 (MIRALAX) 17 gram/dose ORAL powder Take by mouth. 2-3 tablespoons daily. 1 Bottle 3 No current facility-administered medications for this visit. PAST SURGICAL HISTORY Procedure Laterality Date KYLEENA IUD 03/31/2022 5 year TONSILLECTOMY AND ADENOIDECTOMY FAMILY HISTORY Problem Relation Age of Onset other (epilepsy [Other]) Mother No Known Problems Father No Known Problems Sister No Known Problems Brother Arthritis Maternal Grandmother rheumatoid other (epilepsy [Other]) Maternal Grandmother Social History Tobacco Use Smoking status: Never Vaping Use Vaping Use: Never used Substance Use Topics Alcohol use: No Drug use: No Objective BP 128/78 Pulse 88 Temp 36.4 ?C (97.6 ?F) (Tympanic) Resp 18 Wt 87.1 kg (192 lb 0.3 oz) LMP 11/29/2022 SpO2 96% Physical Exam Vitals reviewed. Exam conducted with a hogshead inspector present. Constitutional: Appearance: Normal appearance. HENT: Head: Normocephalic and atraumatic. Chest: Comments: Patient has a mildly erythematous raised papular rash with some excoriation present on the lower right breast. No sign of yeast infection. No petechia or purpura. Skin: General: Skin is warm and dry. Neurological: General: No focal deficit present. Mental Status: She is alert. Assessment and Plan ASSESSMENT/PLAN: 1. Rash - ICD9: 782.1, ICD10: R21 Likely contact dermatitis. Will tx with triamcinolone cream. Discussed skincare. Follow up if not improving. [facility] History of Present illness Narrative* Louise Cummins PA-C - 08/04/2023 9:28 AM EDT Images from the original note were not included. This note was created using pSiFlow Technologyter. Subjective Clarisse Molina is a 17 year old female. HPI Patient presents with an itchy rash on during her right breast over the past day. States she was outside in the [place]. No insect bites that she knows of. She tried some [id number]-kiwwalt itchcream without relief. She denies any new soaps or detergents. No new medications. No new lotions. No rash anywhere else. No recent illness. No cough or fever. Review of Systems Constitutional: Negative. HENT: Negative. Respiratory: Negative. Cardiovascular: Negative. Gastrointestinal: Negative. Musculoskeletal: Negative. Skin: Positive for rash. All other systems reviewed and are negative. PAST MEDICAL HISTORY Diagnosis Date Febrile convulsions (simple), unspecified @ 6months Ruptured ovarian cyst 2021 [facility] Current Outpatient Medications Medication Sig Dispense Refill levonorgestrel (KYLEENA) 17.5 mcg/24 hrs (5 yrs) 19.5 mg IUD 1 Each by INTRAUTERINE route as directed. 1 Each 0 triamcinolone acetonide (KENALOG) 0.1 % cream Apply 1 application to affected area three times a day for 7 days. Apply sparingly to area for rash/itching. 80 g 0 ondansetron orally disintegrating (ZOFRAN ODT) 4 mg disintegrating tablet Take 1 tablet by mouth every 6 hours as needed for nausea/vomiting. (Patient not taking: Reported on 08/04/2023) 12 tablet 0 propranolol ER (INDERAL LA) 60 mg 24 hr capsule propranolol ER 60 mg capsule,24 hr,extended release TAKE 1 CAPSULE BY MOUTH ONCE DAILY (Patient not taking: Reported on 08/04/2023) cetirizine (ZYRTEC) 10 mg tablet Take 10 mg by mouth daily at bedtime. (Patient not taking: Reported on 05/05/2023) fluticasone (FLONASE) 50 mcg/actuation nasal spray Use 1 [place] in each nostril once daily. (Patientnot taking: Reported on 05/05/2023) 1 Bottle 0 Polyethylene Glycol 3350 (MIRALAX) 17 gram/dose ORAL powder Take by mouth. 2-3 tablespoons daily. 1Bottle 3 No current facility-administered medications for this visit. PAST SURGICAL HISTORY Procedure Laterality Date KYLEENA IUD 03/31/2022 5 year TONSILLECTOMY & ADENOIDECTOMY <AGE 12 FAMILY HISTORY Problem Relation Age of Onset other (epilepsy [Other]) Mother No Known Problems Father No Known Problems Sister No Known Problems Brother Arthritis Maternal Grandmother rheumatoid other (epilepsy [Other]) Maternal Grandmother Social History Tobacco Use Smoking status: Never Vaping Use Vaping Use: Never used Substance Use Topics Alcohol use: No Drug use: No Objective BP 128/78 Pulse 88 Temp 36.4 C (97.6 F) (Tympanic) Resp 18 Wt 87.1 kg (192 lb 0.3 oz) LMP11/29/2022 SpO2 96% Physical Exam Vitals reviewed. Exam conducted with a hogshead inspector present. Constitutional: Appearance: Normal appearance. HENT: Head: Normocephalic and atraumatic. Chest: Comments: Patient has a mildly erythematous raised papular rash with some excoriation present on the lower right breast. No sign of yeast infection. No petechia or purpura. Skin: General: Skin is warm and dry. Neurological: General: No focal deficit present. Mental Status: She is alert. Assessment and Plan ASSESSMENT/PLAN: 1. Rash - ICD9: 782.1, ICD10: R21 Likely contact dermatitis. Will tx with triamcinolone cream. Discussed skincare. Follow up if not improving. Louise Cummins PA-C documented in this encounterPremier [facility]02-13-2024 History of Present illness Narrative* Moni Stone APRN.[facility] - 05/25/2023 8:21 AM EST CC: Patient presents with: Ear Pain: Bilat ear pain, nasal congestion, draining into throat x 2 days Patient presents with bilateral ear pain and nasal congestion for two days. Has a sibling who is sick as well. HPI: Clarisse Molina is a 17 year old female who presents to the office with complaint of respiratory symptoms, sinus symptoms, and ear symptoms for 2 days. Symptoms are worsening Associated symptoms includes sore throat, nasal congestion, and ear pain. Denies body aches, fever, dyspnea, nausea, vomiting , and diarrhea. Treatments tried include Ibuprofen with minor relief of symptoms. Sick contacts: yes. History of asthma, frequent episodes of bronchitis, chronic bronchitis, bronchiectasis or COPD: No Smoker: No Seasonal/environmental allergies: No The ROS is otherwise negative. The patient's pmh, medications, allergies, and past visits are reviewed. PHYSICAL EXAM: BP 108/75 Pulse 84 Temp 36.5 C (97.7 F) Resp 18 Wt 83.9 kg (185 lb) LMP 11/29/2022 [id number] General appearance: alert, cooperative, pleasant, in no acute distress Head: Normocephalic Eyes: PERRLA, EOM's intact, conjunctiva pink and moist, no icterus, sclera white, non-injected Ears: Right ear: External ear/canal- Normal, TM - clear with good landmarks. Left ear: External ear/canal- Normal, TM - clear with good landmarks Nose: clear. Oropharynx:moist without lesions, mild erythema, without exudates present Neck:supple and no adenopathy Heart: Negative. RRR without obvious murmur, gallop, or rubs. No ectopy. Lungs: clear to auscultation, without rales or wheeze, good air exchange PAST MEDICAL HISTORY Diagnosis Date Febrile convulsions (simple), unspecified @ 6months Ruptured ovarian cyst 2021 [facility] PAST SURGICAL HISTORY Procedure Laterality Date KYLEENA IUD 03/31/2022 5 year TONSILLECTOMY & ADENOIDECTOMY <AGE 12 ALLERGIES Patient has no known allergies. MEDICATIONS ondansetron orally disintegrating (ZOFRAN ODT) 4 mg disintegrating tablet Take 1 tablet by mouth every 6 hours as needed for nausea/vomiting. propranolol ER (INDERAL LA) 60 mg 24 hr capsule propranolol ER 60 mg capsule,24 hr,extended release TAKE 1 CAPSULE BY MOUTH ONCE DAILY levonorgestrel (KYLEENA) 17.5 mcg/24 hrs (5 yrs) 19.5 mg IUD 1 Each by INTRAUTERINE route as directed. Polyethylene Glycol 3350 (MIRALAX) 17 gram/dose ORAL powder Take by mouth. 2-3 tablespoons daily. amoxicillin (AMOXIL) 875 mg tablet Take 1 tablet by mouth two times a day for 10 days. cetirizine (ZYRTEC) 10 mg tablet Take 10 mg by mouth daily at bedtime. (Patient not taking: Reported on 05/05/2023) fluticasone (FLONASE) 50 mcg/actuation nasal spray Use 1 [place] in each nostril once daily. (Patientnot taking: Reported on 05/05/2023) FAMILY HISTORY Problem Relation Age of Onset other (epilepsy [Other]) Mother No Known Problems Father No Known Problems Sister No Known Problems Brother Arthritis Maternal Grandmother rheumatoid other (epilepsy [Other]) Maternal Grandmother Social History Tobacco Use Smoking status: Never Vaping Use Vaping Use: Never used Substance Use Topics Alcohol use: No Drug use: No DATA REVIEWED: No new labs ASSESSMENT/PLAN: 1. Acute otitis media, bilateral - ICD9: 382.9, ICD10: H66.93 - Will begin treatment with as per antibiotic as written, see orders - Supportive care with plenty of fluids, rest, and analgesia prn. Amoxicillin bid for 10 days Prescription instructions reviewed with patient. Potential red flag symptoms discussed with the patient. Reviewed appropriate action plan to take if red flag symptoms occur. Patient agreeable to treatment plan. Yana Gold Supervising provider was present and guided the care of the patient for the entire session on this date. All documentation was reviewed and agreed upon. Moni Stone APRN.[facility] documented in this encounterPremier [facility]11-18-2023 History of Present illness Narrative* Yohana Martinez APRN.[facility] - 02/27/2023 9:50 AM EST This note was created using pSiFlow Technologyter. Subjective Clarisse Molina is a 17 year old female. 17 year old female with no PMH presents for illness. Acute onset night +bilateral ear pain. +N/V x 1 episode Upset stomach Denies fever or chills. Denies URI sx. Denies using homeopathic or OTC medications. The history is provided by the patient. No slot machine key person was used. Ear Pain This is a new problem. The current episode started in the past 7 days. The problem occurs constantly. The problem has been gradually worsening. Pertinent negatives include no abdominal pain, anorexia, arthralgias, change in bowel habit, chest pain, chills, congestion, coughing, diaphoresis, fatigue, fever, headaches, joint swelling, myalgias, nausea, neck pain, numbness, rash, sore throat, swollen glands, urinary symptoms, vertigo, visual change, vomiting or weakness. Nothing aggravates the symptoms. She has tried nothing for the symptoms. The treatment provided no relief. PAST MEDICAL HISTORY Diagnosis Date Febrile convulsions (simple), unspecified @ 6months Ruptured ovarian cyst 2021 [facility] PAST SURGICAL HISTORY Procedure Laterality Date KYLEENA IUD 03/31/2022 5 year TONSILLECTOMY & ADENOIDECTOMY <AGE 12 ALLERGIES Patient has no known allergies. MEDICATIONS propranolol ER (INDERAL LA) 60 mg 24 hr capsule propranolol ER 60 mg capsule,24 hr,extended release TAKE 1 CAPSULE BY MOUTH ONCE DAILY ondansetron orally disintegrating (ZOFRAN ODT) 4 mg disintegrating tablet Take 1 tablet by mouth every 6 hours as needed for nausea/vomiting. levonorgestrel (KYLEENA) 17.5 mcg/24 hrs (5 yrs) 19.5 mg IUD 1 Each by INTRAUTERINE route as directed. cetirizine (ZYRTEC) 10 mg tablet Take 10 mg by mouth daily at bedtime. fluticasone (FLONASE) 50 mcg/actuation nasal spray Use 1 [place] in each nostril once daily. Polyethylene Glycol 3350 (MIRALAX) 17 gram/dose ORAL powder Take by mouth. 2-3 tablespoons daily. amoxicillin (AMOXIL) 875 mg tablet Take 1 tablet by mouth two times a day for 7 days. FAMILY HISTORY Problem Relation Age of Onset other (epilepsy [Other]) Mother No Known Problems Father No Known Problems Sister No Known Problems Brother Arthritis Maternal Grandmother rheumatoid other (epilepsy [Other]) Maternal Grandmother Social History Tobacco Use Smoking status: Never Vaping Use Vaping Use: Never used Substance Use Topics Alcohol use: No Drug use: No Review of Systems Constitutional: Negative for chills, diaphoresis, fatigue and fever. HENT: Positive for ear pain. Negative for congestion, ear discharge and sore throat. Respiratory: Negative for apnea, cough, choking and chest tightness. Cardiovascular: Negative for chest pain. Gastrointestinal: Negative for abdominal pain, anorexia, change in bowel habit, nausea and vomiting. Musculoskeletal: Negative for arthralgias, joint swelling, myalgias and neck pain. Skin: Negative for rash. Allergic/Immunologic: Negative for environmental allergies, food allergies and immunocompromised state. Neurological: Negative for vertigo, weakness, numbness and headaches. Objective BP 118/76 Pulse 93 Temp 36.6 C (97.8 F) Resp 16 Wt 78.9 kg (174 lb) LMP 11/29/2022 [id number]% Physical Exam Vitals and nursing note reviewed. Constitutional: General: She is not in acute distress. Appearance: Normal appearance. She is normal weight. She is not ill-appearing, toxic-appearing or diaphoretic. HENT: Head: Normocephalic and atraumatic. Right Ear: Ear canal and external ear normal. Left Ear: Ear canal and external ear normal. Ears: Comments: Bilateral TM's erythematous and bulging Nose: Nose normal. No congestion or rhinorrhea. Mouth/Throat: Mouth: Mucous membranes are moist. Pharynx: No oropharyngeal exudate or posterior oropharyngeal erythema. Eyes: General: Right eye: No discharge. Left eye: No discharge. Extraocular Movements: Extraocular movements intact. Conjunctiva/sclera: Conjunctivae normal. Pupils: Pupils are equal, round, and reactive to light. Cardiovascular: Rate and Rhythm: Normal rate and regular rhythm. Pulses: Normal pulses. Heart sounds: Normal heart sounds. No murmur heard. No friction rub. Pulmonary: Effort: Pulmonary effort is normal. No respiratory distress. Breath sounds: Normal breath sounds. No stridor. No wheezing, rhonchi or rales. Chest: Chest wall: No tenderness. Abdominal: General: Abdomen is flat. There is no distension. Palpations: Abdomen is soft. There is no mass. Tenderness: There is no abdominal tenderness. There is no right CVA tenderness, left CVA tenderness, guarding or rebound. Hernia: No hernia is present. Musculoskeletal: General: No swelling, tenderness, deformity or signs of injury. Normal range of motion. Cervical back: Normal range of motion and neck supple. No rigidity. Right lower leg: No edema. Left lower leg: No edema. Lymphadenopathy: Cervical: No cervical adenopathy. Skin: General: Skin is warm and dry. Capillary Refill: Capillary refill takes less than 2 seconds. Coloration: Skin is not jaundiced or pale. Findings: No bruising, erythema, lesion or rash. Neurological: General: No focal deficit present. Mental Status: She is alert and oriented to person, place, and time. Cranial Nerves: No cranial nerve deficit. Sensory: No sensory deficit. Motor: No weakness. Coordination: Coordination normal. Gait: Gait normal. Psychiatric: Mood and Affect: Mood normal. Behavior: Behavior normal. Thought Content: Thought content normal. Judgment: Judgment normal. Assessment and Plan ASSESSMENT/PLAN: 1. Acute otitis media, bilateral - ICD9: 382.9, ICD10: H66.93 - Will begin treatment with as per antibiotic as written, see orders - The patient should also be given OTC cough and cold meds as needed, warm salt water gargles, throat lozenges and/or OTC throat spray as needed, and nasal saline gtts and suction prn for the first 5-7 days of treatment. - Supportive care with plenty of fluids, rest, and analgesia prn. - Follow up in 3-5 days if symptoms persist or worsen. Yohana Martinez APRN.PEDODONTIST documented in this encounterPremier Health [facility]11-09-2023 Miscellaneous Notes* Telephone Encounter - Cristine Garcia RN - 02/18/2023 9:36 AM EST Mother called back. States when she was with her daughter last evening she was doing fine. No swelling seen like patient described to mother. Mother said she is doing well today with no complaints. Declines needing any follow up. Instructed to call with prn questions/concerns. Cristine Garcia RN * Telephone Encounter - Jana Chinchilla RN - 02/18/2023 9:09 AM EST Attempted to call patient. Unable to leave message because it only stated to enter remote access code and no option to leave voicemail was given. Jana Chinchilla RN * Telephone Encounter - Naomi Castelan MD - 02/17/2023 5:01 PM EST Patient can be seen by any provider where appropriate. If her pain is that severe I would recommendER visit. There are a few openings tomorrow would prefer she be seen in the morning instead of afternoon. Ultrasound done in January was normal- had ultrasound done november which showed 6cm cyst. Can do another us to make sure there is not another cyst that formed which could be source of her pain. Ultrasound for radiology placed. * Telephone Encounter - Cristine Garcia RN - 02/17/2023 4:12 PM EST See 02/15/23 phone note. Mother called in. States the patient was texting her while at school that her bleeding became heavy, having left sided pelvic pain, can feel a lump in her abdomen, and her left side is swollen. Mother wanting patient to have a visit tomorrow. No openings other than 10 min OBvisit with you tomorrow afternoon. Mother unable to give any more details and she won't see the patient until later this evening. Advised to take her to ER if her pain is severe. Please advise. Cristine Garcia RN documented in this encounterPremier Health [facility]11-06-2023 Miscellaneous Notes* Telephone Encounter - Cristine Garcia RN - 02/15/2023 3:43 PM EST Spoke with mother. RM 4 PM is booked. Patient took Tylenol at noon. Instructed to take Ibuprofen 600 mg Q 6 hours. If that doesn't help, she will call in to the office to be seen tomorrow. Cristine Garcia RN * Telephone Encounter - Naomi Castelan MD - 02/15/2023 3:32 PM EST Would encourage her to take ibuprofen 600mg every 6hrs. Could be menses for her. IUD was just checkand in proper location- it would be rare but possible IUD trying to expulse if this is the case pain will typically not get better with ibuprofen- typically feel very cramping with heavy bleeding. Inthat case would recommend appointment and ultrasound to check placement- if pain is that severe shemay need to go to ER to be evaluated. I am not in office to see her today. Looks like RM has opening at 4pm today if patient can get to office by then to be seen. If not and pain is still present canshe be seen tomorrow. * Telephone Encounter - Jana Chinchilla RN - 02/15/2023 11:40 AM EST Patient's mother calling for patient. Patient started with bleeding and RLQ pain yesterday. Pain isconstant. Unsure of exact severity now because patient is at school and has only been texting mother updates. But feels pain is getting worse. Patient has had to change pad 5 times since 6am this morning. Typically does not have menses with the IUD. Does have h/o ovarian cysts and has Kyleena IUD. Last u/s 01/12/23 showed no cysts and IUD was in correct place. Please advise in AG and DM's absence. Jana Chinchilla RN documented in this encounterPremier Health [facility]09-13-2023 History of Present illness Narrative* Luc Marie, FIRE PREVENTION SPECIALIST.PEDODONTIST - 12/23/2022 10:22 AM EDT Images from the original note were not included. Subjective HPI Nontoxic-appearing female presents urgent care chief plaint rash. Duration of symptoms 1 day. Associated symptoms pruritic rash bilateral forearms. Has not used any OTC medications. No specific pain.It is painful if she scratches it a lot. No recent bladder medical lifestyle or or medication changes. Denies any fever body aches chills productive cough chest pain shortness of breath pleuritic pain hemoptysis nausea vomiting abdominal pain change in bowel or bladder habits. Past medical history prescription medication use and allergies reviewed. .Patient presents with: Rash: Bilateral forearms x1 day PAST MEDICAL HISTORY Diagnosis Date Febrile convulsions (simple), unspecified @ 6months Ruptured ovarian cyst 2021 [facility] PAST SURGICAL HISTORY Procedure Laterality Date KYLEENA IUD 03/31/2022 5 year TONSILLECTOMY & ADENOIDECTOMY <AGE 12 ALLERGIES Patient has no known allergies. MEDICATIONS propranolol ER (INDERAL LA) 60 mg 24 hr capsule propranolol ER 60 mg capsule,24 hr,extended release TAKE 1 CAPSULE BY MOUTH ONCE DAILY ondansetron orally disintegrating (ZOFRAN ODT) 4 mg disintegrating tablet Take 1 tablet by mouth every 6 hours as needed for nausea/vomiting. levonorgestrel (KYLEENA) 17.5 mcg/24 hrs (5 yrs) 19.5 mg IUD 1 Each by INTRAUTERINE route as directed. cetirizine (ZYRTEC) 10 mg tablet Take 10 mg by mouth daily at bedtime. fluticasone (FLONASE) 50 mcg/actuation nasal spray Use 1 [place] in each nostril once daily. Polyethylene Glycol 3350 (MIRALAX) 17 gram/dose ORAL powder Take by mouth. 2-3 tablespoons daily. FAMILY HISTORY Problem Relation Age of Onset other (epilepsy [Other]) Mother No Known Problems Father No Known Problems Sister No Known Problems Brother Arthritis Maternal Grandmother rheumatoid other (epilepsy [Other]) Maternal Grandmother Social History Tobacco Use Smoking status: Never Vaping Use Vaping Use: Never used Substance Use Topics Alcohol use: No Drug use: No .Patient presents with: Rash: Bilateral forearms x1 day PAST MEDICAL HISTORY Diagnosis Date Febrile convulsions (simple), unspecified @ 6months Ruptured ovarian cyst 2021 [facility] PAST SURGICAL HISTORY Procedure Laterality Date KYLEENA IUD 03/31/2022 5 year TONSILLECTOMY & ADENOIDECTOMY <AGE 12 ALLERGIES Patient has no known allergies. MEDICATIONS propranolol ER (INDERAL LA) 60 mg 24 hr capsule propranolol ER 60 mg capsule,24 hr,extended release TAKE 1 CAPSULE BY MOUTH ONCE DAILY ondansetron orally disintegrating (ZOFRAN ODT) 4 mg disintegrating tablet Take 1 tablet by mouth every 6 hours as needed for nausea/vomiting. levonorgestrel (KYLEENA) 17.5 mcg/24 hrs (5 yrs) 19.5 mg IUD 1 Each by INTRAUTERINE route as directed. cetirizine (ZYRTEC) 10 mg tablet Take 10 mg by mouth daily at bedtime. fluticasone (FLONASE) 50 mcg/actuation nasal spray Use 1 [place] in each nostril once daily. Polyethylene Glycol 3350 (MIRALAX) 17 gram/dose ORAL powder Take by mouth. 2-3 tablespoons daily. FAMILY HISTORY Problem Relation Age of Onset other (epilepsy [Other]) Mother No Known Problems Father No Known Problems Sister No Known Problems Brother Arthritis Maternal Grandmother rheumatoid other (epilepsy [Other]) Maternal Grandmother Social History Tobacco Use Smoking status: Never Vaping Use Vaping Use: Never used Substance Use Topics Alcohol use: No Drug use: No BP 116/77 Pulse 82 Temp 36.2 C (97.2 F) Resp 18 Wt 77.3 kg (170 lb 6.4 oz) LMP 11/29/2022 SpO2 98% Review of Systems Constitutional: Negative for chills, fever and malaise/fatigue. HENT: Negative for congestion, ear discharge, ear pain, sinus pain and sore throat. Eyes: Negative for blurred vision, pain, discharge and redness. Respiratory: Negative for cough, hemoptysis, sputum production, shortness of breath, wheezing and stridor. Cardiovascular: Negative for chest pain. Gastrointestinal: Negative for abdominal pain, diarrhea, nausea and vomiting. Musculoskeletal: Negative for myalgias. Skin: Positive for itching and rash. Neurological: Negative for dizziness and headaches. Objective Physical Exam Constitutional: General: She is not in acute distress. Appearance: She is not diaphoretic. HENT: Head: Normocephalic. Jaw: No trismus, tenderness, swelling or pain on movement. Mouth/Throat: Mouth: Mucous membranes are moist. Pharynx: Oropharynx is clear. Uvula midline. No pharyngeal swelling, oropharyngeal exudate, posterior oropharyngeal erythema or uvula swelling. Eyes: Conjunctiva/sclera: Conjunctivae normal. Pupils: Pupils are equal, round, and reactive to light. Cardiovascular: Rate and Rhythm: Normal rate and regular rhythm. Heart sounds: Normal heart sounds. Pulmonary: Effort: Pulmonary effort is normal. No tachypnea, accessory muscle usage or respiratory distress. Breath sounds: Normal breath sounds. No stridor. No wheezing, rhonchi or rales. Abdominal: General: There is no distension. Palpations: Abdomen is soft. Tenderness: There is no abdominal tenderness. There is no guarding or rebound. Musculoskeletal: Cervical back: Normal range of motion and neck supple. No edema, erythema, rigidity or tenderness. No pain with movement. Normal range of motion. Lymphadenopathy: Cervical: No cervical adenopathy. Skin: General: Skin is warm and dry. Comments: Erythematous based rash with excoriation noted on bilateral forearms. Spares palms of hand. No dissipation of skin. No mucosal membrane involvement. Neurological: Mental Status: She is alert and oriented to person, place, and time. ASSESSMENT/PLAN: 1. Contact dermatitis, unspecified contact dermatitis type, unspecified trigger - ICD9: 692.9, ICD10: L25.9 Diagnosed with contact dermatitis. Treat with triamcinolone. Red flags proper elevation discussed. Patient was educated on supportive therapies. Patient will follow up with primary care provider as needed. Patient was instructed to immediately proceed to emergency room for any new, worsening, or symptoms lasting longer than anticipated. The patient's clinical presentation is otherwise unremarkable at this time. Based on exam and clinical finding, the patient is stable for discharge. Plan of care was discussed with patient. Patient verbalizes understanding and agrees to plan of care. This note was generated using [employer] software. It may contain errors in wording, punctuation, or spelling. Luc Marie APRN.CHELSEY documented in this encounterPremier Health [facility]08-22-2023 Miscellaneous Notes* Telephone Encounter - Amanda Head LPN - 12/01/2022 2:54 PM EDT Patient's mother notified * Telephone Encounter - Naomi Castelan MD - 12/01/2022 1:11 PM EDT Pt seen today for pelvic pain and back pain- did not have acute abdomen- please notify her that shehas 6cm hemorrhagic right ovarian cyst. She was tender on bimanual but not acute. Would recommend repeat ultrasound in 6-8 weeks to make sure it resolved. Please give precautions for acute abdomen and torsion. Will place follow up ultrasound orders. documented in this encounterPremier Health [facility]08-22-2023 Miscellaneous Notes* Addendum Note - Naomi Castelan MD - 12/01/2022 1:12 PM EDTAddended by: NAOMI MATOS on: 12/01/2022 01:12 PM Modules accepted: Orders documented in this encounterPremier Health [facility]08-22-2023 History of Present illness Narrative* Naomi Castelan MD - 12/01/2022 8:46 AM EDT Ergonomics Consultant offered: Patient declines. Clarisse Molina is a 17 year old female who presents for concerns regarding left lower back pain that she describes as stabbing as well as stabbing pelvic pain. Pain in left lower back does not radiate down leg. Patient reports was not able to feel her IUD strings over the weekend. Patient reports some pain when urinating but states it is different than UTI pain patient denies any abnormal discharge or odors. She reports no pain with intercourse or abnormal bleeding. Something wrong with her IUD. No other concerns today. OB History No obstetric history on file. [employer] History LMP: 11/29/2022, IUD Age at Menarche: Age at First : Age at Menopause: [employer] History Comments: Sexual Activity: Yes; Male Contraception: I.U.D. PAST MEDICAL HISTORY Diagnosis Date Febrile convulsions (simple), unspecified @ 6months Ruptured ovarian cyst 2021 [facility] PAST SURGICAL HISTORY Procedure Laterality Date KYLEENA IUD 03/31/2022 5 year TONSILLECTOMY & ADENOIDECTOMY <AGE 12 FAMILY HISTORY Problem Relation Age of Onset other (epilepsy [Other]) Mother No Known Problems Father No Known Problems Sister No Known Problems Brother Arthritis Maternal Grandmother rheumatoid other (epilepsy [Other]) Maternal Grandmother Social History Tobacco Use Smoking status: Never Vaping Use Vaping Use: Never used Substance Use Topics Alcohol use: No Drug use: No Current Outpatient Medications Medication Sig fluconazole (DIFLUCAN) 150 mg tablet Take 1 tablet by mouth one time only for 1 dose. propranolol ER (INDERAL LA) 60 mg 24 hr capsule propranolol ER 60 mg capsule,24 hr,extended release TAKE 1 CAPSULE BY MOUTH ONCE DAILY ondansetron orally disintegrating (ZOFRAN ODT) 4 mg disintegrating tablet Take 1 tablet by mouth every 6 hours as needed for nausea/vomiting. levonorgestrel (KYLEENA) 17.5 mcg/24 hrs (5 yrs) 19.5 mg IUD 1 Each by INTRAUTERINE route as directed. cetirizine (ZYRTEC) 10 mg tablet Take 10 mg by mouth daily at bedtime. fluticasone (FLONASE) 50 mcg/actuation nasal spray Use 1 [place] in each nostril once daily. Polyethylene Glycol 3350 (MIRALAX) 17 gram/dose ORAL powder Take by mouth. 2-3 tablespoons daily. No current facility-administered medications for this visit. Allergies As of Date: 12/01/2022 (No Known Allergies) Fully Assessed 12/01/2022 REVIEW OF SYSTEMS Abdomen: denies N/V, Fevers that she is aware of Bladder: no urgency or frequency.. Expanded ROS: GENERAL: Negative for fever Allergies and current medication updated:Yes EXAM: BP 110/70 Wt 168 lb (76.2kg) LMP 11/29/2022 GENERAL: pleasant, female in no apparent distress HEENT: Normocephalic, atraumatic, mucus membranes moist, and no lesions NECK: full range of motion DERMATOLOGY: Normal and without lesions ABDOMEN: soft, non-tender, and no masses PELVIC: external genitalia normal, normal Bartholin's glands, urethra, Peck's glands, no vulvar lesions, no cervical lesions, good vaginal support, normal appearing perineal body and perianal region, IUD strings are present. Moderate amount of thick white discharge. BIMANUAL: uterus normal size, shape and consistency, no adnexal masses, and Moderate tenderness NEURO: alert and oriented x3,exam grossly non-focal EXTREMITIES: normal ASSESSMENT AND PLAN: Encounter Diagnosis ICD-10-CM 1. Pelvic pain in female R10.2 US FEMALE PELVIS TRANSVAG PELVIC US WHI ERICK/TRICHOMONAS NAAT BACTERIAL VAGINOSIS NAAT GONORRHEA/CHLAMYDIA NAAT 2. IUD (intrauterine device) in place Z97.5 US FEMALE PELVIS TRANSVAG PELVIC US WHI 3. Vaginal discharge N89.8 ERICK/TRICHOMONAS NAAT BACTERIAL VAGINOSIS NAAT GONORRHEA/CHLAMYDIA NAAT 4. Dysuria R30.0 5. Urine dip- negative. 6. Will call with results. Diflucan given for likely yeast. Reassurance that IUD in proper location. Medical Decision Making: Problems: Moderate: New problem with uncertain prognosis Data: Unique test(s) ordered: 3+ Risk: Moderate: Drug management Medical Decision Making Level: 4 - Moderate Naomi Li MD documented in this encounterPremier Health [facility]03-22-2023 Miscellaneous Notes* Telephone Encounter - Yana Carias - 07/01/2022 8:13 AM EDT Left detailed message on a secured voicemail. Yana Aretha * Telephone Encounter - TOMMY Mack - 07/01/2022 7:26 AM EDT Negative for COVID flu RSV documented in this encounterPremier Health [facility]03-21-2023 History of Present illness Narrative* Bee Lr APRN.CHELSEY - 06/30/2022 8:29 AM EDT Subjective Headache Associated symptoms include a fever, malaise/fatigue, nausea and vomiting. Clarisse Molina is a 16 year old female who presents with one day of headache, body aches, stuffy nose, nausea and vomiting.She had multiple episodes of vomiting yesterday but none today, but does still have nausea. She also had a fever yesterday but not this morning. Review of Systems Constitutional: Positive for fever and malaise/fatigue. Negative for chills. HENT: Positive for congestion. Negative for ear pain and sore throat. Respiratory: Negative for cough. Cardiovascular: Negative. Gastrointestinal: Positive for nausea and vomiting. Negative for abdominal pain and diarrhea. Musculoskeletal: Positive for myalgias. Neurological: Positive for headaches. BP 122/80 Pulse 80 Temp 36.7 C (98 F) (Tympanic) Resp 18 Wt 72.8 kg (160 lb 6.4 oz) LMP 04/09/2022 SpO2 99% PAST MEDICAL HISTORY Diagnosis Date Febrile convulsions (simple), unspecified @ 6months Ruptured ovarian cyst 2021 [facility] PAST SURGICAL HISTORY Procedure Laterality Date KYLEENA IUD 03/31/2022 5 year TONSILLECTOMY & ADENOIDECTOMY <AGE 12 ALLERGIES Patient has no known allergies. MEDICATIONS levonorgestrel (KYLEENA) 17.5 mcg/24 hrs (5 yrs) 19.5 mg IUD 1 Each by INTRAUTERINE route as directed. cetirizine (ZYRTEC) 10 mg tablet Take 10 mg by mouth daily at bedtime. fluticasone (FLONASE) 50 mcg/actuation nasal spray Use 1 [place] in each nostril once daily. Polyethylene Glycol 3350 (MIRALAX) 17 gram/dose ORAL powder Take by mouth. 2-3 tablespoons daily. ondansetron orally disintegrating (ZOFRAN ODT) 4 mg disintegrating tablet Take 1 tablet by mouth every 6 hours as needed for nausea/vomiting. miSOPROStol (CYTOTEC) 200 mcg tablet Insert 2 tablets vaginally night prior to IUD insertion and 2 tablets morning of procedure. Each dose should be in vagina for 6-8 hours. (Patient not taking: Reported on 05/05/2022) nitrofurantoin monohydrate and macrocrystal (MACROBID) 100 mg capsule (Patient not taking: No sig reported) FAMILY HISTORY Problem Relation Age of Onset other (epilepsy [Other]) Mother No Known Problems Father No Known Problems Sister No Known Problems Brother Arthritis Maternal Grandmother rheumatoid other (epilepsy [Other]) Maternal Grandmother Social History Tobacco Use Smoking status: Never Vaping Use Vaping Use: Never used Substance Use Topics Alcohol use: No Drug use: No Objective Physical Exam Vitals and nursing note reviewed. Constitutional: General: She is not in acute distress. Appearance: Normal appearance. She is not toxic-appearing. HENT: Right Ear: Tympanic membrane, ear canal and external ear normal. Left Ear: Tympanic membrane, ear canal and external ear normal. Mouth/Throat: Mouth: Mucous membranes are moist. Pharynx: Oropharynx is clear. Uvula midline. No oropharyngeal exudate or posterior oropharyngeal erythema. Cardiovascular: Rate and Rhythm: Normal rate and regular rhythm. Heart sounds: Normal heart sounds. Pulmonary: Effort: Pulmonary effort is normal. No respiratory distress. Breath sounds: Normal breath sounds. No wheezing or rales. Musculoskeletal: Cervical back: Neck supple. Lymphadenopathy: Cervical: No cervical adenopathy. Skin: General: Skin is warm and dry. Findings: No erythema or rash. Neurological: Mental Status: She is alert. ASSESSMENT/PLAN: 1. Flu-like symptoms - ICD9: 780.99, ICD10: R68.89 - ONDANSETRON 4 MG DISINTEGRATING TABLET - COVID, FLU A/B + RSV, ROUTINE - 2019 CORONAVIRUS - ROUTINE FLU A/B + RSV - increase fluid intake. - Follow-up with your PCP in 3-5 days if symptoms have not improved or sooner if symptoms worsen - Discussed red flags and need for immediate medical evaluation if any occur. - Discussed supportive care treatment with fluids, rest and analgesia. - Discussed expected course of illness Bee Lr APRN.CNP documented in this encounterPremier Health [facility]03-21-2023 Instructions* Patient Instructions* Bee Lr APRN.CNP - 06/30/2022 8:29 AM EDT ASSESSMENT/PLAN: 1. Flu-like symptoms - ICD9: 780.99, ICD10: R68.89 - ONDANSETRON 4 MG DISINTEGRATING TABLET - COVID, FLU A/B + RSV, ROUTINE - 2019 CORONAVIRUS - ROUTINE FLU A/B + RSV - increase fluid intake. - Follow-up with your PCP in 3-5 days if symptoms have not improved or sooner if symptoms worsen - Discussed red flags and need for immediate medical evaluation if any occur. - Discussed supportive care treatment with fluids, rest and analgesia. - Discussed expected course of illness Bee Lr APRN.CNP documented in this encounterPremier Health [facility]01-24-2023 History of Present illness Narrative* Lillian Norris APRN.CNP - 05/05/2022 6:50 AM EST Clarisse Molina presents today for IUD check. She had a Kyleena placed on 03/31/2022. She has had no complications since placement. REVIEW OF SYSTEMS: No pain, fever or chills PHYSICAL EXAMINATION: BP 100/60 Wt 159 lb 12.8 oz (72.5kg) LMP 04/09/2022 ABDOMEN:soft, non-tender, no masses, no hepatosplenomegaly, and no lymphadenopathy EXTERNAL GENITALIA: Normal genitalia and Bartholins, Urethra, Sken'e normal CERVIX: smooth, no lesions. IUD strings visible. UTERUS: normal size ADNEXA: negative for tenderness or masses IMPRESSION/PLAN: IUD correctly positioned. Follow up for annual exam or sooner if needed. Lillian Norris APRN.CNP I spent a total of 15 minutes on the date of the service which included preparing to see the patient, [id number] patient care, completing clinical documentation, obtaining and/or reviewing separately obtained history, performing a medically appropriate examination, and counseling and educating the patient/family/caregiver. documented in this encounterPremier Health [facility]01-17-2023 Miscellaneous Notes* Telephone Encounter - Jana Chinchilla RN - 04/28/2022 9:39 AM EST Patient's mother notified. Jana Chinchilla RN * Telephone Encounter - Cristine Garcia RN - 04/28/2022 8:27 AM EST Left message for patient to call office. Cristine Garcia RN * Telephone Encounter - Lillian Norris APRN.CNP - 04/27/2022 6:04 PM EST Agree with nursing advice. Lillian Norris APRN.CNP * Telephone Encounter - Cristine Garcia RN - 04/27/2022 8:24 AM EST Patient's mother called. Patient had IUD inserted on 03/31/22. She initially had spotting, but now it has become a normal menses flow the last few days. Discussed that she may have irregular bleedingthe first 3 months of use. Reviewed bleeding precautions and the call if she develops pain. Has an IUD check on 05/05/22. Aware AG is out of the office today. Cristine Garcia RN documented in this encounterPremier Health [facility]12-06-2022 History of Present illness Narrative* Lillian Norris APRN.PEDODONTIST - 03/17/2022 7:25 AM EST Ergonomics Consultant offered: Patient declines. Clarisse Molina is a 16 year old female who presents for problem visit pelvic pain for 1 week(s). HPI: Usually has back and pelvic pain prior to starting menses. Pain usually lasts 1-2 days and then has cramping on first day of menses. Currently, pain has been present for one week and is more intense than usual. Had pain when she was here 4 days ago but did not mention it because she just thought menses was going to start but it has not yet. Pain now localized on the left side and feels like previous ovarian cyst but not quite as intense. Has history of ruptured right ovarian cyst earlier this year - evaluated at [facility]. OB History No obstetric history on file. [employer] History LMP: 11/19/2021, Having periods Age at Menarche: Age at First : Age at Menopause: [employer] History Comments: Sexual Activity: Never; No partner data on record Contraception: No contraception data on record PAST MEDICAL HISTORY Diagnosis Date Febrile convulsions (simple), unspecified @ 6months PAST SURGICAL HISTORY Procedure Laterality Date TONSILLECTOMY & ADENOIDECTOMY <AGE 12 FAMILY HISTORY Problem Relation Age of Onset other (epilepsy [Other]) Mother No Known Problems Father No Known Problems Sister No Known Problems Brother Arthritis Maternal Grandmother rheumatoid other (epilepsy [Other]) Maternal Grandmother Social History Tobacco Use Smoking status: Never Vaping Use Vaping Use: Never used Substance Use Topics Alcohol use: No Drug use: No Current Outpatient Medications Medication Sig cetirizine (ZYRTEC) 10 mg tablet Take 10 mg by mouth daily at bedtime. fluticasone (FLONASE) 50 mcg/actuation nasal spray Use 1 [place] in each nostril once daily. miSOPROStol (CYTOTEC) 200 mcg tablet Insert 2 tablets vaginally night prior to IUD insertion and 2 tablets morning of procedure. Each dose should be in vagina for 6-8 hours. SPRINTEC 0.25-35 mg-mcg per tablet (Patient not taking: Reported on 03/13/2022) nitrofurantoin monohydrate and macrocrystal (MACROBID) 100 mg capsule (Patient not taking: No sig reported) CELESTE FE 1.5/30, 28, 1.5 mg-30 mcg (21)/75 mg (7) tablet Take 1 tablet by mouth once daily. (Patient not taking: No sig reported) Polyethylene Glycol 3350 (MIRALAX) 17 gram/dose ORAL powder Take by mouth. 2-3 tablespoons daily. No current facility-administered medications for this visit. Allergies As of Date: 03/17/2022 (No Known Allergies) Fully Assessed 03/17/2022 REVIEW OF SYSTEMS Abdomen: see HPI Bladder: No dysuria, gross hematuria, urinary frequency, urinary urgency, or incontinence. Allergies and current medication updated:Yes EXAM: BP 100/68 Wt 157 lb (71.2kg) LMP 11/19/2021 GENERAL: pleasant, female in no apparent distress CHEST: Normal inspiratory effort ABDOMEN: soft, no masses, and Moderate tenderness in LLQ NEURO: alert and oriented x3,exam grossly non-focal ASSESSMENT/PLAN: 1. Pelvic pain in female - ICD9: 625.9, ICD10: R10.2 (primary diagnosis) - suspect ovarian cyst. Discussed physiology and cyclic nature of ovarian cysts, prevention of ovarian cysts with OCP and Depo-Provera and treatment with NSAIDs and heat. Given written information. Discussed ovarian torsion risk, symptoms and need for immediate medical attention if they occur. - US FEMALE PELVIS TRANSVAG 2. Irregular menstrual cycle - ICD9: 626.4, ICD10: N92.6 - Scheduled for Kyleena IUD insertion 03/31/2022. Discussed that this may or not help the formationof ovarian cysts. - MEDROXYPROGESTERONE 10 MG TABLET - will start medication after pelvic ultrasound results are called to her. Will notify of results. Follow- up as needed and at IUD insertion. Lillian Norris APRN.CNP Medical Decision Making: Problems: Low: Stable chronic illness Moderate: New problem with uncertain prognosis Data: Unique test(s) ordered: 1 Risk: Moderate: Drug management Medical Decision Making Level: 4 - Moderate documented in this encounterPremier Health [facility]12-05-2022 Miscellaneous Notes* Telephone Encounter - Jana Chinchilla RN - 03/16/2022 11:18 AM EST Patient's mother calling. Patient currently at school and texted her mother that she is having severe pelvic pain again. Unable to tell me any specifics since she is not with patient other then it isall across pelvic and lower back areas. She is going to see if patient can get ibuprofen at school to take to see if that helps. Mother said she has not had menses since November and this previously happened to patient before. Feels like her body is trying to start menses. States she went to ER last time this happened and they were told there was an ovarian cyst, but pain then subsided. Requesting f/u visit with AG tomorrow if pain persists and appointment scheduled. Advised if pelvic pain is severe especially if worse on one side and she has n/v and/or fever to go back to ER. Mother agreed. Patient is scheduled on 03/31/22 for Kyleena insertion. ALMA. Jana Chinchilla RN documented in this encounterPremier Health [facility]12-02-2022 Instructions* Patient Instructions* Lillian Norris APRN.CNP - 03/13/2022 8:44 AM EST Schedule when on menses Ibuprofen 600-800 prior to appointment Vaginal cytotec Eat before appointment. documented in this encounterPremier Health [facility]12-02-2022 History of Present illness Narrative* Lillian Norris APRN.CNP - 03/13/2022 8:17 AM EST Clarisse Molina is a 16 year old who presents today for contraception. Patient's last menstrual period was 11/11/2021 (within weeks).. Menarche age 14 - menses now every 1-3 months lasting 2-3 days. SUBJECTIVE Sexually active: Not for 2 months Method of control: none Methods tried previously: oral contraceptives Sprintec unsatisfactory - feels that it caused UTI's and since stopping it she has had no UTI's. Patient currently interested in: IUD Date of last test: Not applicable Relevant Past Medical History: No relevant past medical history OBJECTIVE: General Appearance: Well appearing, alert, in no acute distress, well-hydrated, well nourished. Chest: normal inspiratory effor Neuro: A&O x 3 ASSESSMENT/PLAN: 1. General counseling and advice for contraceptive management - ICD9: V25.09, ICD10: Z30.09 Discussed IUD options with RBA. Pt would like to proceed with Kyleena IUD insertion. - MISOPROSTOL 200 MCG TABLET - INSERT INTRAUTERINE DEVICE - POC UPT - negative Education: Schedule when on menses Ibuprofen 600-800 prior to appointment Vaginal cytotec Eat before appointment. Parent must come to sign consent. Follow-up at IUD insertion. Lillian Norris APRN.CNP I spent a total of 20 minutes on the date of the service which included preparing to see the patient, [id number] patient care, completing clinical documentation, obtaining and/or reviewing separately obtained history, performing a medically appropriate examination, counseling and educating the pat ient/family/caregiver, and ordering medications, tests, or procedures. documented in this encounterPrem[facility] Miscellaneous Notes* Telephone Encounter - Yohana Martinez APRN.CNP - 02/11/2022 11:39 AM EDT Vaginal cultures return GC/Chlamydia negative BV negative Yeast + Spoke with mom and discussed results Diflucan sent into pharmacy on file. She has follow up with [facility] tomorrow. documented in this encounterPrem[facility]11-01-2022 History of Present illness Narrative* Luc Marie APRN.CNP - 02/10/2022 9:19 AM EDT Subjective HPI Nontoxic-appearing female presents urgent care accompanied by mother. Chief complaint recurrent UTIs. Duration of symptoms 2 to 3 months. Associated symptoms. Current burning with urination and vaginal discomfort. Was seen multiple times for this chief complaint. Last seen at [facility]. Placed on Macro bid. Is currently on Macrobid today. States she did have vaginal discomfort. No vaginal exam was performed at office. Presents today due to vaginal burning stinging sensation. The sensation is consistent not just with urination. Patient states she has been sexually active however has not been sexually active for about 1 year. Did have 3 partners. Did use protection. Presents today for evaluation.Denies any fever body aches chills nausea vomiting or abdominal pain. Past medical history prescription medication use allergies reviewed. .Patient presents with: Urinary Frequency: Frequency and burning-woke up with symptoms PAST MEDICAL HISTORY Diagnosis Date Febrile convulsions (simple), unspecified @ 6months PAST SURGICAL HISTORY Procedure Laterality Date NONE ALLERGIES Patient has no known allergies. MEDICATIONS SPRINTEC 0.25-35 mg-mcg per tablet nitrofurantoin monohydrate and macrocrystal (MACROBID) 100 mg capsule cetirizine (ZYRTEC) 10 mg tablet Take 10 mg by mouth daily at bedtime. CELESTE FE 1.5/30, 28, 1.5 mg-30 mcg (21)/75 mg (7) tablet Take 1 tablet by mouth once daily. (Patient not taking: Reported on 02/10/2022) fluticasone (FLONASE) 50 mcg/actuation nasal spray Use 1 [place] in each nostril once daily. Polyethylene Glycol 3350 (MIRALAX) 17 gram/dose ORAL powder Take by mouth. 2-3 tablespoons daily. FAMILY HISTORY Problem Relation Age of Onset Arthritis Maternal Grandmother rheumatoid other (epilepsy [Other]) Mother other (epilepsy [Other]) Maternal Grandmother Social History Tobacco Use Smoking status: Never Substance Use Topics Alcohol use: No Drug use: No BP 102/78 Pulse 78 Temp 36.1 C (97 F) (Tympanic) Resp 18 Wt 70.2 kg (154 lb 12.8 oz) LMP (LMP Unknown) SpO2 99% Review of Systems Constitutional: Negative for chills, fever and malaise/fatigue. HENT: Negative for congestion, ear discharge, ear pain, sinus pain and sore throat. Eyes: Negative for blurred vision, pain, discharge and redness. Respiratory: Negative for cough, hemoptysis, sputum production, shortness of breath, wheezing and stridor. Cardiovascular: Negative for chest pain. Gastrointestinal: Negative for abdominal pain, diarrhea, nausea and vomiting. Genitourinary: Positive for dysuria and frequency. Negative for flank pain, hematuria and urgency. Musculoskeletal: Negative for myalgias. Skin: Negative for itching and rash. Neurological: Negative for dizziness and headaches. Objective Physical Exam Exam conducted with a hogshead inspector present. Constitutional: General: She is not in acute distress. Appearance: She is not diaphoretic. HENT: Head: Normocephalic. Mouth/Throat: Mouth: Mucous membranes are moist. Pharynx: Oropharynx is clear. No oropharyngeal exudate or posterior oropharyngeal erythema. Eyes: Conjunctiva/sclera: Conjunctivae normal. Pupils: Pupils are equal, round, and reactive to light. Cardiovascular: Rate and Rhythm: Normal rate and regular rhythm. Heart sounds: Normal heart sounds. Pulmonary: Effort: Pulmonary effort is normal. No tachypnea, accessory muscle usage or respiratory distress. Breath sounds: Normal breath sounds. No stridor. No wheezing, rhonchi or rales. Abdominal: Palpations: Abdomen is soft. Tenderness: There is no abdominal tenderness. Genitourinary: Vagina: Vaginal discharge present. Cervix: Erythema present. Musculoskeletal: Cervical back: Normal range of motion and neck supple. No rigidity or tenderness. Lymphadenopathy: Cervical: No cervical adenopathy. Skin: General: Skin is warm and dry. Neurological: Mental Status: She is alert and oriented to person, place, and time. ASSESSMENT/PLAN: 1. Urinary frequency - ICD9: 788.41, ICD10: R35.0 (primary diagnosis) - UA DIP, URINE (POC) - URINE CULTURE 2. Vaginal pain - ICD9: 625.9, ICD10: R10.2 - ERICK / TRICHOMONAS AMPLIFICATION - BACTERIAL VAGINOSIS AMPLIFICATION - GC/CHLAMYDIA DNA DET - CONSULT TO [facility] Vaginal exam performed by Moni BIRD. [facility] referral was placed. Will not start any antibiotics today at exam. Treat accordingly to lab results. Patient was educated on supportive therapies. Patient will follow up with primary care provider as needed. Patient was instructed to immediately proceed to emergency room for any new, worsening, or symptoms lasting longer than anticipated. The patient's clinical presentation is otherwise unremarkable at this time. Based on exam and clinical finding, the patient is stable for discharge. Plan of care was discussed with patient. Patient verbalizes understanding and agrees to plan of care. This note was generated using [employer] software. It may contain errors in wording, punctuation, or spelling. Luc Marie APRN.CNP documented in this encounterPrem[facility]10-11-2022 Miscellaneous Notes* Telephone Encounter - Paradise Mclean LPN - 01/20/2022 12:07 PM EDT Phone call placed patients mother reported results have been reviewed prior. Paradise Mclean LPN * Telephone Encounter - Daria Mclean LPN - 01/20/2022 9:37 AM EDT Mother called and given results below. Pt has an apt with her pcp on Wednesday01-22-22. Daria Mclean LPN * Telephone Encounter - Yana Carias - 01/20/2022 7:34 AM EDT Left message for patient to return call. Yana Carias * Telephone Encounter - Yohana Martinez APRN.CNP - 01/20/2022 7:21 AM EDT This message is to inform you that the patient has not yet read the following message. (Notification date: January 18, 2022) Urine Culture From Yohana Martinez APRN.CNP To Clarisse Molina Sent and Delivered 01/17/2022 2:46 PM Clarisse Davidson urine culture was contaminated by skin cells, which can occur at time of collection. If she is improving with the antibiotic, she can continue taking it. She needs to follow up with primary care doctor to ensure that the blood in her urine has resolved. [facility] MyChart User Last Read On Jenni Molina Not Read documented in this encounterPrem[facility]10-07-2022 Instructions* Patient Instructions* Luc Marie APRN.CHELSEY - 01/16/2022 8:25 AM EDT URINARY TRACT INFECTION GENERAL INFORMATION: A urinary tract infection (UTI) is an infection of the bladder or kidneys. A bladder infection, called cystitis, is the more common type. If the infection travels up to the kidneys, it is called pyelonephritis. This can be more serious. UTIs are a common problem in women. Having sexual relations can leave a woman more susceptible to developing a UTI, but it is not sexually transmitted like gonorrhea. Some women have a problem with recurrent UTIs. INSTRUCTIONS: 1. Your doctor prescribed an antibiotic to treat the UTI. Take exactly as directed. Be sure to takeall the medication prescribed, even if your symptoms disappear. If you stop treatment early, the infection may not be fully treated and the symptoms could come back again. 2. Get plenty of rest. You may take acetaminophen for fever and aches. 3. Drink 6 to 8 glasses of fluids, especially water, every day. This helps wash out germs from yoururinary tract. Cranberry juice or other sources of vitamin C are also good for you. 4. Urinate often, as soon as you feel the urge. Empty your bladder completely. Urinate before and after you have sex. 5. Always wipe from front to back after going to the bathroom. This pushes germs away from your bladder, rather than towards it. 6. Showers are better than baths, and you should wash the genital area daily. Avoid bubble bath or bath oils if you do take a bath. 7. Wear underwear and pantyhose with a cotton crotch. CONTACT YOUR DOCTOR: 1. You have a temperature over 102F (38.8C) after 48 hours on medication. 2. You notice blood in your urine. 3. Your symptoms don't improve in 2 days. 4. You develop nausea, vomiting, diarrhea, or a rash. 5. You develop new or unexplained symptoms. These may be related to the medication you are taking. 6. Your symptoms return after you finish treatment. RETURN TO THE EMERGENCY DEPARTMENT IF: You develop vomiting and can't keep your medication or fluids down. documented in this encounterPrem[facility]10-07-[facility] History of Present illness Narrative* Luc Marie APRN.CNP - 01/16/2022 8:19 AM EDT Subjective HPI A nontoxic appearing female presents to urgent care with chief complaint of possible UTI. Duration of symptoms 2 days. Associated symptoms dysuria, frequency, and urgency. Patient has history of UTIsin past with similar signs and symptoms. Patient denies the use of any dueg-bzp-fiosexj medicationsor home remedies for symptom management. Patient states pain is a 4/10. Patient denies any fevers, flank pain, abdominal pain, nausea, vomiting, vaginal discharge, chance of STDs, chance of , or urological abnormalities. .Patient presents with: Urinary Frequency: With painful urination x2 days PAST MEDICAL HISTORY Diagnosis Date Febrile convulsions (simple), unspecified @ 6months PAST SURGICAL HISTORY Procedure Laterality Date NONE ALLERGIES Patient has no known allergies. MEDICATIONS cetirizine (ZYRTEC) 10 mg tablet Take 10 mg by mouth daily at bedtime. CELESTE FE 1.5/30, 28, 1.5 mg-30 mcg (21)/75 mg (7) tablet Take 1 tablet by mouth once daily. Polyethylene Glycol 3350 (MIRALAX) 17 gram/dose ORAL powder Take by mouth. 2-3 tablespoons daily. fluticasone (FLONASE) 50 mcg/actuation nasal spray Use 1 [place] in each nostril once daily. FAMILY HISTORY Problem Relation Age of Onset Arthritis Maternal Grandmother rheumatoid other (epilepsy [Other]) Mother other (epilepsy [Other]) Maternal Grandmother Social History Tobacco Use Smoking status: Never Substance Use Topics Alcohol use: No Drug use: No BP 104/76 Pulse 77 Temp 36.2 C (97.2 F) Resp 18 Wt 69.6 kg (153 lb 6.4 oz) LMP (LMP Unknown) SpO2 98% Review of Systems Constitutional: Negative for chills, fever and malaise/fatigue. HENT: Negative for congestion, ear discharge, ear pain, sinus pain and sore throat. Eyes: Negative for blurred vision, pain, discharge and redness. Respiratory: Negative for cough, hemoptysis, sputum production, shortness of breath, wheezing and stridor. Cardiovascular: Negative for chest pain. Gastrointestinal: Negative for abdominal pain, diarrhea, nausea and vomiting. Genitourinary: Positive for dysuria, frequency and urgency. Negative for flank pain and hematuria. Musculoskeletal: Negative for myalgias. Skin: Negative for itching and rash. Neurological: Negative for dizziness and headaches. Objective Physical Exam Constitutional: General: She is not in acute distress. Appearance: She is not diaphoretic. HENT: Head: Normocephalic. Nose: Nose normal. Mouth/Throat: Mouth: Mucous membranes are moist. Pharynx: Oropharynx is clear. No oropharyngeal exudate or posterior oropharyngeal erythema. Eyes: Conjunctiva/sclera: Conjunctivae normal. Pupils: Pupils are equal, round, and reactive to light. Cardiovascular: Rate and Rhythm: Normal rate and regular rhythm. Heart sounds: Normal heart sounds. Pulmonary: Effort: Pulmonary effort is normal. No tachypnea, accessory muscle usage or respiratory distress. Breath sounds: Normal breath sounds. No stridor. No wheezing or rhonchi. Abdominal: Palpations: Abdomen is soft. Tenderness: There is abdominal tenderness in the suprapubic area. Musculoskeletal: Cervical back: Normal range of motion and neck supple. No rigidity or tenderness. Lymphadenopathy: Cervical: No cervical adenopathy. Skin: General: Skin is warm and dry. Neurological: Mental Status: She is alert and oriented to person, place, and time. ASSESSMENT/PLAN: 1. Urinary frequency - ICD9: 788.41, ICD10: R35.0 acute - UA positive for good esterase, hematuria, and proteinuria - Send urine for culture - Begin treatment with keflex for 7 days - Patient education for prevention given - UA DIP, URINE (POC) - URINE CULTURE Patient was instructed to immediately proceed to emergency room for any new, worsening, or symptomslasting longer than anticipated. The patient's clinical presentation is otherwise unremarkable at this time. Based on exam and clinical finding, the patient is stable for discharge. Plan of care was discussed with patient. Patient verbalizes understanding and agrees to plan of care. This note was generated using [employer] software. It may contain errors in wording, punctuation, or spelling. Luc Marie APRN.CNP documented in this encounterPrem[facility]09-13-2022 Instructions* Patient Instructions* Yohana Martinez APRN.CNP - 12/23/2021 9:12 AM EDT OTITIS MEDIA GENERAL INFORMATION: Otitis media is an infection of the middle ear. The middle ear sits behind the eardrum. This infection may be caused by a virus or bacteria and often follows a cold. Children often have repeat ear infections. Otitis media is not contagious. INSTRUCTIONS: 1. An antibiotic has been prescribed. It should be taken exactly as prescribed. Do not stop the medicine even if the symptoms go away. 2. Uyxt-eip-aayxxsd pain medication may be taken or other pain medication as prescribed by the doctor. 3. Nothing should be placed in the ear unless instructed by your doctor. 4. The patient may return to school/daycare or work when the temperature is normal (98.6 F or 37 C). 5. The patient should not swim while the ear is infected. CONTACT YOUR DOCTOR IF YOU OR YOUR CHILD: 1. Does not feel better within 36 hours. 2. Develops a temperature over 102E F (39E C). 3. Starts vomiting or has diarrhea. 4. Develops drainage from the affected ear. 5. Has any new problem that may be related to the medicine prescribed. RETURN TO THE ED IF: 1. You or your child has a severe headache or pain around the ear. 2. You or your child notice swelling around the ear. 3. You or your child has a seizure (convulsion), twitching of the facial muscles, or passes out. 4. You or your child is dizzy, has a stiff neck, or cannot walk or talk normally. 5. Your child becomes more irritable or listless (not interested in his or her surroundings, does not get soothed by you holding him or her). documented in this encounterPrem[facility]09-13-2022 History of Present illness Narrative* Yohana Martinez APRN.CNP - 12/23/2021 9:06 AM EDT This note was created using [employer]. Subjective Clarisse Molina is a 16 year old female. 16 year old female with PMH T & A presents with complaints of right ear pain. Acute onset Wednesday Right ear. Pain and throbbing Denies drainage. Endorses baseline reduced hearing for the past 2 years. Recently had COVID, 3 weeks ago per mom +nasal congestion +nausea Denies cough. Denies URI sx. Denies skin rash or lesions. She utilized swimmers ear, but denies relief with use. Up to date on well child checks and immunizations. The history is provided by the patient. No slot machine key person was used. Ear Pain This is a new problem. The current episode started in the past 7 days. The problem occurs constantly. The problem has been gradually worsening. Associated symptoms include congestion, coughing and nausea. Pertinent negatives include no abdominal pain, anorexia, arthralgias, change in bowel habit, chest pain, chills, diaphoresis, fatigue, fever, headaches, joint swelling, myalgias, neck pain, numbness, rash, sore throat, swollen glands, urinary symptoms, vertigo, visual change, vomiting or weakness. Nothing aggravates the symptoms. She has tried nothing for the symptoms. The treatment providedno relief. PAST MEDICAL HISTORY Diagnosis Date Febrile convulsions (simple), unspecified @ 6months PAST SURGICAL HISTORY Procedure Laterality Date NONE ALLERGIES Patient has no active allergies. MEDICATIONS CELESTE FE 1.5/30, 28, 1.5 mg-30 mcg (21)/75 mg (7) tablet Take 1 tablet by mouth once daily. fluticasone (FLONASE) 50 mcg/actuation nasal spray Use 1 [place] in each nostril once daily. Polyethylene Glycol 3350 (MIRALAX) 17 gram/dose ORAL powder Take by mouth. 2-3 tablespoons daily. cetirizine (ZYRTEC) 10 mg tablet Take 10 mg by mouth daily at bedtime. amoxicillin (AMOXIL) 875 mg tablet Take 1 tablet by mouth twice daily for 7 days. FAMILY HISTORY Problem Relation Age of Onset Arthritis Maternal Grandmother rheumatoid other (epilepsy [Other]) Mother other (epilepsy [Other]) Maternal Grandmother Social History Tobacco Use Smoking status: Never Substance Use Topics Alcohol use: No Drug use: No Review of Systems Constitutional: Negative for chills, diaphoresis, fatigue and fever. HENT: Positive for congestion. Negative for sore throat. Respiratory: Positive for cough. Negative for apnea, choking and chest tightness. Cardiovascular: Negative for chest pain. Gastrointestinal: Positive for nausea. Negative for abdominal pain, anorexia, change in bowel habitand vomiting. Musculoskeletal: Negative for arthralgias, joint swelling, myalgias and neck pain. Skin: Negative for rash. Allergic/Immunologic: Negative for environmental allergies, food allergies and immunocompromised state. Neurological: Negative for dizziness, vertigo, facial asymmetry, weakness, numbness and headaches. Hematological: Negative for adenopathy. Does not bruise/bleed easily. Psychiatric/Behavioral: Negative for agitation and behavioral problems. Objective BP 116/64 Pulse 102 Temp 36.2 C (97.2 F) Resp 16 Wt 71.3 kg (157 lb 3.2 oz) LMP (LMP Unknown) SpO2 98% Physical Exam Vitals and nursing note reviewed. Constitutional: General: She is not in acute distress. Appearance: Normal appearance. She is normal weight. She is not ill-appearing, toxic-appearing or diaphoretic. HENT: Head: Normocephalic and atraumatic. Right Ear: Ear canal and external ear normal. Left Ear: Ear canal normal. Ears: Comments: Right TM erythematous and bulging Nose: Nose normal. No congestion or rhinorrhea. Mouth/Throat: Mouth: Mucous membranes are moist. Pharynx: No oropharyngeal exudate or posterior oropharyngeal erythema. Eyes: General: Right eye: No discharge. Left eye: No discharge. Extraocular Movements: Extraocular movements intact. Conjunctiva/sclera: Conjunctivae normal. Pupils: Pupils are equal, round, and reactive to light. Cardiovascular: Rate and Rhythm: Normal rate and regular rhythm. Pulses: Normal pulses. Heart sounds: Normal heart sounds. No murmur heard. No friction rub. Pulmonary: Effort: Pulmonary effort is normal. No respiratory distress. Breath sounds: Normal breath sounds. No stridor. No wheezing, rhonchi or rales. Chest: Chest wall: No tenderness. Abdominal: General: Abdomen is flat. There is no distension. Palpations: Abdomen is soft. There is no mass. Tenderness: There is no abdominal tenderness. There is no right CVA tenderness, left CVA tenderness, guarding or rebound. Hernia: No hernia is present. Musculoskeletal: General: No swelling, tenderness, deformity or signs of injury. Normal range of motion. Cervical back: Normal range of motion and neck supple. No rigidity. Right lower leg: No edema. Left lower leg: No edema. Lymphadenopathy: Cervical: No cervical adenopathy. Skin: General: Skin is warm and dry. Capillary Refill: Capillary refill takes less than 2 seconds. Coloration: Skin is not jaundiced or pale. Findings: No bruising, erythema, lesion or rash. Neurological: General: No focal deficit present. Mental Status: She is alert and oriented to person, place, and time. Cranial Nerves: No cranial nerve deficit. Sensory: No sensory deficit. Motor: No weakness. Coordination: Coordination normal. Gait: Gait normal. Psychiatric: Mood and Affect: Mood normal. Behavior: Behavior normal. Thought Content: Thought content normal. Judgment: Judgment normal. Assessment and Plan ASSESSMENT/PLAN: 1. Acute otitis media, right - ICD9: 382.9, ICD10: H66.91 - Will begin treatment with as per antibiotic as written, see orders - The patient should also be given OTC cough and cold meds as needed and warm salt water gargles, throat lozenges and/or OTC throat spray as needed for the first 5-7 days of treatment. - Supportive care with plenty of fluids, rest, and analgesia prn. - Follow up in 3-5 days if symptoms persist or worsen. Yohana Martinez APRN.CNP documented in this encounterPremier Health [facility]05-25-2021 RamilaClarisse Molina is here for consultation at the request of Lizy Chambers APRN-CHELSEY for: ABD pain ---History from parent and patient ---Telemedicine Video Visit done today in lieu of Coronavirus situation This visit was modified due to the COVID19 pandemic. History of Present Illness She is accompanied by her mother. No slot machine key person was used. ABD pain - Severe ABD pain, worse with eating ---Eating will make her vomit ---Has been going on Since last year; but now worse over the past few months ---NO inciting events ---No sick contacts ---Can wake from sleep, or cannot go to sleep Stooling - Normal - if no issues, once per day; brown, log consistency ---Currently - Not formed, worse with milk (has diarrhea); No blood; normally going now 6x per day ---Has to wake to stool - not often, but more on bad days UO - Doing well - Kind of ---has been different, ? feels something blocking ---No blood ---Only small amounts of urine at a time N/V - Recurrent nausea ---+Vomiting, worse with larger issues, but not every meal ---NB/NB ---Looks like food she ate Appetite - Decreased overall ---she wants to eat, but has not hunger for it, but still wants it ---Patient states she is not avoiding eating Growth - +Weight loss ---Over past 1 year, about 30lbs ---Unintentional Activity - Mostly, can keep up with issues ---but some days very fatigued, especially on bad days ---Also has headaches Fevers - No issues ---but feels warm Rashes - No issues Joints - No pain or swelling Mouth - No issues Eyes - No pain or swelling --hurt with headaches Patient seen in ED (Andi) ---CT and labs done ---Showed Mesenteric adenitis Currently - Overall getting worse over time ---Had gotten better for 2-3 weeks in July, but then has been progressively getting worse since then ---06/19 (10 = well) Past Medical History No past medical history on file. Past Surgical History No past surgical history on file. Allergies Allergies Allergen Reactions Lactose Diarrhea Medications Outpatient Encounter Medications as of 09/03/2020 Medication Sig Dispense Refill loratadine (CLARITIN) 10 MG tablet Take 10 mg by mouth No facility-administered encounter medications on file as of 09/03/2020. Family Medical History No family history on file. Social History Social History Socioeconomic History Marital status: Single Spouse name: Not on file Number of children: Not on file Years of education: Not on file Highest education level: Not on file Occupational History Not on file Tobacco Use Smoking status: Not on file Substance and Sexual Activity Alcohol use: Not on file Drug use: Not on file Sexual activity: Not on file Other Topics Concern Not on file Social History Narrative Not on file Social Determinants of Health Social determinant risk not applicable to this patient. Diet Social History Review of Systems Review of Systems Constitutional: Positive for weight loss and malaise/fatigue. Negative for recurrent fevers and weight gain. HENT: Negative for trouble swallowing. Eyes: Positive for wears glasses. Respiratory: Negative for coughing, wheezing and asthma. Cardiovascular: Negative for heart murmur, heart problems and chest pain. Endocrine: Negative for poor growth. Gastrointestinal: Positive for diarrhea, vomiting, abdominal pain and nausea. Negative for constipation, heartburn, blood in stool and trouble swallowing. Genitourinary: Negative for dysuria, hematuria and frequent urination. Neurological: Positive for headaches. Negative for developmental delays and seizures. Musculoskeletal: Negative for joint pain. Skin: Negative for rash. Allergy/Immune: Negative for allergies. Hematology: Negative for no easy bleeding and no anemia. The patient's past medical, surgical history, family history, and medications were reviewed and updated in EPIC (electronic medical record). Physical Examination There were no vitals filed for this visit. BP Readings from Last 2 Encounters: No data found for BP There is no height or weight on file to calculate BMI. Physical Exam Constitutional: General: She is active. Appearance: She is well-developed and well-nourished. She is not thin. Eyes: Conjunctiva/sclera: Conjunctivae normal. Pulmonary: Effort: Pulmonary effort is normal. Musculoskeletal: Cervical back: Normal range of motion. Neurological: Mental Status: She is alert. Skin: Coloration: Skin is not jaundiced or pale. Nails: There is no cyanosis. Patient looked well, and in NAD. Able to ambulate around home, during visit Lab Results Labs - 08/01/20 CBC, LFT/BMP - Normal Imaging Findings CT of ABD - July 2020 DIAGNOSTIC DATA: Bowel CT scan shows multiple enlarged lymph nodes, consistent with mesenteric adenitis, but no obstruction or abnormalities otherwise. Lipase was 56, which was normal. (more content not included)...[facility] 02-06-2020 NoteOUTPATIENT PSYCHIATRIC EVALUATION Name: Clarisse Molina : 2005 Clarisse is a 14 y.o. female currently being referred to Psychiatry for evaluation of behavior concerns This is a telemedicine video visit requested by the patient/guardian that was performed with the originating site at home and the distant site at hospital. This visit occurred during the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 Reason Comments Patient Question Reason Comments IUD follow up Specialty Diagnoses / Procedures Referred By Contac t Referred To Contact [facility] Diagnoses Encounter for IUD insertion Encounter for removal of intrauterine contraceptive device Procedures INSERT INTRAUTERINE DEVICE LEVONORGESTREL-RELEASING INTR CONTRACEPTIVE (KYLEENA), 19.5 MG INSERT INTRAUTERINE DEVICE REMOVE INTRAUTERINE DEVICE Lillian Norris, FIRE PREVENTION SPECIALIST.PEDODONTIST [address] [place] [address] [facility] [address] [place] [address] Referral ID Status Reason Start Date Expiration Date V isits Requested Visits Authorized [id number] Closed Auto-Generate d Referral 04/29/2022 04/11/2023 1 1 Reason Comments Headache JUAN, bodyaches and vo miting x 1 day Specialty Diagnoses / Procedures Referred By Contac t Referred To Contact Emergency [facility] / [facility] Diagnoses Headache Vomiting headache, bodyaches, vomiting and fever permission from parent Procedures OFFICE/OUTPATIENT ESTABLISHED MOD MDM 30-39 MIN EST SAME DAY Self Bee Lr, FIRE PREVENTION SPECIALIST.PEDODONTIST [address] [place] [address] Referral ID Status Reason Start Date Expiration Date Visits Re quested Visits Authorized [id number] Closed 06/30/2022 04/11/2023 1 1 Reason Comments Pelvic Pain Specialty Diagnoses / Procedures Referred By Contac t Referred To Contact [employer] Diagnoses Abdominal pain Low back pain can not feel iud strings, abdominal pain and low back pain, spotting Procedures OFFICE/OUTPATIENT ESTABLISHED HIGH MDM 40-54 MIN EST WHI PATIENT Naomi Castelan MD [address] [place] [address] Naomi Castelan MD [address] [place] [address] Referral ID Status Reason Start Date Expiration Date V isits Requested Visits Authorized [id number] Closed OON/Self Pay Override 12/01/2022 04/11/2023 1 1 Reason Comments Rash Bilateral forearms x 1 day Specialty Diagnoses / Procedures Referred By Contac t Referred To Contact Internal Medicine / [facility] Diagnoses Rash rash on bilateral arms-mother called okay to see Procedures OFFICE/OUTPATIENT ESTABLISHED MOD MDM 30-39 MIN EST SAME DAY Self Luc Marie, FIRE PREVENTION SPECIALIST.PEDODONTIST [address] [place] [address] Referral ID Status Reason Start Date Expiration Date Visits Re quested Visits Authorized [id number] Closed 12/23/2022 04/11/2023 1 1 Reason Comments Patient Update Reason Comments Left sided Pelvic Pain Reason Comments Ear Pain B/l x 2 days with na usea Reason Comments Ear Pain Bilat ear pain, nasa l congestion, draining into throat x 2 days Reason Comments Rash Rash under right nancy ast x 1 day Reason Onset Date Comments IUD IUD Removal 10/18/2023 Specialty Diagnoses / Procedures Referred By Contac t Referred To Contact 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 / 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 [employer] SERVICES Diagnoses control counseling discuss control change Procedures OFFICE/OUTPATIENT EST PT MAY NOT REQ PHYS/QHP EST WHI PATIENT Self Naomi Castelan MD [address] [place] [address] Referral ID Status Reason Start Date Expiration Date V isits Requested Visits Authorized [id number] Authorized 10/12/2023 04/11/2024 99 99 Reason Comments Problem Visit Specialty Diagnoses / Procedures Referred By Contac t Referred To Contact 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 / 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 [employer] Diagnoses control counseling discuss control change Procedures OFFICE/OUTPATIENT EST PT MAY NOT REQ PHYS/QHP EST WHI PATIENT Self Naomi Castelan MD [address] [place] [address] Reason Comments Vaginal Bleeding Reason Comments Cough Fever, drainage, LAY ear pain, stuffy/runny nose, loss of voice, sore throat, nausea, sob, JUAN x 3 days Specialty Diagnoses / Procedures Referred By Gerry t Referred To Contact Radiology / [facility] Diagnoses Acute cough XR chest- room 3 Procedures RADIOLOGIC EXAM CHEST 2 VIEWS XR CHEST Self [facility] [address] [address] [place] [place] [address] Referral ID Status Reason Start Date Expiration Date Visits Re quested Visits Authorized [id number] Closed 03/02/2024 04/11/2024 1 1 Reason Comments Sore Throat cough x 2 days Reason Comments Headache Neck pain in back of head, on R side, causes migraines, nausea, x 1 months painful to look down, Care Teams (unrecognized sec tion and content) Accounts Adjustable Clerk Relationship Specialty Start Date End Date Reyes Lizy Cooper [address] [place] [address] PCP - General Family Medicine 01/20/22 Accounts Adjustable Clerk Relationship Specialty Start Date End Date Lizy Chambers [address] [place] [address] PCP - General Family Medicine 01/20/22 Accounts Adjustable Clerk Relationship Specialty Start Date End Date Reyes Lizy Cooper [address] [place] [address] PCP - General Family Medicine 01/20/22 Accounts Adjustable Clerk Relationship Specialty Start Date End Date Lizy Chambers [address] [place] [address] PCP - General Family Medicine 01/20/22 Accounts Adjustable Clerk Relationship Specialty Start Date End Date Lizy Chambers [address] [place] [address] PCP - General Family Medicine 01/20/22 Accounts Adjustable Clerk Relationship Specialty Start Date End Date Lizy Chambers [address] [place] [address] PCP - General Family Medicine 01/20/22 Accounts Adjustable Clerk Relationship Specialty Start Date End Date Lizy Chambers [address] [place] [address] PCP - General Family Medicine 01/20/22 Accounts Adjustable Clerk Relationship Specialty Start Date End Date Lizy Chambers [address] [facility] [address] PCP - General Family Medicine 01/20/22 Accounts Adjustable Clerk Relationship Specialty Start Date End Date Lizy Chambers [address] [place] [address] PCP - General Family Medicine 01/20/22 Accounts Adjustable Clerk Relationship Specialty Start Date End Date Lizy Chambers [address] [facility] [address] PCP - General Family Medicine 01/20/22 Accounts Adjustable Clerk Relationship Specialty Start Date End Date Lizy Chambers [address] [place] [address] PCP - General Family Medicine 01/20/22 Accounts Adjustable Clerk Relationship Specialty Start Date End Date Lizy Chambers CNP [address] [place] [address] PCP - General Family Medicine 01/20/22 Accounts Adjustable Clerk Relationship Specialty Start Date End Date Lizy Chambers CNP [address] [place] [address] PCP - General Family Medicine 01/20/22 Accounts Adjustable Clerk Relationship Specialty Start Date End Date Lizy Chambers CNP [address] [place] [address] PCP - General Family Medicine 01/20/22 Accounts Adjustable Clerk Relationship Specialty Start Date End Date Lizy Chambers CNP [address] [place] [address] PCP - General Family Medicine 01/20/22 Accounts Adjustable Clerk Relationship Specialty Start Date End Date Lizy Chambers CNP [address] [place] [address] PCP - General Family Medicine 01/20/22 Accounts Adjustable Clerk Relationship Specialty Start Date End Date Lizy Chambers CNP [address] [place] [address] PCP - General Family Medicine 01/20/22 Accounts Adjustable Clerk Relationship Specialty Start Date End Date Lizy Chambers CNP [address] [place] [address] PCP - General Family Medicine 01/20/22 Accounts Adjustable Clerk Relationship Specialty Start Date End Date Lizy Chambers CNP [address] [place] [address] PCP - General Family Medicine 01/20/22 Accounts Adjustable Clerk Relationship Specialty Start Date End Date Lizy Chambers CNP [address] [place] [address] PCP - General Family Medicine 01/20/22 Accounts Adjustable Clerk Relationship Specialty Start Date End Date Lizy Chambers CNP [address] [place] [address] PCP - General Family Medicine 01/20/22 Team Status: Active Member Role/Relationship Status Dates Dr. Alicia Comer MD Family Provider Active Lizy Chambers GILL TENDER, GILL TENDER-C Primary Care Provider Active Team Status: Inactive Member Role/Relationship Status Dates Lizy Chambers GILL TENDER, GILL TENDER-C Primary Care Provider Active Start: October 19, 2024 End: October 19, 2024 Lizy Chambers GILL TENDER, GILL TENDER-C Referring Provider Active S tart: October 19, 2024 End: October 19, 2024 Mahogany Parry GILL TENDER, GILL TENDER-C Attending Provider Active Start: October 19, 2024 End: October 19, 2024 Team Status: Active Member Role/Relationship Status Dates Lizy Chambers GILL TENDER, GILL TENDER-C Primary Care Provider Active Start: October 19, 2024 Mahogany Parry GILL TENDER, GILL TENDER-C Attending Provider Active Start: October 19, 2024 Team Status: Active Member Role/Relationship Status Dates Lizy Chambers GILL TENDER, GILL TENDER-C Primary Care Provider Active Team Status: Inactive Member Role/Relationship Status Dates Lizy Chambers GILL TENDER, GILL TENDER-C Primary Care Provider Active Start: October 19, 2024 End: October 19, 2024 Mahogany Parry GILL TENDER, GILL TENDER-C Attending Provider Active Start: October 19, 2024 End: October 19, 2024 Team Status: Active Member Role/Relationship Status Dates Lizy Chambers GILL TENDER, GILL TENDER-C Primary Care Provider Active Start: October 23, 2024 Mahogany Parry GILL TENDER, GILL TENDER-C Attending Provider Active Start: October 23, 2024 Mahogany Parry GILL TENDER, GILL TENDER-C Referring Provider Active Start: October 23, 2024 Team Status: Inactive Member Role/Relationship Status Dates Lizy Chambers GILL TENDER, GILL TENDER-C Primary Care Provider Active Start: October 23, 2024 End: October 23, 2024 Mahogany Parry GILL TENDER, GILL TENDER-C Attending Provider Active Start: October 23, 2024 End: October 23, 2024 Mahogany Parry GILL TENDER, GILL TENDER-C Referring Provider Active Start: October 23, 2024 End: October 23, 2024 Team Status: Active Member Role/Relationship Status Dates Lizy Chambers GILL TENDER, GILL TENDER-C Primary care physician Active Team Status: Inactive Member Role/Relationship Status Dates Lizy Chambers GILL TENDER, GILL TENDER-C Primary care physician Active Start: October 19, 2024 End: October 19, 2024 Lizy Chambers GILL TENDER, GILL TENDER-C Referring Provider Active S tart: October 19, 2024 End: October 19, 2024 Mahogany Parry GILL TENDER, GILL TENDER-C Attending physician Active Start: October 19, 2024 End: October 19, 2024 Team Status: Inactive Member Role/Relationship Status Dates Lizy Chambers GILL TENDER, GILL TENDER-C Primary care physician Active Start: October 19, 2024 End: October 19, 2024 Mahogany Parry NP, GILL TENDER-C Attending physician Active Start: October 19, 2024 End: October 19, 2024 Team Status: Inactive Member Role/Relationship Status Dates Lizy Chambers NP, GILL TENDER-C Primary care physician Active Start: October 23, 2024 End: October 23, 2024 Mahogany Parry NP, GILL TENDER-C Attending physician Active Start: October 23, 2024 End: October 23, 2024 Mahogany Parry NP, GILL TENDER-C Referring Provider Active Start: October 23, 2024 End: October 23, 2024 Team Status: Inactive Member Role/Relationship Status Dates Lizy Chambers NP, GILL TENDER-C Primary care physician Active Start: January 15, 2025 End: January 15, 2025 Lizy Chambers NP, GILL TENDER-C Referring Provider Active S tart: January 15, 2025 End: January 15, 2025 Mahogany Parry NP, GILL TENDER-C Attending physician Active Start: January 15, 2025 End: January 15, 2025 Team Status: Active Member Role/Relationship Status Dates Lizy Chambers NP, GILL TENDER-C Primary care physician Active Start: January 15, 2025 Mahogany Parry NP, GILL TENDER-C Attending physician Active Start: January 15, 2025 Goals (unrecognized section and content) Goals may be documented in a n alternate sectionGoals may be documented in an alternate sectionGoals may be documented in an alternate sectionGoals may be documented in an alternate section FOR RECORDS PERTAINING TO PATIENTS WHO ARE OR HAVE BEEN ENROLLED IN A CHEMICAL DEPENDENCY/SUBSTANCEABUSE PROGRAM, SOME INFORMATION MAY BE OMITTED. This clinical summary was aggregated from multiple sources. Caution should be exercised in using it in the provision of clinical care. This summary normalizes information from multiple sources, and as a consequence, information in this document may materially change the coding, format and clinical context of patient data. In addition, data may be omitted in some cases. CLINICAL DECISIONS SHOULD BE BASED ON THE PRIMARY CLINICAL RECORDS. [employer] [facility] provides no warranty or guarantee of the accuracy or completeness of information in this document.
== END | disposition home or self-care (01) ==
LOC: LAB.FUTURE 16:04 → BWCLAB 16:05
PROVIDERS: PCP Nurse Practitioner Family; Visit Provider Nurse Practitioner Women's Health
DX: N97.0 Female infertility associated with anovulation (principal)
CPT/HCPCS: 36415

== ENCOUNTER → 2025-04-08 | Outpatient (CLI) | payer OTHER, SELFPAY ==
--- OUTSIDE RECORDS SUMMARY | 2025-04-08 12:18 | XMS RPT_ITS | CCD ---
Author Organization [facility] Care Team Providers Care Attendant Child Activity Name Role Phone Lizy Chambers Unavailable Nati Cullen Unavailable Unavailable Unavailable Primary Care Provider Unavailabl e Unavailable Primary Care Provider Unavailabl e Lizy Chambers Primary Care Provider Lizy Chambers Primary Care Provider [phone] Loretta Painting Unavailable Unavailable Ms. Loretta Painting Attending Unavail able Reyes COAL UNLOADER, Lizy Cooper Primary Care Provider [phone] Reyes BARBOSA, Lizy Cooper Primary Care Provider CHIQUITA ADHIKARI Attending Unavailable LIZY CHAMBERS Primary Care Unavailable LIZY CHAMBERS Primary Care Unavailable LIZY CHAMBERS Primary Care Unavailable LIZY CHAMBERS Primary Care Unavailable REYESRONEYA Kenneth Primary Care Unavailable RONEY CHAMBERSA Kenneth Primary Care Unavailable NAOMI CASTELAN Attending Unavail able LIZY CHAMBERS Primary Care Unavailable KWAKU PETTIT DO Primary Care Unavailable KWAKU PETTIT DO Attending Unavailable REYES, LIZY Consulting Unavailable KWAKU PETTIT DO Admitting Unavailable REYESRONEYA Referring Unavailable PROVIDER, UNKNOWN Consulting Unavailable REYES, LIZY Consulting Unavailable CLEMENTE BATES APRN Admitting Unavailable CLEMENTE BATES APRN Primary Care Unavailable CLEMENTE BATES APRN Attending Unavailable PROVIDER, UNKNOWN Consulting Unavailable REYES, LIZY Consulting Unavailable JANA, CLEMENTE DESK ATTENDANT Admitting Unavailable JANA, CLEMENTE DESK ATTENDANT Primary Care Unavailable CLEMENTE BATES APRN Attending Unavailable PROVIDER, UNKNOWN Consulting Unavailable CLEMENTE BATES APRN Attending Unavailable CLEMENTE BATES APRN Admitting Unavailable JANA, CLEMENTE DESK ATTENDANT Primary Care Unavailable REYES, LIZY Consulting Unavailable [...] E Attending Unavailable REYES, LIZY Consulting Unavailable HSILOH, SUDEEP E Admitting Unavailable PROVIDER, UNKNOWN Consulting Unavailable SOLORZANO, JOHAN C Primary Care Unavailable SOLORZANO, JOHAN C Attending Unavailable REYES, LIZY Consulting Unavailable SOLORZANO, JOHAN C Admitting Unavailable REYES, LIZY Referring Unavailable PROVIDER, UNKNOWN Consulting Unavailable Reyes SUPERVISOR COLOR PASTE MIXING-C, Lizy Primary Care Provider Reyse SUPERVISOR COLOR PASTE MIXING-C, Lizy Referring Provider [phone] Canones SUPERVISOR COLOR PASTE MIXING-C, Mahogany Attending Provider Brinda SUPERVISOR COLOR PASTE MIXING-C, Mahogany Referring Provider Reyes SUPERVISOR COLOR PASTE MIXING-C, Lizy Primary Care Physician Canones SUPERVISOR COLOR PASTE MIXING-C, Mahogany Attending Physician Brinda SUPERVISOR COLOR PASTE MIXING, Mahogany Attending Unavailable Reyes, Lizy Primary Care Unavailable Brinda SUPERVISOR COLOR PASTE MIXING, Mahogany Attending Unavailable Reyes, Lizy Primary Care Unavailable Canones SUPERVISOR COLOR PASTE MIXING, Mahogany Attending Unavailable Reyes, Lizy Primary Care Unavailable Reyes, Lizy Referring Unavailable Reyes, Lizy Primary Care Unavailable Brinda SUPERVISOR COLOR PASTE MIXING, Mahogany Attending Unavailable Reyes, Lizy Referring Unavailable FloresSeferino Attending Unavailable Reyes, Lizy Primary Care Unavailable Bee, Jacobo Attending Unavailable Reyes, Lizy Primary Care Unavailable Brinda SUPERVISOR COLOR PASTE MIXING, Mahogany Attending Unavailable Brinda SUPERVISOR COLOR PASTE MIXING, Mahogany Referring Unavailable Reyes, Lizy Primary Care Unavailable Allergies Allergy Classification Reported Allergen(s) Allergy Type Date of Onset Reaction(s) Facility (1 source) medroxyPROGESTERone Drug Allergy 5 Diarrhea [facility] (1 source) medroxyPROGESTERone Drug Allergy 5 [facility] Repository Medications Current Medications Medication Drug Class(es) [...] on above: Take 1 capsule by mo [facility] twice daily for 7 days. [...] 35 tablet 02/14/2024 Active polyethylene glycol 3350 52477 mg powder for oral solution (20 sources) [...] daily at bedtime. 21 day ethinyl estradiol 0.020075 mg/hr / etonogestrel 0.005 mg/hr vaginal system [...] (FLONASE) 50 mcg/actuation nasal spray Use 1 [place] in each nostril once daily. 1 Bottle 0 09/04/2014 02/14/2024 Discontinued Comment on above: Use 1 [place] in each nostril once daily. levonorgestrel 0.092351 mg/hr intrauterine system (13 sources) Progestin, Progestin-contain [...] Discontinued Start: 06-30-2022 take 1 tablet by rich th every six hours as needed for [...] extended release oral capsule (11 sources) beta-Adrenergic Romel End: take 1 capsule by mouth once [...] 4317on 01-18-20 PROGESTERONE 0.2 ng/mL Normal . [facility] Comment on above: Order Comment: N Result Comment: Foll icular phase 0.1 - 0.9 Luteal phase 1.8 - 23.9 Ovulation phase 0.1 - 12.0 First trimester 11.0 - 44.3 Second trimester 25.4 - 83.3 Third trimester 58.7 - 214.0 Postmenopausal 0.0 - 0.1 Performed at: [address] [id number] Human Resources Generalist: Rainer Crane PhD, Phone: [phone] Performed By: #### L 501.9520, L506.0400, L3100.5125, [id number], L3078.2628 #### [facility] [address] [place], [address] Thyroid Peroxidase ABon - THYR PEROX AB < 9 Normal 0-26 [facility] Comment on above: Result Comment: Perf ormed at: [address] [id number] Human Resources Generalist: Rainer Crane PhD, Phone: [phone] Performed By: #### L 501.9520, L506.0400, L3100.5125, L801.2600, L3691.2754 #### [facility] [address] [place], [address] Follicle Stimulating Hormone on 01-15-2025 FSH 6.7 mIU/mL Normal [facility] Comment on above: Result Comment: FEMA LE: Follicular: 1.4 - 18.1 mIU/mL Midcycle: 3.4 - 33.4 mIU/mL Luteal: 1.5 - 9.1 mIU/mL Post Menopause: 23.0 - 116.3 mIU/mL MALE: 1.4 - 18.1 mIU/mL Performed By: #### L 501.9520, L506.0400, L3100.5125, L801.2600, L3300.6900 #### [facility] [address] [place], [address] Machine Load Clerk Office Visit Reporton 01-15-2025 Machine Load Clerk Office Visit Report [facility] [address], [address] [place] [address] OFFICE VISIT Date of Service: 01/15/25 MR#: [id number] Acct: [id number] Name: CLARISSE MOLINA Rep #: [id number] : 2005 Provider: NICCI carrion Age/Sex: 19/F Location: [facility] Status: Signed Intake Vital Signs 10/19/24 11:41 01/15/25 15:16 01/15/25 15:20 Height 5 ft 5 in 5 ft 5 in 5 ft 5 in Weight: 204 lb 7 oz BMI 34.0 BP 134/83 H Intake Visit 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: 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 Cooler Servicer Required: No Is patient in pain?: No [...] History current occupational status: employed current occupation: [employer] Smoking Status: Current every day smoker tobacco [...] Consider letrozole 01/15/25 1606 Date Mahogany Brinda SUPERVISOR COLOR PASTE MIXING SUPERVISOR COLOR PASTE MIXING-C Cosigner Signature: Date (if applicable) CC: Normal [facility] T4 Free Directon 01-15-2025 T4 FREE DIRECT 1.20 ng/dL Normal 0.76-1.46 [facility] Comment on above: Order Comment: N Performed By: #### L 501.9520, L506.0400, L3100.5125, L801.2600, L3300.6900 #### [facility] [address] [place], [place], [id number] T4 freeOrdered By: Mahogany fried on 01-15-2025 Free T4 [Mass/Vol] 1.20 ng/dL 0.76-1.46 [facility] TSH DL <= 0.005 mIU/L QnOrde red By: Mahogany Parry on 01-15-2025 TSH Qn 1.560 uIU/mL 0.500-4.300 [facility] Thyroid Stim Hormone (TSH)on 01-15-2025 TSH 1.560 uIU/mL Normal 0.500-4.300 [facility] Comment on above: Performed By: #### L 501.9520, L506.0400, L3100.5125, L801.2600, L3300.6900 #### [facility] [address] [place], [place], [id number] 17-Hydroxyprogesteroneon 17ALPHA OH-PROG 54 ng/dL Normal . [facility] Comment on above: Order Comment: Test( s) 150873-86-QL Progesterone LCMSwas developed and its performance characteristicsdetermined by [employer]. It has not been cleared or approvedby the Food and Drug Administration.N Result Comment: Adul t Female Follicular 15 - 70 Luteal 35 - 290 Performed By: #### L 801.2600, L3100.9000, L501.9985, L3100.5170, L3100.5400, L3300.1500, L3400.4800 ####[facility] [address] [place], [address] PROGESTERONE 4317on 10-25-19 PROGESTERONE 0.1 ng/mL Normal . [facility] Comment on above: Order Comment: Test( s) 055748-26-JY Progesterone LCMSwas developed and its performance characteristicsdetermined by [employer]. It has not been cleared or approvedby the Food and Drug Administration.N Result Comment: Foll icular phase 0.1 - 0.9 Luteal phase 1.8 - 23.9 Ovulation phase 0.1 - 12.0 First trimester 11.0 - 44.3 Second trimester 25.4 - 83.3 Third trimester 58.7 - 214.0 Postmenopausal 0.0 - 0.1 Performed at: [address] [id number] Human Resources Generalist: Michael Waller MD, Phone: [phone] Performed at: [address] [id number] Human Resources Generalist: Rainer Crane PhD, Phone: [phone] Performed By: #### L 801.2600, L3100.9000, L501.9985, L3100.5170, L3100.5400, L3300.1500, L3400.4800 ####[facility] [address] [place], [address] DHEA Sulfateon 10-23-2024 DHEA SULFATE 120.0 ug/dL Normal 110.0-433.2 [facility] Comment on above: Order Comment: N Performed By: #### L 801.2600, L3100.9000, L501.9985, L3100.5170, L3100.5400, L3300.1500, L3400.4800 ####[facility] [address] [place], [place], [address] PROLACTIN 4465on 10-23-2024 PROLACTIN 9.9 ng/mL Normal 4.8-33.4 [facility] Comment on above: Performed By: #### L 801.2600, L3100.9000, L501.9985, L3100.5170, L3100.5400, L3300.1500, L3400.4800 ####[facility] [address] [place], [place], [address] Pelvic w/ Transvaginalon Pelvic w/ Transvaginal [facility] Services [address] [place], [place] [address] Pelvic w/ Transvaginal MR#: [id number] Acct: [id number] Name: CLARISSE MOLINA Rep #: [id number] : 2005 F 19 From: Papa oleary MD PCP: NICCI Malik Status: REG CLI Study: Pelvic w/ Transvaginal Date of Exam: 10/23/24 Exam# [id number] Ordering Dr: Mahogany Parry NP SUPERVISOR COLOR PASTE MIXING -C PROCEDURE: PELVIC W/ TRANSVAGINAL REASON FOR [...] Findings suggestive of polycystic ovaries. Reading Location: [place] [address] CC: NICCI Chambers; NICCI Parry 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: Signed Normal [facility] Testosterone Freeon 10-24-19 25 TESTOSTER FREE 0.9 pg/mL Normal Not Estab. [facility] Comment on above: Result Comment: Perf ormed at: CB - [facility] [address] [id number] Human Resources Generalist: Rainer Crane PhD, Phone: [phone] Performed at: - [facility] [address] [id number] Human Resources Generalist: Michael Waller MD, Phone: [phone] Performed By: #### L 801.2600, L3100.9000, L501.9985, L3100.5170, L3100.5400, L3300.1500, L3400.4800 ####[facility] [address] [place], [address] Hemoglobin A1con 10-19-2024 HbA1c (Bld) [Mass fraction] 5.3 % Normal <=5.6 [facility] Comment on above: Result Comment: Norm al < 5.7 % Prediabetic 5.7 - 6.4 % Diabetic >or= 6.5 % Please note range changes. Performed By: #### L 801.2600, L3100.9000, L501.9985, L3100.5170, L3100.5400, L3300.1500, L3400.4800 #### [facility] [address] [place], [address] Hemoglobin A1c percentageOrd ered By: Mahogany Parry on 10-19-2024 HbA1c (Bld) [Mass fraction] 5.3 % <5.7 [facility] Comment on above: Normal < 5.7 % Predi abetic 5.7 - 6.4 % Diabetic >or= 6.5 % Please note range changes. LH ser/plasOrdered By: Mahogany Parry on 10-19-2024 Lutropin Qn 19.9 m[IU]/mL [facility] Comment on above: FEMALE:Follicular: 1 .9-12.5 mIU/mLMidcycle: 8.7-76.3 mIU/mLLuteal: 0.5-16.9 mIU/mLPost Menopause: 15.9-54.0 mIU/mLMALE:20-70 Years: 1.5-9.3 mIU/mL>70 Years: 3.1-34.6 mIU/mL Laboratory - Chemistry and C hemistry - challengeOrdered By: Mahogany Parry on 10-19-2024 HCG ( test) Ql (U) Negative [facility] Luteinizing Hormoneon 2024 LH 19.9 mIU/mL Normal [facility] Comment on above: Result Comment: FEMA LE: Follicular: 1.9-12.5 mIU/mL Midcycle: 8.7-76.3 mIU/mL Luteal: 0.5-16.9 mIU/mL Post Menopause: 15.9-54.0 mIU/mL MALE: 20-70 Years: 1.5-9.3 mIU/mL >70 Years: 3.1-34.6 mIU/mL Performed By: #### L 801.2600, L3100.9000, L501.9985, L3100.5170, L3100.5400, L3300.1500, L3400.4800 ####[facility] [address] 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 States was seen 3-4 mo ago at [facility] for same issue. States no labs [...] above results. 10/19/24 1209 Date Mahoganyethel Parry SUPERVISOR COLOR PASTE MIXING SUPERVISOR COLOR PASTE MIXING-C Cosigner Signature: Date (if applicable) CC: Normal [facility] Serum or plasma 17-hydroxypr ogesterone measurement (mass/volume)Ordered By: Mahogany Parry on 10-19-2024 17-Hydroxyprogester one [Mass/Vol] 54 ng/dL . [facility] Comment on above: Adult Female Follicu lar 15 - 70 Luteal 35 - 290 Serum or plasma free testost erone measurement (mass/volume)Ordered By: Mahogany Parry on 10-19-2024 Testosterone Free [Mass/Vol] 0.9 pg/mL Not Estab. [facility] Comment on above: Performed at: [facility] [address] [id number] Director: Rainer Crane PhD, Phone: [phone] at: [facility] [id number] Director: Michael Waller MD, Phone: [phone] Serum or plasma prolactin me asurement (mass/volume)Ordered By: Mahogany Parry on 10-19-2024 Prolactin [Mass/Vol] 9.9 ng/mL 4.8-33.4 [facility] CNOVon 07-13-2024 CNOV Office Visit (UCWSTR ) CLARISSE MOLINA ([id number]) 5 F Date Time Provider Department 07/13/24 10:45 AM LUC MARIE UCWSTR During your visit today, we recorded the following information about you: Temperature Pulse Respiration Blood pressure 97.3 degrees 82/minute 20/minute 106/72 Weight 87 kg Luc Marie APRN.COAL UNLOADER 07/13/2024 11:34 AM Signed Subjective HPI Nontoxic-appearing [...] unspecified @ 6months Ruptured ovarian cyst 2021 [facility] PAST SURGICAL HISTORY Procedure Laterality Date KYLEENA [...] a headache. (more content not included)... Normal [facility] CNOVon 06-12-2024 CNOV Office Visit (UCTR ) CLARISSE MOLINA ([id number]) 5 F Date Time Provider Department 06/12/24 12:00 PM WILFRID SMITH [facility] During your visit today, we recorded the [...] Diagnosis:Sore throat [J02.9] Order(s):STREP A MOLECULAR (POC) [3468657] Order #: [id number]. #:[id number] -[id number] Prescriptions as of 06/12/2024 - norethindrone [...] Service: OFFICE/OUTPATIENT ESTABLISHED LOW MDM 20 MIN [16036] Encounter Status:Closed by WILFRID SMITH on 06/12/[address] [facility] STREP A MOLECULAR (POC)on Procedural Control Valid [facility] Strep A (POCT) Negative Negative [facility] THYROGLOBULIN AB [CCL]on Thyroglobulin Ab, Serum <0.9 Normal <4.0 [facility] Comment on above: Result Comment: The Thyroglobulin Antibody test was performed using the Jaz Lali Unicel DXI paramagnetic particle chemiluminescent immunoassay method. Results obtained with different assay methods or kits cannot be used interchangeably. [address] [place] [address] Lucio Bose III, M.D. [id number] Performed By: #### 2 91123 #### [facility],[address] [place] [address] CBC + DIFFon 06-01-2024 Baso # 0.04 x10EE3/UL Normal 0.00 - 0.10 [facility] Comment on above: Performed By: #### 2 42499 #### [facility],[address] [place] [address] Basophils/100 WBC (Bld) 0.4 % Normal 0.0 - 2.0 [facility] Comment on above: Performed By: #### 2 34252 #### [facility],[address] [place] [address]35 CBC + DIFF Normal [facility] Comment on above: Result Comment: CBC- COMPLETE BLOOD COUNT Performed By: #### 2 30160 #### [facility],[address] [place] [address]269 EO # 0.29 x10EE3/UL Normal 0.00 - 0.50 [facility] Comment on above: Performed By: #### 2 44607 #### [facility],[address] [place] [address] 36514 Eosinophils/100 WBC (Bld) 2.7 % Normal 0.0 - 7.0 [facility] Comment on above: Performed By: #### 2 70071 #### [facility],[address] [place] [address]96 Erythrocyte distribution width (RBC) [Ratio] 13.4 % Normal 12.0 - 15.6 [facility] Comment on above: Performed By: #### 2 45562 #### [facility],[address] [place] [address]00 Hematocrit (Bld) [Volume fraction] 39.0 % Normal 34.0 - 46.0 [facility] Comment on above: Performed By: #### 2 00532 #### [facility],[address] [place] [address]28 Hemoglobin (Bld) [Mass/Vol] 13.0 g/dL Normal 12.0 - 16.0 [facility] Comment on above: Performed By: #### 2 41474 #### [facility],[address] [place] [address] 11898 Lymph # 3.08 x10EE3/UL High 0.80 - 2.80 [facility] Comment on above: Performed By: #### 2 55587 #### [facility],[address] [place] [address]7983 Lymphocytes/100 WBC (Bld) 28.9 % Normal 20.0 - 45.0 [facility] Comment on above: Performed By: #### 2 21768 #### [facility],[address] [place] [address]45 MANUAL DIFF N/A Normal [facility] Comment on above: Performed By: #### 2 37258 #### [facility],[address] [place] [address] 59940 MCH (RBC) [Entitic mass] 27 pg Normal 27 - 33 [facility] Comment on above: Performed By: #### 2 43818 #### [facility],[address] [place] [address]649 MCHC 33 X10 3 Normal 32 - 36 [facility] Comment on above: Performed By: #### 2 10048 #### [facility],[address] [place] [address] 01770 MCV (RBC) [Entitic vol] 81 fL Normal 80 - 99 [facility] Comment on above: Performed By: #### 2 01579 #### [facility],[address] [place] [address] 95171 Travis # 0.50 x10EE3/UL Normal 0.20 - 1.00 [facility] Comment on above: Performed By: #### 2 89493 #### [facility],[address] [place] [address] 05560 MONOS % 4.7 % Normal 0.0 - 10.0 [facility] Comment on above: Performed By: #### 2 77976 #### [facility],[address] [place] [address]19 Morphology Avery (Bld) [Interp] N/A Normal [facility] Comment on above: Performed By: #### 2 87814 #### [facility],[address] [place] [address] 64146 Neut # 6.74 x10EE3/UL Normal 1.50 - 7.10 [facility] Comment on above: Performed By: #### 2 53805 #### [facility],[address] [place] [address] 90255 Neutrophils/100 WBC (Bld) 63.3 % Normal 46.0 - 76.0 [facility] Comment on above: Performed By: #### 2 70834 #### [facility],[address] [place] [address] 06399 PLATELET 465 x10EE3/UL High 150 - 450 [facility] Comment on above: Performed By: #### 2 27680 #### [facility],[address] [place] [address] 67567 Platelet mean volume (Bld) [Entitic vol] 8.0 fL Normal 6.6 - 10.5 [facility] Comment on above: Result Comment: AUTO MATED DIFFERENTIAL Performed By: #### 2 62758 #### [facility],[address] [place] [address] 67321 RBC 4.82 x 10EE6/UL Normal 4.10 - 5.30 [facility] Comment on above: Performed By: #### 2 01220 #### [facility],[address] [place] [address] 73389 WBC 10.7 x 10EE3/UL Normal 4.5 - 10.8 [facility] Comment on above: Performed By: #### 2 91827 #### [facility],[address] [place] [address] 11860 CMP with eGFRon 06-01-2024 AGE 18 years Normal [facility] Comment on above: Performed By: #### 2 23199 #### [facility],[address] [place] [address] 70187 Albumin [Mass/Vol] 4.3 g/dL Normal 3.4 - 5.0 [facility] Comment on above: Performed By: #### 2 50820 #### [facility],[address] [place], [place] [id number] Albumin/Globulin [Mass ratio] 1.2 {ratio} Normal 0.9 - 1.6 [facility] Comment on above: Performed By: #### 2 09228 #### [facility],[address] [place] [address] 19498 ALK PHOS 143 U/L High 46 - 116 [facility] Comment on above: Performed By: #### 2 88363 #### [facility],[address] [place] [address] 06252 ALT [Catalytic activity/Vol] 39 U/L Normal 16 - 63 [facility] Comment on above: Performed By: #### 2 57838 #### [facility],[address] [place] [address] 13820 Anion gap [Moles/Vol] 17 mmol/L Normal 10 - 20 [facility] Comment on above: Performed By: #### 2 56496 #### [facility],[address] [place] [address] 70355 AST [Catalytic activity/Vol] 28 U/L Normal 13 - 39 [facility] Comment on above: Performed By: #### 2 19561 #### [facility],[address] [place] [address] B/C RATIO 10 ratio Normal 0 - 30 [facility] Comment on above: Performed By: #### 2 38843 #### [facility],[address] [place] [address] Bilirubin [Mass/Vol] 0.5 mg/dL Normal 0.2 - 1.0 [facility] Comment on above: Performed By: #### 2 68770 #### [facility],[address] [place] [address] Calcium [Mass/Vol] 9.6 mg/dL Normal 8.5 - 10.1 [facility] Comment on above: Performed By: #### 2 09749 #### [facility],[address] [place] [address] Chloride [Moles/Vol] 102 mmol/L Normal 98 - 107 [facility] Comment on above: Performed By: #### 2 54628 #### [facility],[address] [place] [address] CMP with eGFR Normal [facility] Comment on above: Result Comment: COMP REHENSIVE METABOLIC PANEL Performed By: #### 2 32602 #### [facility],[address] [place] [address] CO2 [Moles/Vol] 25.4 mmol/L Normal 21.0 - 32.0 [facility] Comment on above: Performed By: #### 2 05944 #### [facility],[address] [place] [address] Creatinine [Mass/Vol] 0.80 mg/dL Normal 0.55 - 1.02 [facility] Comment on above: Performed By: #### 2 09325 #### [facility],[address] [place] [address] GFR/1.73 sq M.predicted among non-blacks MDRD (S/P/Bld) [Vol rate/Area] mL/min/{1.73_m2} Normal 60 - 999 [facility] Comment on above: Performed By: #### 2 19531 #### [facility],[address] [place] [address] Result Comment: ACCO RDING TO THE NATIONAL KIDNEY DISEASE EDUCATION PROGRAM(NKDE), A NORMAL eGFR IS A VALUE GREATER THAN OR EQUAL TO 60 ML/MIN/1.73 SQ METERS. CHRONIC KIDNEY DISEASE: <60mL/MIN/1.73 SQ METERS KIDNEY FAILURE: <15mL/MIN/1.73 SQ METERS THIS TEST SHOULD ONLY BE USED FOR PATIENTS 18 YEARS OF AGE AND OLDER. Globulin (S) [Mass/Vol] 3.6 g/dL Normal 1.5 - 3.8 [facility] Comment on above: Performed By: #### 2 56104 #### [facility],[address] [place], [place] [address] Glucose [Mass/Vol] 80 mg/dL Normal 74 - 106 [facility] Comment on above: Performed By: #### 2 58638 #### [facility],[address] [place] [address] Potassium [Moles/Vol] 4.1 mmol/L Normal 3.5 - 5.1 [facility] Comment on above: Performed By: #### 2 64616 #### [facility],[address] [place] [address] 54972 Protein [Mass/Vol] 7.9 g/dL Normal 6.4 - 8.2 [facility] Comment on above: Performed By: #### 2 67137 #### [facility],[address] [place] [address] 31254 Sodium [Moles/Vol] 140 mmol/L Normal 136 - 145 [facility] Comment on above: Performed By: #### 2 98740 #### [facility],[address] [place], [place] [address] Urea nitrogen [Mass/Vol] 8 mg/dL Normal 7 - 18 [facility] Comment on above: Performed By: #### 2 67835 #### [facility],[address] [place] [address] T4-FREE (FREE THYROXINE)on 0 06-01-2024 Free T4 [Mass/Vol] 0.99 ng/dL Normal 0.78 - 1.46 [facility] Comment on above: Result Comment: P otential of falsely elevated results when biotin concentrations are > 10 ng/mL. Performed By: #### 2 45389 #### [facility],[address] [place], [place] [address] THYROGLOBULIN ANTIBODYon Thyroglobulin Ab Qn [IU]/mL Normal <4.0 [facility] Comment on above: Order Comment: Speci men Type: BLOOD SPECIMENOrdering Facility: [facility] Address: [address] [place] [address] Result Comment: The Thyroglobulin Antibody test was performed using the Jaz Vanate[employer] Unicel DXI paramagnetic particle chemiluminescent immunoassay method. Results obtained with different assay methods or kits cannot be used interchangeably. Performed By: #### T ANGELICA ####[facility] LABCLIA [id number] [place] [address] [place] TSHon 06-01-2024 TSH Qn 1.67 m[IU]/L Normal 0.51 - 4.13 [facility] Comment on above: Performed By: #### 2 79228 #### [facility],[address] [place] [address] 50988 VITAMIN D, 25 HYDROXYon 05-14 VitD 17.00 ng/mL Low 30.00 - 100 [facility] Comment on above: Result Comment: 25-O HD3 [...] D2 Not Established Performed By: #### 2 14286 #### [facility],[address] [facility] [address] Elbow min 3 Viewson 05-06-19 25 Elbow min [address] [facility] Imaging Services [address] [place] [address] Elbow min 3 Views MR#: [id number] Acct: [id number] Name: CLARISSE MOLINA Rep #: [id number] : 2005 F 18 From: Ivania adorno MD PCP: NICCI Malik Status: REG ER Study: Elbow min 3 Views Date of Exam: 05/06/24 Exam# [id number] Ordering Dr: Seferino Flores DO [id number] HISTORY: fall. TECHNIQUE: XR Elbow Min 3 Views. COMPARISON: None. FINDINGS: BONES : No acute fracture identified. Mineralization unremarkable. JOINTS: No dislocation. Joint spaces maintained. RAD/Elbow min 3 Views IMPRESSION: No acute fracture or dislocation identified in the right elbow. Electronically Signed: Ivania Hartman MD at 10:35 EST Reading Location ID and State: [facility] / [place] Tel , Service support , CC: SUPERVISOR COLOR PASTE MIXING-Vanita Chambers; Dr. Seferino Flores DO 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: Signed Normal [facility] Emergency Department Summary on 05-06-2024 Emergency Department Summary [facility] Medical Records Department [address] [place] [address] Emergency Department Summary 05/06/24 MR#: [id number] Acct: [id number] Name: CLARISSE MOLINA Rep #: [id number] : 2005 18 From: Seferino Flores DO [...] pain. States that she originally went to [facility] had x-rays obtained there and was [...] therapy for left shoulder is doing well. [facility] Medical History PCOS (polycystic ovarian syndrome) Essential [...] following commands knew that she was at [facility] the year is 2024. Sensation grossly intact [...] advised her to take Tylenol and ibuprofen [id number]-ixr-ujedm for pain control. She was advised to [...] Dx/Rx/DC Orde (more content not included)... Normal [facility] Shoulder min 2 Viewson 05-06 Shoulder min 2 Views [facility] Imaging Services [address] [place], [place] [address] Shoulder min 2 Views MR#: [id number] Acct: [id number] Name: CLARISSE MOLINA Rep #: [id number] : 2005 F 18 From: Ivania adorno MD PCP: NICCI Malik Status: REG ER Study: Shoulder min 2 Views Date of Exam: 05/06/24 Exam# [id number] Ordering Dr: Seferino Flores DO [id number] HISTORY: right shoulder pain. TECHNIQUE: XR Shoulder [...] 10:38 EST Reading Location ID and State: [facility] / [place] Tel , Service support , CC: NICCI Chambers; Dr. Seferino Flores DO 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: Signed Normal [facility] ED MED ADMINISTRATION DETAIL on 05-05-2024 ED MED ADMINISTRATION DETAIL Director Of Land [employer]quisition Medication Administration Record [address] [address] [id number] 05/05/2024 Patient: CLARISSE MOLINA Sex: Female : [...] Levine R.N. Scanned 1 of 1 Normal [facility] ED NURSES CLINICAL NOTEon ED NURSES CLINICAL NOTE Nurse Narrative Nurse Clinical Narrative [address] [place] [address] [id number] 05/05/2024 Patient: CLARISSE MOLINA Sex: Female : [...] Patient verbalized understanding. Written instructions provided in Andorran. The patient was discharged by the physician. The patient was discharged home. The patient left ambulatory and via private vehicle. Patient driving. -- 08:27 05/05/24 JOANN Levine R.N. (Electronically signed by Pearl Levine R.N. 05/05/24 15:53:29 EST) Generated by [facility] 3 of 3 Normal [facility] ED ORDER SHEET (CPOE ONLY)on 05-05-2024 ED ORDER SHEET (CPOE ONLY) Order Sheet Order Sheet [address] [address] [id number] 05/05/2024 Patient: CLARISSE MOLINA Sex: Female : [...] (05/05/2024 08:19 EST)] 2 of 2 Normal [facility] ED PHYSICIAN CLINICAL REPORT on 05-05-2024 ED PHYSICIAN CLINICAL REPORT Narrative Physician Clinical Narrative [facility] [address] [place] [address] [id number] 05/05/2024 Patient: CLARISSE MOLINA Sex: Female : [...] days, dispense 20 tablet. Refills 0. Pharmacy: [facility] [address] [place] [address]. Follow-up: Follow up with your healthcare provider in two days. Call for an appointment. (Electronically signed by Quinn Hameed D.O. 05/05/24 08:19:21 EST) Generated by [facility] 3 of 3 Normal [facility] ED [facility] 05-05-[address] [address] [id number] 05/05/2024 Patient: CLARISSE MOLINA Sex: Female : 2005 Age: 18y Item Facility Professional Category Description Code Code Quantity Fee Total Nurse/E/M EMERGENCY 520688 1 $0.00 $0.00 DEPARTMENT VISIT HIGH/URGENT SEVERITY (58029-33) Nurse/IV/IM/Infusions IM/SQ (84984) 694116 1 $0.00 $0.00 Grand Total $0.00 Providers Quinn Hameed D.O. Chief Complaint Injury to right shoulder. Principal Diagnosis Contusion to the right shoulder. 1 of 2 [facility] ICD-10 Codes S40.011A: Contusion of right shoulder, initial encounter 2 of 2 Normal [facility] ED VISIT SUMMARYon ED VISIT SUMMARY Visit Overview Visit Overview [place] [address] [facility] [place] [address] [id number] 05/05/2024 Patient: CLARISSE MOLINA Sex: Female : [...] THE RIGHT SHOULDER 3 of 3 Normal [facility] ED VITALS FLOW SHEETon 05-05 ED VITALS FLOW SHEET Vitals Vital Sign Flow Sheet [address] [address] [id number] 05/05/2024 Patient: CLARISSE MOLINA Sex: Female : 2005 Age: 18y Measurements Wt: 86.2 kg, Ht/Stefan: 66.0 in, BMI: 30.67 Measured Time BP MAP HR RR O2Sat ETCO2 Temp Pain GCS RTS 08:20 05/05/2024 122/68 86 83 16 98% 6 07:26 05/05/2024 10 07:18 05/05/2024 130/81 97 91 16 99% 98.1 F 10 1 of 1 Normal [facility] SHOULDER COMPLETE RTon 05-05 SHOULDER COMPLETE RT [address] [address] Patient: CLARISSE MOLINA Moiz Phone#: : 2005 Age: 18 Gender: F Pt. Type: ER Account: [id number] Location: 052 Ordering: QUINN HAMEED Exam Date: 05/05/2024/7:31 Family Phys: LIZY CHAMBERS Charge Code: 711079 Physician: Shelby Order #: [id number] Dose#: PROCEDURE: X-RAY SHOULDER COMPLETE RT MIN 2 VIEWS COMPARISON: None. INDICATIONS: Pain. FINDINGS: BONES: Normal. No significant arthropathy or acute abnormality. SOFT TISSUES: Negative. No visible soft tissue swelling. EFFUSION: None visible. OTHER: Negative. CONCLUSION: No acute disease. Dictated by: Kristan David MD on 05/05/2024 at 8:51 Approved by: Kristan David MD on 05/05/2024 at 8:52 Normal [facility] ED MED ADMINISTRATION DETAIL on 03-30-2024 ED MED ADMINISTRATION DETAIL Director Of Land Acquisition Medication Administration Record [address] [facility] [place] [address] [id number] 03/25/2024 Patient: CLARISSE MOLINA Sex: Female : [...] Olga Lidia Rivera R.N. 1 of 2 [employer] Medication Ordered Medication Administration Date/Time Piperacillin-Tazoba 20:48 12 Piperacillin-Tazobac (Zosyn) IVPB 3.375gm/50ml NS Started c (Zosyn) IVPB 3.375 g started at 100 mL/hr diluted in sodium chloride IVPB 0.9 % 20:48 03/25/2024 3.375gm/50ml NS Minibag+ 50 mL via Site# 1. Allergies verified and confirmed 5 Kimberly Wern R.N. 3.375 g diluted in rights. IV [...] administration. - 00:37 Olga Lidia Rivera R.N. DiphenhydrAMINE 22:28 03/25 DiphenhydrAMINE (Benadryl) IVP 50 mg given via Given (Benadryl) IVP 50 Site# 1. Allergies verified and confirmed 5 rights. IV patency 22:28 03/25/2024 mg (NOW x1) established. IV site checked: no pain, redness, or swelling. IV Kimberly Wren R.N. flushed thoroughly pre-medication administration. Information Scanned reviewed. Verbalizes understanding. - 22:28 Kimberly Wren R.N. 2 of 2 Normal [facility] ED NURSES CLINICAL NOTEon ED NURSES CLINICAL NOTE Nurse Narrative Nurse Clinical Narrative [facility] [address] [facility] [place] [id number] 03/25/2024 Patient: CLARISSE MOLINA Sex: Female : [...] peripheral IV site with Vacutainer 20g by tx per protocol ; labeled in presence of [...] 12-Lead EKG was ordered, performed by a technical photographer and shown to the ED physician. -- 20:58 03/25/24 Brianna Avila (more content not included)... Normal [facility] ED ORDER SHEET (CPOE ONLY)on 03-30-2024 ED ORDER SHEET (CPOE ONLY) Order Sheet Order Sheet [address] [address] [id number] 03/25/2024 Patient: CLARISSE MOLINA Sex: Female : [...] Stat 20:18 03/25/2024 20:33 03/25/2024 20:33 03/25/2024 [[place]] # 1 Stat Samantha Che R.N. Anne Rutt, R.N. Blood Culture Stat 20:18 03/25/2024 20:33 03/25/2024 20:36 03/25/2024 [[place]] # 2 Stat Samantha Che R.N. Anne [...] minutes Samantha Che R.N. Anne Rutt, R.N. Digital Photo Printer 20:18 03/25/2024 20:33 03/25/2024 20:33 03/25/2024 Samantha Che R.N. Anne Rutt, R.N. Oxygen titrate to 92% 20:18 03/25/2024 20:33 03/25/2024 20:33 03/25/2024 Samantha Che R.N. Anne Rutt, R.N. [Electronically signed by Kwaku Pettit D.O. (03/30/2024 03:03 EST)] 3 of 3 Normal [facility] ED PHYSICIAN CLINICAL REPORT on 03-30-2024 ED PHYSICIAN CLINICAL REPORT Narrative Physician Clinical Narrative [address] [address] [id number] 03/25/2024 Patient: CLARISSE MOLINA Sex: Female : [...] EST 4 of 16 Narrative 0.93 03/25/2024 Travis # 0.20 - 1.00 Final x10/UL 20:34 [...] 10/UL 03/25 (more content not included)... Normal [facility] ED SUPER BILLon 03-30-2024 ED SUPER BILL [place] [address] [facility] [place] [address] [id number] 03/25/2024 Patient: CLARISSE MOLINA Sex: Female : 2005 Age: 18y Facility Professional Category Item Description Code Code Quantity Fee Total Drugs Normal [place] 177527 1 $0.00 $0.00 1000cc (370898) Nurse/E/M EMERGENCY 366521 1 $0.00 $0.00 DEPT VISIT HIGH SEVERITYFUNCJ (26938-32) Nurse/IV/IM/Infusions Drip/IVPB 779379 2 $0.00 $0.00 additional hour (28556) Nurse/IV/IM/Infusions Drip/IVPB 755276 1 $0.00 $0.00 concurrent (41327) Nurse/IV/IM/Infusions Drip/IVPB initial 659400 1 $0.00 $0.00 (65944) Nurse/IV/IM/Infusions IVP additional 521587 1 $0.00 $0.00 push (44899) Grand $0.00 Total 1 of 2 [facility] Providers Kwaku Pettit D.O. Chief Complaint SKIN RASH. Principal Diagnosis Cellulitis of the right thigh. ICD-10 Codes L03.115: Cellulitis of right lower limb 2 of 2 [facility] ED VISIT SUMMARYon ED VISIT SUMMARY Visit Overview Visit Overview [address] [address] [id number] 03/25/2024 Patient: CLARISSE MOLINA Sex: Female : [...] THE RIGHT THIGH 3 of 3 Normal [facility] ED VITALS FLOW SHEETon 03-30 ED VITALS FLOW SHEET Vitals Vital Sign Flow Sheet [facility] [address] [place] [address] [place] [address] [id number] 03/25/2024 Patient: CLARISSE MOLINA Sex: Female : [...] 98.1 F 0 3 of 3 Normal [facility] CBC + DIFFon 03-25-2024 Baso # 0.05 x10EE3/UL Normal 0.00 - 0.10 [facility] Comment on above: Performed By: #### 2 68250 #### [facility],[address] [place] [address] Basophils/100 WBC (Bld) 0.5 % Normal 0.0 - 2.0 [facility] Comment on above: Performed By: #### 2 85916 #### [facility],[address] [place] [address] CBC + DIFF Normal [facility] Comment on above: Result Comment: CORRECTED REPORT CBC-COMPLETE BLOOD COUNT Performed By: #### 2 13154 #### [facility],[address] [place] [address] EO # 0.48 x10EE3/UL Normal 0.00 - 0.50 [facility] Comment on above: Performed By: #### 2 11828 #### [facility],[address] [place] [address] Eosinophils/100 WBC (Bld) 4.4 % Normal 0.0 - 7.0 [facility] Comment on above: Performed By: #### 2 56687 #### [facility],[address] [place] [address] ERROR DUE TO SEE BELOW Normal [facility] Comment on above: Result Comment: SPEC IMEN MISLABELLED AND CORRECTED Performed By: #### 2 07473 #### [facility],[address] [place] [address] Erythrocyte distribution width (RBC) [Ratio] 13.4 % Normal 12.0 - 15.6 [facility] Comment on above: Performed By: #### 2 80006 #### [facility],[address] [place] [address] Hematocrit (Bld) [Volume fraction] 39.2 % Normal 34.0 - 46.0 [facility] Comment on above: Performed By: #### 2 33449 #### [facility],[address] [place] [address] Hemoglobin (Bld) [Mass/Vol] 13.3 g/dL Normal 12.0 - 16.0 [facility] Comment on above: Performed By: #### 2 46624 #### [facility],[address] [place] [address] Lymph # 2.67 x10EE3/UL Normal 0.80 - 2.80 [facility] Comment on above: Performed By: #### 2 44074 #### [facility],[address] [place] [address] Lymphocytes/100 WBC (Bld) 24.3 % Normal 20.0 - 45.0 [facility] Comment on above: Performed By: #### 2 24584 #### [facility],[address] [place], [place] [phone] MANUAL DIFF N/A Normal [facility] Comment on above: Performed By: #### 2 02137 #### [facility],[address] [place] [address] MCH (RBC) [Entitic mass] 29 pg Normal 27 - 33 [facility] Comment on above: Performed By: #### 2 05392 #### [facility],[address] [place] [address] MCHC 34 X10 3 Normal 32 - 36 [facility] Comment on above: Performed By: #### 2 72130 #### [facility],[address] [place], [place] [address] MCV (RBC) [Entitic vol] 84 fL Normal 80 - 99 [facility] Comment on above: Performed By: #### 2 59206 #### [facility],[address] [place] [address] Travis # 0.57 x10EE3/UL Normal 0.20 - 1.00 [facility] Comment on above: Performed By: #### 2 51746 #### [facility],[address] [place] [address] MONOS % 5.2 % Normal 0.0 - 10.0 [facility] Comment on above: Performed By: #### 2 63240 #### [facility],[address] [place] [address] Morphology Avery (Bld) [Interp] N/A Normal [facility] Comment on above: Result Comment: ==== FOLLOWING [...] *Previously reported in error 03/25/24.TR . .DXH9 .69537-6 @N] NEUT % 67.1 <-- *Previously reported [...] in error 03/25/24.TR . .DXH9 .751-8 M#] Travis # 0.93 <-- *Previously reported in error 03/25/24.TR . .DXH9 .742-7 E#] EO # 0.17 <-- *Previously reported in error 03/25/24.TR . .DXH9 .711-2 B#] Baso # 0.03 <-- *Previously reported in error 03/25/24.TR . .DXH9 .704-7 Performed By: #### 2 63305 #### [facility],[address] [place], [place] [address] Neut # 7.24 x10EE3/UL High 1.50 - 7.10 [facility] Comment on above: Performed By: #### 2 12741 #### [facility],[address] [place] [address] Neutrophils/100 WBC (Bld) 65.7 % Normal 46.0 - 76.0 [facility] Comment on above: Performed By: #### 2 31800 #### [facility],[address] [place] [address] PLATELET 399 x10EE3/UL Normal 150 - 450 [facility] Comment on above: Performed By: #### 2 88756 #### [facility],[address] [place] [address] Platelet mean volume (Bld) [Entitic vol] 7.9 fL Normal 6.6 - 10.5 [facility] Comment on above: Result Comment: AUTO MATED DIFFERENTIAL Performed By: #### 2 59098 #### [facility],[address] [place] [address] RBC 4.68 x 10EE6/UL Normal 4.10 - 5.30 [facility] Comment on above: Performed By: #### 2 71068 #### [facility],[address] [place] [address] WBC 11.0 x 10EE3/UL High 4.5 - 10.8 [facility] Comment on above: Performed By: #### 2 58995 #### [facility],[address] [place], [place] [phone] CMP with eGFRon 03-25-2024 AGE 18 years Normal [facility] Comment on above: Performed By: #### 2 80348 #### [facility],[address] [place] [address] Albumin [Mass/Vol] 4.0 g/dL Normal 3.4 - 5.0 [facility] Comment on above: Performed By: #### 2 11185 #### [facility],[address] [place], [place] [address] Albumin/Globulin [Mass ratio] 1.0 {ratio} Normal 0.9 - 1.6 [facility] Comment on above: Performed By: #### 2 03053 #### [facility],[address] [place] [address] ALK PHOS 131 U/L High 46 - 116 [facility] Comment on above: Performed By: #### 2 46399 #### [facility],[address] [place] [address] ALT [Catalytic activity/Vol] 47 U/L Normal 16 - 63 [facility] Comment on above: Performed By: #### 2 82958 #### [facility],[address] [place] [address] Anion gap [Moles/Vol] 13 mmol/L Normal 10 - 20 [facility] Comment on above: Performed By: #### 2 16825 #### [facility],[address] [place] [address] AST [Catalytic activity/Vol] 33 U/L Normal 13 - 39 [facility] Comment on above: Performed By: #### 2 60743 #### [facility],[address] [place] [address] B/C RATIO 12 ratio Normal 0 - 30 [facility] Comment on above: Performed By: #### 2 50274 #### [facility],[address] [place] [address] Bilirubin [Mass/Vol] 0.3 mg/dL Normal 0.2 - 1.0 [facility] Comment on above: Performed By: #### 2 13862 #### [facility],[address] [place] [address] Calcium [Mass/Vol] 9.5 mg/dL Normal 8.5 - 10.1 [facility] Comment on above: Performed By: #### 2 15790 #### [facility],[address] [place] [address] Chloride [Moles/Vol] 104 mmol/L Normal 98 - 107 [facility] Comment on above: Performed By: #### 2 26870 #### [facility],[address] [place] [address] CMP with eGFR Normal [facility] Comment on above: Result Comment: CORRECTED REPORT COMPREHENSIVE METABOLIC PANEL Performed By: #### 2 37178 #### [place] [address] CO2 [Moles/Vol] 26.8 mmol/L Normal 21.0 - 32.0 [facility] Comment on above: Performed By: #### 2 06233 #### [place] [address] Creatinine [Mass/Vol] 0.94 mg/dL Normal 0.55 - 1.02 [facility] Comment on above: Performed By: #### 2 52926 #### [place] [address] eGFR 34 ML/MINUTE Low 60 - 999 [facility] Comment on above: Performed By: #### 2 60032 #### [place] [address] eGFR(AA) 41 ML/MINUTE Low 60 - 999 [facility] Comment on above: Result Comment: ACCO RDING [...] *Previously reported in error 03/25/24.TR . .DIM2. .73886-8 . TP] TOTAL PROTEIN 7.5 <-- *Previously reported in error 03/25/24.TR . .DIM2. .2885-2 . AL] ALBUMIN 4.1 <-- *Previously reported in error 03/25/24.TR . .DIM2. .1751-7 . GLOBULIN 3.4 <-- *Previously reported in error 03/25/24.TR . . . .28827-8 . A/G RATIO 1.2 <-- *Previously reported in error 03/25/24.TR . . . .1751-7 . TB] TOTAL BILI 0.8 <-- *Previously reported in error 03/25/24.TR . .DIM2. .1975-2 . B/C RATIO 14 <-- *Previously reported in error 03/25/24.TR . . . .3097-3 . AT] ALT/SGPT 77 H <-- *Previously reported in error 03/25/24.TR . .DIM2. .3192-6 . ANION GAP 9 L <-- *Previously reported in error 03/25/24.TR . . . . . AGE 18 <-- *Previously reported in error 03/25/24.TR . .DIM2. . . eGFR 58 L <-- *Previously reported in error 03/25/24.TR . . . .15241-0 . eGFR(AA) > 60 <-- *Previously reported in error 03/25/24.TR . . . .46196-3 . Performed By: #### 2 01402 #### [facility],[address] [place] [address] ERROR DUE TO SEE BELOW Normal [facility] Comment on above: Result Comment: SPEC IMEN MISLABELLED AND CORRECTED Performed By: #### 2 37579 #### [facility],[address] [place] [address] 41992 Globulin (S) [Mass/Vol] 4.1 g/dL High 1.5 - 3.8 [facility] Comment on above: Performed By: #### 2 47572 #### [facility],[address] [place] [address] 15576 Glucose [Mass/Vol] 86 mg/dL Normal 74 - 106 [facility] Comment on above: Performed By: #### 2 17089 #### [facility],[address] [place] [address] 97229 Potassium [Moles/Vol] 3.5 mmol/L Normal 3.5 - 5.1 [facility] Comment on above: Performed By: #### 2 56133 #### [facility],[address] [place] [address] 90406 Protein [Mass/Vol] 8.1 g/dL Normal 6.4 - 8.2 [facility] Comment on above: Performed By: #### 2 48362 #### [facility],[address] [place] [address] 42770 Sodium [Moles/Vol] 140 mmol/L Normal 136 - 145 [facility] Comment on above: Performed By: #### 2 78334 #### [facility],[address] [place], [place] [address] Urea nitrogen [Mass/Vol] 11 mg/dL Normal 7 - 18 [facility] Comment on above: Performed By: #### 2 66681 #### [facility],[address] [place], [place] [id number] CT FEMUR C+ RTon 03-25-2024 CT FEMUR C+ RT [place] [address] Patient: CLARISSE MOLINA Phone#: : 2005 Age: 18 Gender: F Pt. Type: ER Account: [id number] Location: [facility] Ordering: KWAKU PETTIT Exam Date: 03/25/2024/21:15 Family Phys: LIZY CHAMBERS Charge Code: 085997 Physician: Shelby Order #: [id number] Dose#: 8.7 PROCEDURE: CT FEMUR RT WITH [...] Gong MD on 03/25/2024 at 21:38 Normal [facility] CULTURE BLOOD [DEISY]on Microscopic examination of blood, culture CULTURE BLOOD [DEISY] _BLOOD CULTURE_ GO TO CPSI REPORTS AND ATTACHMENTS FOR SCANNED REPORT 04/03/24.1205.DNP.COMPLETE Normal [facility] Comment on above: Performed By: #### 2 82720 ####[facility],[address] [place], [place] [address] Microscopic examination of blood, culture CULTURE BLOOD [DEISY] _BLOOD CULTURE_ GO TO CPSI REPORTS AND ATTACHMENTS FOR SCANNED REPORT 04/03/24.1204.DNP.COMPLETE Normal [facility] Comment on above: Performed By: #### 2 17953 ####[facility],[address] [place], [place] [address] LACTATEon 03-25-2024 Lactate [Moles/Vol] 1.4 mmol/L Normal 0.4 - 2.0 [facility] Comment on above: Performed By: #### 2 86430 #### [facility],[address] [place] [address] ED MED ADMINISTRATION DETAIL on 03-23-2024 ED MED ADMINISTRATION DETAIL Director Of Land Acquisition Medication Administration [address] [address] [id number] 03/23/2024 Patient: CLARISSE MOLINA Sex: Female : 2005 Age: 18y MEASUREMENTS: Wt: 86.2 kg, Ht/Stefan: 65.0 in, BMI: 31.62 ALLERGIES: No known drug allergies Medication Ordered Medication Administration Date/Time Bactrim DS PO 1 07:51 03/23 Bactrim DS PO 1 tab given. - 07:51 Gabe Gregorio tab (NOW x1) R.N. 07:51 03/23/2024 Marco Salas R.N. Scanned 1 of 1 Normal [facility] ED NURSES CLINICAL NOTEon ED NURSES CLINICAL NOTE Nurse Narrative Nurse Clinical Narrative [address] [address] [id number] 03/23/2024 [id number] Sex: Female : 2005 Age: 18y Disposition: [...] Treatments re (more content not included)... Normal [facility] ED ORDER SHEET (CPOE ONLY)on 03-23-2024 ED ORDER SHEET (CPOE ONLY) Order Sheet Order Sheet [address] [address] [id number] 03/23/2024 Patient: CLARISSE MOLINA Sex: Female : [...] (03/23/2024 17:53 EST)] 1 of 1 Normal [facility] ED PHYSICIAN CLINICAL REPORT on 03-23-2024 ED PHYSICIAN CLINICAL REPORT Narrative Physician Clinical Narrative [facility] [address] [place] [address] [phone] 03/23/2024 Patient: CLARISSE MOLINA Sex: Female : [...] it maybe staff she also works in [employer] and is still present. It is described [...] it maybe staff she also works in [employer]. Patient does have redness on her right [...] days, dispense 20 tablet. Refills 0. Pharmacy: [facility] [address] [place] [address]. Follow-up with: Lizy Chambers, MSN,DESK ATTENDANT, HOGSHEAD INSPECTOR-C, [facility], Adult and Pediatric, Family [facility], Phone: [phone], [address] [place] [address]. Follow up in one week. (Keep clean and dry. nina area to see if it is getting larger. Return if any problems or concerns.). (Electronically signed by Sudeep Washington D.O. 03/23/24 17:53:21 EST) Generated by [facility] 3 of 3 [facility] ED SUPER BILLon 03-23-2024 ED SUPER BILL [facility] [address] [facility] [place] [address] [phone] 03/23/2024 Patient: CLARISSE MOLINA Sex: Female : 2005 Age: 18y Item Professional Category Description Facility Code Code Quantity Fee Total Nurse/E/M EMERGENCY 763256 1 $0.00 $0.00 DEPARTMENT VISIT MODERATE SEVERITY (84908) Grand Total $0.00 Providers Sudeep Washington D.O. Chief Complaint SKIN RASH. Principal Diagnosis Cellulitis of the right thigh. ICD-10 Codes 1 of 2 [facility] L03.115: Cellulitis of right lower limb 2 of 2 [facility] ED VISIT SUMMARYon ED VISIT SUMMARY Visit Overview Visit Overview [facility] [address] [facility] [place] [address] [id number] 03/23/2024 Patient: CLARISSE MOLINA Sex: Female : [...] THE RIGHT THIGH 3 of 3 Normal [facility] ED VITALS FLOW SHEETon 03-23 ED VITALS FLOW SHEET Vitals Vital Sign Flow Sheet [address] [address] [id number] 03/23/2024 Patient: CLARISSE MOLINA Sex: Female : 2005 Age: 18y Measurements Wt: 86.2 kg, Ht/Stefan: 65.0 in, BMI: 31.62 Measured Time BP MAP HR RR O2Sat ETCO2 Temp Pain GCS RTS 07:52 03/23/2024 122/75 91 87 19 97% 98.4 F 1 07:32 03/23/2024 129/80 96 92 18 99% 98.4 F 2 1 of 1 Normal [facility] CNOVon 03-02-2024 CNOV Office Visit (UCWSTR ) CLARISSE MOLINA ([id number]) 5 F Date Time Provider Department 03/02/24 3:30 PM TISHA PALOMO WSTR During your visit today, we recorded the following information about you: Temperature Pulse Respiration Blood pressure 97.8 degrees 98/minute 18/minute 100/74 Weight 84.9 kg Tisha Palomo APRN.COAL UNLOADER 03/02/2024 4:04 PM Signed This note was created using [employer]. Subjective Clarisse Molina is a 18 year [...] seem most likely viral in origin. Recommended msdi-owl-stmkjfx treatments, plenty of rest and fluids and follow-up with PCP. - XR CHEST 2V FRONTAL/LAT Tisha Palomo APRN.COAL UNLOADER Allergies As of Date: 03/02/2024 (No Known Allergies) Date Reviewed: 03/02/2024 Reviewed by: Tisha Palomo APRN.COAL UNLOADER - Fully Assessed Reason for Visit: Cough [28] Cmt: Fever, drainage, LAY ear pain, stuffy/runny nose, loss of voice, sore throat, nausea, sob, JUAN x 3 days Primary Visit Diagnosis:Sore throat [J02.9] Other Visit Diagnosis:Acute cough [R05.1] Order(s):RAPID STREP TEST B/O [3622616] Order #: [id number] XR CHEST 2V FRONTAL/LAT [0940451] Order #: [id number] FUTURE STREP A MOLECULAR (POC) [6666246] Order #: [id number]. #:[id number] -[id number] Prescriptions as of 03/02/2024 - norethindrone [...] Status:Closed by TISHA PALOMO on 03/02/[address] [facility] STREP A MOLECULAR (POC)on Procedural Control Valid [facility] Strep A (POCT) Negative [...] tissues: Unremarkable. IMPRESSION: No acute radiographic abnormality. 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: [facility] Transcribe Date/Time: Mar 02 2024 3:58P Dictated by : NINA HUNTER MD This examination was interpreted and the report reviewed and electronically signed by: NINA HUNTER MD on Mar 02 2024 3:59PM EST [id number] Normal [facility] XR Chest PA and Lateralon IMPRESSION: No acute radiographic abnormality. 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: [facility] Transcribe Date/Time: Mar 02 2024 3:58P Dictated [...] Unremarkable. DIVISION OF RADIOLOGY Provider, Mary bansal [place] - 03/02/2024 * * *Final Report* * [...] Unremarkable. IMPRESSION IMPRESSION: No acute radiographic abnormality. 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: [facility] Transcribe Date/Time: Mar 02 2024 3:58P Dictated by : NINA HUNTER MD This examination was interpreted and the report reviewed and electronically signed by: NINA HUNTER MD on Mar 02 2024 3:59PM EST [facility] Radiology Study observation (narrative) [facility] XR Chest PA and LateralOrder ed By: Ccf Provider on 03-02-2024 [facility] ED MED ADMINISTRATION DETAIL on 02-28-2024 ED MED ADMINISTRATION DETAIL Director Of Land Acquisition Medication Administration Record [address] [address] [id number] 02/20/2024 Patient: CLARISSE MOLINA Sex: Female : 2005 Age: 18y MEASUREMENTS: Wt: 86.2 kg, Ht/Stefan: 66.0 in, BMI: 30.67 ALLERGIES: No known drug allergies Medication Ordered Medication Administration Date/Time Acetaminophen 15:01 02/19 Acetaminophen (Tylenol) PO 975 mg given. - 15:01 Given (Tylenol) PO 975 Dean Medina R.N. 15:01 02/20/2024 mg (NOW x1) Dean Medina R.N. Scanned 1 of 1 Normal [facility] ED NURSES CLINICAL NOTEon ED NURSES CLINICAL NOTE Nurse Narrative Nurse Clinical Narrative [place] [address] [place] [address] [id number] 02/20/2024 Patient: CLARISSE MOLINA Sex: Female : [...] Ht/Stefan: 66.0 in, BMI: 30.67 -- 13:02/20/24 JOANN Chow R.N. Medications: no known home medications [...] to radiolog (more content not included)... Normal [facility] ED ORDER SHEET (CPOE ONLY)on 02-28-2024 ED ORDER SHEET (CPOE ONLY) Order Sheet Order Sheet [address] [address] [id number] 02/20/2024 Patient: CLARISSE MOLINA Sex: Female : [...] (02/28/2024 07:09 EST)] 2 of 2 Normal [facility] ED PHYSICIAN CLINICAL REPORT on 02-28-2024 ED PHYSICIAN CLINICAL REPORT Narrative Physician Clinical Narrative [address] [address] [id number] 02/20/2024 Patient: CLARISSE MOLINA Sex: Female : [...] COMPLETE LT Final EXAM Date: 02/20/2024 [facility] 18[facility] [address] Patient: CLARISSE MOLINA Phone#: : 2005 Age: 18 Gender: F Pt. Type: ER Account: [id number] Location: 2 Ordering: JOHAN SOLORZANO Exam Date: 02/20/2024/15:27 Family Phys: LIZY CHAMBERS Charge Code: [id number] Physician: Shelby Order #: [id number] Dose#: PROCEDURE: X-RAY ANKLE COMPLETE LT MIN [...] Date: 02/20/2024 17:56:00 EST MsgRcvd: 02/20/2024 18:00 [place] [address] Patient: CLARISSE MOLINA Phone#: : 2005 Age: 18 Gender: F Pt. Type: ER Account: [id number] Location: 05 Ordering: JOHAN SOLORZANO Exam Date: 02/20/2024/15:03 Family Phys: LIZY CHAMBERS Charge Code: [id number] Physician: Shelby Order #: [id number] Dose#: PROCEDURE: X-RAY FEMUR LT MIN 2 [...] MsgRcvd: 11 (more content not included)... Normal [facility] ED SUPER BILLon 02-28-2024 ED SUPER BILL [address] [address] [id number] 02/20/2024 Patient: CLARISSE MOLINA Sex: Female : 2005 Age: 18y Item Professional Category Description Facility Code Code Quantity Fee Total Nurse/E/M EMERGENCY 115869 1 $0.00 $0.00 DEPARTMENT VISIT MODERATE SEVERITY (85425) Grand Total $0.00 Providers Johan Solorzano M.D. Chief Complaint Injury to left leg, left thigh and left hip. Principal Diagnosis Multiple contusions to the left hip, left thigh, left lower leg and left ankle. Fall on the same level by slipping. 1 of 2 [facility] ICD-10 Codes W01.0XXA: Fall on same level from slipping, tripping and stumbling without subsequent striking against object, initial encounter S70.02xA: Contusion of left hip, initial encounter S70.12xA: Contusion of left thigh, initial encounter S80.12xA: Contusion of left lower leg, initial encounter S90.02xA: Contusion of left ankle, initial encounter 2 of 2 Normal [facility] ED VISIT SUMMARYon ED VISIT SUMMARY Visit Overview Visit Overview [address] [address] [id number] 02/20/2024 Patient: CLARISSE MOLINA Sex: Female : [...] AND LEFT ANKLE 3 of 3 Normal [facility] ED VITALS FLOW SHEETon 02-27 ED VITALS FLOW SHEET Vitals Vital Sign Flow Sheet [place] [address] [place] [address] [id number] 02/20/2024 Patient: CLARISSE MOLINA Sex: Female : 2005 Age: 18y Measurements Wt: 86.2 kg, Ht/Stefan: 66.0 in, BMI: 30.67 Measured Time BP MAP HR RR O2Sat ETCO2 Temp Pain GCS RTS 13:13 02/20/2024 123/82 96 95 16 97% 98.5 F 10 13:11 02/20/2024 123/82 96 95 16 97% 98.5 F 10 1 of 1 Normal [facility] CBC W/Diff, Automatedon 02-10 Absolute Lymph 4.10 X10 3/uL Normal 0.83-4.51 [facility] Comment on above: Performed By: #### L 100.0100, L700.6800 ####[facility] [address] [place], [address] Absolute Neut 9.8 X10 3/uL High 2.0-7.7 [facility] Comment on above: Performed By: #### L 100.0100, L700.6800 ####[facility] [address] [place], [address] Basophils/100 WBC (Bld) 0.6 % Normal 0-1 [facility] Comment on above: Performed By: #### L 100.0100, L700.6800 ####[facility] [address] [place], [address] Eosinophils/100 WBC (Bld) 1.8 % Normal 0-3 [facility] Comment on above: Performed By: #### L 100.0100, L700.6800 ####[facility] [address] [place], [address] Erythrocyte distribution width (RBC) [Ratio] 13.2 % Normal 11.6-14.6 [facility] Comment on above: Performed By: #### L 100.0100, L700.6800 ####[facility] [address] [place], [address] Hematocrit (Bld) [Volume fraction] 40.6 % Normal 37-46 [facility] Comment on above: Performed By: #### L 100.0100, L700.6800 ####[facility] [address] [place], [address] Hemoglobin (Bld) [Mass/Vol] 13.4 g/dL Normal 12.0-15.0 [facility] Comment on above: Performed By: #### L 100.0100, L700.6800 ####[facility] [address] [place], [address] IG% 0.500 Normal 0.0-0.9 [facility] Comment on above: Result Comment: IG% - Immature Granulocytes (promyelocytes, myelocytes and metamyelocytes) > 1% indicates that a LEFT SHIFT is Present. Performed By: #### L 100.0100, L700.6800 ####[facility] [address] [place], [address] Lymphocytes/100 WBC (Bld) 26.6 % Normal 25-45 [facility] Comment on above: Performed By: #### L 100.0100, L700.6800 ####[facility] [address] [place], [address] MCH (RBC) [Entitic mass] 27.4 pg Normal 25.0-35.0 [facility] Comment on above: Performed By: #### L 100.0100, L700.6800 ####[facility] [address] [place], [address] MCHC (RBC) [Mass/Vol] 33.0 g/dL Normal 32-36 [facility] Comment on above: Performed By: #### L 100.0100, L700.6800 ####[facility] [address] [place], [address] MCV (RBC) [Entitic vol] 83.0 fL Normal 78-96 [facility] Comment on above: Performed By: #### L 100.0100, L700.6800 ####[facility] [address] [place], [address] Monocytes/100 WBC (Bld) 6.6 % High 3-6 [facility] Comment on above: Performed By: #### L 100.0100, L700.6800 ####[facility] [address] [place], [address] Neutrophils/100 WBC (Bld) 63.9 % Normal 34-64 [facility] Comment on above: Performed By: #### L 100.0100, L700.6800 ####[facility] [address] [place], [address] Nucleated RBC (Bld) [#/Vol] 0 10*3/uL Normal 0-5 [facility] Comment on above: Performed By: #### L 100.0100, L700.6800 ####[facility] [address] [place], [address] Platelet mean volume (Bld) [Entitic vol] 9.8 fL Normal 6.2-12.0 [facility] Comment on above: Performed By: #### L 100.0100, L700.6800 ####[facility] [address] [place], [address] Platelets (Bld) [#/Vol] 465 10*3/uL High 150-450 [facility] Comment on above: Performed By: #### L 100.0100, L700.6800 ####[facility] [address] [place], [address] RBC (Bld) [#/Vol] 4.89 10*6/uL High 4.1-4.8 [facility] Comment on above: Performed By: #### L 100.0100, L700.6800 ####[facility] [address] [place], [address] RDW SD 39.9 fl Normal 35.1-43.9 [facility] Comment on above: Performed By: #### L 100.0100, L700.6800 ####[facility] [address] [place], [address] WBC (Bld) [#/Vol] 15.4 10*3/uL High 4.5-13.0 [facility] Comment on above: Performed By: #### L 100.0100, L700.6800 ####[facility] [address] [place], [address] Emergency Department Summary on 02-24-2024 Emergency Department Summary [facility] Medical Records Department [address] [place] [address] Emergency Department Summary 02/24/24 MR#: [id number] Acct: [id number] Name: CLARISSE MOLINA Rep #: [id number] : 2005 18 From: Jacobo Bee MD [...] Prior similar symptoms: Yes Recent Illness/Hospitalization: Yes [facility] Medical History PCOS (polycystic ovarian syndrome) Essential [...] against bl (more content not included)... Normal [facility] ,Serum,hCG Quali.on 02-24-2024 HCG, SERUM QUAL Negative Normal [facility] Comment on above: Performed By: #### L 100.0100, L700.5130 ####[facility] [address] [place], [address] [place] 02-23-2024 RAÚL Telephone (OBGYWM) CLARISSE MOLINA ([id number]) 5 F Date Time Provider Department 02/23/24 [...] Status:Closed by CHRISTINE VILLALTA on 02/23/24 [facility]PLETE [facility]on 02-20-20 24 ANKLE COMPLETE LT [place] [address] Patient: CLARISSE MOLINA Phone#: : 2005 Age: 18 Gender: F Pt. Type: ER Account: [id number] Location: 052 Ordering: JOHAN SOLORZANO Exam Date: 02/20/2024/15:27 Family Phys: LIZY CHAMBERS Charge Code: [id number] Physician: Shelby Order #: [id number] Dose#: PROCEDURE: X-RAY ANKLE COMPLETE LT MIN 3 VIEWS COMPARISON: None. INDICATIONS: Fall. FINDINGS: BONES: Normal. No significant arthropathy or acute abnormality. SOFT TISSUES: Negative. No visible soft tissue swelling. EFFUSION: None visible. OTHER: Negative. CONCLUSION: No acute disease. Dictated by: Kristan David MD on 02/20/2024 at 18:00 Approved by: Kristan David MD on 02/20/2024 at 18:01 Normal [facility] FEMUR LT 2+ VIEWSon 02-20-20 24 FEMUR LT 2+ VIEWS [place] [address] Patient: CLARISSE MOLINA Phone#: : 2005 Age: 18 Gender: F Pt. Type: ER Account: [id number] Location: 052 Ordering: JOHAN SOLORZANO Exam Date: 02/20/2024/15:03 Family Phys: LIZY CHAMBERS Charge Code: [id number] Physician: Shelby Order #: [id number] Dose#: PROCEDURE: X-RAY FEMUR LT MIN 2 VIEWS COMPARISON: None. INDICATIONS: Fall FINDINGS: BONES: Normal. No significant arthropathy or acute abnormality. SOFT TISSUES: Negative. No visible soft tissue swelling. EFFUSION: None visible. OTHER: Negative. CONCLUSION: No acute disease. Dictated by: Kristan David MD on 02/20/2024 at 17:56 Approved by: Kristan David MD on 02/20/2024 at 17:56 Normal [facility] LUMBO SACRAL COMPLETE MIN 4 VIEWSon 02-20-2024 LUMBO SACRAL COMPLETE MIN 4 VIEWS [place] [address] Patient: CLARISSE MOLINA Phone#: : 2005 Age: 18 Gender: F Pt. Type: ER Account: [id number] Location: 05 Ordering: JOHAN SOLORZANO Exam Date: 02/20/2024/15:13 Family Phys: LIZY CHAMBERS Charge Code: [id number] Physician: Shelby Order #: [id number] Dose#: PROCEDURE: X-RAY LUMBAR SPINE COMPLETE MIN [...] David MD on 02/20/2024 at 17:58 Normal [facility] TIBIA-FIBULA LTon 02-20-2024 TIBIA-FIBULA LT [place] [address] Patient: CLARISSE MOLINA Phone#: : 2005 Age: 18 Gender: F Pt. Type: ER Account: [id number] Location: 052 Ordering: JOHAN SOLORZANO Exam Date: 02/20/2024/15:22 Family Phys: LIZY CHAMBERS Charge Code: [id number] Physician: Shelby Order #: [id number] Dose#: PROCEDURE: X-RAY TIB FIB LT 2 VIEWS COMPARISON: None. INDICATIONS: Fall. FINDINGS: BONES: Normal. No significant arthropathy or acute abnormality. SOFT TISSUES: Negative. No visible soft tissue swelling. EFFUSION: None visible. OTHER: Negative. CONCLUSION: No acute disease. Dictated by: Kristan David MD on 02/20/2024 at 17:59 Approved by: Kristan David MD on 02/20/2024 at 17:59 Normal [facility] [place]bin 02-15-2024 RAÚL Telephone (OBGYWM) CLARISSE MOLINA ([id number]) 5 F Date Time Provider Department 02/15/24 [...] Status:Closed by CRISTINE GARCIA on 02/15/[address] [facility] BACTERIAL VAGINOSIS NAATon 1 04-15-2023 Lactobacillus crispatus+gasseri+j ensenii + Gardnerella vaginalis + Atopobium vaginae rRNA MARK+probe Ql (Vag fld) Negative Normal Negative for bacterial vaginosis [facility] Comment on above: Order Comment: Speci men Type: SWABOrdering Facility: [facility] Address: [address] [place] [address] Performed By: #### 3 6902-5, BVAMP ####[facility] LABCLIA [id number] [place] [address] [place] C. trachomatis+N. gonorrhoea e DNA MARK+probe Ql (Unsp spec)on 02-14-2024 C. trachomatis rRNA MARK+probe Ql (Unsp spec) Negative Normal Negative for Chlamydia trachomatis by amplificaton [facility] Comment on above: Order Comment: Speci men Type: SWABOrdering Facility: [facility] Address: [address] [place] [address] Performed By: #### 3 6902-5, BVAMP ####[facility] LABCLIA [id number] [place] [address] [place] N. gonorrhoeae rRNA MARK+probe Ql (Unsp spec) Negative Normal Negative for Neisseria gonorrhoeae by amplification [facility] Comment on above: Order Comment: Speci men Type: SWABOrdering Facility: [facility] Address: [address] [place] [address] Performed By: #### 3 6902-5, BVAMP ####[facility] LABCLIA [id number] [address] OF [place] ERICK/TRICHOMONAS NAATon 1 04-15-2023 C. glabrata RNA MARK+probe Ql (Vag fld) Negative Normal Negative for Erick glabrata [facility] Comment on above: Order Comment: Speci men Type: SWABOrdering Facility: [facility] Address: [address] [place] [address] Performed By: #### C VTV ####[facility] LABIA [id number] [address] [place] Erick sp DNA MARK+probe Ql (Vag fld) Positive Abnormal Negative for Erick species [facility] Comment on above: Order Comment: Speci men Type: SWABOrdering Facility: [facility] Address: [address] [place] [address] Performed By: #### C VTV ####[facility] LABCLIA [id number] [address] OF [place] T. vaginalis DNA MARK+probe Ql (Unsp spec) Negative Normal Negative for Trichomonas vaginalis by amplification [facility] Comment on above: Order Comment: Speci men Type: SWABOrdering Facility: [facility] Address: [address] [place] [address] Performed By: #### C VTV ####[facility] LABIA [id number] [place] [address] [place] CNOVon 02-14-2024 CNOV Office Visit (OBGYWM ) CLARISSE MOLINA ([id number]) 5 F Date Time Provider Department 02/14/24 9:00 AM CHIQUITA ADHIKARI OBGYWM During your visit today, we recorded the following information about you: Blood pressure Weight Last Period 126/74 85.9 kg 01/07/24 Chiquita Adhikari APRN.COAL UNLOADER 02/14/2024 9:24 AM Signed 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 Clarisse Molina is a 18 year old female who presents for problem visit prolong menses. HPI: vaginal bleeding, cramping, green discharge for 9 days, using super sized tampons every hour, discontinued NuvaRing in November this is the first reported menses. She is seeing bright red blood and old brown blood, using the tampon has been painful OB History No obstetric history on file. Regulatory Agency Director History LMP: 11/29/2022, IUD Age at Menarche: Age at First : Age at Menopause: Regulatory Agency Director History Comments: Sexual Activity: Yes; Male Contraception: I.U.D. PAST MEDICAL HISTORY Diagnosis Date Febrile convulsions (simple), unspecified @ 6months Ruptured ovarian cyst 2021 [facility] PAST SURGICAL HISTORY Procedure Laterality Date KYLEENA [...] (FLONASE) 50 mcg/actuation nasal spray Use 1 [place] in each nostril once daily. (Patient not [...] discussed with the Patient or Patient's Authorized Director Of Agriculture. As applicable, any other physician, advance practice provider, medical student, or other health professional student that will be observing or involved in the sensitive examination for educational or training purposes was discussed with the Patient or Authorized Director Of Agriculture. The Patient or Authorized Director Of Agriculture has agreed to proceed with the sensitive examination. (Sensitive examination includes inspection and/or palpation of the breasts, pelvis, prostate and anorectal regions). EXAM: LMP 11/29/2022 GENERAL: pleasant, female in no apparent distress HEENT: Normocephalic, atraumatic, mucus membranes moist, and no lesions CHEST: Normal inspiratory effort PELVIC: external genitalia normal, normal Bartholin's glands, urethra, [place]'s glands, no vulvar lesions, no cervical lesions, [...] ICD10: N92.1 Aygestin taper ordered. Chiquita Adhikari APRN.COAL UNLOADER Medical Decision Making: Problems: Moderate: New problem [...] [N92.1] Order(s):ERICK/TRICHOMON (more content not included)... Normal [facility] URINE CULTURE [CCL]on 2023 Bacteria identified Cx Nom (U) URCUL See Results Below See Below CULTURE, URINE NORMAL UROGENITAL WILMA <10,000 CFU/ml Normal urogenital wilma SOURCE: Urine (Nonspecific) [place] [address] Lucio Bose III, M.D. [id number] SEND TO IC YES Normal [facility] Comment on above: Performed By: #### 2 54826 ####[facility],[address] [place] [address]13 Bacteria Ur Culton 4 Bacteria identified Cx Nom (U) ORGANISM ID: 1 <10,000 CFU/ml Normal urogenital wilma Normal [facility] Comment on above: Performed By: #### 6 30-4 ####[facility] LABCLIA [id number] [address] [place] Bacteria Ur Culton 4 Bacteria identified Cx Nom (U) ORGANISM ID: 1 10,000 -<50,000 CFU/ml Normal urogenital wilma Normal [facility] Comment on above: Performed By: #### 6 30-4 ####[facility] LABCLIA [id number] [place] [address] [place] CBC + DIFFon 11-24-2023 Baso # 0.04 x10EE3/UL Normal 0.00 - 0.10 [facility] Comment on above: Performed By: #### 2 15944 #### [facility],[address] [place] [address] Basophils/100 WBC (Bld) 0.3 % Normal 0.0 - 2.0 [facility] Comment on above: Performed By: #### 2 75159 #### [facility],[address] [place] [address] CBC + DIFF Normal [facility] Comment on above: Result Comment: CBC- COMPLETE BLOOD COUNT Performed By: #### 2 38982 #### [place] [address] EO # 0.34 x10EE3/UL Normal 0.00 - 0.50 [facility] Comment on above: Performed By: #### 2 44705 #### [place] [address] Eosinophils/100 WBC (Bld) 2.8 % Normal 0.0 - 7.0 [facility] Comment on above: Performed By: #### 2 02994 #### [place] [address] Erythrocyte distribution width (RBC) [Ratio] 14.4 % Normal 12.0 - 15.6 [facility] Comment on above: Performed By: #### 2 16559 #### [place] [address] Hematocrit (Bld) [Volume fraction] 40.8 % Normal 34.0 - 46.0 [facility] Comment on above: Performed By: #### 2 87062 #### [place] [address] Hemoglobin (Bld) [Mass/Vol] 14.0 g/dL Normal 12.0 - 16.0 [facility] Comment on above: Performed By: #### 2 89784 #### [place] [address] Lymph # 2.75 x10EE3/UL Normal 0.80 - 2.80 [facility] Comment on above: Performed By: #### 2 20553 #### [facility],[address] [place] [address] Lymphocytes/100 WBC (Bld) 22.7 % Normal 20.0 - 45.0 [facility] Comment on above: Performed By: #### 2 90048 #### [facility],[address] [place] [address] MANUAL DIFF N/A Normal [facility] Comment on above: Performed By: #### 2 42247 #### [place] [address] MCH (RBC) [Entitic mass] 27 pg Normal 27 - 33 [facility] Comment on above: Performed By: #### 2 86130 #### [place] [address] MCHC 34 X10 3 Normal 32 - 36 [facility] Comment on above: Performed By: #### 2 03814 #### [place] [address] MCV (RBC) [Entitic vol] 79 fL Low 80 - 99 [facility] Comment on above: Performed By: #### 2 25434 #### [facility],[address] [place] [address] Travis # 0.70 x10EE3/UL Normal 0.20 - 1.00 [facility] Comment on above: Performed By: #### 2 98654 #### [place] [address] MONOS % 5.8 % Normal 0.0 - 10.0 [facility] Comment on above: Performed By: #### 2 45298 #### [place] [address] Morphology Avery (Bld) [Interp] N/A Normal [facility] Comment on above: Performed By: #### 2 63048 #### [facility],[address] [place] [address] 19396 Neut # 8.31 x10EE3/UL High 1.50 - 7.10 [facility] Comment on above: Performed By: #### 2 27608 #### [place] [address] Neutrophils/100 WBC (Bld) 68.4 % Normal 46.0 - 76.0 [facility] Comment on above: Performed By: #### 2 73219 #### [place] [address] PLATELET 448 x10EE3/UL Normal 150 - 450 [facility] Comment on above: Performed By: #### 2 46252 #### [place] [address] Platelet mean volume (Bld) [Entitic vol] 7.6 fL Normal 6.6 - 10.5 [facility] Comment on above: Result Comment: AUTO MATED DIFFERENTIAL Performed By: #### 2 82355 #### [place] [address] RBC 5.14 x 10EE6/UL Normal 4.10 - 5.30 [facility] Comment on above: Performed By: #### 2 18082 #### [facility],[address] [place], [place] [phone] WBC 12.1 x 10EE3/UL High 4.5 - 10.8 [facility] Comment on above: Performed By: #### 2 18132 #### [place] [id number] CMP with eGFRon 11-24-2023 AGE 18 years Normal [facility] Comment on above: Performed By: #### 2 57012 #### [place] [id number] Albumin [Mass/Vol] 3.6 g/dL Normal 3.4 - 5.0 [facility] Comment on above: Performed By: #### 2 41098 #### [facility],[address] [place] [address] Albumin/Globulin [Mass ratio] 0.7 {ratio} Low 0.9 - 1.6 [facility] Comment on above: Performed By: #### 2 73543 #### [facility],[address] [place], [place] [phone] ALK PHOS 135 U/L High 46 - 116 [facility] Comment on above: Performed By: #### 2 99278 #### [facility],[address] [place], [place] [phone] ALT [Catalytic activity/Vol] 42 U/L Normal 16 - 63 [facility] Comment on above: Performed By: #### 2 00003 #### [facility],[address] [place], [place] [phone] Anion gap [Moles/Vol] 16 mmol/L Normal 10 - 20 [facility] Comment on above: Performed By: #### 2 81800 #### [facility],[address] [place], [place] [id number] AST [Catalytic activity/Vol] 21 U/L Normal 13 - 39 [facility] Comment on above: Performed By: #### 2 00353 #### [facility],[address] [place] [address] B/C RATIO 10 ratio Normal 0 - 30 [facility] Comment on above: Performed By: #### 2 26310 #### [facility],[address] [place] [address] Bilirubin [Mass/Vol] 0.2 mg/dL Normal 0.2 - 1.0 [facility] Comment on above: Performed By: #### 2 26790 #### [facility],[address] [place], [place] [id number] Calcium [Mass/Vol] 9.0 mg/dL Normal 8.5 - 10.1 [facility] Comment on above: Performed By: #### 2 68692 #### [facility],[address] [place] [address] Chloride [Moles/Vol] 99 mmol/L Normal 98 - 107 [facility] Comment on above: Performed By: #### 2 39236 #### [facility],[address] [place] [address]18 CMP with eGFR Normal [facility] Comment on above: Result Comment: COMP REHENSIVE METABOLIC PANEL Performed By: #### 2 93412 #### [facility],[address] [place], [place] [id number] CO2 [Moles/Vol] 23.2 mmol/L Normal 21.0 - 32.0 [facility] Comment on above: Performed By: #### 2 78398 #### [facility],[address] [place], [place] [phone] Creatinine [Mass/Vol] 0.79 mg/dL Normal 0.55 - 1.02 [facility] Comment on above: Performed By: #### 2 72122 #### [facility],[address] [place] [address]121 GFR/1.73 sq M.predicted among non-blacks MDRD (S/P/Bld) [Vol rate/Area] mL/min/{1.73_m2} Normal 60 - 999 [facility] Comment on above: Performed By: #### 2 33517 #### [facility],[address] [place], [place] [phone] Result Comment: ACCO RDING TO THE NATIONAL KIDNEY DISEASE EDUCATION PROGRAM(NKDE), A NORMAL eGFR IS A VALUE GREATER THAN OR EQUAL TO 60 ML/MIN/1.73 SQ METERS. CHRONIC KIDNEY DISEASE: <60mL/MIN/1.73 SQ METERS KIDNEY FAILURE: <15mL/MIN/1.73 SQ METERS THIS TEST SHOULD ONLY BE USED FOR PATIENTS 18 YEARS OF AGE AND OLDER. Globulin (S) [Mass/Vol] 4.9 g/dL High 1.5 - 3.8 [facility] Comment on above: Performed By: #### 2 09254 #### [facility],[address] [place] [address]284 Glucose [Mass/Vol] 148 mg/dL High 74 - 106 [facility] Comment on above: Performed By: #### 2 99862 #### [facility],[address] [place] [address]5766 Potassium [Moles/Vol] 3.3 mmol/L Low 3.5 - 5.1 [facility] Comment on above: Performed By: #### 2 39619 #### [facility],[address] [place] [address] 23351 Protein [Mass/Vol] 8.5 g/dL High 6.4 - 8.2 [facility] Comment on above: Performed By: #### 2 24000 #### [facility],[address] [place] [address] 07331 Sodium [Moles/Vol] 135 mmol/L Low 136 - 145 [facility] Comment on above: Performed By: #### 2 84534 #### [facility],[address] [place] [address]21 Urea nitrogen [Mass/Vol] 8 mg/dL Normal 7 - 18 [facility] Comment on above: Performed By: #### 2 66151 #### [facility],[address] [place] [address] 14768 CORONAVIRUS (SARS) ANTIGEN T ESTon 11-24-2023 EXTERNAL QC DONE? YES Normal [facility] Comment on above: Performed By: #### 2 19450 ####[facility],[address] [place] [address] 58231 INTERNAL CONTROL PASS Normal [facility] Comment on above: Performed By: #### 2 98818 ####[facility],[address] [place] [address] SARS ANTIGEN Negative Normal NORMAL: NEGATIVE [facility] Comment on above: Performed By: #### 2 07479 ####[facility],[address] [place] [address] SEND TO ? NO Normal [facility] Comment on above: Result Comment: SARS -CoV-2 THIS TEST IS BEING USED UNDER THE FDA EUA PROCEDURE. THIS ASSAY HAS BEEN VALIDATED AT [facility] FOR USE WITH NASAL AND NASOPHARYNGEAL SWAB [...] PUBLIC HEALTH AUTHORITIES. Performed By: #### 2 84353 ####[facility],[address] [place], [place] [id number] [place] ABDOMEN/PELVIS [facility] 2023 CT ABDOMEN/PELVIS W [address] [address] Patient: CLARISSE MOLINA Phone#: : 2005 Age: 18 Gender: F Pt. Type: ER Account: [id number] Location: 2 Ordering: KWAKU PETTIT Exam Date: 11/24/2023/2:32 Family Phys: LIZY CHAMBERS Charge Code: 637451 Physician: Shelby Order #: [id number] Dose#: 15.4 PROCEDURE: CT ABDOMEN/PELVIS WITH CONTRAST COMPARISON: [facility], CT, ABDOMEN/PELVIS W CON, 12/25/2021, 22:25. INDICATIONS: [...] 18 Gender: F Pt. Type: ER Account: [id number] Location: 052 Ordering: KWAKU PETTIT Exam Date: 11/24/2023/2:32 Family Phys: LIZY CHAMBERS Charge Code: 646191 Physician: Shelby Order #: [id number] Dose#: 15.4 CONCLUSION: 1. No acute intra-abdominal or pelvic abnormality. 2. Fatty infiltration of the liver Dictated by: Justine Gong MD on 11/24/2023 at 12:17 Approved by: Justine Gong MD on 11/24/2023 at 12:24 Normal [facility] INFLUENZA VIRUS RAPID A/Bon 11-24-2023 INFLUENZA VIRUS [...] TO THREE DAYS. RESULT CRITICAL? NO Normal [facility] Comment on above: Performed By: #### 2 73819 ####[facility],[address] [place] [address] SERUM QUALon 11-23 EXTERNAL QC DONE? YES Normal [facility] Comment on above: Performed By: #### 2 11474 #### [facility],[address] [place] [address] INTERNAL QC PASS Normal [facility] Comment on above: Performed By: #### 2 76033 #### [facility],[address] [place] [address] SER Negative Normal NEGATIVE [facility] Comment on above: Performed By: #### 2 01649 #### [facility],[address] [place] [address] URINALYSIS WITH MICROSCOPYon 11-24-2023 Amorphous NONE Normal [facility] Comment on above: Performed By: #### 2 40193 #### [facility],[address] [place] [address] Bacteria 3+ Normal [facility] Comment on above: Performed By: #### 2 95034 #### [facility],[address] [place], [place] [phone] Bilirubin Ql (U) Negative Normal NORMAL: NEGATIVE [facility] Comment on above: Performed By: #### 2 50389 #### [facility],[address] [place] [address] Casts NONE Normal [facility] Comment on above: Performed By: #### 2 04101 #### [facility],[address] [place] [address] Clarity (U) sl.cloudy Normal NORMAL: CLEAR [facility] Comment on above: Performed By: #### 2 54640 #### [facility],[address] [place], [place] [phone] Color (U) p.yel Normal NORMAL: YELLOW [facility] Comment on above: Performed By: #### 2 85858 #### [facility],[address] [place], [place] [phone] Crystals LM Nom (Urine sed) NONE Normal [facility] Comment on above: Performed By: #### 2 52362 #### [facility],[address] [place], [place] [phone] Epi Cells MODERATE Normal [facility] Comment on above: Performed By: #### 2 29097 #### [facility],[address] [place] [address] Glucose Ql (U) NORM Normal NORMAL: NORMAL [facility] Comment on above: Performed By: #### 2 42950 #### [facility],[address] [place] [address] 96754 Hemoglobin Ql (U) Negative Normal NORMAL: NEGATIVE [facility] Comment on above: Performed By: #### 2 03484 #### [facility],[address] [place] [address] 48539 Ketone Negative Normal NORMAL: NEGATIVE [facility] Comment on above: Performed By: #### 2 19139 #### [facility],[address] [place] [address] 28524 Leukocytes 25 Abnormal NORMAL: NEGATIVE [facility] Comment on above: Result Comment: URIN E MICROSCOPIC Performed By: #### 2 29269 #### [facility],[address] [place] [address] 24526 Mucous NONE Normal [facility] Comment on above: Performed By: #### 2 67326 #### [facility],[address] [place], [place] [phone] Nitrite Ql (U) Negative Normal NORMAL: NEGATIVE [facility] Comment on above: Performed By: #### 2 33183 #### [facility],[address] [place] [address] 60771 pH (U) 7 [pH] Normal NORMAL: 5.0-8.0 [facility] Comment on above: Performed By: #### 2 06138 #### [facility],[address] [place] [address] 56372 Protein Ql (U) Negative Normal NORMAL: NEGATIVE [facility] Comment on above: Performed By: #### 2 46919 #### [facility],[address] [place] [address] 90485 Rbc NONE Normal 0-3 / hpf [facility] Comment on above: Performed By: #### 2 77616 #### [facility],[address] [place] [address] 31976 Sp [place] 1.005 Low NORMAL: 1.010-1.030 [facility] Comment on above: Performed By: #### 2 04794 #### [facility],[address] [place] [address] Specimen Type Clean catch Normal [facility] Comment on above: Performed By: #### 2 32364 #### [facility],[address] [place], [place] [phone] URINALYSIS WITH MICROSCOPY Normal [facility] Comment on above: Result Comment: URIN ALYSIS Performed By: #### 2 79159 #### [facility],[address] [place] [address] Urobilinog NORM Normal NORMAL: NORMAL [facility] Comment on above: Performed By: #### 2 31777 #### [facility],[address] [place] [address] Wbc 1-5 Normal 0-5 / hpf [facility] Comment on above: Performed By: #### 2 56609 #### [facility],[address] [place] [address] Yeast NONE Normal [facility] Comment on above: Performed By: #### 2 11754 #### [facility],[address] [place], [place] [phone] URINE CULTURE [CCL]on 2023 Bacteria identified Cx Nom (U) URCUL See Results Below See Below CULTURE, URINE NORMAL UROGENITAL WILMA 10,000 -<50,000 CFU/ml Normal urogenital wilma SOURCE: Urine (Nonspecific) [facility] [address] [place] [address] Lucio Bose III, M.D. [id number] Normal [facility] Comment on above: Performed By: #### 2 86940 #### [facility],[address] [place] [address] CNPNatacha 10-19-2023 CNPN Telephone (OBGYW) CLARISSE MOLINA ([id number]) 5 Date Time Provider Department 10/19/23 NAOMI CASTELAN During your visit today, we recorded the following information about you: Adriana Marhs RN 10/19/2023 8:11 AM Signed ----- Message from Naomi Matos MD sent at 10/19/2023 7:51 AM EDT ----- Notify patient treated appropriately with diflucan. Adriana Marsh RN 10/19/2023 8:12 AM Signed Left message for patient to call office. AMMY Bustamante Trisha, RN 10/19/2023 2:23 PM Signed Patient notified. aJna Chinchilla RN Allergies As of Date: 10/19/2023 [...] (FLONASE) 50 mcg/actuation nasal spray Use 1 [place] in each nostril once daily. - Polyethylene Glycol 3350 (MIRALAX) 17 gram/dose ORAL powder Take by mouth. 2-3 tablespoons daily. Problem List As Of Date 10/19/2023 Noted Resolved FEBRILE CONVULSIONS NOS [R56.00] 11/02/2008 Closed Fracture of Unspecified Part of Lower En*03/13/2009 Encounter Status:Closed by JANA CHINCHILLA on 10/19/[address] [facility] BACTERIAL VAGINOSIS NAATon 0 10-18-2023 Lactobacillus crispatus+gasseri+j ensenii + Gardnerella vaginalis + Atopobium vaginae rRNA MARK+probe Ql (Vag fld) Negative Normal Negative for bacterial vaginosis [facility] Comment on above: Order Comment: Speci men Type: SWABOrdering Facility: [facility] Address: [address] [place] [address] Performed By: #### B VAMP, CVTV ####[facility] LABCLIA [id number] [place] [address] [place] ERICK/TRICHOMONAS NAATon 0 10-18-2023 C. glabrata RNA MARK+probe Ql (Vag fld) Negative Normal Negative for Erick glabrata [facility] Comment on above: Order Comment: Speci men Type: SWABOrdering Facility: [facility] Address: [address] [place] [address] Performed By: #### B VAMP, CVTV ####[facility] LABCLIA [id number] [place] [address] [place] Erick sp DNA MARK+probe Ql (Vag fld) Positive Abnormal Negative for Erick species [facility] Comment on above: Order Comment: Speci men Type: SWABOrdering Facility: [facility] Address: [address] [place] [address] Performed By: #### B VAMP, CVTV ####[facility] LABCLIA [id number] [place] [address] [place] T. vaginalis DNA MARK+probe Ql (Unsp spec) Negative Normal Negative for Trichomonas vaginalis by amplification [facility] Comment on above: Order Comment: Speci men Type: SWABOrdering Facility: [facility] Address: [address] [place] [address] Performed By: #### B BRISA ROJAS ####[facility] LABCLIA [id number] [address] [id number] [address] [place] [facility] CNOVon 10-18-2023 CNOV Office Visit (OBGYWM ) CLARISSE MOLINA ([id number]) 5 F Date Time Provider Department 10/18/23 3:00 PM NAOMI CASTELAN OBGYWM During your visit today, we recorded the following information about you: Blood pressure Weight Height 118/62 86.2 kg 1.664 m Naomi Castelan MD 10/18/2023 3:53 PM Signed [employer] offered: Patient declines. Clarisse presents for removal [...] [N89.8] Vaginal discharge [N89.8] Order(s):REMOVE INTRAUTERINE DEVICE [9999405] Order #: [id number] fluconazole (DIFLUCAN) 150 mg tabletTake 1 tablet by mouth one time only for 1 dose.Disp: 1 tabletRfl: 0 Etonogestrel-Ethinyl Estradiol (NUVARING) 0.12-0.015 mg/24 hr vaginal ringUse 1 Each vaginally as directed. INSERT ONE(1) RING VAGINALLY AND LEAVE IN PLACE FOR THREE WEEKS, THEN REMOVE FOR 1 WEEK.Disp: 3 EachRfl: 4 ERICK/TRICHOMONAS NAAT [SQCVTV] Order #: [id number] BACTERIAL VAGINOSIS NAAT [SQBVAMP] Order #: [id number] Prescriptions as of 10/18/2023 - fluconazole (DIFLUCAN) [...] (FLONASE) 50 mcg/actuation nasal spray Use 1 [place] in each nostril once daily. - Polyethylene [...] for Encounter Date Provider Department Center 10/18/2023 [id number] MCINTOSH,*CARISA Wilson Encounter Status:Closed by Ernst MATOS (more content not included)... Normal [facility] URINEon 10-03-2023 Beta HCG ( test) Ql (U) Negative Normal NEGATIVE [facility] Comment on above: Performed By: #### 2 [id number] #### [facility],[address] [place] [address] EXTERNAL QC DONE? YES Normal [facility] Comment on above: Performed By: #### 2 15128 #### [facility],[address] [place] [address] INTERNAL QC PASS Normal [facility] Comment on above: Performed By: #### 2 66924 #### [facility],[address] [place], [place] [id number] URINALYSISon 10-03-2023 Amorphous 3+ Normal [facility] Comment on above: Performed By: #### 2 63608 #### [facility],[address] [place] [address] Bacteria 2+ Normal [facility] Comment on above: Performed By: #### 2 48579 #### [facility],[address] [place], [place] [id number] Bilirubin Ql (U) Negative Normal NORMAL: NEGATIVE [facility] Comment on above: Performed By: #### 2 50601 #### [facility],[address] [place], [place] [id number] Casts NONE Normal [facility] Comment on above: Performed By: #### 2 48982 #### [facility],[address] [place], [place] [id number] Clarity (U) very cloudy Normal NORMAL: CLEAR [facility] Comment on above: Performed By: #### 2 36230 #### [facility],[address] [place], [place] [id number] Color (U) yellow Normal NORMAL: YELLOW [facility] Comment on above: Performed By: #### 2 08147 #### [facility],[address] [place] [address] 42771 Crystals LM Nom (Urine sed) NONE Normal [facility] Comment on above: Performed By: #### 2 59657 #### [facility],[address] [place] [address] 78032 Epi Cells MANY Normal [facility] Comment on above: Performed By: #### 2 39151 #### [facility],[address] [place] [address] 42751 Glucose Ql (U) NORM Normal NORMAL: NORMAL [facility] Comment on above: Performed By: #### 2 08151 #### [facility],[address] [place] [address] 02809 Hemoglobin Ql (U) Negative Normal NORMAL: NEGATIVE [facility] Comment on above: Performed By: #### 2 43175 #### [facility],[address] [place] [address] 99789 Ketone Negative Normal NORMAL: NEGATIVE [facility] Comment on above: Performed By: #### 2 34818 #### [facility],[address] [place] [address] 39106 Leukocytes 25 Abnormal NORMAL: NEGATIVE [facility] Comment on above: Performed By: #### 2 22186 #### [facility],[address] [place] [address] 68481 Mucous 2+ Normal [facility] Comment on above: Performed By: #### 2 31709 #### [facility],[address] [place] [address] 78647 Nitrite Ql (U) Negative Normal NORMAL: NEGATIVE [facility] Comment on above: Performed By: #### 2 28350 #### [facility],[address] [place] [address] 61234 pH (U) 6.5 [pH] Normal NORMAL: 5.0-8.0 [facility] Comment on above: Performed By: #### 2 40179 #### [facility],[address] [place] [address] 14570 Protein Ql (U) 30 Abnormal NORMAL: NEGATIVE [facility] Comment on above: Performed By: #### 2 34722 #### [facility],[address] [place] [address] 09478 Rbc 0-5 Normal 0-3/hpf [facility] Comment on above: Performed By: #### 2 31458 #### [facility],[address] [place] [address] Sp [place] 1.020 Normal NORMAL: 1.010-1.030 [facility] Comment on above: Performed By: #### 2 56855 #### [facility],[address] [place] [address] Specimen Type Void Normal [facility] Comment on above: Performed By: #### 2 30062 #### [facility],[address] [place] [address] Urinalysis dipstick W Reflex Microscopic panel (U) SEE BELOW Normal [facility] Comment on above: Result Comment: MICR OSCOPIC Performed By: #### 2 23507 #### [facility],[address] [place] [address] Urobilinog NORM Normal NORMAL: NORMAL [facility] Comment on above: Performed By: #### 2 25807 #### [facility],[address] [place] [address] Wbc 6-10 Normal 0-5/hpf [facility] Comment on above: Performed By: #### 2 25828 #### [facility],[address] [place] [address] Yeast NONE Normal [facility] Comment on above: Performed By: #### 2 83872 #### [facility],[address] [place] [address] CNOVon 08-04-2023 CNOV Office Visit ([facility]WSTR ) CLARISSE MOLINA ([id number]) 5 F Date Time Provider Department 08/04/23 9:15 AM LOUISE CUMMINS UCWSTR During your visit today, we recorded the following information about you: Temperature Pulse Respiration Blood pressure 97.6 degrees 88/minute 18/minute 128/78 Weight 87.1 kg Louise Cummins PA-C 08/04/2023 9:31 AM Signed This note was created using [employer]. Subjective Clarisse Molina is a 17 year old female. HPI Patient presents with an itchy rash on during her right breast over the past day. States she was [place] in [place]. No insect bites that she knows of. She tried some nedx-qio-bxbacxb itch cream without relief. She denies any [...] unspecified @ 6months Ruptured ovarian cyst 2021 [facility] Current Outpatient Medications Medication Sig Dispense Refill [...] (FLONASE) 50 mcg/actuation nasal spray Use 1 [place] in each nostril once daily. (Patient not [...] Exam Vitals reviewed. Exam conducted with a glass rolling machine operator present. Constitutional: Appearance: Normal appearance. HENT: Head: [...] mcg/actuation shaila (more content not included)... Normal [facility] UA DIP, URINE (POC)on 2022 BILIRUBIN UA (POCT) Negative Negative [facility] CLARITY UA (POCT) Clear [facility] COLOR UA (POCT) Yellow [facility] GLUCOSE UA (POCT) Negative Negative mg/dL [facility] Hemoglobin Ql (U) Negative Negative [facility] KETONE UA (POCT) Negative Negative mg/dL [facility] LEUKOCYTES UA (POCT) Negative Negative [facility] NITRITE UA (POCT) Negative Negative [facility] PH UA (POCT) 5.0 4.5 - 8.0 [facility] Protein Ql (U) Negative Negative mg/dL [facility] SPECIFIC GRAVITY UA (POCT) >=1.030 1.005 - 1.030 [facility] UROBILINOGEN UA (POCT) 0.2 E.U./dL Normal E.U./dL [facility] US FEMALE PELVIS TRANSVAGon 12-01-2022 Radiology Result ACTIONABLE Abnormal [facility] ELBOW COMPLETE MIN. 3 VIEWSo n 11-14-2022 ELBOW COMPLETE MIN. 3 VIEWS Patient Name: CLARISSE MOLINA STUDY: ELBOW COMPLETE MIN 3 VIEWS; 11/14/2022 3:20 pm INDICATION: injury . COMPARISON: None. ACCESSION NUMBER(S): [id number] ORDERING CLINICIAN: LORETTA PAINTING FINDINGS: No acute fracture or dislocation. No substantial arthrosis. Soft tissues are within normal limits. IMPRESSION: 1. No acute osseous abnormality identified. Electronically signed by: LUC ALDRICH MD [facility] Provider Note - ED v3on 08-0 [...] made to minimize errors. Minor errors in infrastructure engineer may be present. Please call if questions.. [...] SIGNS: T PRBP SpO2O2(LPM) %FiO2 Method 14-Nov-2022 17:46:[id number] 100 room air, no respiratory support [facility] MDM/ED COURSE: Patient is a [...] Triage - ED Peds 14-Nov-2022 17:46 Normal [facility] Risk Screen - PEDS Emergency on 11-14-2022 Risk Screen - PEDS Emergency Preferred Language: Preferred Language: Preferred Language for Discussing Health Care (patient/designee)Andorran Patient Preferred Pharmacy: Patient Preferred Pharmacy Statement: I have reviewed and updated the patient's preferred pharmacy selection for today's visit. Advanced Directives: Advance Directive/DNRno Learning Assessment (Patient): Patient is Able to be Assessed for Learningyes Educational [id number] grade Factors Influence Readiness to Learnnone, ready to learn Factors Impact Ability to Learnnone Devices/Methods Used to Communicatenone Learning Preferencesverbal instruction Cultural Considerationsnone Developmental Considerationsnone Christian Considerationsnone Learning Assessment (Other Learner): Other learner [...] Updated: 14-Nov-2022 17:49 by Sheba Parisi (AMMY) [facility] SHOULDER, CMPLT, MIN 2 VIEWS on 11-14-2022 SHOULDER, CMPLT, MIN 2 VIEWS Patient Name: CLARISSE MOLINA STUDY: SHOULDER, CMPLT, MIN 2 VIEWS; 11/14/2022 3:20 pm INDICATION: injury . COMPARISON: None. ACCESSION NUMBER(S): [id number] ORDERING CLINICIAN: LORETTA PAINTING FINDINGS: No acute fracture or dislocation. No substantial arthrosis. Soft tissues are within normal limits. IMPRESSION: 1. No acute osseous abnormality identified. Electronically signed by: LUC ALDRICH MD [facility] Triage - ED Pedson Triage - [...] normal position, moves easily FLACC Score: 0 [place] Coma Scale Peds (2yrs to Adult): Best Eye Response: (E4) spontaneous Best Verbal Response: (V5) oriented Best Motor Response: (M6) obeys commands [place] Coma Scale Score: 15 Cough Lasting Greater than 2 Weeks: no Allergies: no Mask Applied: no Last Menstrual Period: not applicable Patient has Homicidal Thoughts: no Acuity Level: 4 Peds Complaint Code ([facility]): N/A [facility] The patient and/or guardian verbally acknowledges placement [...] difficulty walking, numbness and tingling. RISK SCREEN [place] Suicide Risk Screen Risk Screen Not Applicable/Able [...] Updated: 14-Nov-2022 17:49 by Sheba Parisi (RN) [facility] HCG QUAL UR B/Oon 03-13-2022 status Negative neg - pos [facility] Quality Check Yes [facility] UA DIP, URINE (POC)on 2021 BILIRUBIN UA (POCT) Negative Negative [facility] CLARITY UA (POCT) Clear [facility] COLOR UA (POCT) Yellow [facility] GLUCOSE UA (POCT) Negative Negative mg/dL [facility] HEMOGLOBIN/BLOOD UA (POCT) Trace-intact Abnormal Negative [facility] KETONE UA (POCT) Negative Negative mg/dL [facility] LEUKOCYTES UA (POCT) Trace Abnormal Negative [facility] NITRITE UA (POCT) Negative Negative [facility] PH UA (POCT) 5.5 4.5 - 8.0 [facility] Protein Ql (U) Negative Negative mg/dL [facility] SPECIFIC GRAVITY UA (POCT) >=1.030 1.005 - 1.030 [facility] UROBILINOGEN UA (POCT) 0.2 E.U./dL Normal E.U./dL [facility] UA DIP, URINE (POC)on 2021 BILIRUBIN UA (POCT) Negative Negative [facility] CLARITY UA (POCT) [facility] COLOR UA (POCT) Other [facility] GLUCOSE UA (POCT) Negative Negative mg/dL [facility] HEMOGLOBIN/BLOOD UA (POCT) Moderate Abnormal Negative [facility] KETONE UA (POCT) Negative Negative mg/dL [facility] LEUKOCYTES UA (POCT) Moderate Abnormal Negative [facility] NITRITE UA (POCT) Negative Negative [facility] PH UA (POCT) 5.5 4.5 - 8.0 [facility] Protein Ql (U) 100 mg/dL Abnormal Negative mg/dL [facility] SPECIFIC GRAVITY UA (POCT) >=1.030 1.005 - 1.030 [facility] UROBILINOGEN UA (POCT) 0.2 E.U./dL Normal E.U./dL [facility] URINE CULTURE,BACTERIALon URINE CULTURE,BACTERIAL PATIENT: CLARISSE MOLINA LOCATION: [address]#: [id number] : 5 AGE: SEX: F ORDERED BY: NATI CULLEN SOURCE: URINE COLLECTED: 08/22/21 14:46 ANTIBIOTICS AT DANTE.: RECEIVED : 08/22/21 23:42 SITE: Clean Catch/Voided R E S U L T S URINE CULTURE,BACTERIAL FINAL 08/24/21 09:02 NO GROWTH Normal [facility] Comment on above: Performed By: #### U [facility] #### [facility] [address] [facility] [place] [place] [address] HSV 1,2 Ab, IgG+IgM FOR REF LAB USE ONLYon 02-11-2021 Herpes Simplex IgM 0.56 OD Ratio Normal 0-0.90 [facility] Comment on above: Performed By: #### H SVGM #### [facility] Routine Lab [address] [phone] HSV IgM Qualitative Negative Normal Negative [facility] Reference Lab Comment on above: Performed By: #### H SVGM #### [facility] Routine Lab [address] [phone] HSV 1,2 Ab, IgG+IgM FOR REF LAB USE ONLYon 02-08-2021 Herpes Simplex IgG 1 <0.2 Normal [facility] Reference Lab Comment on above: Performed By: #### H SVGM #### [facility] Routine Lab [address] [phone] Herpes Simplex IgG 2 <0.2 Normal [facility] Reference Lab Comment on above: Performed By: #### H SVGM #### [facility] Routine Lab [address] [phone] HSV IgG 1 Qualitative Negative Normal Negative [facility] Reference Lab Comment on above: Performed By: #### H SVGM #### [facility] Routine Lab [address] [address] HSV IgG 2 Qualitative Negative Normal Negative [facility] Reference Lab Comment on above: Performed By: #### H SVGM #### [facility] Routine Lab [address] [place] [address] RPRon 02-07-2021 Reagin Ab RPR Ql (S) NR Normal Non Reactive [facility] Reference Lab Comment on above: Performed By: #### R ID #### [facility] Immunology [address] [place] [address] #### HACUTP #### [facility] Routine Lab [address] [place] [address] GC/Chlamydia Amp, Uron 02-06 Chlamydia Amplif, Ur Normal [facility] Reference Lab Comment on above: Result Comment: Nega tive for For screening asymptomatic women, a vaginal swab specimen (APTIMA vaginal swab 278889) is optimal. Urine specimens have reduced sensitivity for Chlamydia trachomatis or Neisseria gonorrhoeae infection in female patients without symptoms. This test was developed and its performance characteristics determined by [facility] [place] ([facility]). It has not been cleared or approved by the FDA. [facility] is regulated under CLIA as qualified to perform high complexity testing. This test is used for clinical purposes. It should not be regarded as investigational or for research. Chlamydia For screening asymptomatic women, a vaginal swab specimen (APTIMA vaginal swab 570410) is optimal. Urine specimens have reduced sensitivity for Chlamydia trachomatis or Neisseria gonorrhoeae infection in female patients without symptoms. This test was developed and its performance characteristics determined by [facility] [place] ([facility]). It has not been cleared or approved by the FDA. [facility] is regulated under CLIA as qualified to perform high complexity testing. This test is used for clinical purposes. It should not be regarded as investigational or for research. trachomatis by For screening asymptomatic women, a vaginal swab specimen (APTIMA vaginal swab 962041) is optimal. Urine specimens have reduced sensitivity for Chlamydia trachomatis or Neisseria gonorrhoeae infection in female patients without symptoms. This test was developed and its performance characteristics determined by [facility] [place] ([facility]). It has not been cleared or approved by the FDA. [facility] is regulated under CLIA as qualified to perform high complexity testing. This test is used for clinical purposes. It should not be regarded as investigational or for research. amplification. For screening asymptomatic women, a vaginal swab specimen (APTIMA vaginal swab 265492) is optimal. Urine specimens have reduced sensitivity for Chlamydia trachomatis or Neisseria gonorrhoeae infection in female patients without symptoms. This test was developed and its performance characteristics determined by [facility] [place] ([facility]). It has not been cleared or approved by the FDA. [facility] is regulated under CLIA as qualified to perform high complexity testing. This test is used for clinical purposes. It should not be regarded as investigational or for research. Performed By: #### U GCCT #### [facility] Routine Lab [address] [place] [phone] GC Amplification, Ur NGNEG Normal [facility] Reference Lab Comment on above: Performed By: #### U GCCT #### [facility] Routine Lab [address] [place] [phone] Hepatitis Acute Panel * OUTS MARIAN CLIENTS ONLY *on 02-06-2021 Hep B Core Ab, IgM NEGAT Normal Negative [facility] Reference Lab Comment on above: Performed By: #### R ID #### [facility] Immunology [address] [place] [phone] #### HACUTP #### [facility] Routine Lab [address] [place] [phone] Hepatitis A Ab IgM NEGAT Normal Negative [facility] Reference Lab Comment on above: Performed By: #### R ID #### [facility] Immunology [address] [place] [phone] #### HACUTP #### [facility] Routine Lab [address] [phone] HBsAg NEGAT Normal Negative [facility] Reference Lab Comment on above: Performed By: #### R ID #### [facility] Immunology [address] [phone] #### HACUTP #### [facility] Routine Lab [address] [phone] Hepatitis C Ab IA NEGAT Normal Negative [facility] Reference Lab Comment on above: Performed By: #### R ID #### [facility] Immunology [address] [phone] #### HACUTP #### [facility] Routine Lab [address] [phone] GC/Chlamydia Amplifon 2020 Chlamydia Amplif CLNEG Normal [facility] Reference Lab GC Amplification NGNEG Normal [facility] Reference Lab GC/Chlamydia Amplifon 2020 GC/Chlam Amp Source Vaginal Normal [facility] Reference Lab Endomysial IgA Abson 021 Endomysial IgA Abs <1:10 Normal <1:[address] [facility] Reference Lab Comment on above: Performed By: #### I GA #### [facility] Routine Lab [address] [phone] #### TGIGA #### [facility] Immunology [address] [phone] #### ENDOMY #### [facility] Immuno Assay [address] [phone] Transglutaminase IgAon 09-06 Transglutaminase IgA 2 Units Normal <20 [facility] Reference Lab Comment on above: Performed By: #### I GA #### [facility] Routine Lab [phone] #### TGIGA #### [facility] Immunology [address] [address] #### ENDOMY #### [facility] Immuno Assay [address] [address] IgAon 09-05-2020 IgA [Mass/Vol] 167 mg/dL Normal 47-249 [facility] Reference Lab Comment on above: Performed By: #### I GA #### [facility] Routine Lab [address] [address] #### TGIGA #### [facility] Immunology [address] [address] #### ENDOMY #### [facility] Immuno Assay [address] [place], [place] [address] Vital Signs Date Time Vital Sign Value Performing Clinician Facility 01-15-2025 15:20-0400 Body height 165.1 cm Lizy Chambers SUPERVISOR [employer] Work Phone: [facility] 01-15-2025 15:16-0400 Body mass index (BMI) [Percentile] Per age and sex 96.9 % Lizy Chambers SUPERVISOR [employer] Work Phone: [facility] 01-15-2025 15:16-0400 Body mass index (BMI) [Ratio] 34 kg/m2 Lizy Chambers SUPERVISOR [employer] Work Phone: [facility] 01-15-2025 15:16-0400 Body weight 92.73 kg Lizy Chambers SUPERVISOR [employer] Work Phone: [facility] 01-15-2025 15:16-0400 Diastolic blood pressure 83 mm[Hg] Lizy Chambers SUPERVISOR [employer] Work Phone: [facility] 01-15-2025 15:16-0400 Systolic blood pressure 134 mm[Hg] Lizy Chambers SUPERVISOR [employer] Work Phone: [facility] 10-19-2024 11:41-0400 Body height 165.1 cm Lizy Reyes SUPERVISOR [employer] Work Phone: [facility] 10-19-2024 10:52-0400 Body height 165.1 cm Lizy Chambers SUPERVISOR [employer] Work Phone: [facility] 10-19-2024 10:52-0400 Body mass index (BMI) [Percentile] Per age and sex 96.3 % Lizy Chambers SUPERVISOR [employer] Work Phone: [facility] 10-19-2024 10:52-0400 Body mass index (BMI) [Ratio] 32.8 kg/m2 Lizy Chambers SUPERVISOR [employer] Work Phone: [facility] 10-19-2024 10:52-0400 Body weight 89.58 kg Lizy Chambers SUPERVISOR [employer] Work Phone: [facility] 10-19-2024 10:52-0400 Diastolic blood pressure 72 mm[Hg] Lizyrasta Chambers SUPERVISOR [employer] Work Phone: [facility] 10-19-2024 10:52-0400 Systolic blood pressure 120 mm[Hg] Lizy Reyes SUPERVISOR [employer] Work Phone: [facility] 07-13-2024 10:57-0400 Body temperature 97.3 [degF] Luc Marie DESK ATTENDANT.COAL UNLOADER Work Phone: [facility] 07-13-2024 10:57-0400 Body weight 87 kg Luc Marie DESK ATTENDANT.COAL UNLOADER Work Phone: [facility] [facility] 07-13-2024 10:57-0400 Diastolic blood pressure 72 mm[Hg] Luc Marie DESK ATTENDANT.COAL UNLOADER Work Phone: [facility] 07-13-2024 10:57-0400 Heart rate 82 /min Luc Marie DESK ATTENDANT.COAL UNLOADER Work Phone: [facility] 07-13-2024 10:57-0400 Respiratory rate 20 /min Luc Marie DESK ATTENDANT.COAL UNLOADER Work Phone: [facility] 07-13-2024 10:57-0400 SaO2% (BldA) [Mass fraction] 100 % Luc Marie DESK ATTENDANT.COAL UNLOADER Work Phone: [facility] 07-13-2024 10:57-0400 Systolic blood pressure 106 mm[Hg] Luc Marie DESK ATTENDANT.COAL UNLOADER Work Phone: [facility] 06-12-2024 11:10-0500 Body temperature 98.29 [degF] Wilfrid Smith MD Work Phone: [facility] 06-12-2024 11:10-0500 Body weight 86.6 kg Wilfrid Smith MD Work Phone: [facility] 06-12-2024 11:10-0500 Diastolic blood pressure 72 mm[Hg] Wilfrid Smith MD Work Phone: [facility] 06-12-2024 11:10-0500 Heart rate 106 /min Wilfrid Smith MD Work Phone: [facility] 06-12-2024 11:10-0500 Respiratory rate 16 /min Wilfrid Smith MD Work Phone: [facility] 06-12-2024 11:10-0500 SaO2% (BldA) [Mass fraction] 98 % Wilfrid Smith MD Work Phone: [facility] 06-12-2024 11:10-0500 Systolic blood pressure 126 mm[Hg] Wilfrid Smith MD Work Phone: [facility] 03-02-2024 15:28-0500 Body temperature 97.81 [degF] Tisha Moomaw DESK ATTENDANT.COAL UNLOADER Work Phone: [facility] 03-02-2024 15:28-0500 Body weight 84.9 kg Tisha Moomaw DESK ATTENDANT.COAL UNLOADER Work Phone: [facility] 03-02-2024 15:28-0500 Diastolic blood pressure 74 mm[Hg] Tisha Moomaw DESK ATTENDANT.COAL UNLOADER Work Phone: [facility] 03-02-2024 15:28-0500 Heart rate 98 /min Tisha Moomaw DESK ATTENDANT.COAL UNLOADER Work Phone: [facility] 03-02-2024 15:28-0500 Respiratory rate 18 /min Tisha Moomaw DESK ATTENDANT.COAL UNLOADER Work Phone: [facility] 03-02-2024 15:28-0500 SaO2% (BldA) [Mass fraction] 98 % Tisha Moomaw DESK ATTENDANT.COAL UNLOADER Work Phone: [facility] 03-02-2024 15:28-0500 Systolic blood pressure 100 mm[Hg] Tisha Moomaw DESK ATTENDANT.COAL UNLOADER Work Phone: [facility] 02-14-2024 08:59-0500 Body weight 85.91 kg Chiquita Puneet DESK ATTENDANT.COAL UNLOADER Work Phone: [facility] 02-14-2024 08:59-0500 Diastolic blood pressure 74 mm[Hg] Chiquita Puneet DESK ATTENDANT.COAL UNLOADER Work Phone: [facility] 02-14-2024 08:59-0500 Systolic blood pressure 126 mm[Hg] Chiquita Puneet DESK ATTENDANT.COAL UNLOADER Work Phone: [facility] 10-18-2023 14:51-0400 Body height 166.4 cm Naomi Matos MD Work Phone: [facility] 10-18-2023 14:51-0400 Body mass index (BMI) [Percentile] Per age and sex 95.44 % Naomi Matos MD Work Phone: [facility] 10-18-2023 14:51-0400 Body mass index (BMI) [Ratio] 31.14 kg/m2 Naomi Matos MD Work Phone: [facility] 10-18-2023 14:51-0400 Body weight 86.18 kg Naomi Matos MD Work Phone: [facility] 10-18-2023 14:51-0400 Diastolic blood pressure 62 mm[Hg] Naomi Matos MD Work Phone: [facility] 10-18-2023 14:51-0400 Systolic blood pressure 118 mm[Hg] Naomi Matos MD Work Phone: [facility] 08-04-2023 09:18-0400 Body temperature 97.59 [degF] Louise Athy PA-C Work Phone: [facility] 08-04-2023 09:18-0400 Body weight 87.1 kg Louise Athy PA-C Work Phone: [facility] 08-04-2023 09:18-0400 Diastolic blood pressure 78 mm[Hg] Louise Athy PA-C Work Phone: [facility] 08-04-2023 09:18-0400 Heart rate 88 /min Louise Athy PA-C Work Phone: [facility] 08-04-2023 09:18-0400 Respiratory rate 18 /min Louise Athy PA-C Work Phone: [facility] 08-04-2023 09:18-0400 SaO2% (BldA) [Mass fraction] 96 % Louise Athy PA-C Work Phone: [facility] 08-04-2023 09:18-0400 Systolic blood pressure 128 mm[Hg] Louise Athy PA-C Work Phone: [facility] 05-25-2023 08:12-0500 Body temperature 97.7 [degF] Moni Stone APRN.COAL UNLOADER Work Phone: [facility] 05-25-2023 08:12-0500 Body weight 83.92 kg Moni Stone APRN.COAL UNLOADER Work Phone: [facility] 05-25-2023 08:12-0500 Diastolic blood pressure 75 mm[Hg] Moni Stone APRN.COAL UNLOADER Work Phone: [facility] 05-25-2023 08:12-0500 Heart rate 84 /min Moni Stone DESK ATTENDANT.COAL UNLOADER Work Phone: [facility] 05-25-2023 08:12-0500 Respiratory rate 18 /min Moni Stone DESK ATTENDANT.COAL UNLOADER Work Phone: [facility] 05-25-2023 08:12-0500 SaO2% (BldA) [Mass fraction] 100 % Moni Stone DESK ATTENDANT.COAL UNLOADER Work Phone: [facility] 05-25-2023 08:12-0500 Systolic blood pressure 108 mm[Hg] Moni Stone DESK ATTENDANT.COAL UNLOADER Work Phone: [facility] 02-27-2023 09:46-0500 Body temperature 97.81 [degF] Yohana Martinez DESK ATTENDANT.COAL UNLOADER Work Phone: [facility] 02-27-2023 09:46-0500 Body weight 78.93 kg Yohana Martinez DESK ATTENDANT.COAL UNLOADER Work Phone: [facility] 02-27-2023 09:46-0500 Diastolic blood pressure 76 mm[Hg] Yohana Martinez DESK ATTENDANT.COAL UNLOADER Work Phone: [facility] 02-27-2023 09:46-0500 Heart rate 93 /min Yohana Martinez DESK ATTENDANT.COAL UNLOADER Work Phone: [facility] 02-27-2023 09:46-0500 Respiratory rate 16 /min Yohana Martinez DESK ATTENDANT.COAL UNLOADER Work Phone: [facility] 02-27-2023 09:46-0500 SaO2% (BldA) [Mass fraction] 99 % Yohana Martinez DESK ATTENDANT.COAL UNLOADER Work Phone: [facility] 02-27-2023 09:46-0500 Systolic blood pressure 118 mm[Hg] Yohana Martinez DESK ATTENDANT.COAL UNLOADER Work Phone: [facility] 12-23-2022 10:12-0400 Body temperature 97.2 [degF] Luc Marie DESK ATTENDANT.COAL UNLOADER Work Phone: [facility] 12-23-2022 10:12-0400 Body weight 77.29 kg [facility] DES[facility] ATTENDANT.COAL UNLOADER Work Phone: [facility] 12-23-2022 10:12-0400 Diastolic blood pressure 77 mm[Hg] [facility] DESK ATTENDANT.COAL UNLOADER Work Phone: [facility] 12-23-2022 10:12-0400 Heart rate 82 /min Luc Pendlebury DESK ATTENDANT.COAL UNLOADER Work Phone: [facility] 12-23-2022 10:12-0400 Respiratory rate 18 /min [facility] DESK ATTENDANT.COAL UNLOADER Work Phone: [facility] 12-23-2022 10:12-0400 SaO2% (BldA) [Mass fraction] 98 % [facility] DESK ATTENDANT.COAL UNLOADER Work Phone: [facility] 12-23-2022 10:12-0400 Systolic blood pressure 116 mm[Hg] [facility] DESK ATTENDANT.COAL UNLOADER Work Phone: [facility] 12-01-2022 08:47-0400 Body weight 76.2 kg Naomi Matos MD Work Phone: [facility] 12-01-2022 08:47-0400 Diastolic blood pressure 70 mm[Hg] Naomi Matos MD Work Phone: [facility] 12-01-2022 08:47-0400 Systolic blood pressure 110 mm[Hg] Naomi Matos MD Work Phone: [facility] 11-14-2022 21:56-0400 Diastolic blood pressure 72 mm[Hg] Lizy Chambers Other Phone: [facility] 11-14-2022 21:56-0400 Heart rate 76 /min Lizy Chambers Other Phone: [facility] 11-14-2022 21:56-0400 Respiratory rate 16 /min Lizy Chambers Other Phone: [facility] 11-14-2022 21:56-0400 SaO2% (BldA) [Mass fraction] 100 % Lizy Chambers Other Phone: [facility] 11-14-2022 21:56-0400 Systolic blood pressure 108 mm[Hg] Lizy Chambers Other Phone: [facility] 11-14-2022 19:46-0400 Body temperature 97.88 [degF] Lizy Chambers Other Phone: [facility] 06-30-2022 08:16-0400 Body temperature 98.01 [degF] Bee Praisler-Wood DESK ATTENDANT.COAL UNLOADER Work Phone: [facility] 06-30-2022 08:16-0400 Body weight 72.76 kg Bee Praisler-Wood DESK ATTENDANT.COAL UNLOADER Work Phone: [facility] 06-30-2022 08:16-0400 Diastolic blood pressure 80 mm[Hg] Bee Praisler-Wood DESK ATTENDANT.COAL UNLOADER Work Phone: [facility] 06-30-2022 08:16-0400 Heart rate 80 /min Bee Praisler-Wood DESK ATTENDANT.COAL UNLOADER Work Phone: [facility] 06-30-2022 08:16-0400 Respiratory rate 18 /min Bee Praisler-Wood DESK ATTENDANT.COAL UNLOADER Work Phone: [facility] 06-30-2022 08:16-0400 SaO2% (BldA) [Mass fraction] 99 % Bee Praisler-Wood DESK ATTENDANT.COAL UNLOADER Work Phone: [facility] 06-30-2022 08:16-0400 Systolic blood pressure 122 mm[Hg] Bee Praisler-Wood DESK ATTENDANT.COAL UNLOADER Work Phone: [facility] 05-05-2022 06:51-0500 Body weight 72.48 kg Lillian Norris DESK ATTENDANT.COAL UNLOADER Work Phone: [facility] 05-05-2022 06:51-0500 Diastolic blood pressure 60 mm[Hg] Lillian Rogersie DESK ATTENDANT.COAL UNLOADER Work Phone: [facility] 05-05-2022 06:51-0500 Systolic blood pressure 100 mm[Hg] Lillian Gallegoshrie DESK ATTENDANT.COAL UNLOADER Work Phone: [facility] 03-17-2022 07:27-0500 Body weight 71.22 kg Lillian Norris DESK ATTENDANT.COAL UNLOADER Work Phone: [facility] 03-17-2022 07:27-0500 Diastolic blood pressure 68 mm[Hg] Lillian Gallegoshrie DESK ATTENDANT.COAL UNLOADER Work Phone: [facility] 03-17-2022 07:27-0500 Systolic blood pressure 100 mm[Hg] Lillian Gallegoshrie DESK ATTENDANT.COAL UNLOADER Work Phone: [facility] 03-13-2022 08:18-0500 Body weight 70.76 kg Lillian Norris DESK ATTENDANT.COAL UNLOADER Work Phone: [facility] 03-13-2022 08:18-0500 Diastolic blood pressure 60 mm[Hg] Lillian Gallegoshrie DESK ATTENDANT.COAL UNLOADER Work Phone: [facility] 03-13-2022 08:18-0500 Systolic blood pressure 102 mm[Hg] Lillian Gallegoshrie DESK ATTENDANT.COAL UNLOADER Work Phone: [facility] 02-10-2022 09:08-0400 Body temperature 97 [degF] Luc Cynthia DESK ATTENDANT.COAL UNLOADER Work Phone: [facility] 02-10-2022 09:08-0400 Body weight 70.22 kg Luc Marie DESK ATTENDANT.COAL UNLOADER Work Phone: [facility] 02-10-2022 09:08-0400 Diastolic blood pressure 78 mm[Hg] Luc Pendlealy DESK ATTENDANT.COAL UNLOADER Work Phone: [facility] 02-10-2022 09:08-0400 Heart rate 78 /min Luc Marie DESK ATTENDANT.COAL UNLOADER Work Phone: [facility] 02-10-2022 09:08-0400 Respiratory rate 18 /min Luc Pendlealy DESK ATTENDANT.COAL UNLOADER Work Phone: [facility] 02-10-2022 09:08-0400 SaO2% (BldA) [Mass fraction] 99 % Luc Pendlebury DESK ATTENDANT.COAL UNLOADER Work Phone: [facility] 02-10-2022 09:08-0400 Systolic blood pressure 102 mm[Hg] Luc Pendlebury DESK ATTENDANT.COAL UNLOADER Work Phone: [facility] 01-16-2022 08:13-0400 Body temperature 97.2 [degF] Luc Pendlebury DESK ATTENDANT.COAL UNLOADER Work Phone: [facility] 01-16-2022 08:13-0400 Body weight 69.58 kg Luc Marie DESK ATTENDANT.COAL UNLOADER Work Phone: [facility] 01-16-2022 08:13-0400 Diastolic blood pressure 76 mm[Hg] Luc Pendlebury DESK ATTENDANT.COAL UNLOADER Work Phone: [facility] 01-16-2022 08:13-0400 Heart rate 77 /min Luc Pendlebury DESK ATTENDANT.COAL UNLOADER Work Phone: [facility] 01-16-2022 08:13-0400 Respiratory rate 18 /min Luc Whipplelebury DESK ATTENDANT.COAL UNLOADER Work Phone: [facility] 01-16-2022 08:13-0400 SaO2% (BldA) [Mass fraction] 98 % Luc Pendlealy DESK ATTENDANT.COAL UNLOADER Work Phone: [facility] 01-16-2022 08:13-0400 Systolic blood pressure 104 mm[Hg] Luc Pendlebury DESK ATTENDANT.COAL UNLOADER Work Phone: [facility] 12-23-2021 09:04-0400 Body temperature 97.2 [degF] Yohana Martinez DESK ATTENDANT.COAL UNLOADER Work Phone: [facility] 12-23-2021 09:04-0400 Body weight 71.31 kg Yohana Martinez DESK ATTENDANT.COAL UNLOADER Work Phone: [facility] 12-23-2021 09:04-0400 Diastolic blood pressure 64 mm[Hg] Yohana Martinez DESK ATTENDANT.COAL UNLOADER Work Phone: [facility] 12-23-2021 09:04-0400 Heart rate 102 /min Yohana Martinez DESK ATTENDANT.COAL UNLOADER Work Phone: [facility] 12-23-2021 09:04-0400 Respiratory rate 16 /min Yohana Martinez DESK ATTENDANT.COAL UNLOADER Work Phone: [facility] 12-23-2021 09:04-0400 SaO2% (BldA) [Mass fraction] 98 % Yohana Martinez DESK ATTENDANT.COAL UNLOADER Work Phone: [facility] 12-23-2021 09:04-0400 Systolic blood pressure 116 mm[Hg] Yohana Martinez DESK ATTENDANT.COAL UNLOADER Work Phone: [facility] 08-22-2021 16:09-0400 Body height 169 cm Lizy Chambers Other Phone: [facility] 08-22-2021 16:09-0400 Body temperature 98.6 [degF] Lizy Chambers Other Phone: [facility] 08-22-2021 16:09-0400 Diastolic blood pressure 70 mm[Hg] Lizy Chambers Other Phone: [facility] 08-22-2021 16:09-0400 Heart rate 89 /min Lizy Chambers Other Phone: [facility] 08-22-2021 16:09-0400 Respiratory rate 16 /min Lizy Chambers Other Phone: [facility] 08-22-2021 16:09-0400 SaO2% (BldA) [Mass fraction] 98 % Lizy Chambers Other Phone: [facility] 08-22-2021 16:09-0400 Systolic blood pressure 112 mm[Hg] Lizy Chambers Other Phone: [facility] Encounters Encounter Date Encounter Type Care Provider Facility Start: 01-15-2025 End: 01-15-2025 Patient encounter procedure Mahogany Parry SUPERVISOR [employer]ING-C -[facility] Work Phone: Start: 01-15-2025 End: 01-15-2025 ambulatory Lizy Chambers SUPERVISOR [employer]ING-C Work Phone: -[facility] Start: 01-15-2025 End: 01-15-2025 ambulatory Mahogany Parry SUPERVISOR [employer] PA[employer] MIXING Facility:[facility] Start: 10-23-2024 End: 10-23-2024 ambulatory Lizy Chambers SUPERVISOR [employer] MIXING-C Work Phone: -[facility] Start: 10-23-2024 End: 10-23-2024 Patient encounter procedure Mahogany Parry SUPERVISOR [employer] MIXING-C -[facility] Work Phone: Start: 10-23-2024 End: 10-23-2024 ambulatory Mahogany Parry SUPERVISOR [employer] PA[employer] MIXING Facility:[facility] Start: 10-19-2024 End: 10-19-2024 Patient encounter procedure Mahogany Parry SUPERVISOR [employer]IXING-C -[facility] Work Phone: Start: 10-19-2024 End: 10-19-2024 Patient encounter status Mahogany Parry SUPERVISOR [employer] MIXING-C [facility] Start: 10-19-2024 End: 10-19-2024 ambulatory Lizy Chambers SUPERVISOR [employer]ING-C Work Phone: -[facility] Start: 10-19-2024 End: 10-19-2024 ambulatory Mahogany Parry SUPERVISOR [employer] MIXING Facility:[facility] Start: 07-21-2024 End: 07-21-2024 ambulatory LIZY CHAMBERS [facility] Start: 07-13-2024 End: 07-13-2024 ambulatory LIZY CHAMBERS Facility:[facility] Start: 07-13-2024 End: 07-13-2024 Office outpatient visit 25 minutes Luc Marie APRN.COAL UNLOADER Work Phone: [facility] Comment on above: Headache, unspecifie d headache type (Primary Dx) Start: 06-12-2024 End: 06-12-2024 Office outpatient visit 15 minutes Wilfrid Smith MD Work Phone: [facility] Comment on above: Sore throat (Primary Dx) Start: 06-12-2024 End: 06-12-2024 ambulatory LIZY CHAMBERS Facility:[facility] Start: 06-01-2024 End: 06-01-2024 ambulatory LIZY CHAMBERS [facility] Start: 05-06-2024 End: 05-06-2024 Emergency department patient visit Seferino Flores Facility:[facility] Start: 05-05-2024 End: 05-05-2024 Emergency department patient visit LIZY CHAMBERS [facility] Start: 03-25-2024 End: 03-26-2024 Emergency department patient visit KWAKU BAUTISTA [facility] Start: 03-23-2024 End: 03-23-2024 Emergency department patient visit SUDEEP WASHINGTON [facility] Start: 03-02-2024 End: 03-02-2024 Subsequent hospital visit by physician [facility]r [facility] Work Phone: Radiology Comment on above: Acute cough [R05.1] Start: 03-02-2024 End: 03-02-2024 ambulatory LIZY CHAMBERS Facility:[facility] Start: 03-02-2024 End: 03-02-2024 Patient encounter procedure Tisha Palomo DESK ATTENDANT.COAL UNLOADER Work Phone: [facility] Comment on above: Sore throat (Primary Dx); Acute cough Start: 02-24-2024 End: 02-24-2024 Emergency department patient visit Jacobo Bee Facility:[facility] Start: 02-23-2024 End: 02-23-2024 Telephone encounter Chiquita Adhikari DESK ATTENDANTYfnCOAL UNLOADER Work Phone: OB/Gynecology Comment on above: Vaginal Bleeding Start: 02-20-2024 End: 02-20-2024 Emergency department patient visit JOHAN SOLORZANO [facility] Start: 02-15-2024 End: 02-15-2024 Telephone encounter Chiquita Adhikari DESK ATTENDANTYfnCOAL UNLOADER Work Phone: OB/Gynecology Comment on above: Results Start: 02-14-2024 End: 02-14-2024 ambulatory CHIQUITA ADHIKARI Facility:[facility] Start: 02-14-2024 End: 02-14-2024 Patient encounter procedure Chiquita Adhikari DESK ATTENDANT.COAL UNLOADER Work Phone: OB/Gynecology Comment on above: Vaginal discharge (P rimary Dx); Vaginal odor; Prolonged menstruation Start: 01-05-2024 End: 01-05-2024 ambulatory CLEMENTE PELON BATES [facility] Start: 11-24-2023 End: 11-24-2023 Emergency department patient visit KWAKU NAZARIO WILVER [facility] Start: 10-19-2023 Telephone encounter Naomi Matos MD Work Phone: OB/Gynecology Comment on above: Results Start: 10-18-2023 End: 10-18-2023 ambulatory NAOMI MATOS Facility:[facility] Start: 10-18-2023 End: 10-18-2023 Patient encounter procedure Naomi Matos MD Work Phone: OB/Gynecology Comment on above: Encounter for IUD re moval (Primary Dx); Vaginal itching; Vaginal discharge Start: 10-03-2023 End: 10-03-2023 Emergency department patient visit LIZY REYES [facility] Start: 08-04-2023 End: 08-04-2023 ambulatory LIZYRasta CHAMBERS Facility:[facility] Start: 08-04-2023 End: 08-04-2023 Patient encounter procedure Louise Cummins PA-C Work Phone: [facility] Comment on above: Rash (Primary Dx) Start: 05-25-2023 End: 05-25-2023 Patient encounter procedure Moni Stone APRN.COAL UNLOADER Work Phone: [facility] Comment on above: Acute otitis media, bilateral (Primary Dx) Start: 02-27-2023 End: 02-27-2023 Patient encounter procedure Yohana Martinez DESK ATTENDANT.COAL UNLOADER Work Phone: [facility] Comment on above: Acute otitis media, bilateral (Primary Dx) Start: 02-17-2023 Telephone encounter Naomi Matos MD Work Phone: OB/Gynecology Comment on above: Left sided Pelvic Pa in Start: 02-15-2023 Telephone encounter Linda Lemus MD Work Phone: OB/Gynecology Comment on above: Patient Update Start: 12-23-2022 End: 12-23-2022 Office outpatient visit 15 minutes Luc Marie APRN.COAL UNLOADER Work Phone: [facility] Comment on [...] 11-14-2022 Emergency department patient visit Loretta Andrade [facility] Emergency 08 Start: 07-01-2022 Telephone encounter Miguel SANDERS Work Phone: [email or web address] Comment on above: Results Start: 06-30-2022 End: 06-30-2022 Patient encounter procedure Bee Lr APRN.COAL UNLOADER Work Phone: [facility] Comment on above: Flu-like symptoms (P rimary Dx) Start: 05-05-2022 End: 05-05-2022 Patient encounter procedure Lillian Norris APRN.COAL UNLOADER Work Phone: OB/Gynecology Comment on above: Encounter for routin e checking of intrauterine contraceptive device (IUD) (Primary Dx) Start: 04-27-2022 Telephone encounter Lillian wright APRN.COAL UNLOADER Work Phone: OB/Gynecology Comment on above: Patient Question Start: 03-17-2022 End: 03-17-2022 Patient encounter procedure Lillian Norris DESK ATTENDANT.COAL UNLOADER Work Phone: OB/Gynecology Comment on above: Pelvic pain in femal e (Primary Dx); Irregular menstrual cycle Start: 03-16-2022 Telephone encounter Lillian wright DESK ATTENDANT.COAL UNLOADER Work Phone: OB/Gynecology Comment on above: Pelvic Pain (/) Start: 03-13-2022 End: 03-13-2022 Patient encounter procedure Lillian Jr DESK ATTENDANT.COAL UNLOADER Work Phone: OB/Gynecology Comment on above: General counseling a nd advice for contraceptive management (Primary Dx) Start: 02-11-2022 Telephone encounter Yohana jade DESK ATTENDANT.COAL UNLOADER Work Phone: [facility] Comment on above: Results Start: 02-10-2022 End: 02-10-2022 Patient encounter procedure Luc Marie DESK ATTENDANT.COAL UNLOADER Work Phone: [facility] Comment on above: Urinary frequency (P rimary Dx); Vaginal pain Start: 01-20-2022 Telephone encounter Yohana jade DESK ATTENDANT.COAL UNLOADER Work Phone: [facility] Comment on above: Results Start: 01-16-2022 End: 01-16-2022 Patient encounter procedure Luc Marie DESK ATTENDANT.COAL UNLOADER Work Phone: [facility] Comment on above: Urinary frequency (P rimary Dx) Start: 12-23-2021 End: 12-23-2021 Patient encounter procedure Yohana Martinez DESK ATTENDANT.COAL UNLOADER Work Phone: [facility] Comment on above: Acute otitis media, right (Primary Dx) Start: 08-22-2021 End: 08-22-2021 Emergency department patient visit Nati Cullen [facility] 01 Procedures Date Procedure Procedure Detail Performing Clinician Start: 01-15-2025 Follicle stimulating hormone measurement Lziy GRAJEDA Work Phone: Comment on above: FEMALE:Follicular: 1 .4 - 18.1 mIU/mLMidcycle: 3.4 - 33.4 mIU/mLLuteal: 1.5 - 9.1 mIU/mLPost Menopause: 23.0 - 116.3 mIU/mLMALE: 1.4 - 18.1 mIU/mL Start: 10-23-2024 Pelvic echography Lizy Chambers SUPERVISOR [employer] Work Phone: Start: 10-19-2024 Dehydroepiandrostero ne sulfate level Lizy Chambers SUPERVISOR [employer] Work Phone: Start: 10-19-2024 Serum progesterone measurement Lizy Chambers SUPERVISOR [employer] Work Phone: Comment on above: Follicular phase 0.1 - 0.9 Luteal phase 1.8 - 23.9 Ovulation phase 0.1 - 12.0 First trimester 11.0 - 44.3 Second trimester 25.4 - 83.3 Third trimester 58.7 - 214.0 Postmenopausal 0.0 - 0.1Performed at: [facility] [address] [id number] Director: Michael Waller MD, Phone: [phone] at: [facility] [address] [id number] Director: Rainer Craen PhD, Phone: [phone] Start: 06-12-2024 STREP A MOLECULAR (POC) Brandon Elder APRN.CNP Work Phone: Start: 03-02-2024 Radiologic exam chest 2 views Tisha Palomo APRN.COAL UNLOADER Work Phone: Start: 03-02-2024 STREP A MOLECULAR (POC) [facility] Provider Start: 10-03-2023 Urinalysis KWAKU Reed Comment on above: Result Comment: URIN ALYSIS Performed By: #### [id number] #### [facility],[address] [place], [place] [id number] Start: 12-01-2022 Urnls dip stick/tabl et rgnt auto w/o microscopy Naomi Matos MD Work Phone: Start: 03-13-2022 Urine test visual color cmprsn meths Lillian Norris DESK ATTENDANT.COAL UNLOADER Work Phone: Start: 02-10-2022 Urnls dip stick/tabl et rgnt auto w/o microscopy Yohana Martinez DESK ATTENDANT.COAL UNLOADER Work Phone: Start: 01-16-2022 Urnls dip stick/tabl et rgnt auto w/o microscopy Wilfrid Smith MD Work Phone: Plan of Treatment Date Care Activity Detail Author Start: 11-20-2027 Urine microalbumin profile DTaP,Tdap,Td Vaccine (7 - Td or Tdap) [facility] Start: 02-13-2025 GC (Gonorrhea) Screening () GC (Gonorrhea) Screening () [facility] Start: 02-13-2025 Screening for Chlamydia trachomatis Chlamydia Screening () [facility] Start: 01-15-2025 Serum progesterone measurement [facility] Start: 01-15-2025 Thyroperoxidase Ab [Units/volume] in Serum or Plasma [facility] Start: 10-19-2024 17-Hydroxyprogesterone [Mass/volume] in Serum or Plasma [facility] Start: 10-19-2024 Dehydroepiandrosterone sulfate (DHEA-S) [Mass/volume] in Serum or Plasma [facility] Start: 10-19-2024 Hemoglobin A1c/Hemoglobin.total in Blood [facility] Start: 10-19-2024 Lutropin [Units/volume] in Serum or Plasma [facility] Start: 10-19-2024 Prolactin measurement [facility] Start: 10-19-2024 Serum progesterone measurement [facility] Start: 10-19-2024 Testosterone Free [Mass/volume] in Serum or Plasma [facility] Start: 07-28-2024 End: 07-28-2024 Patient encounter procedure 07/28/2024 9:00 AM EDT Office Visit Neurology [address] [place] [address] [place] [id number] Kareen Mcdaniel PA-C [address] [facility] [place], [place] [address] Headache, unspecified headache type [R51.9] Neurology Comment on above: Headache, unspecified headache type [R51 .9] Start: 12-12-2023 Covid-19 Vaccine ( season) Covid-19 Vaccine ( season) [facility] Start: 12-12-2023 Influenza vaccination [facility] Start: 12-02-2023 CHLAMYDIA SCREENING (<18) CHLAMYDIA SCREENING (<18) [facility] Start: 12-02-2023 GC (Gonorrhea) Screening (18-24) GC (Gonorrhea) Screening (18-24) [facility] Start: 12-02-2023 GC (GONORRHEA) SCREENING (<18) GC (GONORRHEA) SCREENING (<18) [facility] Start: 12-02-2023 Screening for Chlamydia trachomatis [facility] Start: 11-11-2023 CHLAMYDIA SCREENING (<18) CHLAMYDIA SCREENING (<18) [facility] Start: 11-11-2023 GC (GONORRHEA) SCREENING (<18) GC (GONORRHEA) SCREENING (<18) [facility] Start: 09-22-2023 Anxiety Screening Anxiety Screening [facility] Start: 09-22-2023 Depression Screening Depression Screening [facility] Start: 09-22-2023 Hepatitis C screening Hepatitis C Screening [facility] Start: 09-22-2023 HIV screening HIV Screening [facility] Start: 04-12-2023 Behavioral Health Screening Behavioral Health Screening [facility] Start: 02-10-2023 CHLAMYDIA SCREENING (<18) CHLAMYDIA SCREENING (<18) [facility] Start: 02-10-2023 GC (GONORRHEA) SCREENING (<18) GC (GONORRHEA) SCREENING (<18) [facility] Start: 12-11-2022 Covid-19 Vaccine ( season) Covid-19 Vaccine () [facility] Start: 12-11-2022 Influenza vaccination [facility] Start: 12-01-2022 End: 12-02-2023 PELVIC US I [facility] Work Phone: Comment on above: Expected: 12/01/2022, Expires: Start: 11-07-2022 CHLAMYDIA SCREENING (<18) CHLAMYDIA SCREENING (<18) [facility] Start: 11-07-2022 GC (GONORRHEA) SCREENING (<18) GC (GONORRHEA) SCREENING (<18) [facility] Start: 12-11-2021 Influenza vaccination INFLUENZA (#1) [facility] Start: 2021 Meningococcal B Vaccine (1 of 2 - Standard) Meningococcal B Vaccine (1 of 2 - Standard) [facility] Start: 2021 Meningococcal B Vaccine: Consider Based On Risk (1 of 2 - Patient Seeks Protection) Meningococcal B Vaccine: Consider Based On Risk (1 of 2 - Patient Seeks Protection) [facility] Start: 2021 MENINGOCOCCAL B: Consider based on risk (1 of 2 - Patient Seeks Protection) MENINGOCOCCAL B: Consider based on risk (1 of 2 - Patient Seeks Protection) [facility] Start: 2021 MENINGOCOCCAL CONJUGATE (1 - 2-dose series) MENINGOCOCCAL CONJUGATE (1 - 2-dose series) [facility] Start: 2021 Meningococcal Conjugate Vaccine (1 - 2-dose series) Meningococcal Conjugate Vaccine (1 - 2-dose series) [facility] Start: 09-22-2019 PEDS TO ADULT TRANSITION ANNUAL ASSESSMENT PEDS TO ADULT TRANSITION ANNUAL ASSESSMENT [facility] Start: 2017 Adult depression screening assessment DEPRESSION SCREENING [facility] Start: 2017 PEDS TO ADULT TRANSITION INITIAL DISCUSSION PEDS TO ADULT TRANSITION INITIAL DISCUSSION [facility] Start: 2016 HPV VACCINE (1 - 2-dose series) HPV VACCINE (1 - 2-dose series) [facility] Start: 2016 [facility] Start: 09-22-2015 MENINGOCOCCAL B: Consider based on risk (1 of 2 - Risk Bexsero 2-dose series) MENINGOCOCCAL B: Consider based on risk (1 of 2 - Risk Bexsero 2-dose series) [facility] Start: 2014 HPV VACCINE (1 - 2-dose series) HPV VACCINE (1 - 2-dose series) [facility] Start: 03-23-2006 COVID-19 VACCINE (#1) COVID-19 VACCINE (#1) [facility] Bacteria identified in Urine by Culture URINE CULTURE Microbiology Routine Urinary frequency Ordered: 01/16/2022 [facility] Work Phone: Comment on above: Ordered: 01/16/2022 Bacteria identified in Urine by Culture URINE CULTURE Microbiology Routine Urinary frequency Ordered: 02/10/2022 [facility] Work Phone: Comment on above: Ordered: 02/10/2022 BACTERIAL VAGINOSIS AMPLIFICATION BACTERIAL VAGINOSIS AMPLIFICATION Lab Routine Vaginal pain Ordered: 02/10/2022 [facility] Work Phone: Comment on above: Ordered: 02/10/2022 BACTERIAL VAGINOSIS NAAT BACTERI AL VAGINOSIS NAAT Lab Routine Pelvic pain in female Vaginal discharge 12/01/2022 9:15 AM EDT [facility] Work Phone: BACTERIAL VAGINOSIS NAAT BACTERI AL VAGINOSIS NAAT Lab Routine Vaginal itching Vaginal discharge 10/18/2023 4:01 PM EDT [facility] BACTERIAL VAGINOSIS NAAT BACTERI AL VAGINOSIS NAAT Lab Routine Vaginal discharge 02/14/2024 9:25 AM [facility] ERICK / TRICHOMONA S AMPLIFICATION ERICK / TRICHOMONAS AMPLIFICATION Microbiology Routine Vaginal pain Ordered: 02/10/2022 [facility] Work Phone: Comment on above: Ordered: 02/10/2022 ERICK/TRICHOMONAS NAAT ERICK /TRICHOMONAS NAAT Lab Routine Pelvic pain in female Vaginal discharge 12/01/2022 9:15 AM T [facility] Work Phone: ERICK/TRICHOMONAS NAAT ERICK /TRICHOMONAS NAAT Lab Routine Vaginal itching Vaginal discharge 10/18/2023 4:01 PM EDT [facility] ERICK/TRICHOMONAS NAAT ERICK /TRICHOMONAS NAAT Lab Routine Vaginal discharge 02/14/2024 9:25 AM Estimote [facility] Work Phone: Chlamydia trachomatis+Neisseria gonorrhoeae DNA [Presence] in Unspecified specimen by MARK with probe detection GC/CHLAMYDIA DNA DET Lab Routine Vaginal pain Ordered: 02/10/2022 [facility] Work Phone: Comment on above: Ordered: 02/10/2022 Chlamydia trachomatis+Neisseria gonorrhoeae DNA [Presence] in Unspecified specimen by MARK with probe detection GONORRHEA/CHLAMYDIA NAAT Lab Routine Pelvic pain in female Vaginal discharge 12/01/2022 9:15 AM EDT [facility] Work Phone: Chlamydia trachomatis+Neisseria gonorrhoeae DNA [Presence] in Unspecified specimen by MARK with probe detection GONORRHEA/CHLAMYDIA NAAT Lab Routine Vaginal discharge 02/14/2024 9:25 AM EST [facility] COVID, FLU A/B + RSV, ROUTINE CO VID, FLU A/B + RSV, ROUTINE Microbiology Routine Flu-like symptoms Ordered: 06/30/2022 [facility] Work Phone: Comment on above: Ordered: 06/30/2022 Insertion intrauteri ne device iud INSERT INTRAUTERINE DEVICE Procedures Routine General counseling and advice for contraceptive management Ordered: 03/13/2022 [facility] Work Phone: Comment on above: Ordered: 03/13/2022 Insertion intrauteri ne device iud INSERT INTRAUTERINE DEVICE Procedures Routine Encounter for IUD insertion Ordered: 03/31/2022 [facility] Work Phone: Comment on above: Ordered: 03/31/2022 RAPID STREP TEST B/O RAPID STREP TEST B/O Lab Routine Sore throat Ordered: 03/02/2024 [facility] Work Phone: Comment on above: Ordered: 03/02/2024 Removal intrauterine device iud REMOVE INTRAUTERINE DEVICE Procedures Routine Encounter for IUD removal Ordered: 10/18/2023 [facility] Work Phone: Comment on above: Ordered: 10/18/2023 ROUTINE FLU A/B + RSV ROUTINE FL U A/B + RSV Lab Routine Flu-like symptoms Ordered: 06/30/2022 [facility] Work Phone: Comment on above: Ordered: 06/30/2022 SARS-CoV-2 (COVID-19 ) RNA [Presence] in Respiratory specimen by MARK with probe detection 2019 CORONAVIRUS Microbiology Routine Flu-like symptoms Ordered: 06/30/2022 [facility] Work Phone: Comment on above: Ordered: 06/30/2022 US Pelvis [facility] End: 04-16-2023 Us transvaginal US FEMALE PELVIS TRANSVAG Radiology Routine Pelvic pain in female 1 Occurrences starting 03/17/2022 until 04/16/2023 [facility] Work Phone: Comment on above: 1 Occurrences starting 03/17/2022 until 04/16/2023 End: 03-18-2024 Us transvaginal US FEMALE PELVIS TRANSVAG Radiology Routine Pelvic pain in female IUD (intrauterine device) in place History of ovarian cyst 1 Occurrences starting 02/17/2023 until 03/18/2024 [facility] Work Phone: Comment on above: 1 Occurrences starting 02/17/2023 until 03/18/[address] [facility] Immunizations Immunization Date Immunization Notes Care Provider Kwabena sandra 05-01-2019 influenza virus vaccine, unspecified formulation Luc Marie DESK ATTENDANT.[facility] Work Phone: [facility] 12-02-2010 diphtheria, tetanus toxoids and acellular pertussis vaccine Yohana Martinez DESK ATTENDANT.COAL UNLOAD[employer] Work Phone: [facility] 12-02-2010 measles, mumps and rubella virus vaccine Yohana Martinez DESK ATTENDANT.COAL UNLOADER Work Phone: [facility] 12-02-2010 poliovirus vaccine, inactivated Yohana Michelle DESK ATTENDANT.COAL UNLOADER Work Phone: [facility] 12-02-2010 varicella virus vaccine Yohana Martinez DESK ATTENDANT.COAL UNLOADER Work Phone: [facility] 02-25-2010 influenza virus vaccine, live, attenuated, for intranasal use Yohanaandrez Martinez DESK ATTENDANT.COAL UNLOADER Work Phone: [facility] Work Phone: 09-03-2009 diphtheria, tetanus toxoids and acellular pertussis vaccine Yohana Martinez DESK ATTENDANT.COAL UNLOADER Work Phone: [facility] Work Phone: 09-03-2009 hepatitis A vaccine, unspecified formulation Yohana Martinez DESK ATTENDANT.COAL UNLOADER Work Phone: [facility] Work Phone: 09-27-2007 diphtheria, tetanus toxoids and acellular pertussis vaccine Yohana Martinez DESK ATTENDANT.[facility] Work Phone: [facility] Work Phone: 09-27-2007 haemophilus influenzae type b vaccine, HbOC conjugate Yohana Martinez DESK ATTENDANT.COAL UNLOADER Work Phone: [facility] Work Phone: 09-27-2007 hepatitis A vaccine, unspecified formulation Yohana Martinez DESK ATTENDANT.COAL UNLOADER Work Phone: [facility] Work Phone: 06-21-2007 diphtheria, tetanus toxoids and acellular pertussis vaccine Yohana Martinez DESK ATTENDANT.[facility] Work Phone: [facility] Work Phone: 06-21-2007 haemophilus influenzae type b vaccine, HbOC conjugate Yohana Martinez DESK ATTENDANT.[facility] Work Phone: [facility] Work Phone: 06-21-2007 poliovirus vaccine, inactivated Yohana Martinez DESK ATTENDANT.[facility] Work Phone: [facility] Work Phone: 04-16-2007 diphtheria, tetanus toxoids and acellular pertussis vaccine Yohana Martinez DESK ATTENDANT.COAL UNLOADER Work Phone: [facility] 04-16-2007 measles, mumps and rubella virus vaccine Yohana Martinez DESK ATTENDANT.COAL UNLOADER Work Phone: [facility] 04-16-2007 pneumococcal conjugate vaccine, 7 valent Yohana Martinez DESK ATTENDANT.COAL UNLOADER Work Phone: [facility] 04-16-2007 varicella virus vaccine Yohana Martinez DESK ATTENDANT.[facility] Work Phone: [facility] 04-27-2006 hepatitis B vaccine, pediatric or pediatric/adolescent dosage Yohana Martinez DESK ATTENDANT.COAL UNLOADER Work Phone: [facility] Work Phone: 04-27-2006 pneumococcal conjugate vaccine, 7 valent Yohana Martinez DESK ATTENDANT.COAL UNLOADER Work Phone: [facility] Work Phone: 04-27-2006 poliovirus vaccine, inactivated Yohana Martinez DESK ATTENDANT.[facility] Work Phone: [facility] Work Phone: 02-05-2006 haemophilus influenzae type b vaccine, HbOC conjugate Yohana Martinez DESK ATTENDANT.[facility] Work Phone: [facility] Work Phone: 02-05-2006 pneumococcal conjugate vaccine, 7 valent Yohana Martinez DESK ATTENDANT.[facility] Work Phone: [facility] Work Phone: 02-05-2006 poliovirus vaccine, inactivated Yohana Martinez DESK ATTENDANT.[facility] Work Phone: [facility] Work Phone: 2005 haemophilus influenzae type b vaccine, HbOC conjugate Yohana Martinez DESK ATTENDANT.[facility] Work Phone: [facility] Work Phone: 2005 hepatitis B vaccine, pediatric or pediatric/adolescent dosage Yohana Martinez DESK ATTENDANT.[facility] Work Phone: [facility] Work Phone: 2005 pneumococcal conjugate vaccine, 7 valent Yohana Martinez DESK ATTENDANT.[facility] Work Phone: [facility] Work Phone: 2005 hepatitis B vaccine, pediatric or pediatric/adolescent dosage Yohana Martinez DESK ATTENDANT.[facility] Work Phone: [facility] Work Phone: NEGATED: Highlighted row has not occurred!04-27-2006 diphtheria and tetanus toxoids, adsorbed for pediatric use Yohana Martinez DESK ATTENDANT.[facility] Work Phone: [facility] Work Phone: Comment on above: Deferred: OTHER - OU T OF C STOCK Payers Date Payer Category Payer Self-pay 2021 Private Health Insurance [employer] [id number] 2021 Unknown 2021 Unknown [id number] 2019 Medicaid [id number] 2019 Medicaid [id number] 2008 Unknown [id number] 2005 Unknown [id number] [id number] .65 2005 Unknown [id number] [id number] .65 2005 Unknown [id number] 2.16.840.1.164201.3.579.2 .651 2005 Unknown [id number] 2.16.840.1.160915.3.579.2 .65 2005 Unknown [id number] 2.16.840.1.868791.3.579.2 .65 2005 Unknown [id number] 2.16.840.1.378737.3.579.2 .65 2005 Unknown [id number] 2.16.840.1.383711.3.579.2 .651 2005 Unknown [id number] 2.16.840.1.831851.3.579.2 .65 2005 Unknown [id number] 2.16.840.1.365979.3.579.2 .651 1988 Unknown [id number] 2.16.840.1.110957.3.579.2 .1069 Unknown [id number] Unknown [id number] 2.16.840.1.142561.3.579.2 .462 Unknown [id number] 2.16.840.1.535383.3.579.2 .462 Unknown [id number] 2.16.840.1.065258.3.579.2 .462 Unknown [id number] 2.16.840.1.107605.3.579.2 .462 Unknown [id number] 2.16.840.1.251471.3.579.2 .462 Unknown [id number] 2.16.840.1.361767.3.579.2 .462 Unknown [id number] [id number] .462 Worker's Compensation [id number] Social History Date Type Detail Facility [facility] Tobacco smoking consumption unknown [facility] Start: 01-21-2012 Tobacco smoking status NHIS Never smoked tobacco [facility] Work Phone: Start: 11-23-2021 End: 07-13-2024 Alcohol intake Current non-drinker of alcohol (finding) [facility] Start: 2005 Sex Assigned At Not on file C [facility] Start: 12-13-2021 End: 02-10-2022 Exposure to SARS-CoV-2 (event) Not sure [facility] Start: 12-01-2022 End: 06-20-2024 History of Social function [facility] Start: 12-01-2022 End: 06-20-2024 Tobacco use panel [facility] National Score (1-100), lower number is lower risk 84 [facility] Start: 10-19-2024 Tobacco smoking status NHIS Smokes tobacco daily (finding) [facility] Start: 05-19-2022 Alcohol Alcohol [facility] Start: 05-19-2022 Tobacco Use Tobacco Use [facility] Start: 2005 Sex Assigned At Female W [facility] Functional Status Date Assessment Result Facility 09-04-2014 Are you deaf, or do you have serious difficulty hearing No 09/04/2014 11:22 AM EDT Yana Carias MA No [facility] 09-04-2014 Are you blind, or do you have serious difficulty seeing, even when wearing glasses No 09/04/2014 11:22 AM EDT Yana Carias MA No [facility] 09-04-2014 Do you have serious difficulty walking or climbing stairs No 09/04/2014 11:22 AM EDT Yaan Carias MA No [facility] 09-04-2014 Do you have difficul ty dressing or bathing No 09/04/2014 11:22 AM EDT Yana Carias MA [facility] Mental Status Date Assessment Result Facility 09-04-2014 Because of a physica l, mental, or emotional condition, do you have serious difficulty concentrating, remembering, or making decisions No 09/04/2014 11:22 AM EDT Yana Carias MA No [facility] Clinical Notes 02-06-2020 to 01-15-2025 Note Date & Type Note Facility 01-15-2025 Progress note [facility] 01-15-2025 Progress note Note Date/Time January 15, 2025 3:38pm [facility] [address], [address] [place] [address] OFFICE VISIT Date of Service: 01/15/25 MR#: [id number] Acct: [id number] Name: CLARISSE MOLINA Rep #: [id number] : 2005 Provider: NICCI Parry Age/Sex: 19/F Location: [facility] Status: Signed Intake Vital Signs 10/19/24 11:41 01/15/25 15:16 01/15/25 15:20 Height 5 ft 5 in 5 ft 5 in 5 ft 5 in Weight: 204 lb 7 oz BMI 34.0 BP 134/83 H Intake Visit Reasons: 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 Cooler Servicer Required: No Is patient in pain?: No [...] History current occupational status: employed current occupation: [employer] Smoking Status: Current every day smoker tobacco [...] Cosigner Signature: Date (if applicable) CC: ~ [facility] Work Phone: 1(655) 978-457307-14-2025 Radiology Diagnostic study note [facility] Imaging Services [address] [place], [place] [address] Pelvic w/ Transvaginal MR#: [id number] Acct: [id number] Name: CLARISSE MOLIAN Rep #: [id number] : 2005 F 19 From: Angelica Beaver MD PCP: NICCI Malik Status: REG CLI Study:Pelvic w/ Transvaginal Date of Exam: 10/23/24 Exam# [id number] Ordering Dr: Mahogany Parry NP PROCEDURE: PELVIC [...] Findings suggestive of polycystic ovaries. Reading Location: [place] [address] CC: NICCI Chambers; NICCI Parry ~ 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: Signed [facility]07-10-2025 Evaluation note* Diagnosis Onset Date Resolution Status Admit Date PCOS (polycystic ovarian syndrome) acute October 19, 2024 10:46am Pelvic pain acute October 19 10:46am Secondary amenorrhea acute October 19, 2024 10:46am Encounter for routine gynecological examination noneactive October 102024 10:46am [facility] Work Phone: 1(210) 613-843507-10-2025 Evaluation note* Diagnosis Onset Date Resolution Status Admit Date PCOS (polycystic ovarian syndrome) acute October 19, 2024 10:46am Pelvic pain acute October 19 10:46am Secondary amenorrhea acute October 19, 2024 10:46am Encounter for routine gynecological examination noneactive October 102024 10:46am Secondary amenorrhea acute 2024 3:15pm [facility] Work Phone: 1(785) 734-789204-03-2025 NoteHNO ID: [id number] Author: LUC MARIE APRN.COAL UNLOADER Service: ? Author Type: Nurse Practitioner Type: [...] unspecified @ 6months Ruptured ovarian cyst 2021 [facility] PAST SURGICAL HISTORY Procedure Laterality Date KYLEENA [...] was instructed to i (more content not included)...[facility] 07-13-2024 History of Present illness Narrative* Luc Marie APRN.COAL UNLOADER - 07/13/2024 11:01 AM EDT Subjective HPI [...] unspecified @ 6months Ruptured ovarian cyst 2021 [facility] PAST SURGICAL HISTORY Procedure Laterality Date KYLEENA [...] of care. This note was generated using [employer] software. It may contain errors in wording, punctuation, or spelling. Luc Marie APRN.COAL UNLOADER documented [facility]25 NoteHNO ID: [id number] Author: WILFRID SMITH MD Service: ? Author [...] continues to have recurrent illnesses. Wilfrid Smith, [facility]03-03-2025 History of Present illness Narrative* Wilfrid Smith [...] illnesses. Wilfrid Smith MD [facility]25 NoteDischarge Instructions Discharge Summary [address] [address] [id number] 05/05/2024 Patient: CLARISSE MOLINA Sex: Female : 2005 Age: 18y Thank you for visiting [facility]. You have been evaluated today by Quinn Hameed D.O. for the following condition(s): Principal Diagnosis Contusion to the right shoulder. INSTRUCTIONS Apply ice. Rest. Prescription Medications: ketorolac 10 mg tablet: Take 1 tablet by mouth every six to eight hours as needed for pain for 5 days, dispense 20 tablet. Refills 0. Pharmacy: [facility] [id number] [place] [address]. Follow-up: Follow up with your healthcare provider in two days. Call for an appointment. You have been given the following additional information: Soft Tissue Bruise (Contusion) Patient Signature 1 of 4 Discharge Instructions Facility Director Of Agriculture Date/Time General Instructions with ExitWriter [facility] [address] [place] [place] [address] [phone] 05/05/2024 Patient: CLARISSE MOLINA Sex: Female : 2005 Age: 18y Thank you for visiting [facility]. You have been evaluated today by Quinn Hameed D.O. for the following condition(s): Principal Diagnosis Contusion to the right shoulder. INSTRUCTIONS Apply ice. Rest. Prescription Medications: ketorolac 10 mg tablet: Take 1 tablet by mouth every six to eight hours as needed for pain for 5 days, dispense 20 tablet. Refills 0. Pharmacy: [facility] [id number] - [address] [place] [address]. Follow-up: Follow up with your healthcare provider [...] Frequent bruising for unknown reasons Activities Restrictions [address] [address] [id number] 05/05/2024 3 of 4 Discharge Instructions Patient: CLARISSE MOLINA Sex: Female : 2005 Age: 18y You have been given the following instructions regarding activity, work, and/or school. Rest. Facility Director Of Agriculture [address] [place], [place] 2871212-19-2024 NoteDischarge Instructions Discharge Summary [address] [address] [id number] 03/25/2024 Patient: CLARISSE MOLINA Sex: Female : 2005 Age: 18y Thank you for visiting [facility]. You have been evaluated today by Kwaku [...] days, dispense 40 tablet. Refills 0. Pharmacy: [facility] 3254 - [address] [place] [address]. clotrimazole-betamethasone 1 %-0.05 % topical cream: Apply 1 a small amount to affected area twice a day, dispense 15 gram. Refills 0. Pharmacy: [facility] 8850 [address] [place] [address]. Understanding of the discharge instructions verbalized by patient and family. 1 of 4 Discharge Instructions Follow-up with: Lizy Chambers MSN,DESK ATTENDANT, PAULETTE-C, [facility] Pediatric, Family Care, , [address] [place] [address]. Follow up in three days even if well. Call for an appointment. Reason for referral: evaluation and treatment. Summary of care provided to patient and family. You have been given the following additional information: Cellulitis Patient Signature Facility Director Of Agriculture Date/Time General Instructions with ExitWriter [facility] [address] [place] [address] [id number] 03/25/2024 Patient: CLARISSE MOLINA Sex: Female : 2005 Age: 18y Thank you for visiting [facility]. You have been evaluated today by Kwaku [...] days, dispense 40 tablet. Refills 0. Pharmacy: [facility] [address]182 - [address] [place] [address]. clotrimazole-betamethasone 1 %-0.05 % topical cream: Apply 1 a small amount to affected area twice a day, dispense 15 gram. Refills 0. Pharmacy: [facility] [address]671 [address] [place] [address]. Understanding of the discharge instructions verbalized by patient and family. Follow-up with: DUNG Malik,DESK ATTENDANT, HOGSHEAD INSPECTOR-C, [facility], Family Care, , [address] [facility] [address], [place] [address]. Follow up in three days even if [...] before and after touch (more content not included)...[facility]12-12-2024 NoteDischarge Instructions Discharge Summary [facility] [address] [place] [address] [id number] 03/23/2024 Patient: CLARISSE MOLINA Sex: Female : 2005 Age: 18y Thank you for visiting [facility]. You have been evaluated today by Sudeep Washington D.O. for the following condition(s): Principal Diagnosis Cellulitis of the right thigh. INSTRUCTIONS Return to work tomorrow. Do not work today. Prescription Medications: bactrum ds tablet: Take 1 tablet by mouth twice a day as needed for 10 days, dispense 20 tablet. Refills 0. Pharmacy: [facility] 8[address] - [address] [place] [address]. Follow-up with: Lizy Chambers, MSN,DESK ATTENDANT, YEMIC, [facility] Adult [facility], Family [facility], Phone: [phone], [address] [place] [id number]. Follow up in one week. (Keep clean and dry. nina area to see if it is getting larger. Return if any problems or concerns.). You have been given the following additional information: Cellulitis 1 of 4 Discharge Instructions Patient Signature Facility Director Of Agriculture Date/Time General Instructions with ExitWriter [facility] [address] [facility] [place] [address] [id number] 03/23/2024 Patient: CLARISSE MOLINA Sex: Female : 2005 Age: 18y Thank you for visiting [facility]. You have been evaluated today by Sudeep Washington D.O. for the following condition(s): Principal Diagnosis Cellulitis of the right thigh. INSTRUCTIONS Return to work tomorrow. Do not work today. Prescription Medications: bactrum ds tablet: Take 1 tablet by mouth twice a day as needed for 10 days, dispense 20 tablet. Refills 0. Pharmacy: [facility] [address] [place] [address]. Follow-up with: DUNG Malik,DESK ATTENDANT, PAULETTE-C, [facility], Family [facility], Phone: [phone], [address] [place] [address]. Follow up in one week. (Keep clean [...] higher after 2 days on antibiotics Activities [address] [address] [id number] 03/23/2024 Patient: CLARISSE MOLINA Sex: Female : 2005 Age: 18y You have been given the following instructions regarding activity, work, and/or school. Return to work tomorrow. Do not work today. Facility Director Of Agriculture [address] [place], [place] [address]-21-2024 History of Present illness Narrative* Iona Turner [...] PATIENT PRESENTS WITH AN IMPLANTABLE OR ATTACHED TIRE FABRIC INSPECTOR: No RADIOLOGY DEPARTMENT: General X-ray: Exam(s) Completed: Chest X-Ray PERIPHERAL IV DATA: Not applicable SIGNED BY: RT Mariela(Brianna) March 02, 2024 3:48 PM documented in this encounterMetro[facility]11-21-2024 NoteHNO ID: [id number] Author: IONA TURNER RT(R) Service: ? Author Type: Water Taxi Ferry Operator Type: Progress Notes Filed: 03/02/2024 15:55 [...] PATIENT PRESENTS WITH AN IMPLANTABLE OR ATTACHED TIRE FABRIC INSPECTOR: No RADIOLOGY DEPARTMENT: General X-ray: Exam(s) Completed: Chest X-Ray PERIPHERAL IV DATA: Not applicable SIGNED BY: RT Mariela(Brianna) March 02, 2024 3:48 PMCSelect Medical [facility]11-21-2024 NoteHNO ID: [id number] Author: TISHA PALOMO APRN.COAL UNLOADER Service: ? Author Type: Nurse Practitioner Type: Progress Notes Filed: 03/02/2024 16:04 Note Text: This note was created using LoopUpter. Subjective Clarisse Molina is a 18 year [...] seem most likely viral in origin. Recommended gtof-ocj-tfbcpto treatments, plenty of rest and fluids and follow-up with PCP. - XR CHEST 2V FRONTAL/LAT Tisha Palomo APRN.[facility]11-21-2024 History of Present illness Narrative* Tisha Palomo, PELON.COAL UNLOADER - 03/02/2024 3:32 PM EST This note was created using CosmEthicsriter. Subjective Clarisse Molina is a 18 year [...] symptoms seem most likely viral inorigin. Recommended upcu-hki-hjaznai treatments, plenty of rest and fluids and follow-up with PCP. - XR CHEST 2V FRONTAL/LAT Tisha Palomo APRN.COAL UNLOADER documented in this encounterMetrohealth [facility]11-18-2024 NoteDischarge Instructions Discharge Summary [address] [address] [id number] 02/20/2024 Patient: CLARISSE MOLINA Sex: Female : 2005 Age: 18y Thank you for visiting [facility]. You have been evaluated today by Johan [...] Signature 1 of 5 Discharge Instructions Facility Director Of Agriculture Date/Time General Instructions with ExitWriter [address] [address] [id number] 02/20/2024 Patient: CLARISSE MOLINA Sex: Female : 2005 Age: 18y Thank you for visiting [facility]. You have been evaluated today by Johan [...] on chairs or wobbly (more content not included)...[facility]11-13-2024 Telephone encounter Note* Telephone Encounter - Christine Villalta RN - 02/23/2024 2:42 PM EST Patient notified and voiced understanding. Christine Villalta RN [facility]11-13-2024 Miscellaneous Notes* Telephone Encounter - Christine Villalta [...] today. Christine Villalta RN documented in this encounterMetrohealth [facility]11-13-2024 Telephone encounter Note * Telephone Encounter - Chiquita Adhikari APRN.CNP - 02/23/2024 1:14 PM EST Please let her know that this can be normal when stopping the Aygestin. As long as bleeding does not become heavy or prolonged again no further medications needed at this time. Chiquita Adhikari APRN.CNP [facility]11-13-2024 Telephone encounter Note* Telephone Encounter - Christine [...] after 2 pm today. Christine Villalta RN [facility]11-05-2024 Telephone encounter Note* Telephone Encounter - Cristine Garcia RN - 02/15/2024 9:53 AM EST Patient notified. Voiced understanding. Cristine Garcia RN [facility]11-05-2024 Miscellaneous Notes* Telephone Encounter - Cristine Garcia [...] office. Chiquita Adhikari APRN.CNP documented in this encounterMetrohealth [facility]11-05-2024 Telephone encounter Note * Telephone Encounter - Amanda Head LPN - 02/15/2024 9:48 AM EST Left message to call office on voicemail [facility]11-05-2024 Telephone encounter Note* Telephone Encounter - Chiquita Adhikari APRN.CNP - 02/15/2024 7:02 AM EST Please notify patient that she does have a yeast infection. I would like her to use Monistat 7 (or generic) 1 of a applicator full every night for 7 nights. If symptoms do not improve please salomon the office. Chiquita Adhikari APRN.CNP [facility]11-04-2024 NoteHNO ID: [id number] Author: CHIQUITA ADHIKARI APRN.CNP Service: ? Author Type: Nurse Practitioner Type: Progress Notes Filed: 02/14/2024 09:24 Note Text: 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 Clarisse Molina is a 18 year old female who presents for problem visit prolong menses. HPI: vaginal bleeding, cramping, green discharge for 9 days, using super sized tampons every hour, discontinued NuvaRing in November this is the first reported menses. She is seeing bright red blood and old brown blood, using the tampon has been painful OB History No obstetric history on file. Regulatory Agency Director History LMP: 11/29/2022, IUD Age at Menarche: Age at First : Age at Menopause: Regulatory Agency Director History Comments: Sexual Activity: Yes; Male Contraception: I.U.D. PAST MEDICAL HISTORY Diagnosis Date Febrile convulsions (simple), unspecified @ 6months Ruptured ovarian cyst 2021 [facility] PAST SURGICAL HISTORY Procedure Laterality Date KYLEENA [...] (FLONASE) 50 mcg/actuation nasal spray Use 1 [place] in each nostril once daily. (Patient not [...] discussed with the Patient or Patient's Authorized Director Of Agriculture. As applicable, any other physician, advance practice provider, medical student, or other health professional student that will be observing or involved in the sensitive examination for educational or training purposes was discussed with the Patient or Authorized Director Of Agriculture. The Patient or Authorized Director Of Agriculture has agreed to proceed with the sensitive examination. (Sensitive examination includes inspection and/or palpation of the breasts, pelvis, prostate and anorectal regions). EXAM: LMP 11/29/2022 GENERAL: pleasant, female in no apparent distress HEENT: Normocephalic, atraumatic, mucus membranes moist, and no lesions CHEST: Normal inspiratory effort PELVIC: external genitalia normal, normal Bartholin's glands, urethra, [place]'s glands, no vulvar lesions, no cervical lesions, [...] management Medical Decision Making Level: 4 - [facility] History of Present illness Narrative* Chiquita Adhikari APRN.CNP - 02/14/2024 8:53 AM EST 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 Clarisse Molina is a 18 year old female who presents for problem visit prolong menses. HPI: vaginal bleeding, cramping, green discharge for 9 days, using super sized tampons every hour, discontinued NuvaRing in November this is the first reported menses. She is seeing bright red blood and old brown blood, using the tampon has been painful OB History No obstetric history on file. Regulatory Agency Director History LMP: 11/29/2022, IUD Age at Menarche: Age at First : Age at Menopause: Regulatory Agency Director History Comments: Sexual Activity: Yes; Male Contraception: I.U.D. PAST MEDICAL HISTORY Diagnosis Date Febrile convulsions (simple), unspecified @ 6months Ruptured ovarian cyst 2021 [facility] PAST SURGICAL HISTORY Procedure Laterality Date KYLEENA [...] (FLONASE) 50 mcg/actuation nasal spray Use 1 [place] in each nostril once daily. (Patientnot taking: [...] discussed with the Patient or Patient's Authorized Director Of Agriculture. As applicable, any other physician, advance practice provider, medical student, or other health professional student that will be observing or involved in the sensitive examination for educational or training purposes was discussed with the Patient or Authorized Director Of Agriculture. The Patient or Authorized Director Of Agriculture has agreed to proceed with the sensitive examination. (Sensitive examination includes inspection and/or palpation of the breasts, pelvis, prostate and anorectal regions). EXAM: LMP 11/29/2022 GENERAL: pleasant, female in no apparent distress HEENT: Normocephalic, atraumatic, mucus membranes moist, and no lesions CHEST: Normal inspiratory effort PELVIC: external genitalia normal, normal Bartholin's glands, urethra, [place]'s glands, no vulvar lesions, no cervical lesions, [...] Level: 4 - Moderate documented in this encounterMetro[facility]07-09-2024 Telephone encounter Note * Telephone Encounter - Jana Chinchilla RN - 10/19/2023 2:22 PM EDT Patient notified. Jana Chinchilla RN [facility]07-09-2024 Miscellaneous Notes* Telephone Encounter - Jana Chinchilla [...] treated appropriately with diflucan. documented in this encounterMetrohealth [facility]07-09-2024 Telephone encounter Note * Telephone Encounter - Adriana Marsh RN - 10/19/2023 8:11 AM EDT Left message for patient to call office. Adriana Marsh RN [facility]07-09-2024 Telephone encounter Note* Telephone Encounter - Adriana Marsh RN - 10/19/2023 8:11 AM EDT ----- Message from Naomi Matos MD sent at 10/19/2023 7:51 AM EDT ----- Notify patient treated appropriately with diflucan. [facility]07-08-2024 NoteHNO ID: [id number] Author: NAOMI CASTELAN MD Service: ? Author Type: Physician Type: Progress Notes Filed: 10/18/2023 15:53 Note Text: [employer] offered: Patient declines. Clarisse presents for removal [...] Decision Making Level: 4 - Moderate CARY SinghSelect Medical [facility]07-08-2024 History of Present illness Narrative* Naomi Castelan MD - 10/18/2023 2:47 PM EDT [employer] offered: Patient declines. Clarisse presents for removal [...] Moderate Naomi Li MD documented in this encounterMetrohealth [facility]04-24-2024 NoteHNO ID: [id number] Author: LOUISE CUMMINS PA-C Service: ? Author Type: Physician Medical Billing Associate Type: Progress Notes Filed: 08/04/2023 09:31 Note Text: This note was created using NoteWriter. Subjective Clarisse Molina is a 17 year old female. HPI Patient presents with an itchy rash on during her right breast over the past day. States [place]. No insect bites that she knows of. She tried some jtbn-ikf-gvremmm itch cream without relief. She denies any [...] unspecified @ 6months Ruptured ovarian cyst 2021 [facility] Current Outpatient Medications Medication Sig Dispense Refill [...] (FLONASE) 50 mcg/actuation nasal spray Use 1 [place] in each nostril once daily. (Patient not [...] Exam Vitals reviewed. Exam conducted with a glass rolling machine operator present. Constitutional: Appearance: Normal appearance. HENT: Head: [...] skincare. Follow up if not improving. TOMMY Rebolledo-[facility]04-24-2024 History of Present illness Narrative* Louise Cummins PA-C - 08/04/2023 9:28 AM EDT Images from the original note were not included. This note was created using LoopUpter. Subjective Clarisse Molina is a 17 year old female. HPI Patient presents with an itchy rash on during her right breast over the past day. States [place]. No insect bites that she knows of. She tried some zznp-pby-hmequdt itchcream without relief. She denies any new [...] unspecified @ 6months Ruptured ovarian cyst 2021 [facility] Current Outpatient Medications Medication Sig Dispense Refill [...] (FLONASE) 50 mcg/actuation nasal spray Use 1 [place] in each nostril once daily. (Patientnot taking: [...] Exam Vitals reviewed. Exam conducted with a glass rolling machine operator present. Constitutional: Appearance: Normal appearance. HENT: Head: [...] improving. Louise Cummins PA-C documented in this encounterMetrohealth [facility]02-13-2024 History of Present illness Narrative* Moni Stone APRN.[facility] - 05/25/2023 8:21 AM EST CC: [...] Wt 83.9 kg (185 lb) LMP 11/29/2022 [id number] General appearance: alert, cooperative, pleasant, in no [...] unspecified @ 6months Ruptured ovarian cyst 2021 [facility] PAST SURGICAL HISTORY Procedure Laterality Date KYLEENA [...] (FLONASE) 50 mcg/actuation nasal spray Use 1 [place] in each nostril once daily. (Patientnot taking: [...] upon. Moni Stone APRN.CHELSEY documented in this encounterMetrohealth [facility]11-18-2023 History of Present illness Narrative* Yohana Martinez APRN.CHELSEY - 02/27/2023 9:50 AM EST This note was created using LoopUpter. Subjective Clarisse Molina is a 17 year old female. 17 year old female with no PMH presents for illness. Acute onset night +bilateral ear pain. +N/V x 1 episode Upset stomach Denies fever or chills. Denies URI sx. Denies using homeopathic or OTC medications. The history is provided by the patient. No russian language professor was used. Ear Pain This is a [...] unspecified @ 6months Ruptured ovarian cyst 2021 [facility] PAST SURGICAL HISTORY Procedure Laterality Date KYLEENA [...] (FLONASE) 50 mcg/actuation nasal spray Use 1 [place] in each nostril once daily. Polyethylene Glycol [...] Wt 78.9 kg (174 lb) LMP 11/29/2022 [id number]% Physical Exam Vitals and nursing note reviewed. [...] if symptoms persist or worsen. Yohana Martinez APRN.COAL UNLOADER documented in this encounterMetrohealth [facility]11-09-2023 Miscellaneous Notes* Telephone Encounter - Cristine Garcia RN - 02/18/2023 9:36 AM EST Mother called back. States when she was with her daughter last evening she was doing fine. No swelling seen like patient described to mother. Mother said she is doing well today with no complaints. Declines needing any follow up. Instructed to call with prn questions/concerns. Cristien Garcia RN * Telephone Encounter - Jana [...] advise. Cristine Garcia RN documented in this encounterMetrohealth [facility]11-06-2023 Miscellaneous Notes* Telephone Encounter - Cristine Garcia [...] absence. Jana Chinchilla RN documented in this encounterMetrohealth [facility] Center09-13-2023 History of Present illness Narrative* Luc Marie, DESK ATTENDANT.COAL UNLOADER - 12/23/2022 10:22 AM EDT Images from [...] unspecified @ 6months Ruptured ovarian cyst 2021 [facility] PAST SURGICAL HISTORY Procedure Laterality Date KYLEENA [...] (FLONASE) 50 mcg/actuation nasal spray Use 1 [place] in each nostril once daily. Polyethylene Glycol [...] unspecified @ 6months Ruptured ovarian cyst 2021 [facility] PAST SURGICAL HISTORY Procedure Laterality Date KYLEENA [...] (FLONASE) 50 mcg/actuation nasal spray Use 1 [place] in each nostril once daily. Polyethylene Glycol [...] of care. This note was generated using [employer] software. It may contain errors in wording, punctuation, or spelling. Lcu Marie APRN.CHELSEY documented in this encounterMetrohealth [facility] Center08-22-2023 Miscellaneous Notes* Telephone Encounter - Amanda Head [...] follow up ultrasound orders. documented in this encounterMetrohealth [facility] Center08-22-2023 Miscellaneous Notes* Addendum Note - Naomi Castelan MD - 12/01/2022 1:12 PM EDTAddended by: NAOMI MATOS on: 12/01/2022 01:12 PM Modules accepted: Orders documented in this encounterMetrohealth [facility] Center08-22-2023 History of Present illness Narrative* Naomi Castelan MD - 12/01/2022 8:46 AM EDT [employer] Products offered: Patient declines. Clarisse Molina is a [...] OB History No obstetric history on file. Regulatory Agency Director History LMP: 11/29/2022, IUD Age at Menarche: Age at First : Age at Menopause: Regulatory Agency Director History Comments: Sexual Activity: Yes; Male Contraception: I.U.D. PAST MEDICAL HISTORY Diagnosis Date Febrile convulsions (simple), unspecified @ 6months Ruptured ovarian cyst 2021 [facility] PAST SURGICAL HISTORY Procedure Laterality Date KYLEENA [...] (FLONASE) 50 mcg/actuation nasal spray Use 1 [place] in each nostril once daily. Polyethylene Glycol [...] external genitalia normal, normal Bartholin's glands, urethra, [place]'s glands, no vulvar lesions, no cervical lesions, [...] Moderate Naomi Li MD documented in this encounterMetrohealth [facility] Center03-22-2023 Miscellaneous Notes* Telephone Encounter - Yana Carias - 07/01/2022 8:13 AM EDT Left detailed message on a secured voicemail. Yana Aretha * Telephone Encounter - TOMMY Mack - 07/01/2022 7:26 AM EDT Negative for COVID flu RSV documented in this encounterMetrohealth [facility] Center03-21-2023 History of Present illness Narrative* Bee Lr [...] unspecified @ 6months Ruptured ovarian cyst 2021 [facility] PAST SURGICAL HISTORY Procedure Laterality Date KYLEENA IUD 03/31/2022 5 year TONSILLECTOMY & ADENOIDECTOMY <AGE 12 ALLERGIES Patient has no known allergies. MEDICATIONS levonorgestrel (KYLEENA) 17.5 mcg/24 hrs (5 yrs) 19.5 mg IUD 1 Each by INTRAUTERINE route as directed. cetirizine (ZYRTEC) 10 mg tablet Take 10 mg by mouth daily at bedtime. fluticasone (FLONASE) 50 mcg/actuation nasal spray Use 1 [place] in each nostril once daily. Polyethylene Glycol [...] illness Bee Lr APRN.CNP documented in this encounterMetrohealth [facility]03[facility]21[facility] Instructions* Patient Instructions* Bee Lr APRN.CNP - [...] illness Bee Lr APRN.CNP documented in this encounterMet[facility] History of Present illness Narrative* Lillian Norris [...] which included preparing to see the patient, wrby-cz-ylpr patient care, completing clinical documentation, obtaining and/or reviewing separately obtained history, performing a medically appropriate examination, and counseling and educating the patient/family/caregiver. documented in this encounterMetrohealth [facility]01-17-2023 Miscellaneous Notes* Telephone Encounter - Jana Chinchilla [...] today. Cristine Garcia RN documented in this encounterMetrohealth [facility]12-06-2022 History of Present illness Narrative* Lillian Norris APRN.COAL UNLOADER - 03/17/2022 7:25 AM EST [employer] offered: Patient declines. Clarisse Molina is a [...] cyst earlier this year - evaluated at [facility]. OB History No obstetric history on file. Regulatory Agency Director History LMP: 11/19/2021, Having periods Age at Menarche: Age at First : Age at Menopause: Regulatory Agency Director History Comments: Sexual Activity: Never; No partner [...] (FLONASE) 50 mcg/actuation nasal spray Use 1 [place] in each nostril once daily. miSOPROStol (CYTOTEC) [...] Level: 4 - Moderate documented in this encounterMetrohealth [facility]12-05-2022 Miscellaneous Notes* Telephone Encounter - Jana Chinchilla [...] ALMA. Jana Chinchilla RN documented in this encounterMet[facility]12-02-2022 Instructions* Patient Instructions* Lillian Norris APRN.CNP - 03/13/2022 8:44 AM EST Schedule when on menses Ibuprofen 600-800 prior to appointment Vaginal cytotec Eat before appointment. documented in this encounterMetrohealth [facility]12-02-2022 History of Present illness Narrative* Lillian Norris [...] which included preparing to see the patient, ehvd-ji-aimt patient care, completing clinical documentation, obtaining and/or reviewing separately obtained history, performing a medically appropriate examination, counseling and educating the pat ient/family/caregiver, and ordering medications, tests, or procedures. documented in this encounterMetrohealth [facility]11-02-2022 Miscellaneous Notes* Telephone Encounter - Yohana Martinez APRN.CNP - 02/11/2022 11:39 AM EDT Vaginal cultures return GC/Chlamydia negative BV negative Yeast + Spoke with mom and discussed results Diflucan sent into pharmacy on file. She has follow up with [facility] tomorrow. documented in this encounterMetro[facility]11-01-2022 History of Present illness Narrative* Luc Marie APRN.CNP - 02/10/2022 9:19 AM EDT Subjective HPI Nontoxic-appearing female presents urgent care accompanied by mother. Chief complaint recurrent UTIs. Duration of symptoms 2 to 3 months. Associated symptoms. Current burning with urination and vaginal discomfort. Was seen multiple times for this chief complaint. Last seen at [facility]. Placed on Macro bid. Is currently on [...] (FLONASE) 50 mcg/actuation nasal spray Use 1 [place] in each nostril once daily. Polyethylene Glycol [...] Objective Physical Exam Exam conducted with a glass rolling machine operator present. Constitutional: General: She is not in [...] - GC/CHLAMYDIA DNA DET - CONSULT TO [facility] Vaginal exam performed by Moni BIRD. [facility] referral was placed. Will not start any [...] of care. This note was generated using [employer] software. It may contain errors in wording, punctuation, or spelling. Luc Marie APRN.CNP documented in this encounterMetrohealth [facility]10-11-2022 Miscellaneous Notes* Telephone Encounter - Paradise Mclean [...] blood in her urine has resolved. [facility] [place] MyChart User Last Read On Jenni Molina Not Read documented in this encounterMetrohealth [facility]10-07-2022 Instructions* Patient Instructions* Luc Marie APRN.CHELSEY - [...] medication or fluids down. documented in this encounterMetrohealth [facility]10-07-2022 History of Present illness Narrative* Luc Marie APRN.CNP - 01/16/2022 8:19 AM EDT Subjective HPI A nontoxic appearing female presents to urgent care with chief complaint of possible UTI. Duration of symptoms 2 days. Associated symptoms dysuria, frequency, and urgency. Patient has history of UTIsin past with similar signs and symptoms. Patient denies the use of any vwwx-plr-flzvxnv medicationsor home remedies for symptom management. Patient [...] (FLONASE) 50 mcg/actuation nasal spray Use 1 [place] in each nostril once daily. FAMILY HISTORY [...] of care. This note was generated using [employer] software. It may contain errors in wording, punctuation, or spelling. Luc Marie APRN.CNP documented in this encounterMetrohealth [facility]09-13-2022 Instructions* Patient Instructions* Yohana Martinez APRN.CNP - [...] even if the symptoms go away. 2. Kcfi-hqn-unyctqa pain medication may be taken or other [...] holding him or her). documented in this encounterMetrohealth [facility]09-13-2022 History of Present illness Narrative* Yohana Martinez APRN.CNP - 12/23/2021 9:06 AM EDT This note was created using [employer]. Subjective Clarisse Molina is a 16 year [...] history is provided by the patient. No russian language professor was used. Ear Pain This is a [...] (FLONASE) 50 mcg/actuation nasal spray Use 1 [place] in each nostril once daily. Polyethylene Glycol [...] worsen. Yohana Martinez APRN.CNP documented in this encounterMetrohealth [facility]05-25-2021 RamilaClarisse Molina is here for consultation at the request of Lizy Chambers APRN-CHELSEY for: ABD pain ---History from parent and patient ---Telemedicine Video Visit done today in lieu of Coronavirus situation This visit was modified due to the COVID19 pandemic. History of Present Illness She is accompanied by her mother. No russian language professor was used. ABD pain - Severe ABD [...] 56, which was normal. (more content not included)...[facility] 02-06-2020 NoteOUTPATIENT PSYCHIATRIC EVALUATION Name: Clarisse Molina [...] come out. Mom had to call the nurse wound care because she would not stop slamming her [...] home. He is in a program in [place], he is still saying that he did [...] Protective factors outweigh risk factors;History of past doykpb-em-sm- or suicidal thoughts Patient able to plan for safety: yes Safety education provided to guardian: yes [place] Suicide Severity Rating Scale (C-SSRS) SUICIDAL IDEATION [...] Deterrents: Deterrents definitely s (more content not included)...[facility] note* Diagnosis Acute otitis media, right- Primary Unspecified otitis media [facility] Diagnosis Urinary frequency- Primary documented in this encounter [facility] note* Diagnosis Urinary frequency- Primary Vaginal pain Unspecified symptom associated with female genital organs documented in this encounter [facility] note* Diagnosis General counseling and advice for contraceptive management- Primary Other general counseling and advice for contraceptive management documented in this encounter [facility] note* Diagnosis Pelvic pain in female- Primary Unspecified symptom associated with female genital organs Irregular menstrual cycle documented in this encounter [facility] note* Diagnosis Encounter for routine checking of intrauterine contraceptive device (IUD)- Primary documented in this encounter [facility] note* Diagnosis Flu-like symptoms- Primary Other general symptoms documented in this encounter [facility] note* Diagnosis Pelvic pain in female- Primary Unspecified symptom associated with female genital organs IUD (intrauterine device) in place Presence of intrauterine contraceptive device Vaginal discharge Leukorrhea, not specified as infective Dysuria Ovarian cyst, right Other and unspecified ovarian cyst documented in this encounter [facility] note* Diagnosis Contact dermatitis, unspecified contact dermatitis type, unspecified trigger- Primary documented in this encounter [facility] note* Diagnosis Pelvic pain in female- Primary Unspecified symptom associated with female genital organs IUD (intrauterine device) in place Presence of intrauterine contraceptive device History of ovarian cyst Personal history of other genital system and obstetric disorders documented in this encounter [facility] note* Diagnosis Acute otitis media, bilateral- Primary Unspecified otitis media documented in this encounter [facility] note* Diagnosis Acute otitis media, bilateral- Primary Unspecified otitis media documented in this encounter [facility] note* Diagnosis Rash- Primary Rash and other nonspecific skin eruption [facility]* Diagnosis Encounter for IUD removal- Primary Encounter for removal of intrauterine contraceptive device Vaginal itching Pruritus of genital organs Vaginal discharge Leukorrhea, not specified as infective documented in this encounter [facility] note* Diagnosis Vaginal discharge- Primary Leukorrhea, not specified as infective Vaginal odor Unspecified symptom associated with female genital organs Prolonged menstruation Excessive or frequent menstruation documented in this encounter [facility] note* Diagnosis Sore throat- Primary Acute pharyngitis Acute cough Acute cough documented in this encounter [facility] note* Diagnosis Acute cough documented in this encounter [facility] note* Diagnosis Sore throat- Primary Acute pharyngitis documented in this encounter [facility] note* Diagnosis Headache, unspecified headache type- Primary documented in this encounter [facility] note* Diagnosis Onset Date Resolution Status Admit Date PCOS (polycystic ovarian syndrome) acute October 19, 2024 10:46am Pelvic pain acute October 19 10:46am Secondary amenorrhea acute October 19, 2024 10:46am Encounter for routine gynecological examination noneactive October 102024 10:46am [facility] [employer] Work Phone: Reason for referral (narrative)* Outpatient Procedure (Routine) - Pending Review Specialty Diagnoses / Procedures Referred By Gerry payne Referred To Contact [facility] Diagnoses General counseling and advice for contraceptive management Procedures INSERT INTRAUTERINE DEVICE LEVONORGESTREL-RELEASING INTR CONTRACEPTIVE (KYLEENA), 19.5 MG INSERT INTRAUTERINE DEVICE Lillian Norris APRN.CNP [address] [place] [address] [facility] [address] [place] [address] Referral ID Status Reason Start Date Expiration Date Visits Requested Visits Authorized [id number] Pending Review Auto-Generat ed Referral 03/13/2022 03/13/2023 1 1 [facility] Diagnostic Procedure Only (Routine) - Authorized Specialty Diagnoses / Procedures Referred By Gerry t Referred To Contact [facility] Diagnoses Pelvic pain in female Procedures US FEMALE PELVIS TRANSVAG US TRANSVAGINAL Lillian Norris APRN.CNP [address] [place] [address] [facility] Referral ID Status Reason Start Date Expiration Date Visits Requested Visits Authorized [id number] Authorized Auto-Generat ed Referral 03/17/2022 04/11/2022 1 1 [facility] for referral (narrative)* Diagnostic Procedure Only (Routine) - Pending Review Specialty Diagnoses / Procedures Referred By Contac t Referred To Contact [facility] Diagnoses Ovarian cyst, right Procedures PELVIC US WHI US PELVIC NONOBSTETRIC REAL-TIME IMAGE COMPLETE Naomi Castelan MD [address] [place] [address] [place] [id number] Referral ID Status Reason Start Date Expiration Date Visits Requested Visits Authorized [id number] Pending Review Auto-Generat ed Referral 12/01/2022 12/01/2023 1 1 * Diagnostic Procedure Only (Routine) - Pending Review Specialty Diagnoses / Procedures Referred By Contac t Referred To Contact [facility] Diagnoses Pelvic pain in female IUD (intrauterine device) in place Procedures PELVIC US WHI US PELVIC NONOBSTETRIC REAL-TIME IMAGE COMPLETE Naomi Castelan MD [address] [place] [address] [place] [id number] [place] [address] Referral ID Status Reason Start Date Expiration Date Visits Requested Visits Authorized [id number] Pending Review Auto-Generat ed Referral 12/01/2022 12/01/2023 1 1 * Diagnostic Procedure Only (Routine) - Closed Specialty Diagnoses / Procedures Referred By Contac t Referred To Contact [facility] Diagnoses Pelvic pain in female IUD (intrauterine device) in place Procedures US FEMALE PELVIS TRANSVAG US TRANSVAGINAL Naomi Castelan MD [address] [place] [address] [id number] Referral ID Status Reason Start Date Expiration Date V isits Requested Visits Authorized [id number] Closed Auto-Generate d Referral 12/01/2022 12/31/2023 1 1 [facility] for referral (narrative)* Diagnostic Procedure Only (Routine) - Pending Review Specialty Diagnoses / Procedures Referred By Contac t Referred To Contact [facility] Diagnoses Pelvic pain in female IUD (intrauterine device) in place History of ovarian cyst Procedures US FEMALE PELVIS TRANSVAG US TRANSVAGINAL Naomi Castelan MD [address] [place] [address] [facility] [place] [id number] Referral ID Status Reason Start Date Expiration Date Visits Requested Visits Authorized [id number] Pending Review Auto-Generat ed Referral 02/17/2023 03/18/2024 1 1 [facility] for referral (narrative)* Outpatient Procedure (Routine) - Pending Review Specialty Diagnoses / Procedures Referred By Contac t Referred To Contact [facility] Diagnoses Encounter for IUD removal Encounter for insertion of intrauterine contraceptive device Procedures REMOVE INTRAUTERINE DEVICE REMOVE INTRAUTERINE DEVICE INSERT INTRAUTERINE DEVICE LEVONORGESTREL-RELEASING INTR CONTRACEPTIVE (KYLEENA), 19.5 MG Naomi Castelan MD [address] [place] [address] [facility] [address] [place] [address] Referral ID Status Reason Start Date Expiration Date Visits Requested Visits Authorized [id number] Pending Review Auto-Generat ed Referral 10/18/2023 10/17/2024 1 1 [facility] for referral (narrative)No reason for referral information availableCommunity [facility] Work Phone: Summary Purpose Family History [...] Contact Diagnoses Vaginal pain Procedures CONSULT TO [facility] OFFICE/OUTPATIENT [facility] MDM 60-74 MINUTES Luc Marie APRN.COAL UNLOADER [address] [place] [address] Referral ID Status Reason Start Date Expiration Date Visits Requested Visits Authorized [id number] Pending Review PCP Requested Referral Auto-Generate d Referral 02/10/2022 02/10/2023 1 1 Chief Complaint and Reason for Visit Chief Complaint Admit Date Annual (TAG WRITER) October 19, 2024 10:4 6am Polycystic ovarian syndrome October 23, 2 025 2:11pm Reason for Visit Admit Date PCOS (polycystic ovarian syndrome) October 19, 2024 10:46am Pelvic pain October 19, 2024 10:4 6am Secondary amenorrhea October 19, 2024 10: 46am Encounter for routine gynecological exam ination October 19, 2024 10:46am Chief Complaint Admit Date Annual (TAG WRITER) October 19, 2024 10:4 6am Chief Complaint Admit Date Annual (TAG WRITER) October 19, 2024 10:4 6am Polycystic ovarian [...] section and content) DATE CREATED AUTHOR 09/07/2020 [facility] DATE CREATED AUTHOR AUTHOR'S ORGANIZ ATION 02/13/2021 [facility] DATE CREATED AUTHOR AUTHOR'S ORGANIZ ATION 08/27/2021 [facility] DATE CREATED AUTHOR AUTHOR'S ORGANIZ ATION 11/20/2022 [facility] DATE CREATED AUTHOR AUTHOR'S ORGANIZ ATION 07/16/[address] [facility] DATE CREATED AUTHOR AUTHOR'S ORGANIZ ATION 07/22/2024 [facility] DATE CREATED AUTHOR AUTHOR'S ORGANIZ ATION 02/06/2025 [facility] <item><item> Privacy Markings (unrecogniz ed section and [...] or prosecute any alcohol or drug abuse patient.[facility] CenterIn the event this information is protected by the Federal Confidentiality of Alcohol and Drug Abuse Patient Records regulations: The Federal rules restrict any use of the information to criminally investigate or prosecute any alcohol or drug abuse patient.[facility] CenterIn the event this information is protected by the Federal Confidentiality of Alcohol and Drug Abuse Patient Records regulations: The Federal rules restrict any use of the information to criminally investigate or prosecute any alcohol or drug abuse patient.[facility] CenterIn the event this information is protected by the Federal Confidentiality of Alcohol and Drug Abuse Patient Records regulations: The Federal rules restrict any use of the information to criminally investigate or prosecute any alcohol or drug abuse patient.[facility] CenterIn the event this information is protected by the Federal Confidentiality of Alcohol and Drug Abuse Patient Records regulations: The Federal rules restrict any use of the information to criminally investigate or prosecute any alcohol or drug abuse patient.[facility] CenterIn the event this information is protected by the Federal Confidentiality of Alcohol and Drug Abuse Patient Records regulations: The Federal rules restrict any use of the information to criminally investigate or prosecute any alcohol or drug abuse patient.[facility] CenterIn the event this information is protected by the Federal Confidentiality of Alcohol and Drug Abuse Patient Records regulations: The Federal rules restrict any use of the information to criminally investigate or prosecute any alcohol or drug abuse patient.[facility] CenterIn the event this information is protected by the Federal Confidentiality of Alcohol and Drug Abuse Patient Records regulations: The Federal rules restrict any use of the information to criminally investigate or prosecute any alcohol or drug abuse patient.[facility] CenterIn the event this information is protected by the Federal Confidentiality of Alcohol and Drug Abuse Patient Records regulations: The Federal rules restrict any use of the information to criminally investigate or prosecute any alcohol or drug abuse patient.[facility] CenterIn the event this information is protected by the Federal Confidentiality of Alcohol and Drug Abuse Patient Records regulations: The Federal rules restrict any use of the information to criminally investigate or prosecute any alcohol or drug abuse patient.[facility] CenterIn the event this information is protected by the Federal Confidentiality of Alcohol and Drug Abuse Patient Records regulations: The Federal rules restrict any use of the information to criminally investigate or prosecute any alcohol or drug abuse patient.[facility] CenterIn the event this information is protected by the Federal Confidentiality of Alcohol and Drug Abuse Patient Records regulations: The Federal rules restrict any use of the information to criminally investigate or prosecute any alcohol or drug abuse patient.[facility] CenterIn the event this information is protected by the Federal Confidentiality of Alcohol and Drug Abuse Patient Records regulations: The Federal rules restrict any use of the information to criminally investigate or prosecute any alcohol or drug abuse patient.[facility] CenterIn the event this information is protected by the Federal Confidentiality of Alcohol and Drug Abuse Patient Records regulations: The Federal rules restrict any use of the information to criminally investigate or prosecute any alcohol or drug abuse patient.[facility] CenterIn the event this information is protected by the Federal Confidentiality of Alcohol and Drug Abuse Patient Records regulations: The Federal rules restrict any use of the information to criminally investigate or prosecute any alcohol or drug abuse patient.[facility] CenterIn the event this information is protected by the Federal Confidentiality of Alcohol and Drug Abuse Patient Records regulations: The Federal rules restrict any use of the information to criminally investigate or prosecute any alcohol or drug abuse patient.[facility] CenterIn the event this information is protected by the Federal Confidentiality of Alcohol and Drug Abuse Patient Records regulations: The Federal rules restrict any use of the information to criminally investigate or prosecute any alcohol or drug abuse patient.[facility] CenterIn the event this information is protected by the Federal Confidentiality of Alcohol and Drug Abuse Patient Records regulations: The Federal rules restrict any use of the information to criminally investigate or prosecute any alcohol or drug abuse patient.[facility] CenterIn the event this information is protected by the Federal Confidentiality of Alcohol and Drug Abuse Patient Records regulations: The Federal rules restrict any use of the information to criminally investigate or prosecute any alcohol or drug abuse patient.[facility] CenterIn the event this information is protected by the Federal Confidentiality of Alcohol and Drug Abuse Patient Records regulations: The Federal rules restrict any use of the information to criminally investigate or prosecute any alcohol or drug abuse patient.[facility] CenterIn the event this information is protected by the Federal Confidentiality of Alcohol and Drug Abuse Patient Records regulations: The Federal rules restrict any use of the information to criminally investigate or prosecute any alcohol or drug abuse patient.[facility] CenterIn the event this information is protected by the Federal Confidentiality of Alcohol and Drug Abuse Patient Records regulations: The Federal rules restrict any use of the information to criminally investigate or prosecute any alcohol or drug abuse patient.[facility] CenterIn the event this information is protected by the Federal Confidentiality of Alcohol and Drug Abuse Patient Records regulations: The Federal rules restrict any use of the information to criminally investigate or prosecute any alcohol or drug abuse patient.[facility] CenterIn the event this information is protected by the Federal Confidentiality of Alcohol and Drug Abuse Patient Records regulations: The Federal rules restrict any use of the information to criminally investigate or prosecute any alcohol or drug abuse patient.[facility] CenterIn the event this information is protected by the Federal Confidentiality of Alcohol and Drug Abuse Patient Records regulations: The Federal rules restrict any use of the information to criminally investigate or prosecute any alcohol or drug abuse patient.[facility] CenterIn the event this information is protected by the Federal Confidentiality of Alcohol and Drug Abuse Patient Records regulations: The Federal rules restrict any use of the information to criminally investigate or prosecute any alcohol or drug abuse patient.[facility] CenterIn the event this information is protected by the Federal Confidentiality of Alcohol and Drug Abuse Patient Records regulations: The Federal rules restrict any use of the information to criminally investigate or prosecute any alcohol or drug abuse patient.[facility] CenterIn the event this information is protected by [...] or prosecute any alcohol or drug abuse patient.[facility] Reason for Visit (unrecogniz ed section and content) Reason Comments Ear Pain Pt presented with tommy han, reported bilateral ear pain rated 8, x4 days. Specialty Diagnoses / Procedures Referred By Contac t Referred To Contact Internal Medicine / [facility] Diagnoses Earache Stomachache Ear ache both and stomach ache Procedures OFFICE/OUTPATIENT NEW MODERATE MDM 45-59 MINUTES NEW SAME DAY SelfMD Michelle Jessica, DESK ATTENDANT.COAL UNLOADER [address] [id number] Referral ID Status Reason Start Date Expiration Date Visits Re quested Visits Authorized [id number] Closed 12/23/2021 04/11/2022 1 1 Reason Comments Urinary Frequency With painful urinati on x2 days Reason Comments Results Reason Comments Urinary Frequency Frequency and burnin g-woke up with symptoms Reason Comments Discussion birthcontrol Specialty Diagnoses / Procedures Referred By Contac t Referred To Contact Gynecology / POSTER Diagnoses control counseling discuss control Procedures OFFICE/OUTPATIENT ESTABLISHED HIGH MDM 40-54 MIN EST I PATIENT Self Lillian Norris APRN.COAL UNLOADER [address] [place] [address] Referral ID Status Reason Start Date Expiration Date Visits Re quested Visits Authorized [id number] Closed 03/13/2022 04/11/2022 1 1 Reason Comments Pelvic Pain Reason Comments Pelvic Pain Specialty Diagnoses / Procedures Referred By Contac t Referred To Contact Gynecology / POSTER Diagnoses Follow-up examination pelvic pain Procedures OFFICE/OUTPATIENT ESTABLISHED MOD MDM 30-39 MIN EST WHI PATIENT Self Lillian Norris APRN.COAL UNLOADER [address] [place] [address] Referral ID Status Reason Start Date Expiration Date Visits Re quested Visits Authorized [id number] Closed 03/17/2022 04/11/2022 1 1 Reason Comments Patient Question Reason Comments IUD follow up Specialty Diagnoses / Procedures Referred By Contac t Referred To Contact [facility] Diagnoses Encounter for IUD insertion Encounter for removal of intrauterine contraceptive device Procedures INSERT INTRAUTERINE DEVICE LEVONORGESTREL-RELEASING INTR CONTRACEPTIVE (KYLEENA), 19.5 MG INSERT INTRAUTERINE DEVICE REMOVE INTRAUTERINE DEVICE Lillian Norris, DESK ATTENDANT.COAL UNLOADER [address] [place] [address] [facility] [address] [place] [address] Referral ID Status Reason Start Date Expiration Date V isits Requested Visits Authorized [id number] Closed Auto-Generate d Referral 04/29/2022 04/11/2023 1 1 Reason Comments Headache JUAN, bodyaches and vo miting x 1 day Specialty Diagnoses / Procedures Referred By Contac t Referred To Contact Emergency Medicine / [facility] Diagnoses Headache Vomiting headache, bodyaches, vomiting and fever permission from parent Procedures OFFICE/OUTPATIENT ESTABLISHED MOD MDM 30-39 MIN EST SAME DAY Self Bee Lr, DESK ATTENDANT.COAL UNLOADER [address] [place] [address] Referral ID Status Reason Start Date Expiration Date Visits Re quested Visits Authorized [id number] Closed 06/30/2022 04/11/2023 1 1 Reason Comments Pelvic Pain Specialty Diagnoses / Procedures Referred By Contac t Referred To Contact POSTER Diagnoses Abdominal pain Low back pain can not feel iud strings, abdominal pain and low back pain, spotting Procedures OFFICE/OUTPATIENT ESTABLISHED HIGH MDM 40-54 MIN EST WHI PATIENT Naomi Castelan MD [address] [place] [address] Naomi Castelan MD [address] [place] [address] Referral ID Status Reason Start Date Expiration Date V isits Requested Visits Authorized [id number] Closed OON/Self Pay Override 12/01/2022 04/11/2023 1 1 Reason Comments Rash Bilateral forearms x 1 day Specialty Diagnoses / Procedures Referred By Contac t Referred To Contact Internal Medicine / [facility] Diagnoses Rash rash on bilateral arms-mother called okay to see Procedures OFFICE/OUTPATIENT ESTABLISHED MOD MDM 30-39 MIN EST SAME DAY Self Luc Marie, DESK ATTENDANT.COAL UNLOADER [address] [place] [address] Referral ID Status Reason Start Date Expiration Date Visits Re quested Visits Authorized [id number] Closed 12/23/2022 04/11/2023 1 1 Reason Comments [...] Referred By Contac t Referred To Contact Machine Load Clerk / POSTER Diagnoses control counseling discuss control change Procedures OFFICE/OUTPATIENT EST PT MAY NOT REQ PHYS/QHP EST WHI PATIENT Self Naomi Castelan MD [address] [place] [address] Referral ID Status Reason Start Date Expiration Date V isits Requested Visits Authorized [id number] Authorized 10/12/2023 04/11/2024 99 99 Reason Comments Problem Visit Specialty Diagnoses / Procedures Referred By Contac t Referred To Contact Machine Load Clerk / POSTER Diagnoses control counseling discuss control change Procedures OFFICE/OUTPATIENT EST PT MAY NOT REQ PHYS/QHP EST WHI PATIENT Self Naomi Castelan MD [address] [place] [address] Reason Comments Vaginal Bleeding Reason Comments Cough Fever, drainage, LAY ear pain, stuffy/runny nose, loss of voice, sore throat, nausea, sob, JUAN x 3 days Specialty Diagnoses / Procedures Referred By Gerry t Referred To Contact Radiology / [facility] Diagnoses Acute cough XR chest- room 3 Procedures RADIOLOGIC EXAM CHEST 2 VIEWS XR CHEST Self [facility] [address] [place] [address] Referral ID Status Reason Start Date Expiration Date Visits Re quested Visits Authorized [id number] Closed 03/02/2024 04/11/2024 1 1 Reason Comments Sore Throat cough x 2 days Reason Comments Headache Neck pain in back of head, on R side, causes migraines, nausea, x 1 months painful to look down, Care Teams (unrecognized sec tion and content) Attendant Child Activity Relationship Specialty Start Date End Date Reyes Lizy Cooper [address] [place] [address] PCP - General Family Medicine 01/20/22 Attendant Child Activity Relationship Specialty Start Date End Date Lizy Chambers [address] [place] [address] PCP - General Family Medicine 01/20/22 Attendant Child Activity Relationship Specialty Start Date End Date Reyes Lizy Cooper [address] [place] [address] PCP - General Family Medicine 01/20/22 Attendant Child Activity Relationship Specialty Start Date End Date Lizy Chambers [address] [place] [address] PCP - General Family Medicine 01/20/22 Attendant Child Activity Relationship Specialty Start Date End Date Lizy Chambers [address] [place] [address] PCP - General Family Medicine 01/20/22 Attendant Child Activity Relationship Specialty Start Date End Date Lizy Chambers [address] [place] [address] PCP - General Family Medicine 01/20/22 Attendant Child Activity Relationship Specialty Start Date End Date Lizy Chambers [address] [place] [address] PCP - General Family Medicine 01/20/22 Attendant Child Activity Relationship Specialty Start Date End Date Lizy Chambers [address] [place] [address] PCP - General Family Medicine 01/20/22 Attendant Child Activity Relationship Specialty Start Date End Date Lizy Chambers [address] [place] [address] PCP - General Family Medicine 01/20/22 Attendant Child Activity Relationship Specialty Start Date End Date Lizy Chambers [address] [place] [address] PCP - General Family Medicine 01/20/22 Attendant Child Activity Relationship Specialty Start Date End Date Lizy Chambers [address] [place] [address] PCP - General Family Medicine 01/20/22 Attendant Child Activity Relationship Specialty Start Date End Date Lizy Chambers CNP [address] [place] [address] PCP - General Family Medicine 01/20/22 Attendant Child Activity Relationship Specialty Start Date End Date Lizy Chambers CNP [address] [place] [address] PCP - General Family Medicine 01/20/22 Attendant Child Activity Relationship Specialty Start Date End Date Lizy Chambers CNP [address] [place] [address] PCP - General Family Medicine 01/20/22 Attendant Child Activity Relationship Specialty Start Date End Date Lizy Chambers CNP [address] [place] [address] PCP - General Family Medicine 01/20/22 Attendant Child Activity Relationship Specialty Start Date End Date Lizy Chambers CNP [address] [place] [address] PCP - General Family Medicine 01/20/22 Attendant Child Activity Relationship Specialty Start Date End Date Lizy Chambers CNP [address] [place] [address] PCP - General Family Medicine 01/20/22 Attendant Child Activity Relationship Specialty Start Date End Date Lizy Chambers CNP [address] [place] [address] PCP - General Family Medicine 01/20/22 Attendant Child Activity Relationship Specialty Start Date End Date Lizy Chambers CNP [address] [place] [address] PCP - General Family Medicine 01/20/22 Attendant Child Activity Relationship Specialty Start Date End Date Lizy Chambers CNP [address] [place] [address] PCP - General Family Medicine 01/20/22 Attendant Child Activity Relationship Specialty Start Date End Date Lizy Chambers CNP [address] [place] [address] PCP - General Family Medicine 01/20/22 Team Status: Active Member Role/Relationship Status Dates Dr. Alicia Comer MD Family Provider Active Lizy Chambers SUPERVISOR [employer], SUPERVISOR [employer]-C Primary Care Provider Active Team Status: Inactive Member Role/Relationship Status Dates Lizy Chambers SUPERVISOR [employer], SUPERVISOR [employer]-C Primary Care Provider Active Start: October 19, 2024 End: October 19, 2024 Lizy Chambers SUPERVISOR [employer], SUPERVISOR [employer]-C Referring Provider Active S tart: October 19, 2024 End: October 19, 2024 Mahogany Parry SUPERVISOR [employer], SUPERVISOR [employer]-C Attending Provider Active Start: October 19, 2024 End: October 19, 2024 Team Status: Active Member Role/Relationship Status Dates Lizy Chambers SUPERVISOR [employer], SUPERVISOR [employer]-C Primary Care Provider Active Start: October 19, 2024 Mahogany Parry SUPERVISOR [employer], SUPERVISOR [employer]-C Attending Provider Active Start: October 19, 2024 Team Status: Active Member Role/Relationship Status Dates Lizy Chambers SUPERVISOR [employer], SUPERVISOR [employer]-C Primary Care Provider Active Team Status: Inactive Member Role/Relationship Status Dates Lizy Chambers SUPERVISOR [employer], SUPERVISOR [employer]-C Primary Care Provider Active Start: October 19, 2024 End: October 19, 2024 Mahogany Parry SUPERVISOR [employer], SUPERVISOR [employer]-C Attending Provider Active Start: October 19, 2024 End: October 19, 2024 Team Status: Active Member Role/Relationship Status Dates Lizy Chambers SUPERVISOR [employer], SUPERVISOR [employer]-C Primary Care Provider Active Start: October 23, 2024 Mahogany Parry SUPERVISOR [employer], SUPERVISOR [employer]-C Attending Provider Active Start: October 23, 2024 Mahogany Parry SUPERVISOR [employer] MIXING, SUPERVISOR [employer]-C Referring Provider Active Start: October 23, 2024 Team Status: Inactive Member Role/Relationship Status Dates Lizy Chambers SUPERVISOR [employer], SUPERVISOR [employer]-C Primary Care Provider Active Start: October 23, 2024 End: October 23, 2024 Mahogany Parry SUPERVISOR [employer] MIXING, SUPERVISOR [employer]-C Attending Provider Active Start: October 23, 2024 End: October 23, 2024 Mahogany Parry SUPERVISOR [employer] M[employer], SUPERVISOR [employer]-C Referring Provider Active Start: October 23, 2024 End: October 23, 2024 Team Status: Active Member Role/Relationship Status Dates Lizy Chambers SUPERVISOR [employer], SUPERVISOR [employer]-C Primary care physician Active Team Status: Inactive Member Role/Relationship Status Dates Lizy Chambers SUPERVISOR [employer], SUPERVISOR [employer]-C Primary care physician Active Start: October 19, 2024 End: October 19, 2024 Lizy Chambers SUPERVISOR [employer], SUPERVISOR [employer]-C Referring Provider Active S tart: October 19, 2024 End: October 19, 2024 Mahogany Parry SUPERVISOR [employer], SUPERVISOR [employer]-C Attending physician Active Start: October 19, 2024 End: October 19, 2024 Team Status: Inactive Member Role/Relationship Status Dates Lizy Chambers SUPERVISOR [employer], SUPERVISOR [employer]-C Primary care physician Active Start: October 19, 2024 End: October 19, 2024 Mahogany Parry NP, SUPERVISOR [employer]-C Attending physician Active Start: October 19, 2024 End: October 19, 2024 Team Status: Inactive Member Role/Relationship Status Dates Lizy Chambers NP, SUPERVISOR [employer]-C Primary care physician Active Start: October 23, 2024 End: October 23, 2024 Mahogany Parry NP, SUPERVISOR [employer]-C Attending physician Active Start: October 23, 2024 End: October 23, 2024 Mahogany Parry NP, SUPERVISOR [employer]-C Referring Provider Active Start: October 23, 2024 End: October 23, 2024 Team Status: Inactive Member Role/Relationship Status Dates Lizy Chambers NP, SUPERVISOR [employer]-C Primary care physician Active Start: January 15, 2025 End: January 15, 2025 Lizy Chambers NP, SUPERVISOR [employer]-C Referring Provider Active S tart: January 15, 2025 End: January 15, 2025 Mahogany Parry NP, SUPERVISOR [employer]-C Attending physician Active Start: January 15, 2025 End: January 15, 2025 Team Status: Active Member Role/Relationship Status Dates Lizy Chambers NP, SUPERVISOR [employer]-C Primary care physician Active Start: January 15, 2025 Mahogany Parry NP, SUPERVISOR [employer]-C Attending physician Active Start: January 15, 2025 [...] BE BASED ON THE PRIMARY CLINICAL RECORDS. [employer] [facility]. provides no warranty or guarantee of the accuracy or completeness of information in this document.
[2025-04-10 08:08] LABS: PROGESTERONE 0.1 ng/mL (.)
== END | disposition home or self-care (01) ==
LOC: LAB 12:16
PROVIDERS: PCP Nurse Practitioner Family; Visit Provider Nurse Practitioner Women's Health
DX: Z31.9 Encounter for procreative management, unspecified (principal)
CPT/HCPCS: 36415; 84144